=== PATIENT | male | born 1965 | race Hispanic/Latino ===

== ENCOUNTER 2017-02-01 21:57 | Observation (INO) | payer MEDICAID ==
[2017-02-01 21:58] VITALS: PULSE 88
[2017-02-01 22:06] VITALS: BMI 24.1
--- NOTE | 2017-02-01 22:27 | ED PDOC ---
Arrival/HPI - General Chief Complaint: Chest Pain Time Seen by Provider: 02/01/17 22:00 Historian: Patient - History of Present Illness Narrative History of Present Illness (Text): 02/01/17 22:24 Sb Clarke is a 51 year old male who presents to the emergency department complaining of chest pain associated with shortness of breath, lightheadedness, dizziness, and diaphoresis. He states that the pain is non-radiating and L sided. States he was walking when the symptoms presented. Also notes of tingling sensation to fingertips. States he was not recently evaluated by a house fellow. Denies fever, chills, headache, nausea, vomiting, abdominal pain, back pain, urinary symptoms, or any other complaints at this time. PMD: . Time/Duration: 1-3 hours Symptom Course: Intermittent Activities at Onset: Light Context: Walking Past Medical History - Provider Review Nursing Documentation Reviewed: Yes - Past History Past History: No Previous - Infectious Disease Hx of Infectious Diseases: None - Tetanus Immunization Tetanus Immunization: Unknown - Cardiac Hx Cardiac Disorders: Yes Hx Hypertension: Yes (non compliant with meds) - Neurological Hx Migraine: Yes - Hematological/Oncological Hx Blood Transfusions: Yes Hx Blood Transfusion Reaction: No - Integumentary Other/Comment: multiple red abrasions to top of feet and both knees - Musculoskeletal/Rheumatological Hx Falls: Yes - Psychiatric Hx Depression: Yes Hx Emotional Abuse: No Hx Physical Abuse: No Hx Substance Use: No - Past Surgical History Past Surgical History: No Previous - Surgical History Hx Appendectomy: Yes Other/Comment: FACIAL SX, ABDOMINAL HERNIA REPAIR - Anesthesia Hx Anesthesia: Yes Hx Anesthesia Reactions: No Hx Malignant Hyperthermia: No - Suicidal Assessment Feels Threatened In Home Enviroment: No Family/Social History - Physician Review Nursing Documentation Reviewed: Yes Family/Social History: No Known Family HX Smoking Status: Heavy Smoker > 10 Cigarettes Daily Hx Alcohol Use: Yes (weekly) Hx Substance Use: No Hx Substance Use Treatment: No Allergies/Home Meds Allergies/Adverse Reactions: Allergies No Known Allergies Allergy (Verified 09/16/16 06:33) Home Medications: Home Meds Medication Instructions Recorded Confirmed No Known Home Med 02/01/17 02/01/17 Review of Systems - Physician Review All systems were reviewed & negative as marked: Yes - Review of Systems Constitutional: Normal. absent: Fatigue, Fevers Respiratory: SOB. absent: Cough, Sputum Cardiovascular: Chest Pain. absent: Palpitations, Edema Gastrointestinal: absent: Abdominal Pain, Diarrhea, Nausea, Vomiting Genitourinary Male: Normal Neurological: Dizziness. absent: Focal Weakness Psychiatric: Normal Physical Exam Vital Signs Reviewed: Yes Vital Signs Temp Pulse Resp BP Pulse Ox 02/01/17 23:58 98.4 F 64 17 141/78 96 02/01/17 22:09 99 F 106 H 18 145/84 98 Temperature: Afebrile Blood Pressure: Normal Pulse: Tachycardic Respiratory Rate: Normal Appearance: Positive for: Well-Appearing, Non-Toxic, Comfortable Pain Distress: None Mental Status: Positive for: Alert and Oriented X 3 - Systems Exam Head: Present: Atraumatic, Normocephalic Pupils: Present: PERRL Conjunctiva: Present: Normal Mouth: Present: Moist Mucous Membranes Respiratory/Chest: Present: Clear to Auscultation, Good Air Exchange. No: Respiratory Distress, Accessory Muscle Use Cardiovascular: Present: Regular Rate and Rhythm, Normal S1, S2. No: Murmurs Abdomen: Present: Normal Bowel Sounds. No: Tenderness, Distention, Peritoneal Signs Upper Extremity: Present: Normal Inspection. No: Cyanosis, Edema Lower Extremity: Present: Normal Inspection. No: Edema Neurological: Present: GCS=15, CN II-XII Intact, Speech Normal, Motor Func Grossly Intact, Normal Sensory Function Skin: Present: Warm, Dry, Normal Color. No: Rashes Psychiatric: Present: Alert, Oriented x 3, Normal Insight, Normal Concentration Medical Decision Making ED Course and Treatment: 02/01/17 22:28 Impression: A 51 year old male who presents to the emergency department complaining of chest pain associated with shortness of breath while walking earlier today. Concerning for angina. Differential Diagnosis include but are not limited to: Chest pain: r/o ACS Plan: -- EKG -- Labs, cardiac enzymes -- Chest X-ray -- Aspirin -- Reassess and disposition Progress Notes: 02/01/17 22:30 EKG interpreted by me: Sinus Tachycardia @ [address] No [address] elevations. 02/01/17 23:51 Trop x [address] Cardenas and will transfer to tele observation under hospitalist. - Lab Interpretations Lab Results: 02/01/17 22:55 02/01/17 22:55 Lab Results 02/01/17 22:55: Sodium 139, Potassium 3.1 L, Chloride 108 H, Carbon Dioxide 23, Anion Gap 11, BUN 14, Creatinine 0.9, Est GFR ( Amer) > 60, Est GFR (Non- Af Amer) > 60, Random Glucose 226 H, Calcium 8.9, Total Bilirubin 0.6, AST 21, ALT 27, Alkaline Phosphatase 51, Lactate Dehydrogenase 420, Total Creatine Kinase 98, Troponin I < 0.01, Total Protein 6.7, Albumin 3.7, Globulin 3.0, Albumin/Globulin Ratio 1.2 02/01/17 22:55: D-Dimer, Quantitative 0.26 02/01/17 22:55: WBC 5.8 D, RBC 4.44, Hgb 13.6 L, Hct 39.7 L, MCV 89.4, MCH 30.6 , MCHC 34.3, RDW 12.7, Plt Count 136, MPV 12.5 H, Gran % 67.7, Lymph % (Auto) 22.5, [place] % (Auto) 7.6 H, Eos % (Auto) 1.9, Baso % (Auto) 0.3, Gran # 3.90, Lymph # 1.3, [place] # 0.4, Eos # 0.1, Baso # 0.02 - RAD Interpretation Radiology Orders: 02/01/17 22:23 CHEST PORTABLE [RAD] Stat - Medication Orders Current Medication Orders: Discontinued Medications Aspirin (Aspirin Chewable) 324 mg PO STAT STA Stop: 02/01/17 22:24 Last Admin: 02/01/17 22:38 Dose: 324 mg Potassium Chloride (K-Dur 20 Meq Er Tab) 40 meq PO STAT STA Stop: 02/01/17 23:46 - Scribe Statement The provider has reviewed the documentation as recorded by the Kayele Akhtar Provider Attestation: Provider Scribe Attestation: All medical record entries made by the Scribe were at my direction and personally dictated by me. I have reviewed the chart and agree that the record accurately reflects my personal performance of the history, physical exam, medical decision making, and the department course for this patient. I have also personally directed, reviewed, and agree with the discharge instructions and disposition. Disposition/Present on Arrival - Present on Arrival Any Indicators Present on Arrival: No History of DVT/PE: No History of Uncontrolled Diabetes: No Urinary Catheter: No History of Decub. Ulcer: No History Surgical Site Infection Following: None - Disposition Have Diagnosis and Disposition been Completed?: Yes Diagnosis: Chest pain Disposition: HOSPITALIZED Disposition Time: 00:12 Patient Plan: Observation Condition: FAIR
[2017-02-01 23:02] LABS: ADD MANUAL DIFF? NO
[2017-02-01 23:08] LABS: BASO # 0.02 K/mm3 (0.0-2.0); BASO % 0.3 % (0.0-3.0); EOS # 0.1 (0.0-0.7); EOS % 1.9 % (1.5-5.0); GRAN % 67.7 % (50.0-68.0); HEMATOCRIT 39.7 % (42.0-52.0); LYMPH # 1.3 (1.2-3.4); LYMPH % 22.5 % (22.0-35.0); MEAN CELL VOLUME 89.4 fL (80.0-105.0); MEAN CORPUSCULAR HEMOGLOBIN 30.6 pg (25.0-35.0); MEAN CORPUSCULAR HGB CONC 34.3 g/dl (31.0-37.0); MEAN PLATELET VOLUME 12.5 fl (7.0-11.0); MONO # 0.4 (0.1-0.6); MONO % 7.6 % (1.0-6.0); PLATELET COUNT 136 10^3/uL (120.0-450.0); RED CELL DISTRIBUTION WIDTH 12.7 % (11.5-14.5); WHITE BLOOD COUNT 5.8 10^3/ul (4.5-11.0)
[2017-02-01 23:14] LABS: ALB/GLOB RATIO 1.2 (1.1-1.8); ALKALINE PHOSPHATASE 51 U/L (38-133); ALT/SGPT 27 U/L (7-56); AST/SGOT 21 U/L (15-59); BILIRUBIN,TOTAL 0.6 mg/dL (0.2-1.3); BLOOD UREA NITROGEN 14 mg/dL (7-21); CALCIUM 8.9 mg/dL (8.4-10.5); CARBON DIOXIDE 23 mmol/L (21-33); CHLORIDE 108 mmol/L (98-107); GFR AFRICAN-AMERICAN > 60; GLUCOSE,RANDOM 226 mg/dL (70-110); POTASSIUM 3.1 mmol/L (3.6-5.0); SODIUM 139 mmol/L (132-148); TOTAL PROTEIN 6.7 g/dL (5.8-8.3)
[2017-02-01 23:26] LABS: TROPONIN I < 0.01 ng/mL
[2017-02-01] MEDS ORDERED: Potassium Chloride 20 mEq ER Tab PO STA (23:45)
--- NOTE | 2017-02-02 01:51 | CP.PCM.HP ---
<Hi Barry - Last Filed: 02/02/17 01:33> History of Present Illness - History of Present Illness History of Present Illness: CC: chest pain 51 year old male with past medical history of alcoholic cardiomyopathy , anxiety, depression, and facial bone fractures presents to [facility] ED with left sided chest pain. Patient reports the chest pain started tonight at 9:30pm while he was walking in [facility]. The chest pain had a sudden onset, it is located at left side of the chest pain, tightness in quality, non-radiating, and 8/10 in intensity. The pain is not exacerbated with activity. Patient also complains of feeling numbness and tingling sensation in his left fingertips. Other associated symptoms include shortness of breath, lightheadedness, dizziness, and diaphoresis. Patient's most recent echocardiogram was done on 2015 with EF of 50.4%. He does not have an outpatient eight section blower. Patient states he sees his PMD regularly and no medications were ever prescribed to him. Patient denies having trauma, headache, weakness, fever, chills, abdominal pain, nausea, vomiting, diarrhea, or urinary symptoms. PMD: Dr. Vinson PMHx: alcoholic cardiomyopathy, anxiety, depression, and facial bone fractures PSHx: hernia repair, facial bone repair Allergy: NKDA Social Hx: active smoker (1 pack/day for 3 years), social alcohol drinker, former cocaine and marijuana use Family Hx: Mother-HTN, DM, father-HTN Home meds: none Present on Admission - Present on Admission Any Indicators Present on Admission: No History of DVT/PE: No History of Uncontrolled Diabetes: No Review of Systems - Constitutional Constitutional: As Per HPI. absent: Chills, Fever - EENT Eyes: As Per HPI. absent: Blurred Vision, Loss of Vision Ears: As Per HPI. absent: Dizziness Nose/Mouth/Throat: As Per HPI. absent: Nasal Congestion, Dry Mouth - Cardiovascular Cardiovascular: As Per HPI, Chest Pain, Chest Pain at Rest, Diaphoresis, Lightheadedness. absent: Chest Pain with Activity, Leg Edema, Syncope - Respiratory Respiratory: As Per HPI, Dyspnea. absent: Wheezing - Gastrointestinal Gastrointestinal: As Per HPI. absent: Diarrhea, Nausea, Vomiting - Musculoskeletal Musculoskeletal: As Per HPI. absent: Back Pain - Integumentary Integumentary: As Per HPI. absent: Pruritus, Swelling - Neurological Neurological: As Per HPI, Dizziness. absent: Focal Weakness - Psychiatric Psychiatric: As Per HPI. absent: Confusion, Depression - Endocrine Endocrine: As Per HPI - Hematologic/Lymphatic Hematologic: As Per HPI Past Patient History - Infectious Disease Hx of Infectious Diseases: None - Tetanus Immunizations Tetanus Immunization: Unknown - Past Social History Smoking Status: Heavy Smoker > 10 Cigarettes Daily - CARDIAC Hx Cardiac Disorders: Yes Hx Hypertension: Yes (non compliant with meds) - NEUROLOGICAL Hx Migraine: Yes - HEMATOLOGICAL/ONCOLOGICAL Hx Blood Transfusions: Yes Hx Blood Transfusion Reaction: No - INTEGUMENTARY Other/Comment: multiple red abrasions to top of feet and both knees - MUSCULOSKELETAL/RHEUMATOLOGICAL Hx Falls: Yes - GASTROINTESTINAL Hx Ulcer: Yes (x6 17 yrs ago and 3 yrs ago) - PSYCHIATRIC Hx Depression: Yes Hx Emotional Abuse: No Hx Physical Abuse: No Hx Substance Use: No - SURGICAL HISTORY Hx Appendectomy: Yes Other/Comment: FACIAL SX, ABDOMINAL HERNIA REPAIR - ANESTHESIA Hx Anesthesia: Yes Hx Anesthesia Reactions: No Hx Malignant Hyperthermia: No Meds Allergies/Adverse Reactions: Allergies Allergy/AdvReac Type Severity Reaction Status Date / Time No Known Allergies Allergy Verified 09/16/16 06:33 Physical Exam - Constitutional Appears: Well, Non-toxic, No Acute Distress - Head Exam Head Exam: ATRAUMATIC, NORMAL INSPECTION, NORMOCEPHALIC - Eye Exam Eye Exam: EOMI, Normal appearance, PERRL - ENT Exam ENT Exam: Mucous Membranes Moist - Neck Exam Neck exam: Positive for: Normal Inspection - Respiratory Exam Respiratory Exam: Clear to Auscultation Bilateral, NORMAL BREATHING PATTERN. absent: Wheezes, Respiratory Distress, Stridor - Cardiovascular Exam Cardiovascular Exam: REGULAR RHYTHM, RRR, +S1, +S2 - GI/Abdominal Exam GI & Abdominal Exam: Normal Bowel Sounds, Soft. absent: Tenderness - Extremities Exam Extremities exam: Positive for: normal capillary refill, normal inspection, pedal pulses present. Negative for: pedal edema - Back Exam Back exam: NORMAL INSPECTION - Neurological Exam Neurological exam: Alert, CN II-XII Intact, Oriented x3 - Psychiatric Exam Psychiatric exam: Normal Affect, Normal Mood - Skin Skin Exam: Dry, Intact, Warm Results - Vital Signs Recent Vital Signs: Last Vital Signs Temp 98.4 F 02/01/17 23:58 Pulse 64 02/01/17 23:58 Resp 17 02/01/17 23:58 BP 141/78 02/01/17 23:58 Pulse Ox 96 02/01/17 23:58 - Labs Result Diagrams: 02/01/17 22:55 02/01/17 22:55 Assessment & Plan - Assessment and Plan (Free Text) Assessment: 51 year old male with past medical history of alcoholic cardiomyopathy, anxiety , depression, and facial bone fractures presents with left sided chest pain Plan: Chest pain r/o ACS -ASA given in the ED -CXR showed no active disease -EKG showed NSR at [address] changes. LVH -Troponin negative, repeats pending -Heart healthy diet -Cardiology consult, Dr. Ordoñez help appreciated Hypokalemia -Potassium 3.1 on admission -40meq KCl po given -Follow up AM labs Tobacco abuse -Nicotine patch daily -Cessation was strongly advised Prophylactic measures -Protonix for GI ppx -SCD for DVT ppx <Enzo Cardenas - Last Filed: 02/02/17 02:59> Results - Vital Signs Recent Vital Signs: Last Vital Signs Temp 98.4 F 02/01/17 23:58 Pulse 64 02/01/17 23:58 Resp 17 02/01/17 23:58 BP 141/78 02/01/17 23:58 Pulse Ox 96 02/01/17 23:58 - Labs Result Diagrams: 02/01/17 22:55 02/01/17 22:55 Attending/Attestation - Attestation I have personally seen and examined this patient.: Yes I have fully participated in the care of the patient.: Yes I have reviewed all pertinent clinical information: Yes Notes (Text): 02/02/17 02:58 Patient was seen when he was in the ER in bed # 3. Agree with history, physical examination , assessment and plan.
[2017-02-02] MEDS: Pantoprazole 40 mg EC Tab PO SCH (05:33)
[2017-02-02 06:48] LABS: ADD MANUAL DIFF? NO
[2017-02-02 07:15] LABS: BLOOD UREA NITROGEN 16 mg/dL (7-21); CALCIUM 8.8 mg/dL (8.4-10.5); CARBON DIOXIDE 26 mmol/L (21-33); CHLORIDE 109 mmol/L (98-107); GFR AFRICAN-AMERICAN > 60; GLUCOSE,RANDOM 72 mg/dL (70-110); POTASSIUM 3.6 mmol/L (3.6-5.0); SODIUM 141 mmol/L (132-148)
[2017-02-02 07:18] LABS: BASO # 0.04 K/mm3 (0.0-2.0); BASO % 0.7 % (0.0-3.0); EOS # 0.1 (0.0-0.7); EOS % 2.6 % (1.5-5.0); GRAN # 2.92 (1.4-6.5); GRAN % 53.3 % (50.0-68.0); LYMPH # 1.9 (1.2-3.4); LYMPH % 34.6 % (22.0-35.0); MEAN CELL VOLUME 89.7 fL (80.0-105.0); MEAN CORPUSCULAR HEMOGLOBIN 30.6 pg (25.0-35.0); MEAN CORPUSCULAR HGB CONC 34.1 g/dl (31.0-37.0); MEAN PLATELET VOLUME 12.9 fl (7.0-11.0); MONO # 0.5 (0.1-0.6); MONO % 8.8 % (1.0-6.0); PLATELET COUNT 148 10^3/uL (120.0-450.0); RED CELL DISTRIBUTION WIDTH 12.7 % (11.5-14.5); WHITE BLOOD COUNT 5.5 10^3/ul (4.5-11.0)
[2017-02-02 07:23] LABS: TROPONIN I < 0.01 ng/mL
--- NOTE | 2017-02-02 08:21 | RAD ---
HISTORY: Chest pain COMPARISON: 09/17/2016 FINDINGS: LUNGS: The lungs are well inflated and clear. PLEURA: No significant pleural effusion identified, no pneumothorax apparent. CARDIOVASCULAR: Normal. OSSEOUS STRUCTURES: No significant abnormalities. VISUALIZED UPPER ABDOMEN: Normal. OTHER FINDINGS: None. IMPRESSION: No active pulmonary disease.
--- NOTE | 2017-02-02 11:33 | CON ---
DATE: 02/02/2017 HISTORY OF PRESENT ILLNESS: The patient is a 51-year-old male with a long history of smoking who pre sents with one episode of substernal chest pain while ambulating. His symptoms are now resolved. There is mild dyspnea associated. PAST MEDICAL HISTORY: Free of cardiac disease. The patient is on no medications. No diabetes melli tus. No hypertension, no hypercholesterolemia. SOCIAL HISTORY: The patient is a former heavy drinker who states he has cut back much. SOCIAL HISTORY: Still smokes a pack a day. REVIEW OF SYSTEMS: A 14-point review of systems was reviewed in detail. No chest pain now. No dysp laure now. The patient was able to ambulate on the floor without symptoms. PHYSICAL EXAMINATION: VITAL SIGNS: Blood pressure is 110/68, heart rate is in the 60s. NECK: Negative JVD. LUNGS: Without rales. HEART: Revealed S1, S2. EXTREMITIES: Without edema. LABORATORIES: Includes an EKG that shows normal sinus rhythm with no acute changes. Troponins are negative x 2. BUN and creatinine unremarkable. The hemoglobin is 13.3. DIAGNOSES: 1. Transient chest pain. 2. High probability for coronary artery disease. 3. Chronic obstructive pulmonary disease. 4. Mild dyspnea. Given these findings, there is no evidence for acute coronary syndrome. We will arrange for an outpa tient stress test next week on Sunday. I have discussed with the patient about the need for daily aspirin as well as to stop smoking. The p atient should be discharged on a nicotine patch. Dat Ordoñez MD cc: [id number] TT: 02/02/2017 11:32:35 Confirmation # [id number] Dictation # [id number] radha
[2017-02-02] MEDS: Enoxaparin 80 mg Syringe SC SCH ×2 (12:07→22:19)
[2017-02-02 13:21] LABS: TROPONIN I < 0.01 ng/mL
--- NOTE | 2017-02-02 18:58 | CARD ---
APPROVED REPORT EKG Measurement Heart [id number] <Conclusion> Sinus bradycardia Moderate voltage criteria for LVH, may be normal variant Borderline ECG
--- NOTE | 2017-02-02 19:06 | CARD ---
APPROVED REPORT EKG Measurement Heart [id number] <Conclusion> Sinus tachycardia Possible Left atrial enlargement RSR' or QR pattern in V1 suggests right ventricular conduction delay Left ventricular hypertrophy Abnormal ECG
[2017-02-03] MEDS: Pantoprazole 40 mg EC Tab PO SCH (05:44)
[2017-02-03 07:43] LABS: ADD MANUAL DIFF? NO
[2017-02-03 07:58] LABS: BASO # 0.02 K/mm3 (0.0-2.0); BASO % 0.4 % (0.0-3.0); EOS # 0.2 (0.0-0.7); EOS % 2.9 % (1.5-5.0); GRAN # 3.06 (1.4-6.5); GRAN % 54.4 % (50.0-68.0); HEMATOCRIT 38.6 % (42.0-52.0); LYMPH # 1.9 (1.2-3.4); MEAN CELL VOLUME 87.7 fL (80.0-105.0); MEAN CORPUSCULAR HEMOGLOBIN 30.2 pg (25.0-35.0); MEAN CORPUSCULAR HGB CONC 34.5 g/dl (31.0-37.0); MEAN PLATELET VOLUME 12.7 fl (7.0-11.0); MONO # 0.5 (0.1-0.6); MONO % 9.3 % (1.0-6.0); PLATELET COUNT 146 10^3/uL (120.0-450.0); RED CELL DISTRIBUTION WIDTH 12.5 % (11.5-14.5); WHITE BLOOD COUNT 5.6 10^3/ul (4.5-11.0)
[2017-02-03 08:03] LABS: ALB/GLOB RATIO 1.1 (1.1-1.8); ALKALINE PHOSPHATASE 50 U/L (38-133); ALT/SGPT 33 U/L (7-56); AST/SGOT 19 U/L (15-59); BILIRUBIN,TOTAL 0.5 mg/dL (0.2-1.3); BLOOD UREA NITROGEN 14 mg/dL (7-21); CALCIUM 8.8 mg/dL (8.4-10.5); CARBON DIOXIDE 27 mmol/L (21-33); CHLORIDE 108 mmol/L (98-107); GFR AFRICAN-AMERICAN > 60; GLUCOSE,RANDOM 87 mg/dL (70-110); POTASSIUM 3.8 mmol/L (3.6-5.0); SODIUM 140 mmol/L (132-148); TOTAL PROTEIN 6.5 g/dL (5.8-8.3)
[2017-02-03] MEDS: Enoxaparin 80 mg Syringe SC SCH ×2 (10:52→22:43)
--- NOTE | 2017-02-03 18:03 | PN ---
DATE: 02/03/2017 This patient is in room 266, bed 1. This note is being dictated on behalf of Dr. Ordoñez, whom I am cov ering. HISTORY OF PRESENT ILLNESS: The patient is a 51-year-old male who presented with substernal chest pa in while ambulating. The patient is chest pain free, now lying flat in bed without any cardiac sympt oms at the present moment. PHYSICAL EXAMINATION: VITAL SIGNS: Blood pressure is 116/70, respirations 21, pulse 59, temperature 97.1. HEAD: Normocephalic. EYES: Pupils normal. Conjunctivae normal. NOSE AND THROAT: Normal. NECK: JVP low. Carotid equal. THORAX: AP diameter normal. LUNGS: Clear. CARDIOVASCULAR: S1, S2. ABDOMEN: Soft, nontender, no organomegaly. Bowel sounds normal. EXTREMITIES: No clubbing, no cyanosis. LABORATORY DATA: WBC 5.6, hemoglobin 13.3, hematocrit 38.6, platelet 146. Sodium 140, potassium 3.8 , BUN 14, creatinine 0.9. AST and ALT normal. Total protein and albumin normal. Troponin x 3 negat tr. DIAGNOSES: Chest pain, chronic obstructive pulmonary disease. PLAN: The patient is already scheduled for cardiac catheterization on Sunday. In the meantime, the patient is getting aspirin 81 mg daily, metoprolol 25 b.i.d., Lovenox 74 mg subQ q.12 hours. Plavix 300 mg was given yesterday; today the patient is getting 75 mg daily. Protonix 40 daily. Will cash nue to follow. Rick Knowles MD cc: [id number] TT: 02/03/2017 18:03:06 Confirmation # [id number] Dictation # [id number] dn
--- NOTE | 2017-02-03 19:58 | CP.PCM.PN ---
<Yessenia Spicer - Last Filed: 02/03/17 20:00> Subjective - Date & Time of Evaluation Date of Evaluation: 02/03/17 Time of Evaluation: 09:35 - Subjective Subjective: Pt seen and evaluated at bedside. Pt reports continued L chest pain, lessening from day before. Denies N/V, abdominal pain. Afebrile overnight. Objective - Vital Signs/Intake and Output Vital Signs (last 24 hours): Temp Pulse Resp BP Pulse Ox 98.5 F 65 19 163/62 H 98 02/03/17 18:26 02/03/17 18:00 02/03/17 18:00 02/03/17 18:00 02/03/17 05:51 - Medications Medications: Current Medications Acetaminophen (Tylenol 325mg Tab) 650 mg PO Q6H PRN PRN Reason: Fever >100.4 F Last Admin: 02/03/17 18:26 Dose: 650 mg Aspirin (Aspirin Chewable) 81 mg PO DAILY [facility] Last Admin: 02/03/17 10:51 Dose: 81 mg Clopidogrel Bisulfate (Plavix) 75 mg PO DAILY [facility] Last Admin: 02/03/17 10:51 Dose: 75 mg Enoxaparin Sodium (Lovenox) 74 mg SC Q12H [facility] PRN Reason: Protocol Stop: 02/04/17 12:00 Last Admin: 02/03/17 10:52 Dose: 74 mg Metoprolol Tartrate (Lopressor) 25 mg PO BID [facility] Last Admin: 02/03/17 17:54 Dose: 25 mg Nicotine (Nicoderm Cq) 1 patch TD DAILY [facility] Last Admin: 02/03/17 10:52 Dose: 1 patch Pantoprazole Sodium (Protonix Ec Tab) 40 mg PO 0630 [facility] Last Admin: 02/03/17 05:44 Dose: 40 mg - Labs Labs: 02/03/17 07:39 02/03/17 07:39 - Constitutional Appears: Non-toxic, No Acute Distress - Head Exam Head Exam: ATRAUMATIC, NORMOCEPHALIC - Eye Exam Eye Exam: EOMI, Normal appearance - Respiratory Exam Respiratory Exam: Clear to Ausculation Bilateral, NORMAL BREATHING PATTERN - Cardiovascular Exam Cardiovascular Exam: +S1, +S2. absent: Tachycardia - GI/Abdominal Exam GI & Abdominal Exam: Soft. absent: Tenderness - Exam External exam: absent: Ecchymosis, Erythema - Extremities Exam Extremities Exam: absent: Pedal Edema, Tenderness - Back Exam Back Exam: absent: CVA tenderness (L), CVA tenderness (R) - Neurological Exam Neurological Exam: Alert, Awake - Psychiatric Exam Psychiatric exam: Normal Affect, Normal Mood - Skin Skin Exam: Intact, Normal Color Assessment and Plan - Assessment and Plan (Free Text) Plan: 51 year old male with past medical history of alcoholic cardiomyopathy, anxiety , depression, and facial bone fractures presents with left sided chest pain. Chest pain r/o ACS -ASA given in the ED -CXR showed no active disease, EKG showed NSR at [address] changes. LVH -Troponin negative x3 -Heart healthy diet -Cardiology consult, Dr. Ordoñez help appreciated -plan for cardiac cath on sunday Hypokalemia -Potassium 3.1 on admission, repleted -Follow up AM labs Tobacco abuse -Nicotine patch daily -Cessation was strongly advised Prophylactic measures -Protonix for GI ppx -SCD for DVT ppx <Nora Joshi - Last Filed: 02/03/17 21:47> Objective - Vital Signs/Intake and Output Vital Signs (last 24 hours): Temp Pulse Resp BP Pulse Ox 98.5 F 65 19 163/62 H 98 02/03/17 18:26 02/03/17 18:00 02/03/17 18:00 02/03/17 18:00 02/03/17 05:51 - Medications Medications: Current Medications Acetaminophen (Tylenol 325mg Tab) 650 mg PO Q6H PRN PRN Reason: Fever >100.4 F Last Admin: 02/03/17 18:26 Dose: 650 mg Aspirin (Aspirin Chewable) 81 mg PO DAILY [facility] Last Admin: 02/03/17 10:51 Dose: 81 mg Clopidogrel Bisulfate (Plavix) 75 mg PO DAILY [facility] Last Admin: 02/03/17 10:51 Dose: 75 mg Enoxaparin Sodium (Lovenox) 74 mg SC Q12H [facility] PRN Reason: Protocol Stop: 02/04/17 12:00 Last Admin: 02/03/17 10:52 Dose: 74 mg Metoprolol Tartrate (Lopressor) 25 mg PO BID [facility] Last Admin: 02/03/17 17:54 Dose: 25 mg Nicotine (Nicoderm Cq) 1 patch TD DAILY [facility] Last Admin: 02/03/17 10:52 Dose: 1 patch Pantoprazole Sodium (Protonix Ec Tab) 40 mg PO 0630 [facility] Last Admin: 02/03/17 05:44 Dose: 40 mg - Labs Labs: 02/03/17 07:39 02/03/17 07:39 Attending/Attestation - Attestation I have personally seen and examined this patient.: Yes I have fully participated in the care of the patient.: Yes I have reviewed all pertinent clinical information, including history, physical exam and plan: Yes Notes (Text): 02/03/17 21:45 Patient seen and examined at bedside with the resident. Continues to have some left chest discomfort but slightly better than admission. Labs, vitals and orders reviewed. Plan for cardiac cath on Sunday. Continue Therapeutic AC with lovenox and telemetry monitoring. Discussed and agree with the plan outlined above by the resident. Monitor/replete electrolytes.
[2017-02-04] MEDS: Pantoprazole 40 mg EC Tab PO SCH (05:30)
[2017-02-04 08:04] LABS: HEMATOCRIT 40.1 % (42.0-52.0); MEAN CELL VOLUME 88.1 fL (80.0-105.0); MEAN CORPUSCULAR HEMOGLOBIN 30.3 pg (25.0-35.0); MEAN CORPUSCULAR HGB CONC 34.4 g/dl (31.0-37.0); RED CELL DISTRIBUTION WIDTH 12.4 % (11.5-14.5); WHITE BLOOD COUNT 5.5 10^3/ul (4.5-11.0)
[2017-02-04 08:22] LABS: BLOOD UREA NITROGEN 12 mg/dL (7-21); CALCIUM 9.1 mg/dL (8.4-10.5); CARBON DIOXIDE 29 mmol/L (21-33); CHLORIDE 105 mmol/L (98-107); GFR AFRICAN-AMERICAN > 60; GLUCOSE,RANDOM 87 mg/dL (70-110); POTASSIUM 4.3 mmol/L (3.6-5.0); SODIUM 140 mmol/L (132-148)
[2017-02-04] MEDS: Enoxaparin 80 mg Syringe SC SCH (11:02)
--- NOTE | 2017-02-04 13:42 | PN ---
DATE: 02/04/2017 The patient is in room 266, bed 1. This note is being dictated on behalf of Dr. Ordoñez, whom I am mary carmen shah. HISTORY OF PRESENT ILLNESS: The patient is a 51-year-old male, presented with left-sided chest pain. The patient still has chest pain, lying flat in bed without shortness of breath or palpitation. PHYSICAL EXAMINATION: VITAL SIGNS: Blood pressure 128/84, respirations 20, pulse 61, temperature 97.8. HEAD: Normocephalic. EYES: Pupils normal. Conjunctivae normal. NOSE AND THROAT: Normal. NECK: JVP low. Carotid equal. THORAX: AP diameter normal. LUNGS: Clear. CARDIOVASCULAR: S1, S2. ABDOMEN: Soft, no tenderness, no organomegaly. Bowel sounds normal. EXTREMITIES: No clubbing, no cyanosis. LABORATORIES: WBC 5.5, hemoglobin 13.8, hematocrit 40.1, platelet 139. Sodium 140, potassium 4.3, B UN 12, creatinine 0.9, calcium 9.1. Troponin x 3 negative. DIAGNOSES: Chest pain, chronic obstructive pulmonary disease. PLAN: The patient is scheduled for cardiac catheterization tomorrow morning. In the meantime, cash gallegos present therapy with aspirin, Plavix, metoprolol and Protonix. Dr. Ordoñez will follow the patient starting tomorrow. Rick Knowles MD cc: [id number] TT: 02/04/2017 13:41:23 Confirmation # [id number] Dictation # [id number]
--- NOTE | 2017-02-04 16:57 | CP.PCM.PN ---
Subjective - Date & Time of Evaluation Date of Evaluation: 02/04/17 Time of Evaluation: 10:30 - Subjective Subjective: Patient seen and examined at bedside with the resident. No overnight issues reported. Patient feels better overall but still has the atypical chest discomfort. He denies any new complaints, admits to some anxiety and stress in life. Vitals, labs, notes and medications reviewed Objective - Vital Signs/Intake and Output Vital Signs (last 24 hours): Temp Pulse Resp BP Pulse Ox 98.4 F 75 20 126/82 100 02/04/17 12:00 02/04/17 14:00 02/04/17 12:00 02/04/17 12:00 02/04/17 05:42 Intake and Output: 02/04/17 02/04/17 06:59 18:59 Intake Total 480 240 Output Total 700 Balance -220 240 - Medications Medications: Current Medications Acetaminophen (Tylenol 325mg Tab) 650 mg PO Q6H PRN PRN Reason: Fever >100.4 F Last Admin: 02/03/17 18:26 Dose: 650 mg Alprazolam (Xanax) 0.25 mg PO Q8 PRN; Protocol PRN Reason: Anxiety Stop: 02/11/17 14:01 Last Admin: 02/04/17 11:03 Dose: 0.25 mg Aspirin (Aspirin Chewable) 81 mg PO DAILY [facility] Last Admin: 02/04/17 10:08 Dose: 81 mg Clopidogrel Bisulfate (Plavix) 75 mg PO DAILY [facility] Last Admin: 02/04/17 10:08 Dose: 75 mg Metoprolol Tartrate (Lopressor) 25 mg PO BID [facility] Last Admin: 02/04/17 10:08 Dose: 25 mg Nicotine (Nicoderm Cq) 1 patch TD DAILY [facility] Last Admin: 02/04/17 10:08 Dose: 1 patch Pantoprazole Sodium (Protonix Ec Tab) 40 mg PO 0630 [facility] Last Admin: 02/04/17 05:30 Dose: 40 mg - Labs Labs: 02/04/17 07:54 02/04/17 07:54 - Constitutional Appears: Well, Non-toxic, No Acute Distress - Head Exam Head Exam: ATRAUMATIC, NORMAL INSPECTION - Eye Exam Eye Exam: Normal appearance, PERRL - ENT Exam ENT Exam: Mucous Membranes Moist, Normal Exam - Neck Exam Neck Exam: Full ROM, Normal Inspection - Respiratory Exam Respiratory Exam: Clear to Ausculation Bilateral, NORMAL BREATHING PATTERN - Cardiovascular Exam Cardiovascular Exam: RRR, +S1, +S2 - GI/Abdominal Exam GI & Abdominal Exam: Soft, Normal Bowel Sounds - Rectal Exam Rectal Exam: Deferred - Extremities Exam Extremities Exam: Full ROM, Normal Capillary Refill - Back Exam Back Exam: Full ROM, NORMAL INSPECTION - Neurological Exam Neurological Exam: Alert, Oriented x3 - Psychiatric Exam Psychiatric exam: Anxious, Normal Affect - Skin Skin Exam: Normal Color, Warm Assessment and Plan - Assessment and Plan (Free Text) Plan: 1. Atypical Chest Pain -ACS ruled out with normal cardiac enzymes and EKGs -continue ASA, plavix, BBlockers, Therap. Lovenox -Cardiac Cath on Sunday -Heart healthy diet 2. Anxiety -Trial of Xanax prn. 3.Tobacco abuse -Nicotine patch daily -Cessation was strongly advised 4.Prophylactic measures -Protonix for GI ppx -on Therap. Lovenox for DVT ppx
[2017-02-05] MEDS: Pantoprazole 40 mg EC Tab PO SCH (05:35)
[2017-02-05 05:53] VITALS: O2SAT 97
[2017-02-05 06:54] LABS: MEAN CELL VOLUME 88.6 fL (80.0-105.0); MEAN CORPUSCULAR HEMOGLOBIN 30.5 pg (25.0-35.0); MEAN CORPUSCULAR HGB CONC 34.4 g/dl (31.0-37.0); RED CELL DISTRIBUTION WIDTH 12.5 % (11.5-14.5); WHITE BLOOD COUNT 5.2 10^3/ul (4.5-11.0)
[2017-02-05 07:20] LABS: BLOOD UREA NITROGEN 13 mg/dL (7-21); CARBON DIOXIDE 30 mmol/L (21-33); CHLORIDE 106 mmol/L (98-107); GFR AFRICAN-AMERICAN > 60; GLUCOSE,RANDOM 88 mg/dL (70-110); POTASSIUM 3.9 mmol/L (3.6-5.0); SODIUM 142 mmol/L (132-148)
[2017-02-05] MEDS ORDERED: Lidocaine 2% Inj (20ml) ONE (09:14)
[2017-02-05] MEDS ORDERED: Iodixanol 320 MG/ML 200 ML BOTTLE IV ONE (09:14)
[2017-02-05] MEDS ORDERED: Midazolam 2 MG/2 ML VIAL ONE ×2 (09:55→10:24)
[2017-02-05] MEDS ORDERED: Nitroglycerin 50mg in D5W 50 MG/250 ML BOTTLE IV ONE (10:34)
[2017-02-05] MEDS ORDERED: Sodium Chloride 0.9% 1,000 ML IV SCH (10:45)
[2017-02-05] MEDS ORDERED: diltiaZEM 180 mg/24 Hours CD Cap PO SCH (11:00)
--- NOTE | 2017-02-05 13:11 | CARDCATH ---
PROCEDURE DATE: 02/05/2017 HISTORY OF PRESENT ILLNESS: The patient is a 51-year-old male who presents with persistent exertiona l angina. The patient is a heavy smoker. Because of his ongoing symptoms, cardiac catheterization was recommended. PROCEDURE: Left heart catheterization with coronary angiography and left ventriculogram. The right femoral artery was cannulated with a 6-Portuguese sheath. There were no complications. The findings on catheterization revealed a left ventricle that contracted normally. Estimated ejecti on fraction is 60%. His coronary anatomy revealed a right dominant circulation. The RCA revealed intimal irregularities without critical lesions. The left main artery was unremarkable. The circumflex artery and obtuse marginal branches revealed intimal irregularities without significan t stenosis. The LAD revealed a long 60% stenosis in the mid portion. After 200 mcg of IC nitroglycerin, the 60% stenosis was reduced to 40%-50% with DANIELA 3 flow. Angio-Seal was used to close the femoral artery site. The patient tolerated the procedure well. SUMMARY: The procedure revealed: 1. Single vessel coronary artery disease with a 60% stenosis in the mid left anterior descending, wh ich improved with intracoronary nitroglycerin. 2. Left ventricular function is normal. 3. X-ray is consistent with chronic obstructive pulmonary disease and possible emphysema. Given these findings, the patient's treatment should be: 1. Aspirin. 2. Calcium channel aron with diltiazem 180 daily to reduce spasm. 3. Statin therapy. 4. Cessation of smoking program. I have discussed this with the patient in detail. Dat Ordoñez MD cc: [phone] TT: 02/05/2017 13:11:15 en
[2017-02-05 18:05] VITALS: BP 134/86; PULSE 105; RESP 22; TEMP 98.5
--- NOTE | 2017-02-05 18:26 | CP.PCM.DIS ---
<Lauro Manjarrez - Last Filed: 02/05/17 19:38> Provider - Provider Date of Admission: 02/03/17 08:33 Attending physician: Yohan García MD Primary care physician: Enedina Vinson MD Consults: Cardio: Dr. Ordoñez Time Spent in preparation of Discharge (in minutes): 45 Diagnosis - Discharge Diagnosis (1) Chest pain Status: Acute Priority: High (2) Shortness of breath Status: Acute Priority: Medium (3) Tobacco abuse Status: Chronic Priority: Medium Hospital Course - Lab Results Lab Results: Most Recent Lab Values WBC 5.2 10^3/ul (4.5-11.0) 02/05/17 05:10 RBC 4.63 10^6/uL (3.5-6.1) 02/05/17 05:10 Hgb 14.1 gm/dL (14.0-18.0) 02/05/17 05:10 Hct 41.0 % (42.0-52.0) L 02/05/17 05:10 MCV 88.6 fL (80.0-105.0) 02/05/17 05:10 MCH 30.5 pg (25.0-35.0) 02/05/17 05:10 MCHC 34.4 g/dl (31.0-37.0) 02/05/17 05:10 RDW 12.5 % (11.5-14.5) 02/05/17 05:10 Plt Count 134 10^3/uL (120.0-450.0) 02/05/17 05:10 MPV 12.0 fl (7.0-11.0) H 02/05/17 05:10 Gran % 54.4 % (50.0-68.0) 02/03/17 07:39 Lymph % (Auto) 33.0 % (22.0-35.0) 02/03/17 07:39 [place] % (Auto) 9.3 % (1.0-6.0) H 02/03/17 07:39 Eos % (Auto) 2.9 % (1.5-5.0) 02/03/17 07:39 Baso % (Auto) 0.4 % (0.0-3.0) 02/03/17 07:39 Gran # 3.06 (1.4-6.5) 02/03/17 07:39 Lymph # 1.9 (1.2-3.4) 02/03/17 07:39 [place] # 0.5 (0.1-0.6) 02/03/17 07:39 Eos # 0.2 (0.0-0.7) 02/03/17 07:39 Baso # 0.02 K/mm3 (0.0-2.0) 02/03/17 07:39 D-Dimer, Quantitative 0.26 mg/L FEU (0-0.50) 02/01/17 22:55 Sodium 142 mmol/L (132-148) 02/05/17 06:30 Potassium 3.9 mmol/L (3.6-5.0) 02/05/17 06:30 Chloride 106 mmol/L (98-107) 02/05/17 06:30 Carbon Dioxide 30 mmol/L (21-33) 02/05/17 06:30 Anion Gap 10 (10-20) 02/05/17 06:30 BUN 13 mg/dL (7-21) 02/05/17 06:30 Creatinine 0.9 mg/dL (0.5-1.4) 02/05/17 06:30 Est GFR ( Amer) > 60 02/05/17 06:30 Est GFR (Non-Af Amer) > 60 02/05/17 06:30 Random Glucose 88 mg/dL (70-110) 02/05/17 06:30 Calcium 9.0 mg/dL (8.4-10.5) 02/05/17 06:30 Total Bilirubin 0.5 mg/dL (0.2-1.3) 02/03/17 07:39 AST 19 U/L (15-59) 02/03/17 07:39 ALT 33 U/L (7-56) 02/03/17 07:39 Alkaline Phosphatase 50 U/L (38-133) 02/03/17 07:39 Lactate Dehydrogenase 384 U/L (333-699) 02/02/17 12:45 Total Creatine Kinase 77 U/L (35-230) 02/02/17 12:45 Troponin I < 0.01 ng/mL 02/02/17 12:45 Total Protein 6.5 g/dL (5.8-8.3) 02/03/17 07:39 Albumin 3.4 g/dL (3.0-4.8) 02/03/17 07:39 Globulin 3.1 gm/dL 02/03/17 07:39 Albumin/Globulin Ratio 1.1 (1.1-1.8) 02/03/17 07:39 - Hospital Course Hospital Course: This is a 51 yo M with PMH of alcoholic cardiomyopathy, anxiety, depression, and facial bone fractures who [place] [facility] [place] complaint of right-sided chest pain/tightness with concurrent shortness of breath, dizziness , lightheadedness, and diaphoresis. While here, he underwent an ACS rule-out workup, which was notable for normal EKGs and negative cardiac enzymes. Patient was also seen by Cardio, who performed a cardiac cath today. Per Cardio , was found to have 60% stenosis in mid-LAD, for which cardio recommended daily ASA, Diltiazem 180mg daily, Statin therapy, and Smoking cessation/Nicotine patch. These instructions were explained and reviewed with the patient post- cath, who expressed understanding and agreement. He was also instructed to follow up with with his PMD and with Cardiology after discharge. He was then provided an opportunity to ask any questions, which were answered to his satisfaction. Patient was then discharged. - Date & Time of H&P Date of H&P: 02/02/17 Time of H&P: 01:33 Discharge Exam - Head Exam Head Exam: ATRAUMATIC, NORMAL INSPECTION - Eye Exam Eye Exam: EOMI, Normal appearance. absent: Conjunctival injection, Scleral icterus Pupil Exam: absent: Irregular, Unequal - ENT Exam ENT Exam: Mucous Membranes Moist - Neck Exam Neck exam: Full Rom - Respiratory Exam Respiratory Exam: Clear to PA & Lateral, NORMAL BREATHING PATTERN, UNREMARKABLE. absent: Accessory Muscle Use, Chest Wall Tenderness, Decreased Breath Sounds, Rales, Rhonchi, Wheezes - Cardiovascular Exam Cardiovascular Exam: Tachycardia, REGULAR RHYTHM, +S1, +S2. absent: Bradycardia , Irregular Rhythm, JVD, RRR, +S4 - GI/Abdominal Exam GI & Abdominal Exam: Normal Bowel Sounds, Soft, Unremarkable. absent: Diminished Bowel Sounds, Hyperactive Bowel Sounds, Hypoactive Bowel Sounds, Tenderness - Extremities Exam Extremities exam: normal capillary refill, normal inspection, pedal pulses present (+2 dorsalis pedis and +1 posterior tibials bilaterally) Additional comments: Pressure bandaging along RLE post cath, no active drainage or oozing through bandage, minimal tenderness to palpation at site, no surrounding tenderness to palpation - Neurological Exam Neurological exam: Alert, Oriented x3 - Psychiatric Exam Psychiatric exam: Normal Affect, Normal Mood - Skin Skin Exam: Dry, Intact, Normal Color, Warm Discharge Plan - Follow Up Plan Condition: FAIR Disposition: HOME/ ROUTINE Instructions: Coronary Artery Disease (DC), Chest Pain (ED), Chest Pain (DC), Chest Pain (GEN), How to Stop Smoking (DC), Heart Catheterization (DC), Heart Catheterization (GEN) Additional Instructions: Please fill and take all medications as prescribed. Please follow up with your Primary Medical Doctor within 1 week of discharge. Please follow up with all specialists listed within the time frame instructed. Referrals: Enedina Vinson MD [Primary Care Provider] - Dat Ordoñez MD [Staff Provider] - <Yohan García - Last Filed: 02/06/17 09:12> Provider - Provider Date of Admission: 02/03/17 08:33 Attending physician: Yohan García MD Primary care physician: Enedina Vinson MD Hospital Course - Lab Results Lab Results: Most Recent Lab Values WBC 5.2 10^3/ul (4.5-11.0) 02/05/17 05:10 RBC 4.63 10^6/uL (3.5-6.1) 02/05/17 05:10 Hgb 14.1 gm/dL (14.0-18.0) 02/05/17 05:10 Hct 41.0 % (42.0-52.0) L 02/05/17 05:10 MCV 88.6 fL (80.0-105.0) 02/05/17 05:10 MCH 30.5 pg (25.0-35.0) 02/05/17 05:10 MCHC 34.4 g/dl (31.0-37.0) 02/05/17 05:10 RDW 12.5 % (11.5-14.5) 02/05/17 05:10 Plt Count 134 10^3/uL (120.0-450.0) 02/05/17 05:10 MPV 12.0 fl (7.0-11.0) H 02/05/17 05:10 Gran % 54.4 % (50.0-68.0) 02/03/17 07:39 Lymph % (Auto) 33.0 % (22.0-35.0) 02/03/17 07:39 [place] % (Auto) 9.3 % (1.0-6.0) H 02/03/17 07:39 Eos % (Auto) 2.9 % (1.5-5.0) 02/03/17 07:39 Baso % (Auto) 0.4 % (0.0-3.0) 02/03/17 07:39 Gran # 3.06 (1.4-6.5) 02/03/17 07:39 Lymph # 1.9 (1.2-3.4) 02/03/17 07:39 [place] # 0.5 (0.1-0.6) 02/03/17 07:39 Eos # 0.2 (0.0-0.7) 02/03/17 07:39 Baso # 0.02 K/mm3 (0.0-2.0) 02/03/17 07:39 D-Dimer, Quantitative 0.26 mg/L FEU (0-0.50) 02/01/17 22:55 Sodium 142 mmol/L (132-148) 02/05/17 06:30 Potassium 3.9 mmol/L (3.6-5.0) 02/05/17 06:30 Chloride 106 mmol/L (98-107) 02/05/17 06:30 Carbon Dioxide 30 mmol/L (21-33) 02/05/17 06:30 Anion Gap 10 (10-20) 02/05/17 06:30 BUN 13 mg/dL (7-21) 02/05/17 06:30 Creatinine 0.9 mg/dL (0.5-1.4) 02/05/17 06:30 Est GFR ( Amer) > 60 02/05/17 06:30 Est GFR (Non-Af Amer) > 60 02/05/17 06:30 Random Glucose 88 mg/dL (70-110) 02/05/17 06:30 Calcium 9.0 mg/dL (8.4-10.5) 02/05/17 06:30 Total Bilirubin 0.5 mg/dL (0.2-1.3) 02/03/17 07:39 AST 19 U/L (15-59) 02/03/17 07:39 ALT 33 U/L (7-56) 02/03/17 07:39 Alkaline Phosphatase 50 U/L (38-133) 02/03/17 07:39 Lactate Dehydrogenase 384 U/L (333-699) 02/02/17 12:45 Total Creatine Kinase 77 U/L (35-230) 02/02/17 12:45 Troponin I < 0.01 ng/mL 02/02/17 12:45 Total Protein 6.5 g/dL (5.8-8.3) 02/03/17 07:39 Albumin 3.4 g/dL (3.0-4.8) 02/03/17 07:39 Globulin 3.1 gm/dL 02/03/17 07:39 Albumin/Globulin Ratio 1.1 (1.1-1.8) 02/03/17 07:39 Attending/Attestation - Attestation I have personally seen and examined this patient.: Yes I have fully participated in the care of the patient.: Yes I have reviewed all pertinent clinical information, including history, physical exam and plan: Yes Notes (Text): 02/05/17 51 year old male with past medical history of anxiety and smoking who presented with complaint of right sided chest pain. He was seen by cardiology. Serial cardiac enzymes were negative. He underwent cardiac cath today which showed 60 % stenosis in mid LAD. He was cleared for discharge by cardiology on aspirin, statin and cardizem. Counselled on smoking abstinence. 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 Yohan García MD Hospitalist.
== END 2017-02-05 18:55 | disposition home or self-care (01) ==
LOC: ED 21:57 → ERH 23:52 → UNDOADMOB 23:52 → ERH 02-02 00:38 → 2RNO 02-02 02:05 → INTOOBSV 02-03 08:33 → OBSVTOIN 02-03 08:33 → 2RNO 02-05 11:27 → 2RSO 02-05 11:27 → UNDODISOB 02-05 18:55
PROVIDERS: ADMIT Internal Medicine; ATTEND Internal Medicine
DX: I25.119 Atherosclerotic heart disease of native coronary artery with unspecified angina pectoris (principal); I42.6 Alcoholic cardiomyopathy; J44.9 Chronic obstructive pulmonary disease, unspecified; E87.6 Hypokalemia; R07.89 Other chest pain; I10 Essential (primary) hypertension; F17.210 Nicotine dependence, cigarettes, uncomplicated; R06.02 Shortness of breath; F41.9 Anxiety disorder, unspecified; F32.89 Other specified depressive episodes; Z82.49 Family history of ischemic heart disease and other diseases of the circulatory system; Z83.3 Family history of diabetes mellitus; Z90.49 Acquired absence of other specified parts of digestive tract; Z91.14 Patient's other noncompliance with medication regimen; Z87.81 Personal history of (healed) traumatic fracture
CPT/HCPCS: 36415; 71010; 80048; 80053; 82550; 83615; 84484; 85025; 85027; 85378; 93005; 93458; 99152; 99285; C1760; C1769; C2629; G0378; J1644; J1650; J2250; J3010

== ENCOUNTER 2017-02-07 02:08 | Emergency (ER) | payer MEDICAID ==
[2017-02-07 02:08] VITALS: PULSE 88
[2017-02-07 02:16] VITALS: BMI 22.6
[2017-02-07 02:23] VITALS: TEMP 98.1
--- NOTE | 2017-02-07 02:38 | ED PDOC ---
Arrival/HPI - General Chief Complaint: Lower Extremity Problem/Injury Time Seen by Provider: 02/07/17 02:12 Historian: Patient - History of Present Illness Narrative History of Present Illness (Text): 02/07/17 02:34 Sb Clarke is a 51 year old male, with a history of alcoholic cardiomyopathy, anxiety, depression and facial bone fractures, presents to the emergency department complaining of right calf pain for past day. Patient had a recently cardiac catheterization done which showed 60% stenosis in LAD. Denies any fever, chills, headache, dizziness, chest pain, shortness of breath, nausea , vomiting, diarrhea, lower extremity edema, urinary symptoms, or any other complaints at this time. Time/Duration: Other (1 day ) Symptom Onset: Gradual Severity Level: Mild Activities at Onset: Light Past Medical History - Provider Review Nursing Documentation Reviewed: Yes - Past History Past History: No Previous - Infectious Disease Hx of Infectious Diseases: None - Tetanus Immunization Tetanus Immunization: Unknown - Cardiac Hx Cardiac Disorders: Yes (Cardiomyopathy, EF 35%, heavy smoker) Hx Hypertension: Yes - Neurological Hx Migraine: Yes - Hematological/Oncological Hx Blood Transfusions: No Hx Blood Transfusion Reaction: No - Integumentary Other/Comment: multiple red abrasions to top of feet and both knees - Musculoskeletal/Rheumatological Hx Falls: No - Gastrointestinal Hx Gastrointestinal Ulcer: Yes - Psychiatric Hx Psychophysiologic Disorder: Yes (Heavy smoker, ETOH abuse, substance abuse ( cocaine)) Hx Anxiety: Yes Hx Depression: Yes Hx Substance Use: Yes - Past Surgical History Past Surgical History: No Previous - Surgical History Hx Cardiac Catheterization: Yes - Anesthesia Hx Anesthesia: Yes Hx Anesthesia Reactions: No Hx Malignant Hyperthermia: No - Suicidal Assessment Feels Threatened In Home Enviroment: No Family/Social History - Physician Review Nursing Documentation Reviewed: Yes Family/Social History: No Known Family HX Smoking Status: Heavy Smoker > 10 Cigarettes Daily Hx Alcohol Use: Yes (Pt states he no longer drinks) Hx Substance Use: Yes Hx Substance Use Treatment: No Allergies/Home Meds Allergies/Adverse Reactions: Allergies No Known Allergies Allergy (Verified 09/16/16 06:33) Home Medications: Home Meds Medication Instructions Recorded Confirmed Aspirin 325 mg PO DAILY 02/05/17 02/05/17 Cardizem CD 180 mg PO DAILY 02/05/17 02/05/17 Lipitor 20 mg PO DAILY 02/05/17 02/05/17 Nicotine 14 mg/24 hr [Nicoderm CQ] 1 patch TD DAILY 02/05/17 02/05/17 Review of Systems - Physician Review All systems were reviewed & negative as marked: Yes - Review of Systems Constitutional: Normal. absent: Fatigue, Fevers Respiratory: Normal. absent: SOB, Cough, Sputum Cardiovascular: Normal. absent: Chest Pain, Palpitations Gastrointestinal: Normal. absent: Abdominal Pain, Diarrhea, Nausea, Vomiting Musculoskeletal: Other (right calf pain ) Neurological: Normal. absent: Headache, Dizziness Psychiatric: Normal Physical Exam Vital Signs Reviewed: Yes Vital Signs Temp Pulse Resp BP Pulse Ox 02/07/17 04:08 64 16 125/80 100 02/07/17 02:22 98.1 F 68 18 124/68 97 Temperature: Afebrile Blood Pressure: Normal Pulse: Regular Respiratory Rate: Normal Appearance: Positive for: Well-Appearing, Non-Toxic, Comfortable Pain Distress: None Mental Status: Positive for: Alert and Oriented X 3 - Systems Exam Head: Present: Atraumatic, Normocephalic Pupils: Present: PERRL Conjunctiva: Present: Normal Mouth: Present: Moist Mucous Membranes Neck: Present: Normal Range of Motion Respiratory/Chest: Present: Clear to Auscultation, Good Air Exchange. No: Respiratory Distress, Accessory Muscle Use Cardiovascular: Present: Regular Rate and Rhythm, Normal S1, S2. No: Murmurs Abdomen: Present: Normal Bowel Sounds. No: Tenderness, Distention, Peritoneal Signs Upper Extremity: Present: Normal Inspection. No: Cyanosis, Edema Lower Extremity: Present: Normal Inspection, NORMAL PULSES, Normal ROM, Neurovascularly Intact, Capillary Refill < 2 s. No: Edema, CALF TENDERNESS, Tenderness, Swelling, Erythema, Deformity, Temperature Abnormalties Neurological: Present: GCS=15, CN II-XII Intact, Speech Normal, Motor Func Grossly Intact, Normal Sensory Function Skin: Present: Warm, Dry, Normal Color. No: Rashes Psychiatric: Present: Alert, Oriented x 3, Normal Insight, Normal Concentration Medical Decision Making ED Course and Treatment: 02/07/17 02:39 Impression: A 51 year old male who presents to the emergency department complaining of right calf pain for past day. Plan: -- EKG -- Labs -- US lower extremity duplex -- Reassess and disposition Progress Notes: 02/07/17 03:39 EKG reviewed by me: NSR @ 60 bpm. Nonspecific T wave abnormality. Prolonged QT 02/07/17 04:06 LE doppler negative for DVT. 02/07/17 04:22 On reevaluation the patient feels better and is in no acute distress. I have discussed the results and plan with the patient, who expresses understanding. Patient given the opportunity to ask question, all questions were answered and there is agreement with the plan to discharge the patient home. Patient is stable for discharge. Patient was instructed to follow up with physician/clinic in 1-2 days or return if symptoms persist/worsen or new concerning symptoms arise. Re-evaluation Time: 04:14 Reassessment Condition: Re-examined, Improved - Lab Interpretations Lab Results: 02/07/17 02:33 02/07/17 02:33 Lab Results 02/07/17 02:33: PT 11.3, INR 1.05, APTT 28.9 02/07/17 02:33: Sodium 140, Potassium 4.4, Chloride 104, Carbon Dioxide 29, Anion Gap 11, BUN 20, Creatinine 1.0, Est GFR ( Amer) > 60, Est GFR (Non- Af Amer) > 60, Random Glucose 100, Calcium 9.4, Total Bilirubin 0.5, AST 58, ALT 81 H, Alkaline Phosphatase 61, Total Protein 7.4, Albumin 4.2, Globulin 3.2 , Albumin/Globulin Ratio 1.3 02/07/17 02:33: WBC 8.8 D, RBC 4.53, Hgb 13.6 L, Hct 41.2 L, MCV 90.9, MCH 30.0 , MCHC 33.0, RDW 12.6, Plt Count 150, MPV 12.6 H, Gran % 73.3 H, Lymph % (Auto) 15.1 L, [place] % (Auto) 10.1 H, Eos % (Auto) 1.3 L, Baso % (Auto) 0.2, Gran # 6.42 , Lymph # 1.3, [place] # 0.9 H, Eos # 0.1, Baso # 0.02 I have reviewed the lab results: Yes - RAD Interpretation Radiology Orders: 02/07/17 02:27 DUPLEX LOWER EXTRM VEIN RIGHT [US] Stat [employer]boricult[employer] Instructor: Radiologist - EKG Interpretation Interpreted by ED Physician: Yes Type: 12 lead EKG Disposition/Present on Arrival - Present on Arrival Any Indicators Present on Arrival: No History of DVT/PE: No History of Uncontrolled Diabetes: No Urinary Catheter: No History of Decub. Ulcer: No History Surgical Site Infection Following: None - Disposition Have Diagnosis and Disposition been Completed?: Yes Diagnosis: Muscle cramp Disposition: HOME/ ROUTINE Disposition Time: 04:15 Patient Problems: Current Active Problems Problem Status Onset Muscle cramp Acute Condition: GOOD Discharge Instructions (ExitCare): Leg Cramps (ED)
[2017-02-07 02:42] LABS: ADD MANUAL DIFF? NO
[2017-02-07 02:54] LABS: BASO # 0.02 K/mm3 (0.0-2.0); BASO % 0.2 % (0.0-3.0); EOS # 0.1 (0.0-0.7); EOS % 1.3 % (1.5-5.0); GRAN # 6.42 (1.4-6.5); GRAN % 73.3 % (50.0-68.0); HEMATOCRIT 41.2 % (42.0-52.0); LYMPH # 1.3 (1.2-3.4); LYMPH % 15.1 % (22.0-35.0); MEAN CELL VOLUME 90.9 fL (80.0-105.0); MEAN PLATELET VOLUME 12.6 fl (7.0-11.0); MONO # 0.9 (0.1-0.6); MONO % 10.1 % (1.0-6.0); PLATELET COUNT 150 10^3/uL (120.0-450.0); RED CELL DISTRIBUTION WIDTH 12.6 % (11.5-14.5); WHITE BLOOD COUNT 8.8 10^3/ul (4.5-11.0)
[2017-02-07 02:58] LABS: ALB/GLOB RATIO 1.3 (1.1-1.8); ALKALINE PHOSPHATASE 61 U/L (38-133); ALT/SGPT 81 U/L (7-56); AST/SGOT 58 U/L (15-59); BILIRUBIN,TOTAL 0.5 mg/dL (0.2-1.3); BLOOD UREA NITROGEN 20 mg/dL (7-21); CALCIUM 9.4 mg/dL (8.4-10.5); CARBON DIOXIDE 29 mmol/L (21-33); CHLORIDE 104 mmol/L (98-107); GFR AFRICAN-AMERICAN > 60; GLUCOSE,RANDOM 100 mg/dL (70-110); POTASSIUM 4.4 mmol/L (3.6-5.0); SODIUM 140 mmol/L (132-148); TOTAL PROTEIN 7.4 g/dL (5.8-8.3)
[2017-02-07 03:00] LABS: INR 1.05 (0.93-1.08); PARTIAL THROMBOPLASTIN TIME 28.9 Seconds (23.7-30.8)
[2017-02-07 04:15] VITALS: BP 125/80; PULSE 64; RESP 16; O2SAT 100
--- NOTE | 2017-02-07 09:51 | US ---
PROCEDURE: Right lower extremity venous US HISTORY: Leg pain and swelling. Evaluate for DVT. PHYSICIAN(S): Dat Alejandro M.D. TECHNIQUE: Duplex sonography and color-flow Doppler with graded compression were used to evaluate the deep venous system of the right lower extremity. FINDINGS: The visualized deep venous system of the right lower extremity is sonographically normal and compressible. Normal waveforms and augmentation are seen. There is no sonographic evidence for deep venous thrombosis in the visualized segments of the right lower extremity. IMPRESSION: 1. No sonographic evidence for deep venous thrombosis in the visualized segments of the right lower extremity.
--- NOTE | 2017-02-07 15:29 | CARD ---
APPROVED REPORT EKG Measurement Heart [id number] <Conclusion> Normal sinus rhythm Normal ECG
== END 2017-02-07 04:35 | disposition home or self-care (01) ==
LOC: ED 02:08
DX: R25.2 Cramp and spasm (principal); I10 Essential (primary) hypertension; F17.210 Nicotine dependence, cigarettes, uncomplicated

== ENCOUNTER 2017-02-15 08:59 | Observation (INO) | payer MEDICAID ==
[2017-02-15 08:59] VITALS: PULSE 88
--- NOTE | 2017-02-15 09:24 | ED PDOC ---
Arrival/HPI - General Time Seen by Provider: 02/15/17 09:01 Historian: Patient - History of Present Illness Narrative History of Present Illness (Text): 02/15/17 09:12 A 51 year old male, whose past medical history includes depression, anxiety and alcohol abuse, brought into the emergency department by EMS for left sided chest pain for the past few days. Patient given Aspirin on the field prior to arrival. Patient denies any relieving or exacerbating factors. Patient denies any fever, chills, nausea, vomiting, diarrhea, abdominal pain, shortness of breath or any other complaints. PMD: Dr. Vinson Time/Duration: Other (Today) Symptom Course: Unchanged Quality: Other Context: Other Past Medical History - Provider Review Nursing Documentation Reviewed: Yes - Past History Past History: No Previous - Infectious Disease Hx of Infectious Diseases: None - Tetanus Immunization Tetanus Immunization: Unknown - Cardiac Hx Cardiac Disorders: Yes (Cardiomyopathy, EF 35%, heavy smoker) Hx Hypertension: Yes - Neurological Hx Migraine: Yes - Hematological/Oncological Hx Blood Transfusions: No Hx Blood Transfusion Reaction: No - Integumentary Other/Comment: multiple red abrasions to top of feet and both knees - Musculoskeletal/Rheumatological Hx Falls: No - Gastrointestinal Hx Gastrointestinal Ulcer: Yes - Psychiatric Hx Psychophysiologic Disorder: Yes (Heavy smoker, ETOH abuse, substance abuse ( cocaine)) Hx Anxiety: Yes Hx Depression: Yes Hx Substance Use: Yes - Past Surgical History Past Surgical History: No Previous - Surgical History Hx Cardiac Catheterization: Yes - Anesthesia Hx Anesthesia: Yes Hx Anesthesia Reactions: No Hx Malignant Hyperthermia: No - Suicidal Assessment Feels Threatened In Home Enviroment: No Family/Social History - Physician Review Nursing Documentation Reviewed: Yes Family/Social History: No Known Family HX Smoking Status: Heavy Smoker > 10 Cigarettes Daily Hx Alcohol Use: Yes (Pt states he no longer drinks) Hx Substance Use: Yes Hx Substance Use Treatment: No Allergies/Home Meds Allergies/Adverse Reactions: Allergies No Known Allergies Allergy (Verified 02/15/17 09:23) Home Medications: Home Meds Medication Instructions Recorded Confirmed Aspirin 325 mg PO DAILY 02/05/17 02/15/17 Cardizem CD 180 mg PO DAILY 02/05/17 02/15/17 Lipitor 20 mg PO DAILY 02/05/17 02/15/17 Review of Systems - Physician Review All systems were reviewed & negative as marked: Yes - Review of Systems Constitutional: absent: Fevers, Night Sweats Respiratory: absent: SOB Cardiovascular: Chest Pain Gastrointestinal: Diarrhea. absent: Abdominal Pain, Nausea, Vomiting Physical Exam Vital Signs Reviewed: Yes Vital Signs Temp Pulse Resp BP Pulse Ox 02/15/17 09:00 98 F 78 18 118/52 L 98 Appearance: Positive for: Well-Appearing, Comfortable, Other (Alcohol on breath) Pain Distress: None Mental Status: Positive for: Alert and Oriented X 3 - Systems Exam Head: Present: Atraumatic, Normocephalic Pupils: Present: PERRL Extroacular Muscles: Present: EOMI Conjunctiva: Present: Normal Mouth: Present: Moist Mucous Membranes Neck: Present: Normal Range of Motion Respiratory/Chest: Present: Clear to Auscultation, Good Air Exchange. No: Respiratory Distress, Accessory Muscle Use Cardiovascular: Present: Regular Rate and Rhythm, Normal S1, S2. No: Murmurs Abdomen: Present: Normal Bowel Sounds. No: Tenderness, Distention, Peritoneal Signs Back: Present: Normal Inspection Upper Extremity: Present: Normal Inspection. No: Cyanosis, Edema Lower Extremity: Present: Normal Inspection. No: Edema Neurological: Present: GCS=15, CN II-XII Intact, Speech Normal Skin: Present: Warm, Dry, Normal Color. No: Rashes Psychiatric: Present: Alert, Oriented x 3, Normal Insight, Normal Concentration Medical Decision Making ED Course and Treatment: 02/15/17 09:12 Impression: A 51 year old male with left sided chest pain Differential Diagnosis included but are not limited to: Chest pain, rule out ACS vs. Anxiety Plan: -- Chest xray -- EKG -- Labs -- Reassess and disposition Prior Visits: Notes and results from previous visits were reviewed. Patient last seen in ED on 02/07/17 for right calf pain. Ultrasound negative for DVT. Patient had a cardiac catheterization done on 02/05/15 which showed 60% stenosis in LAD. Progress Notes: EKG shows NSR at 61 BPM with non-specific ST/T changes. Interpreted by me. Report Date : 02/15/2017 09:59:58 Procedure: Chest xray Dictator : Vinny العراقي MD IMPRESSION: No active disease. 02/15/17 10:20 Patient has a cardiac history that will need to be evaluated on observation. Patient currently comfortable with no pain. Case discussed with Dr. Osborn, who states to place patient in telemetry observation. - Lab Interpretations Lab Results: 02/15/17 09:20 02/15/17 09:20 Lab Results 02/15/17 09:20: Alcohol, Quantitative 49 H 02/15/17 09:20: Sodium 143, Potassium 3.5 L, Chloride 113 H, Carbon Dioxide 21, Anion Gap 13, BUN 11, Creatinine 0.9, Est GFR ( Amer) > 60, Est GFR (Non- Af Amer) > 60, Random Glucose 87, Calcium 8.4, Magnesium 1.9, Total Bilirubin 0.3, AST 21, ALT 29, Alkaline Phosphatase 66, Lactate Dehydrogenase 386, Total Creatine Kinase 111, Troponin I < 0.01, Total Protein 6.8, Albumin 3.6, Globulin 3.1, Albumin/Globulin Ratio 1.2 02/15/17 09:20: WBC 4.8 D, RBC 4.14, Hgb 12.6 L, Hct 37.5 L, MCV 90.6, MCH 30.4 , MCHC 33.6, RDW 12.7, Plt Count 163, MPV 11.9 H, Gran % 62.4, Lymph % (Auto) 24.6, Hudspeth % (Auto) 9.5 H, Eos % (Auto) 3.1, Baso % (Auto) 0.4, Gran # 3.01, Lymph # 1.2, Hudspeth # 0.5, Eos # 0.2, Baso # 0.02 I have reviewed the lab results: Yes - RAD Interpretation Radiology Orders: 02/15/17 09:11 CXR [CHEST PORTABLE] [RAD] Stat - Medication Orders Current Medication Orders: Discontinued Medications Potassium Chloride (K-Dur 20 Meq Er Tab) 40 meq PO STAT STA Stop: 02/15/17 10:05 - Scribe Statement The provider has reviewed the documentation as recorded by the Kaylee Breen Provider Scribe Attestation: All medical record entries made by the Scribe were at my direction and personally dictated by me. I have reviewed the chart and agree that the record accurately reflects my personal performance of the history, physical exam, medical decision making, and the department course for this patient. I have also personally directed, reviewed, and agree with the discharge instructions and disposition. Disposition/Present on Arrival - Present on Arrival Any Indicators Present on Arrival: No History of DVT/PE: No History of Uncontrolled Diabetes: No Urinary Catheter: No History Surgical Site Infection Following: None - Disposition Have Diagnosis and Disposition been Completed?: Yes Diagnosis: Chest pain Disposition: HOSPITALIZED Disposition Time: 10:19 Patient Plan: Observation Condition: FAIR
[2017-02-15 09:45] LABS: ADD MANUAL DIFF? NO
[2017-02-15 09:48] LABS: BASO # 0.02 K/mm3 (0.0-2.0); BASO % 0.4 % (0.0-3.0); EOS # 0.2 (0.0-0.7); EOS % 3.1 % (1.5-5.0); GRAN # 3.01 (1.4-6.5); GRAN % 62.4 % (50.0-68.0); HEMATOCRIT 37.5 % (42.0-52.0); LYMPH # 1.2 (1.2-3.4); LYMPH % 24.6 % (22.0-35.0); MEAN CELL VOLUME 90.6 fL (80.0-105.0); MEAN CORPUSCULAR HEMOGLOBIN 30.4 pg (25.0-35.0); MEAN CORPUSCULAR HGB CONC 33.6 g/dl (31.0-37.0); MEAN PLATELET VOLUME 11.9 fl (7.0-11.0); MONO # 0.5 (0.1-0.6); MONO % 9.5 % (1.0-6.0); PLATELET COUNT 163 10^3/uL (120.0-450.0); RED CELL DISTRIBUTION WIDTH 12.7 % (11.5-14.5); WHITE BLOOD COUNT 4.8 10^3/ul (4.5-11.0)
[2017-02-15 09:57] LABS: ALB/GLOB RATIO 1.2 (1.1-1.8); ALKALINE PHOSPHATASE 66 U/L (38-133); ALT/SGPT 29 U/L (7-56); AST/SGOT 21 U/L (15-59); BILIRUBIN,TOTAL 0.3 mg/dL (0.2-1.3); BLOOD UREA NITROGEN 11 mg/dL (7-21); CALCIUM 8.4 mg/dL (8.4-10.5); CARBON DIOXIDE 21 mmol/L (21-33); CHLORIDE 113 mmol/L (98-107); GFR AFRICAN-AMERICAN > 60; GLUCOSE,RANDOM 87 mg/dL (70-110); MAGNESIUM 1.9 mg/dL (1.7-2.2); POTASSIUM 3.5 mmol/L (3.6-5.0); SODIUM 143 mmol/L (132-148); TOTAL PROTEIN 6.8 g/dL (5.8-8.3)
--- NOTE | 2017-02-15 10:01 | RAD ---
HISTORY: chest pain COMPARISON: 02/01/2017 FINDINGS: LUNGS: No active pulmonary disease. PLEURA: No significant pleural effusion identified, no pneumothorax apparent. CARDIOVASCULAR: Normal. OSSEOUS STRUCTURES: No significant abnormalities. VISUALIZED UPPER ABDOMEN: Normal. OTHER FINDINGS: None. IMPRESSION: No active disease.
[2017-02-15] MEDS ORDERED: Potassium Chloride 20 mEq ER Tab PO STA (10:04)
[2017-02-15 10:09] LABS: TROPONIN I < 0.01 ng/mL
--- NOTE | 2017-02-15 12:23 | CP.PCM.HP ---
<Corry Ceja - Last Filed: 02/15/17 12:57> History of Present Illness - History of Present Illness History of Present Illness: 51 M with PMHx of substance abuse, HTN, HLD, alcoholic cardiomyopathy, anxiety, and depression presented to the [facility] ED with complaints of left sided chest pain. Pt claims the chest pain began earlier this morning after walking approximately 4 blocks at which point pt experienced cp and weakness. Pt stated the cp was on the left side of the chest that radiated to the left shoulder. Pt describes this pain as a tightness and 8/10. Patient says he had the same thing happen 2 weeks ago while he was walking. Pt was given aspirin today prior to arrival which he says did not help and he is still experiencing the pain now laying in the ED. Patient admits to diaphoresis when this began as well as recent diarrhea. Pt denies fever, chills, palpitations, N/V,d/c abdominal pain, Urinary symptoms. PMD: Dr. Vinson PMHx: alcoholic cardiomyopathy with EF 35%, anxiety, depression, GI ulcer and facial bone fractures PSHx: hernia repair, facial bone repair, appendectomy Hospitalizations: 02/07/17 (Right calf pain, US negative for DVT), 02/05/15 ( cardiac catheterization, 60% stenosis in LAD) Social Hx: active smoker (1 pack/day for 3 years), social alcohol drinker (last drink 2 days ago, 12 beers), former cocaine and marijuana use Family Hx: Mother-HTN, DM, father-HTN Home meds: -Aspirin 325 mg PO daily -Cardizem CD 180 mg PO daily -Lipitor 20 mg PO daily Allergy: NKDA Present on Admission - Present on Admission Any Indicators Present on Admission: No Review of Systems - Review of Systems Review of Systems: as per HPI otherwise negative Past Patient History - Infectious Disease Hx of Infectious Diseases: None - Tetanus Immunizations Tetanus Immunization: Unknown - Past Social History Smoking Status: Heavy Smoker > 10 Cigarettes Daily - CARDIAC Hx Cardiac Disorders: Yes (Cardiomyopathy, EF 35%, heavy smoker) Hx Hypertension: Yes - NEUROLOGICAL Hx Migraine: Yes - HEMATOLOGICAL/ONCOLOGICAL Hx Blood Transfusions: No Hx Blood Transfusion Reaction: No - INTEGUMENTARY Other/Comment: multiple red abrasions to top of feet and both knees - MUSCULOSKELETAL/RHEUMATOLOGICAL Hx Falls: No - GASTROINTESTINAL Hx Ulcer: Yes (x6 17 yrs ago and 3 yrs ago) - PSYCHIATRIC Hx Psychophysiologic Disorder: Yes (Heavy smoker, ETOH abuse, substance abuse ( cocaine)) Hx Anxiety: Yes Hx Depression: Yes Hx Substance Use: Yes - SURGICAL HISTORY Hx Cardiac Catheterization: Yes - ANESTHESIA Hx Anesthesia: Yes Hx Anesthesia Reactions: No Hx Malignant Hyperthermia: No Meds Allergies/Adverse Reactions: Allergies Allergy/AdvReac Type Severity Reaction Status Date / Time No Known Allergies Allergy Verified 02/15/17 11:58 Physical Exam - Constitutional Appears: No Acute Distress - Head Exam Head Exam: ATRAUMATIC, NORMAL INSPECTION, NORMOCEPHALIC - Eye Exam Eye Exam: EOMI, Normal appearance, PERRL Pupil Exam: NORMAL ACCOMODATION, PERRL - ENT Exam ENT Exam: Mucous Membranes Moist, Normal Exam - Respiratory Exam Respiratory Exam: Clear to Auscultation Bilateral, NORMAL BREATHING PATTERN - Cardiovascular Exam Cardiovascular Exam: REGULAR RHYTHM, +S1, +S2 - GI/Abdominal Exam GI & Abdominal Exam: Normal Bowel Sounds, Soft. absent: Tenderness - Extremities Exam Extremities exam: Positive for: normal inspection - Back Exam Back exam: NORMAL INSPECTION - Neurological Exam Neurological exam: Alert, CN II-XII Intact, Normal Gait, Oriented x3, Reflexes Normal - Psychiatric Exam Psychiatric exam: Normal Affect, Normal Mood - Skin Skin Exam: Dry, Intact, Normal Color, Warm Results - Vital Signs Recent Vital Signs: Last Vital Signs Temp 98 F 02/15/17 09:00 Pulse 78 02/15/17 11:24 Resp 18 02/15/17 11:24 BP 118/77 02/15/17 11:24 Pulse Ox 98 02/15/17 11:24 - Labs Result Diagrams: 02/15/17 09:20 02/15/17 09:20 Assessment & Plan - Assessment and Plan (Free Text) Assessment: 51 M with PMHx of substance abuse, HTN, HLD, alcoholic cardiomyopathy, anxiety, and depression presented to the [facility] ED with complaints of left sided chest pain admitted to r/o acs. 1. Chest pain - r/o acs - Trops negative x1, continue with serial trops and EKG - asa, lipitor, metoprolol, nitro - cardiology consulted, Dr. Sampson - recent cardiac cath no stents placed -CXR showed no active disease -Heart healthy diet 2. HTN - continue home meds - Continue to monitor 3. HLD - lipitor 4. Tobacco abuse - Educated on tobacco cessation - nicotine patch offered 5.Hypokalemia -Supplemented -Follow up AM labs Prophylactic measures -Protonix for GI ppx -SCD for DVT ppx <Rick Swenson MD - Last Filed: 02/15/17 16:11> Results - Vital Signs Recent Vital Signs: Last Vital Signs Temp 98 F 02/15/17 13:47 Pulse 64 02/15/17 13:47 Resp 18 02/15/17 13:47 BP 117/61 02/15/17 13:47 Pulse Ox 98 02/15/17 11:24 - Labs Result Diagrams: 02/15/17 09:20 02/15/17 09:20 Attending/Attestation - Attestation I have personally seen and examined this patient.: Yes I have fully participated in the care of the patient.: Yes I have reviewed all pertinent clinical information: Yes Notes (Text): 02/15/17 16:05 Patient was seen and examined with medical facilities section director .Agreed with resident assessment and plan. 51 M with PMH of HTN, Chronic smoking, SP cardiac catherization 02/05/17 that reveals 60% LAD and non compliance with medications is admitted with chest pain on exertion, EKG is negative for ischemic changes, we wll admit patient in tele , will get serial troponins, as patient is c/o ongoing chest pain, we will start patient on anticoagulation with lovenox..We will also get cardiology evaluation. Management plan was discussed in detail with patient Education was provided.
[2017-02-15] MEDS ORDERED: Potassium Chloride 10 mEq ER Tab PO STA (12:24)
[2017-02-15] MEDS: diltiaZEM 180 mg/24 Hours CD Cap PO SCH (12:55)
[2017-02-15] MEDS: Enoxaparin 80 mg Syringe SC SCH (12:56)
[2017-02-15 14:13] VITALS: BMI 22.4
[2017-02-15] MEDS ORDERED: Pneumococcal 23-Valent Vaccine IM ONE (14:13)
--- NOTE | 2017-02-15 18:19 | CON ---
DATE: 02/15/2017 REASON FOR CONSULTATION: Chest pain. HISTORY OF PRESENT ILLNESS: The patient is a 51-year-old male who is a smoker, has a history of depr ession, anxiety, ETOH abuse, was admitted recently with chest pain and on 11/06 underwent cardiac cat heterization which revealed 60% stenosis of the mid LAD which improved with intracoronary nitroglycer in and was attributed to spasm and the patient was advised to quit smoking and was placed on Cardizem 180 mg once a day. The patient presents because of recurrence of chest pain. The patient denies an y other substance abuse, or any ETOH abuse. The patient denies any dizziness or diaphoresis. SOCIAL HISTORY: The patient is a smoker, ETOH abuser. MEDICATIONS: Aspirin 325 mg once daily, Cardizem CD 180 mg once a day, Lipitor 20 mg once a day, Lop ressor 25 mg twice a day, subcutaneous Lovenox at 70 mg twice a day, Protonix 40 mg intravenously onc e a day. REVIEW OF SYSTEMS: No vomiting or diarrhea. No fever or chills. PHYSICAL EXAMINATION: GENERAL: The patient is a middle-aged male who does not appear to be in any distress. VITAL SIGNS: Blood pressure 117/61, heart rate 64, temperature 98.1, respirations 20. HEENT: Normocephalic. NECK: No JVD. CHEST: Bilateral rhonchi. HEART: S1, S2 regular. EXTREMITIES: No edema. LABORATORY DATA: Hemoglobin and hematocrit 12.6 and 37.5, white count and platelet count are within normal limits. Alcohol level is 49. SMA-7: Sodium 143, potassium 3.5, chloride 115, CO2 21, glucos e 87, BUN 11, creatinine 0.9. EKG revealed normal sinus rhythm with nonspecific ____ changes. ASSESSMENT: 1. Chest pain with history of recent coronary spasm, rule out myocardial infarction. 2. Chronic obstructive lung disease. 3. ETOH abuse. 4. Hypokalemia. RECOMMENDATIONS: Continue current Cardizem-CD 180 mg once a day, aspirin 325 mg once a day. May dis continue Lopressor, potassium has been already replaced. Obtain one more set of troponin as well as repeat 12-lead EKG. Alexander Sampson MD cc: [id number] TT: 02/15/2017 18:19:21 Confirmation # [id number] Dictation # [id number]
[2017-02-15] MEDS ORDERED: DiphenhydrAMINE 50 mg/ml Inj IVP STA (22:24)
--- NOTE | 2017-02-15 22:43 | CARD ---
APPROVED REPORT EKG Measurement Heart [id number] [id number] <Conclusion> Normal sinus rhythm Normal ECG
--- NOTE | 2017-02-15 22:51 | CARD ---
APPROVED REPORT EKG Measurement Heart [id number] <Conclusion> Normal sinus rhythm Nonspecific T wave abnormality Prolonged QT Abnormal ECG
[2017-02-16] MEDS: Enoxaparin 80 mg Syringe SC SCH ×2 (02:29→12:27)
[2017-02-16 06:22] VITALS: O2SAT 98
[2017-02-16] MEDS ORDERED: Multivitamin Vitamin B Complex (Nephro-Vite) Tab PO SCH (08:00)
[2017-02-16 09:00] LABS: ADD MANUAL DIFF? NO
[2017-02-16 09:02] LABS: BASO # 0.01 K/mm3 (0.0-2.0); BASO % 0.2 % (0.0-3.0); EOS # 0.1 (0.0-0.7); EOS % 1.9 % (1.5-5.0); GRAN # 2.99 (1.4-6.5); GRAN % 62.5 % (50.0-68.0); HEMATOCRIT 40.1 % (42.0-52.0); LYMPH # 1.3 (1.2-3.4); MEAN CELL VOLUME 90.1 fL (80.0-105.0); MEAN CORPUSCULAR HEMOGLOBIN 30.8 pg (25.0-35.0); MEAN CORPUSCULAR HGB CONC 34.2 g/dl (31.0-37.0); MEAN PLATELET VOLUME 11.7 fl (7.0-11.0); MONO # 0.4 (0.1-0.6); MONO % 8.4 % (1.0-6.0); PLATELET COUNT 139 10^3/uL (120.0-450.0); RED CELL DISTRIBUTION WIDTH 12.5 % (11.5-14.5); WHITE BLOOD COUNT 4.8 10^3/ul (4.5-11.0)
[2017-02-16 09:12] LABS: ALB/GLOB RATIO 1.2 (1.1-1.8); ALKALINE PHOSPHATASE 57 U/L (38-133); ALT/SGPT 27 U/L (7-56); AST/SGOT 20 U/L (15-59); BILIRUBIN,TOTAL 0.7 mg/dL (0.2-1.3); BLOOD UREA NITROGEN 13 mg/dL (7-21); CALCIUM 8.8 mg/dL (8.4-10.5); CARBON DIOXIDE 22 mmol/L (21-33); CHLORIDE 109 mmol/L (98-107); GFR AFRICAN-AMERICAN > 60; GLUCOSE,RANDOM 159 mg/dL (70-110); POTASSIUM 3.8 mmol/L (3.6-5.0); SODIUM 138 mmol/L (132-148); TOTAL PROTEIN 7.1 g/dL (5.8-8.3)
[2017-02-16] MEDS: diltiaZEM 180 mg/24 Hours CD Cap PO SCH (09:34)
--- NOTE | 2017-02-16 09:44 | PN ---
DATE: 02/16/2017 SUBJECTIVE: The patient denies any chest pain. No reported ventricular arrhythmia. PHYSICAL EXAMINATION: VITAL SIGNS: Blood pressure 122/74, heart rate 60, temperature 98.4, respirations 19. HEENT: Normocephalic. NECK: No JVD. CHEST: Clear. HEART: S1, S2 regular. EXTREMITIES: No edema. LABORATORIES: Hemoglobin and hematocrit 13.7 and 40.1, white count and platelet count are within nor mal limits. Urine drug screen is negative. Three sets of troponins are negative. ASSESSMENT: 1. Chest pain, myocardial infarction is ruled out. 2. History of coronary spasm. 3. Ethyl alcohol (ETOH) abuse. RECOMMENDATIONS: Continue current thiamine, Lipitor, Librium, aspirin, Cardizem-CD. When I discusse d the patient's compliance with his Cardizem that was recommended after cardiac catheterization, the patient stated that he never got the medicine. The patient was strongly advised to comply with his C ardizem and abstain from smoking. Alexander Sampson MD cc: [id number] TT: 02/16/2017 09:43:31 Confirmation # [id number] Dictation # [id number]
[2017-02-16] MEDS ORDERED: Thiamine 100 mg/ml Inj IV SCH (10:00)
[2017-02-16] MEDS ORDERED: Non Formulary Medication (Aspirin 325 mg) PO SCH (10:00)
[2017-02-16 11:53] VITALS: BP 131/84; PULSE 63; RESP 20; TEMP 98.5
--- NOTE | 2017-02-16 15:40 | CP.PCM.PN ---
<MarcialDustincatalina - Last Filed: 02/16/17 15:40> Subjective - Date & Time of Evaluation Date of Evaluation: 02/16/17 Time of Evaluation: 12:00 - Subjective Subjective: Pt was seen and examined at bedside this morning. No acute complaints at the time. No acute or adverse events as per nursing staff. Pt is tolerating po intake and voiding regularly. Pt denied bm for the past couple days. Pt denied fever, chills, sob, chest pains, abdominal pains, n/v/d/c or urinary symptoms. Objective - Vital Signs/Intake and Output Vital Signs (last 24 hours): Temp Pulse Resp BP Pulse Ox 98.5 F 63 20 131/84 98 02/16/17 11:53 02/16/17 11:53 02/16/17 11:53 02/16/17 11:53 02/16/17 06:00 Intake and Output: 02/16/17 02/16/17 06:59 18:59 Intake Total 600 Output Total 2 Balance 598 - Labs Labs: 02/16/17 08:40 02/16/17 08:40 - Constitutional Appears: No Acute Distress - Head Exam Head Exam: ATRAUMATIC, NORMAL INSPECTION, NORMOCEPHALIC - Eye Exam Eye Exam: EOMI, Normal appearance, PERRL Pupil Exam: NORMAL ACCOMODATION, PERRL - ENT Exam ENT Exam: Mucous Membranes Moist, Normal Exam - Neck Exam Neck Exam: Full ROM, Normal Inspection. absent: Lymphadenopathy - Respiratory Exam Respiratory Exam: Clear to Ausculation Bilateral, NORMAL BREATHING PATTERN - Cardiovascular Exam Cardiovascular Exam: RRR, +S1, +S2 - GI/Abdominal Exam GI & Abdominal Exam: Soft, Normal Bowel Sounds. absent: Tenderness - Extremities Exam Extremities Exam: Full ROM, Normal Capillary Refill, Normal Inspection. absent : Joint Swelling, Pedal Edema - Back Exam Back Exam: NORMAL INSPECTION - Neurological Exam Neurological Exam: Alert, Awake, CN II-XII Intact, Normal Gait, Oriented x3 - Psychiatric Exam Psychiatric exam: Normal Affect, Normal Mood - Skin Skin Exam: Dry, Intact, Normal Color, Warm Assessment and Plan - Assessment and Plan (Free Text) Assessment: 51 M with PMHx of substance abuse, HTN, HLD, alcoholic cardiomyopathy, anxiety, and depression presented to the [facility] ED with complaints of left sided chest pain admitted to r/o acs. 1. Chest pain - r/o acs - Trops negative x3 - asa, lipitor, metoprolol, nitro - cardiology consulted, Dr. Sampson, recommended tobacco cessation and medication compliance - recent cardiac cath no stents placed -CXR showed no active disease -Heart healthy diet 2. HTN - continue home meds - Continue to monitor 3. HLD - lipitor 4. Tobacco abuse - Educated on tobacco cessation - nicotine patch offered 5.Hypokalemia -Supplemented Prophylactic measures -Protonix for GI ppx -SCD for DVT ppx Seen reviewed and discussed with attending PT [facility]OP[facility] prior to DC planning will call pharmacy to make sure rx are available, authorities notified <Leela YANCEY,Rick - Last Filed: 02/16/17 16:48> Objective - Vital Signs/Intake and Output Vital Signs (last 24 hours): Temp Pulse Resp BP Pulse Ox 98.5 F 63 20 131/84 98 02/16/17 11:53 02/16/17 11:53 02/16/17 11:53 02/16/17 11:53 02/16/17 06:00 Intake and Output: 02/16/17 02/16/17 06:59 18:59 Intake Total 600 Output Total 2 Balance 598 - Labs Labs: 02/16/17 08:40 02/16/17 08:40 Attending/Attestation - Attestation I have personally seen and examined this patient.: Yes I have fully participated in the care of the patient.: Yes I have reviewed all pertinent clinical information, including history, physical exam and plan: Yes
--- NOTE | 2017-02-16 15:46 | CP.PCM.DIS ---
<Corry Ceja - Last Filed: 02/16/17 15:47> Provider - Provider Date of Admission: 02/15/17 10:19 Attending physician: Rick Swenson MD Primary care physician: Enedina Vinson MD Consults: Cardio - Dr. Sampson Time Spent in preparation of Discharge (in minutes): 45 Hospital Course - Lab Results Lab Results: Most Recent Lab Values WBC 4.8 10^3/ul (4.5-11.0) 02/16/17 08:40 RBC 4.45 10^6/uL (3.5-6.1) 02/16/17 08:40 Hgb 13.7 gm/dL (14.0-18.0) L 02/16/17 08:40 Hct 40.1 % (42.0-52.0) L 02/16/17 08:40 MCV 90.1 fL (80.0-105.0) 02/16/17 08:40 MCH 30.8 pg (25.0-35.0) 02/16/17 08:40 MCHC 34.2 g/dl (31.0-37.0) 02/16/17 08:40 RDW 12.5 % (11.5-14.5) 02/16/17 08:40 Plt Count 139 10^3/uL (120.0-450.0) 02/16/17 08:40 MPV 11.7 fl (7.0-11.0) H 02/16/17 08:40 Gran % 62.5 % (50.0-68.0) 02/16/17 08:40 Lymph % (Auto) 27.0 % (22.0-35.0) 02/16/17 08:40 [place] % (Auto) 8.4 % (1.0-6.0) H 02/16/17 08:40 Eos % (Auto) 1.9 % (1.5-5.0) 02/16/17 08:40 Baso % (Auto) 0.2 % (0.0-3.0) 02/16/17 08:40 Gran # 2.99 (1.4-6.5) 02/16/17 08:40 Lymph # 1.3 (1.2-3.4) 02/16/17 08:40 [place] # 0.4 (0.1-0.6) 02/16/17 08:40 Eos # 0.1 (0.0-0.7) 02/16/17 08:40 Baso # 0.01 K/mm3 (0.0-2.0) 02/16/17 08:40 Sodium 138 mmol/L (132-148) 02/16/17 08:40 Potassium 3.8 mmol/L (3.6-5.0) 02/16/17 08:40 Chloride 109 mmol/L (98-107) H 02/16/17 08:40 Carbon Dioxide 22 mmol/L (21-33) 02/16/17 08:40 Anion Gap 11 (10-20) 02/16/17 08:40 BUN 13 mg/dL (7-21) 02/16/17 08:40 Creatinine 0.9 mg/dL (0.5-1.4) 02/16/17 08:40 Est GFR ( Amer) > 60 02/16/17 08:40 Est GFR (Non-Af Amer) > 60 02/16/17 08:40 Random Glucose 159 mg/dL (70-110) H 02/16/17 08:40 Calcium 8.8 mg/dL (8.4-10.5) 02/16/17 08:40 Magnesium 1.9 mg/dL (1.7-2.2) 02/15/17 09:20 Total Bilirubin 0.7 mg/dL (0.2-1.3) 02/16/17 08:40 AST 20 U/L (15-59) 02/16/17 08:40 ALT 27 U/L (7-56) 02/16/17 08:40 Alkaline Phosphatase 57 U/L (38-133) 02/16/17 08:40 Lactate Dehydrogenase 386 U/L (333-699) 02/15/17 09:20 Total Creatine Kinase 111 U/L (35-230) 02/15/17 09:20 Troponin I < 0.01 ng/mL 02/15/17 21:15 Total Protein 7.1 g/dL (5.8-8.3) 02/16/17 08:40 Albumin 3.9 g/dL (3.0-4.8) 06/16/17 08:40 Globulin 3.2 gm/dL 02/16/17 08:40 Albumin/Globulin Ratio 1.2 (1.1-1.8) 02/16/17 08:40 Urine Opiates Screen Negative (NEGATIVE) 02/16/17 06:15 Urine Methadone Screen Negative (NEGATIVE) 02/16/17 06:15 Ur Barbiturates Screen Negative (NEGATIVE) 02/16/17 06:15 Ur Phencyclidine Scrn Negative (NEGATIVE) 02/16/17 06:15 Ur Amphetamines Screen Negative (NEGATIVE) 02/16/17 06:15 U Benzodiazepines Scrn Negative (NEGATIVE) 02/16/17 06:15 U Oth Cocaine Metabols Negative (NEGATIVE) 02/16/17 06:15 U Cannabinoids Screen Negative (NEGATIVE) 02/16/17 06:15 Alcohol, Quantitative 49 mg/dL (0-10) H 02/15/17 09:20 - Hospital Course Hospital Course: 51 M with PMHx of substance abuse, HTN, HLD, alcoholic cardiomyopathy, anxiety, and depression presented to the [facility] ED with complaints of left sided chest pain. Pt claims the chest pain began earlier this morning after walking approximately 4 blocks at which point pt experienced cp and weakness. Pt stated the cp was on the left side of the chest that radiated to the left shoulder. Pt describes this pain as a tightness and 8/10. Patient says he had the same thing happen 2 weeks ago while he was walking. Pt was given aspirin today prior to arrival which he says did not help. admitted to r/o acs.Cardio was consulted, Dr. Sampson. Pt admitted to non-compliance to meds. Cardio recommended the pt to stop smoking and being compliant with his meds. Pt did not experience any further chest pain episodes. Pt eloped on day of dc prior to being discharged. Pt pharmacy was unable to be located to provide further rx. Authorities were notified on account of pt having IV access still upon elopement. Discharge Plan - Follow Up Plan Condition: FAIR Disposition: AGAINST MEDICAL ADVICE Instructions: Chest Pain (ED) Additional Instructions: 1. PT eloped Referrals: Enedina Vinson MD [Primary Care Provider] - <Rick Swenson MD - Last Filed: 02/16/17 16:52> Provider - Provider Date of Admission: 02/15/17 10:19 Attending physician: Rick Swenson MD Primary care physician: Enedina Vinson MD Hospital Course - Lab Results Lab Results: Most Recent Lab Values WBC 4.8 10^3/ul (4.5-11.0) 02/16/17 08:40 RBC 4.45 10^6/uL (3.5-6.1) 02/16/17 08:40 Hgb 13.7 gm/dL (14.0-18.0) L 02/16/17 08:40 Hct 40.1 % (42.0-52.0) L 02/16/17 08:40 MCV 90.1 fL (80.0-105.0) 02/16/17 08:40 MCH 30.8 pg (25.0-35.0) 02/16/17 08:40 MCHC 34.2 g/dl (31.0-37.0) 02/16/17 08:40 RDW 12.5 % (11.5-14.5) 02/16/17 08:40 Plt Count 139 10^3/uL (120.0-450.0) 02/16/17 08:40 MPV 11.7 fl (7.0-11.0) H 02/16/17 08:40 Gran % 62.5 % (50.0-68.0) 02/16/17 08:40 Lymph % (Auto) 27.0 % (22.0-35.0) 02/16/17 08:40 [place] % (Auto) 8.4 % (1.0-6.0) H 02/16/17 08:40 Eos % (Auto) 1.9 % (1.5-5.0) 02/16/17 08:40 Baso % (Auto) 0.2 % (0.0-3.0) 02/16/17 08:40 Gran # 2.99 (1.4-6.5) 02/16/17 08:40 Lymph # 1.3 (1.2-3.4) 02/16/17 08:40 [place] # 0.4 (0.1-0.6) 02/16/17 08:40 Eos # 0.1 (0.0-0.7) 02/16/17 08:40 Baso # 0.01 K/mm3 (0.0-2.0) 02/16/17 08:40 Sodium 138 mmol/L (132-148) 02/16/17 08:40 Potassium 3.8 mmol/L (3.6-5.0) 02/16/17 08:40 Chloride 109 mmol/L (98-107) H 02/16/17 08:40 Carbon Dioxide 22 mmol/L (21-33) 02/16/17 08:40 Anion Gap 11 (10-20) 02/16/17 08:40 BUN 13 mg/dL (7-21) 02/16/17 08:40 Creatinine 0.9 mg/dL (0.5-1.4) 02/16/17 08:40 Est GFR ( Amer) > 60 02/16/17 08:40 Est GFR (Non-Af Amer) > 60 02/16/17 08:40 Random Glucose 159 mg/dL (70-110) H 02/16/17 08:40 Calcium 8.8 mg/dL (8.4-10.5) 02/16/17 08:40 Magnesium 1.9 mg/dL (1.7-2.2) 02/15/17 09:20 Total Bilirubin 0.7 mg/dL (0.2-1.3) 02/16/17 08:40 AST 20 U/L (15-59) 02/16/17 08:40 ALT 27 U/L (7-56) 02/16/17 08:40 Alkaline Phosphatase 57 U/L (38-133) 02/16/17 08:40 Lactate Dehydrogenase 386 U/L (333-699) 02/15/17 09:20 Total Creatine Kinase 111 U/L (35-230) 02/15/17 09:20 Troponin I < 0.01 ng/mL 02/15/17 21:15 Total Protein 7.1 g/dL (5.8-8.3) 02/16/17 08:40 Albumin 3.9 g/dL (3.0-4.8) 02/16/17 08:40 Globulin 3.2 gm/dL 02/16/17 08:40 Albumin/Globulin Ratio 1.2 (1.1-1.8) 02/16/17 08:40 Urine Opiates Screen Negative (NEGATIVE) 02/16/17 06:15 Urine Methadone Screen Negative (NEGATIVE) 02/16/17 06:15 Ur Barbiturates Screen Negative (NEGATIVE) 02/16/17 06:15 Ur Phencyclidine Scrn Negative (NEGATIVE) 02/16/17 06:15 Ur Amphetamines Screen Negative (NEGATIVE) 02/16/17 06:15 U Benzodiazepines Scrn Negative (NEGATIVE) 02/16/17 06:15 U Oth Cocaine Metabols Negative (NEGATIVE) 02/16/17 06:15 U Cannabinoids Screen Negative (NEGATIVE) 02/16/17 06:15 Alcohol, Quantitative 49 mg/dL (0-10) H 02/15/17 09:20 Attending/Attestation - Attestation I have personally seen and examined this patient.: Yes I have fully participated in the care of the patient.: Yes I have reviewed all pertinent clinical information, including history, physical exam and plan: Yes Notes (Text): 02/16/17 16:50 50 M with PMH of CAD,SP cardiac catherization 02/05/17 that reveals 60% LAD lesion, chronic smoking, and non compliance with medication wasa dmitted with atypical chest pain, serial troponins were normal, was evaluated by cardiology, issue of compliance with medication and ongoing smoking was discussed in detail. Prognosis is guarded.
--- NOTE | 2017-02-17 16:11 | CARD ---
APPROVED REPORT EKG Measurement Heart [id number] <Conclusion> Normal sinus rhythm Cannot rule out Anterior infarct, age undetermined Abnormal ECG
== END 2017-02-16 15:23 | disposition left against medical advice (07) ==
LOC: ED 08:59 → ERH 10:19 → 2RNO 11:58
PROVIDERS: ADMIT Internal Medicine; ATTEND Internal Medicine
DX: R07.89 Other chest pain (principal); I42.6 Alcoholic cardiomyopathy; F41.9 Anxiety disorder, unspecified; F32.9 Major depressive disorder, single episode, unspecified; F17.200 Nicotine dependence, unspecified, uncomplicated; I10 Essential (primary) hypertension; E78.5 Hyperlipidemia, unspecified; E87.6 Hypokalemia; J44.9 Chronic obstructive pulmonary disease, unspecified; F10.10 Alcohol abuse, uncomplicated; Y90.2 Blood alcohol level of 40-59 mg/100 ml; Z87.11 Personal history of peptic ulcer disease; Z79.82 Long term (current) use of aspirin
CPT/HCPCS: 36415; 71010; 80053; 80320; 80324; 80345; 80346; 80349; 80353; 80358; 80361; 82550; 83615; 83735; 83992; 84484; 85025; 93005; 99285; C9113; G0378; J1200; J1650; J3411

== ENCOUNTER 2017-02-22 11:25 | Inpatient (IN) | payer MEDICAID ==
[2017-02-22 11:26] VITALS: PULSE 88
--- NOTE | 2017-02-22 12:27 | ED PDOC ---
Arrival/HPI - General Chief Complaint: Dizziness/Lightheaded Time Seen by Provider: 02/22/17 12:02 Historian: Patient - History of Present Illness Narrative History of Present Illness (Text): 02/22/17 11:55 A 51 year old male, whose past medical history includes hypertension, hyperlipidema, cardiomyopathy, anxiety, depression, and substance abuse presents to the emergency department complaining of intermittent episodes of amnesia. Patient states episodes first developed 7 days ago. 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 He states the follow few days he was okay until falling asleep yesterday in the afternoon. Patient reports this morning he was awoken at 1100 by his roommate who suggested he comes to the emergency department for evaluation. Patient complains of feeling dizzy, lightheaded, nauseous, generalized and lower extremity weakness. Patient says he has chronic intermittent midsternal chest pain since his last visit to the emergency department. He denies any fever, vomiting, diarrhea, or any other complaints at this time. Patient mentions his last alcohol drinking was on 02/08/2017 and on 02/05/17 he had a cardiac catheterization which showed a blockage. PMD: Dr. Vinson Time/Duration: Other (7 days) Symptom Onset: Sudden Symptom Course: Intermittent Quality: Other Activities at Onset: Rest Context: Home Past Medical History - Provider Review Nursing Documentation Reviewed: Yes - Past History Past History: No Previous - Infectious Disease Hx of Infectious Diseases: None - Tetanus Immunization Tetanus Immunization: Unknown - Cardiac Hx Cardiac Disorders: Yes (Cardiomyopathy, EF 35%, heavy smoker,DRINKER) Hx Hypertension: Yes - Pulmonary Hx Respiratory Disorders: Yes Hx Chronic Obstructive Pulmonary Disease (COPD): Yes - Neurological Hx Neurological Disorder: Yes Hx Migraine: Yes - HEENT Hx HEENT Disorder: No - Renal Hx Renal Disorder: No - Endocrine/Metabolic Hx Endocrine Disorders: No - Hematological/Oncological Hx Blood Disorders: Yes (blood transfusions hx ulcers) - Integumentary Hx Dermatological Disorder: Yes Other/Comment: multiple red abrasions to top of feet and both knees - Musculoskeletal/Rheumatological Hx Musculoskeletal Disorders: Yes Hx Falls: Yes - Gastrointestinal Hx Gastrointestinal Disorders: Yes - Genitourinary/Gynecological Hx Genitourinary Disorders: No - Psychiatric Hx Psychophysiologic Disorder: Yes (Heavy smoker, ETOH abuse, substance abuse ( cocaine)) Hx Anxiety: Yes Hx Depression: Yes Hx Substance Use: Yes (COCAINE, CANNABIS) Other/Comment: COCAINE,DRINKS BEER - Past Surgical History Past Surgical History: No Previous - Surgical History Hx Cardiac Catheterization: Yes - Anesthesia Hx Anesthesia: Yes - Suicidal Assessment Feels Threatened In Home Enviroment: No Family/Social History - Physician Review Nursing Documentation Reviewed: Yes Family/Social History: Unknown Family HX Smoking Status: Current Some Days Smoker Hx Alcohol Use: No Hx Substance Use: Yes (COCAINE, CANNABIS) Hx Substance Use Treatment: No Allergies/Home Meds Allergies/Adverse Reactions: Allergies No Known Allergies Allergy (Verified 02/22/17 11:27) Home Medications: Home Meds Medication Instructions Recorded Confirmed No Known Home Med 02/22/17 02/22/17 Review of Systems - Physician Review All systems were reviewed & negative as marked: Yes - Review of Systems Constitutional: absent: Fevers Cardiovascular: Chest Pain (Chronic midsternal) Gastrointestinal: Nausea. absent: Abdominal Pain, Diarrhea, Vomiting Neurological: Dizziness, Other (lightheadedness) Physical Exam Vital Signs Reviewed: Yes Vital Signs Temp Pulse Resp BP Pulse Ox 02/22/17 13:26 71 14 119/76 100 02/22/17 11:48 98.1 F 86 13 111/75 99 02/22/17 11:28 97.1 F L Temperature: Afebrile Blood Pressure: Normal Pulse: Regular Respiratory Rate: Normal Appearance: Positive for: Well-Appearing, Non-Toxic, Comfortable Pain Distress: None Mental Status: Positive for: Alert and Oriented X 3 - Systems Exam Head: Present: Atraumatic, Normocephalic Pupils: Present: PERRL Extroacular Muscles: Present: EOMI Conjunctiva: Present: Normal Mouth: Present: Moist Mucous Membranes Neck: Present: Normal Range of Motion Respiratory/Chest: Present: Clear to Auscultation, Good Air Exchange. No: Respiratory Distress, Accessory Muscle Use Cardiovascular: Present: Regular Rate and Rhythm, Normal S1, S2. No: Murmurs Abdomen: Present: Normal Bowel Sounds. No: Tenderness, Distention, Peritoneal Signs Upper Extremity: Present: Normal Inspection. No: Cyanosis, Edema Lower Extremity: Present: Normal Inspection. No: Edema Neurological: Present: GCS=15, CN II-XII Intact, Speech Normal, Motor Func Grossly Intact, Normal Sensory Function Skin: Present: Warm, Dry, Normal Color. No: Rashes Psychiatric: Present: Alert, Oriented x 3, Normal Insight, Normal Concentration Medical Decision Making ED Course and Treatment: 02/22/17 11:55 Impression: A 51 year old male with intermittent episodes of amnesia. Differential Diagnosis included but are not limited to: Global amnesia r/o intracranial mass vs. intracranial hemorrhage; lightheaded/dizzy and chest pain r/o cardiac disease Plan: -- EKG -- Head CT -- Chest X-Ray -- Labs -- Reassess and disposition Prior Visits: Notes and results from previous visits were reviewed. On 02/15/17 patient came in complaining of Chest pain and was hospitalized over night and released . Patient had a cardiac catherization on 02/05/17 that reveal 60% LAD lesion. Progress Notes: EKG: Ordered, reviewed, and independently interpreted the EKG. Rate : 81 BPM Rhythm : NSR Interpretation : No ST/T Changes Comparison : No changes from previous EKG 02/16/17 02/22/17 12:31 CT HEAD WITHOUT CONTRAST: Creator : Cynthia Cardenas MD COMPARISON: 07/30/2016. FINDINGS: HEMORRHAGE:No intracranial hemorrhage. BRAIN:There are mild chronic microangiopathic changes. There is no mass, mass effect or abnormal extra-axial fluid collection. VENTRICLES: The ventricles are normal in size, shape and configuration. CALVARIUM: Unremarkable. PARANASAL SINUSES: Predominantly clear. MASTOID AIR CELLS: Predominantly clear. OTHER FINDINGS: None. IMPRESSION: No acute intracranial abnormality. 02/22/2017 13:28 Creator : Cynthia Cardenas MD COMPARISON: 09/17/2016. FINDINGS: LUNGS:The lungs are well inflated and clear. PLEURA:No significant pleural effusion identified, no pneumothorax apparent. CARDIOVASCULAR:Normal. OSSEOUS STRUCTURES:No significant abnormalities. VISUALIZED UPPER ABDOMEN:Normal. OTHER FINDINGS:None. IMPRESSION:No active pulmonary disease. 02/22/17 14:[address] Osborn, who is aware and accepts patient to her services for syncope, global amnesia. I have discussed the results and plan with the patient, who expresses understanding. Patient given the opportunity to ask question, all questions were answered and there is agreement with the plan to be admitted to the hospital. - Lab Interpretations Lab Results: 02/22/17 11:50 02/22/17 11:50 Lab Results 02/22/17 11:50: PT 11.0, INR 1.02, APTT 29.2 02/22/17 11:50: Sodium 144, Potassium 3.9, Chloride 106, Carbon Dioxide 27, Anion Gap 15, BUN 23 H, Creatinine 1.2, Est GFR ( Amer) > 60, Est GFR ( Non-Af Amer) > 60, Random Glucose 70, Calcium 9.6, Magnesium 1.8, Total Bilirubin 0.7, AST 23, ALT 29, Alkaline Phosphatase 66, Lactate Dehydrogenase 355, Total Creatine Kinase 41, Troponin I < 0.01, Total Protein 8.0, Albumin 4.5 , Globulin 3.5, Albumin/Globulin Ratio 1.3 02/22/17 11:50: WBC 7.2 D, RBC 4.92, Hgb 15.0, Hct 45.6, MCV 92.7, MCH 30.5, MCHC 32.9, RDW 12.6, Plt Count 151, MPV 13.2 H, Gran % 64.4, Lymph % (Auto) 21.9 L, [place] % (Auto) 7.5 H, Eos % (Auto) 5.4 H, Baso % (Auto) 0.8, Gran # 4.62 , Lymph # 1.6, [place] # 0.5, Eos # 0.4, Baso # 0.06 I have reviewed the lab results: Yes - RAD Interpretation Radiology Orders: 02/22/17 12:03 HEAD W/O CONTRAST [CT] Stat CHEST PORTABLE [RAD] Stat - EKG Interpretation Interpreted by ED Physician: Yes Type: 12 lead EKG Comparison: Com.w/previous EKG - Medication Orders Current Medication Orders: Aspirin (Aspirin Chewable) 81 mg PO DAILY KADE Sodium Chloride (Sodium Chloride 0.9%) 1,000 mls @ 250 mls/hr IV .Q4H ONE Stop: 02/22/17 19:17 DANIELA Risk Score for UA/NSTEMI - DANIELA Risk Score Age > 64: NO 3 or more CAD Risk Factors: NO Known CAD (Stenosis greater than 50%): YES Aspirin use in past 7 days: NO Severe Angina: NO EKG ST changes greater than 0.5mm: NO Positive Cardiac Marker: NO DANIELA Score: 1 % risk at 14 days of: all cause mortality, new or recurrent RI, or severe recurrent ischemia requiring urgen revascularization: 5% - Scribe Statement The provider has reviewed the documentation as recorded by the Nathenibjennifer Estevez training under Sofía Manley Provider Scribe Attestation: All medical record entries made by the Scribe were at my direction and personally dictated by me. I have reviewed the chart and agree that the record accurately reflects my personal performance of the history, physical exam, medical decision making, and the department course for this patient. I have also personally directed, reviewed, and agree with the discharge instructions and disposition. Disposition/Present on Arrival - Present on Arrival Any Indicators Present on Arrival: No History of DVT/PE: No History of Uncontrolled Diabetes: No Urinary Catheter: No History of Decub. Ulcer: No History Surgical Site Infection Following: None - Disposition Have Diagnosis and Disposition been Completed?: Yes Diagnosis: Syncopal episodes, Global amnesia Disposition: HOSPITALIZED Disposition Time: 15:33 Patient Plan: Observation Condition: FAIR
--- NOTE | 2017-02-22 12:33 | CT ---
PROCEDURE: CT HEAD WITHOUT CONTRAST. HISTORY: Global amnesia COMPARISON: 07/30/2016. TECHNIQUE: Axial computed tomography images were obtained through the head/brain without intravenous contrast. Radiation dose: Total exam DLP = 768.11 mGy-cm. This CT exam was performed using one or more of the following dose reduction techniques: Automated exposure control, adjustment of the mA and/or kV according to patient size, and/or use of iterative reconstruction technique. FINDINGS: HEMORRHAGE: No intracranial hemorrhage. BRAIN: There are mild chronic microangiopathic changes. There is no mass, mass effect or abnormal extra-axial fluid collection. VENTRICLES: The ventricles are normal in size, shape and configuration. CALVARIUM: Unremarkable. PARANASAL SINUSES: Predominantly clear. MASTOID AIR CELLS: Predominantly clear. OTHER FINDINGS: None. IMPRESSION: No acute intracranial abnormality.
--- NOTE | 2017-02-22 13:27 | RAD ---
HISTORY: Chest pain COMPARISON: 09/17/2016. FINDINGS: LUNGS: The lungs are well inflated and clear. PLEURA: No significant pleural effusion identified, no pneumothorax apparent. CARDIOVASCULAR: Normal. OSSEOUS STRUCTURES: No significant abnormalities. VISUALIZED UPPER ABDOMEN: Normal. OTHER FINDINGS: None. IMPRESSION: No active pulmonary disease.
[2017-02-22 14:00] LABS: BASO # 0.06 K/mm3 (0.0-2.0); BASO % 0.8 % (0.0-3.0); EOS # 0.4 (0.0-0.7); EOS % 5.4 % (1.5-5.0); GRAN # 4.62 (1.4-6.5); GRAN % 64.4 % (50.0-68.0); HEMATOCRIT 45.6 % (42.0-52.0); LYMPH # 1.6 (1.2-3.4); LYMPH % 21.9 % (22.0-35.0); MEAN CELL VOLUME 92.7 fL (80.0-105.0); MEAN CORPUSCULAR HEMOGLOBIN 30.5 pg (25.0-35.0); MEAN CORPUSCULAR HGB CONC 32.9 g/dl (31.0-37.0); MEAN PLATELET VOLUME 13.2 fl (7.0-11.0); MONO # 0.5 (0.1-0.6); MONO % 7.5 % (1.0-6.0); PLATELET COUNT 151 10^3/uL (120.0-450.0); RED CELL DISTRIBUTION WIDTH 12.6 % (11.5-14.5); WHITE BLOOD COUNT 7.2 10^3/ul (4.5-11.0)
[2017-02-22 14:07] LABS: ADD MANUAL DIFF? NO; ALB/GLOB RATIO 1.3 (1.1-1.8); ALKALINE PHOSPHATASE 66 U/L (38-133); ALT/SGPT 29 U/L (7-56); AST/SGOT 23 U/L (15-59); BILIRUBIN,TOTAL 0.7 mg/dL (0.2-1.3); BLOOD UREA NITROGEN 23 mg/dL (7-21); CALCIUM 9.6 mg/dL (8.4-10.5); CARBON DIOXIDE 27 mmol/L (21-33); CHLORIDE 106 mmol/L (98-107); GFR AFRICAN-AMERICAN > 60; GLUCOSE,RANDOM 70 mg/dL (70-110); MAGNESIUM 1.8 mg/dL (1.7-2.2); POTASSIUM 3.9 mmol/L (3.6-5.0); SODIUM 144 mmol/L (132-148)
[2017-02-22 14:09] LABS: INR 1.02 (0.93-1.08); PARTIAL THROMBOPLASTIN TIME 29.2 Seconds (23.7-30.8)
[2017-02-22 14:19] LABS: TROPONIN I < 0.01 ng/mL
[2017-02-22] MEDS ORDERED: Sodium Chloride 0.9% 1,000 ML IV ONE (15:18)
[2017-02-22] MEDS ORDERED: Iohexol 240 (50 ml) ONE (15:59)
[2017-02-22 16:03] LABS: ALCOHOL SERUM < 10 mg/dL (0-10)
[2017-02-22 16:09] LABS: THYROID STIMULATING HORMONE 0.87 mIU/mL (0.46-4.68)
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
[2017-02-22 16:21] LABS: PHOSPHOROUS 4.1 mg/dL (2.5-4.5)
[2017-02-22] MEDS ORDERED: Iohexol 350 MG/100 ML VIAL ONE (17:41)
[2017-02-22] MEDS ORDERED: Pneumococcal 23-Valent Vaccine IM ONE (18:38)
--- NOTE | 2017-02-22 20:48 | CT ---
EXAM: CT Abdomen and Pelvis With Intravenous Contrast CLINICAL HISTORY: The patient age is 51 years old and is male; Signs and symptoms; Other: Weight loss; Other: Chest pain; Prior surgery; Surgery type: Cardiac cath - inguinal hernia repair; Additional info: Fara, R/O malignancy Facility exam id and description: Ct cheabdpelc chest, abd, pel w/iv po contrast TECHNIQUE: Axial computed tomography images of the abdomen and pelvis with intravenous contrast. This CT exam was performed using one or more of the following dose reduction techniques: automated exposure control, adjustment of the mA and/or kV according to patient size, and/or use of iterative reconstruction technique. Coronal and sagittal reformatted images were created and reviewed. CONTRAST: 96 mL of omni 350 administered intravenously. COMPARISON: No relevant prior studies available. FINDINGS: Lower thorax: No acute findings. ABDOMEN: Liver: There is hypodense fatty infiltration of the liver. Gallbladder and bile ducts: No calcified stones. No ductal dilation. Pancreas: Normal contour, without acute peripancreatic stranding. Spleen: There is heterogeneous density of the spleen, likely due to the phase of enhancement. Adrenals: No mass. Kidneys and ureters: Probable nonobstructing calculi are seen bilaterally. This measures 5 mm at the upper pole of the left kidney. There is no hydronephrosis bilaterally. There is a subcentimeter probable cyst in the upper pole of the right kidney. Stomach and bowel: There is annular wall thickening of the proximal transverse colon. This measures approximately 1.9 x 1.6 cm. This may be due to incomplete distention of the bowel, although a colonic mass cannot be excluded. Moderate fecal material is identified within the colon. Appendix: The appendix is not visualized. PELVIS: Bladder: No mass. Reproductive: There is mild enlargement of the prostate. ABDOMEN and PELVIS: Intraperitoneal space: No free air. Bones/joints: Hypertrophic degenerative changes are noted within the spine. [place]ssific loose bodies are visualized adjacent to the superior right acetabulum. This are was a sequela of prior trauma. Soft tissues: No acute abnormality. Vasculature: There is minimal atherosclerotic calcification of the abdominal aorta. No abdominal aortic aneurysm. Lymph nodes: No significant retroperitoneal or intrapelvic lymphadenopathy. IMPRESSION: 1. There is annular wall thickening of the proximal transverse colon. This measures approximately 1.9 x 1.6 cm. This may be due to incomplete distention of the bowel, although a colonic mass cannot be excluded. Correlation with colonoscopy is recommended. 2. There is hypodense fatty infiltration of the liver. 3. Probable nonobstructing calculi are seen bilaterally. There is no hydronephrosis bilaterally. 4. There is mild enlargement of the prostate. 5. Incidental/non-acute findings are described above. EXAM: CT Chest With Intravenous Contrast CLINICAL HISTORY: The patient age is 51 years old and is male; Signs and symptoms; Other: Weight loss; Other: Chest pain; Prior surgery; Surgery type: Cardiac cath - inguinal hernia repair; Additional info: Fara R/O malignancy Facility exam id and description: Ct cheabdpelc chest, abd, pel w/iv po contrast TECHNIQUE: Axial computed tomography images of the chest with intravenous contrast. This CT exam was performed using one or more of the following dose reduction techniques: automated exposure control, adjustment of the mA and/or kV according to patient size, and/or use of iterative reconstruction technique. Coronal and sagittal reformatted images were created and reviewed. CONTRAST: 96 mL of omni 350 administered intravenously. EXAM DATE/TIME: 02/22/2017 3:50 PM COMPARISON: CR - CHEST PORTABLE 02/22/2017 12:08:01 PM FINDINGS: Lungs: Mild atelectatic change is visualized within the right middle lobe and lingula. Additional atelectatic changes are seen at the lung bases bilaterally. Otherwise, there is no confluent infiltrate. There is no lung mass or dominant lung nodule. Pleural space: No pneumothorax. No significant effusion. Heart: There is a small pericardial effusion. A small amount of fluid is visualized within the superior pericardial recess. No cardiomegaly. Bones/joints: Osteopenia. Mild degenerative spurring is identified of the endplates within the mid to lower thoracic spine. Soft tissues: No acute abnormality. Vasculature: The ascending aorta is mildly ectatic measuring 3.8 cm in diameter. Lymph nodes: A borderline enlarged right hilar lymph node measures 1.0 x 0.7 cm. Additional small bilateral hilar lymph nodes are seen. There is a borderline enlarged lymph node in the AP window measuring 1.0 x 0.9 cm. These lymph nodes are nonspecific as to etiology. There is an enlarged left axillary lymph node measuring 1.6 x 0.8 cm. Additional smaller axillary lymph nodes are seen bilaterally. IMPRESSION: 1. Mild atelectatic change is visualized within the right middle lobe and lingula. Additional atelectatic changes are seen at the lung bases bilaterally. Otherwise, there is no confluent infiltrate. 2. A borderline enlarged right hilar lymph node measures 1.0 x 0.7 cm. There is a borderline enlarged lymph node in the AP window measuring 1.0 x 0.9 cm. There is an enlarged left axillary lymph node measuring 1.6 x 0.8 cm. These lymph nodes are nonspecific as to etiology. 3. There is a small pericardial effusion. 4. The ascending aorta is mildly ectatic measuring 3.8 cm in diameter. 5. Additional CT findings described above.
--- NOTE | 2017-02-22 23:39 | CARD ---
APPROVED REPORT EKG Measurement Heart [id number] <Conclusion> Normal sinus rhythm Prolonged QT Abnormal ECG
[2017-02-23] MEDS: Pantoprazole 40 mg EC Tab PO SCH (06:22)
[2017-02-23 07:27] LABS: ADD MANUAL DIFF? NO
[2017-02-23 07:30] LABS: BASO # 0.04 K/mm3 (0.0-2.0); BASO % 0.8 % (0.0-3.0); EOS # 0.3 (0.0-0.7); EOS % 6.7 % (1.5-5.0); GRAN # 2.31 (1.4-6.5); GRAN % 48.3 % (50.0-68.0); HEMATOCRIT 39.9 % (42.0-52.0); LYMPH # 1.6 (1.2-3.4); LYMPH % 34.2 % (22.0-35.0); MEAN CELL VOLUME 89.5 fL (80.0-105.0); MEAN CORPUSCULAR HEMOGLOBIN 29.8 pg (25.0-35.0); MEAN CORPUSCULAR HGB CONC 33.3 g/dl (31.0-37.0); MEAN PLATELET VOLUME 12.5 fl (7.0-11.0); MONO # 0.5 (0.1-0.6); PLATELET COUNT 132 10^3/uL (120.0-450.0); RED CELL DISTRIBUTION WIDTH 12.2 % (11.5-14.5); WHITE BLOOD COUNT 4.8 10^3/ul (4.5-11.0)
[2017-02-23 07:45] LABS: ALB/GLOB RATIO 1.3 (1.1-1.8); ALKALINE PHOSPHATASE 50 U/L (38-133); ALT/SGPT 34 U/L (7-56); AST/SGOT 24 U/L (15-59); BILIRUBIN,TOTAL 0.7 mg/dL (0.2-1.3); BLOOD UREA NITROGEN 22 mg/dL (7-21); CARBON DIOXIDE 27 mmol/L (21-33); CHLORIDE 105 mmol/L (95-110); GFR AFRICAN-AMERICAN > 60; GLUCOSE,RANDOM 80 mg/dL (70-110); POTASSIUM 4.9 mmol/L (3.6-5.0); SODIUM 140 mmol/L (132-148); TOTAL PROTEIN 6.7 g/dL (5.8-8.3)
--- NOTE | 2017-02-23 08:35 | CP.PCM.CON ---
<Vero Temple - Last Filed: 02/23/17 09:57> History of Present Illness - History of Present Illness History of Present Illness: GI consult note 51 year old male with past medical history of HTN, HLD, cardiomyophaty, CAD, PUD , anxiety, depression and polysubstance abuse is admitted to hospital after having a syncopal episode. GI is consulted for weight loss and CT finding of transverse colon thickening. Patient states that he is unintentionally loosing weight. Looking over chart, it is noted that patient has lost about 30 lbs over the last 6 months. Patient complains of weakness and fatigue. Patient denies having any rectal bleeding or blood in stool. He also states that he has made no changes in his diet, is tolerating food. He denies having any N/V/D /C. Patient does complain of dizziness with room spinning for past few weeks. In the past patient has had 2 EGD procedures during which he was diagnosed with PUD. First EGD procedure was [address] Aquino at which time he had 3 bleeding ulcers which were treated with stapling. His second E[place] procedure was 4 [place] ago [place] [facility] [place] He has never had a colonoscopy. Patient denies using any NSAIDs in the past. Patient recently underwent cardiac cath (02/05/17) for chest pressure which showed 60% stenosis of LAD. No stents were placed. 12 point ROS are negative except for the above mentioned. PMHx: stated above PSH: appendectomy, 2 hernia repair, plates in his face Med: xanax 1mg BID PRN NKDA SH: Las drink 7 days ago, smokes 1PPD for >20 years, prior hx of drugs including marijuana and cocaine FH: father with prostate cancer Past Patient History - Infectious Disease Hx of Infectious Diseases: None - Tetanus Immunizations Tetanus Immunization: Unknown - Past Social History Smoking Status: Heavy Smoker > 10 Cigarettes Daily Alcohol: Occasional - CARDIAC Hx Cardiac Disorders: Yes (Cardiomyopathy, EF 35%, heavy smoker,DRINKER) Hx Hypertension: Yes - PULMONARY Hx Respiratory Disorders: Yes Hx Chronic Obstructive Pulmonary Disease (COPD): Yes - NEUROLOGICAL Hx Neurological Disorder: Yes Hx Migraine: Yes - HEENT Hx HEENT Problems: No - RENAL Hx Chronic Kidney Disease: No - ENDOCRINE/METABOLIC Hx Endocrine Disorders: No - HEMATOLOGICAL/ONCOLOGICAL Hx Blood Disorders: Yes (blood transfusions hx ulcers) - INTEGUMENTARY Hx Dermatological Problems: Yes Other/Comment: multiple red abrasions to ble and both knees, work related - MUSCULOSKELETAL/RHEUMATOLOGICAL Hx Falls: No - GASTROINTESTINAL Hx Gastrointestinal Disorders: Yes Hx Ulcer: Yes (x6 17 yrs and 3 yrs ago) - GENITOURINARY/GYNECOLOGICAL Hx Genitourinary Disorders: No - PSYCHIATRIC Hx Substance Use: Yes (denies using drugs for over 20 yrs) - SURGICAL HISTORY Hx Surgeries: Yes (CARD CATH,INGUINAL HERNIA REPAIR,FACIAL FX) Hx Cardiac Catheterization: Yes - ANESTHESIA Hx Anesthesia: Yes Meds Allergies/Adverse Reactions: Allergies Allergy/AdvReac Type Severity Reaction Status Date / Time No Known Allergies Allergy Verified 02/22/17 11:27 - Medications Medications: Current Medications Aspirin (Aspirin Chewable) 81 mg PO DAILY [facility] Last Admin: 02/22/17 16:17 Dose: 81 mg Lorazepam (Ativan) 1 mg IVP Q6H PRN; Protocol PRN Reason: Agitation Pantoprazole Sodium (Protonix Ec Tab) 40 mg PO 0600 [facility] Last Admin: 02/23/17 06:22 Dose: 40 mg Physical Exam - Constitutional Appears: Non-toxic, No Acute Distress - Head Exam Head Exam: ATRAUMATIC - Eye Exam Eye Exam: EOMI - ENT Exam ENT Exam: Mucous Membranes Moist - Respiratory Exam Respiratory Exam: Clear to Auscultation Bilateral, NORMAL BREATHING PATTERN. absent: Accessory Muscle Use, Rales, Rhonchi, Wheezes, Respiratory Distress - Cardiovascular Exam Cardiovascular Exam: REGULAR RHYTHM, +S1, +S2. absent: Diastolic murmur, Gallop , Rubs, Systolic Murmur - GI/Abdominal Exam GI & Abdominal Exam: Normal Bowel Sounds, Soft. absent: Distended, Firm, Guarding, Organomegaly, Rigid, Tenderness - Rectal Exam Rectal Exam: NORMAL INSPECTION. absent: Black Stool, Bloody Stool, Hemorrhoids , Fecal Impaction - Extremities Exam Extremities exam: Negative for: pedal edema, tenderness - Neurological Exam Neurological exam: Alert, Oriented x3 - Psychiatric Exam Psychiatric exam: Normal Affect, Normal Mood - Skin Skin Exam: Dry, Intact, Normal Color, Warm Results - Vital Signs Recent Vital Signs: Last Vital Signs Temp 98.4 F 02/23/17 06:00 Pulse 60 02/23/17 06:00 Resp 18 02/23/17 06:00 BP 96/64 L 02/23/17 06:00 Pulse Ox 98 02/23/17 06:00 - Labs Result Diagrams: 02/23/17 05:30 02/23/17 05:30 Labs: Laboratory Results - last 24 hr 02/22/17 02/22/17 02/22/17 15:13 19:50 22:30 WBC RBC Hgb Hct MCV MCH MCHC RDW Plt Count MPV Gran % Lymph % (Auto) [place] % (Auto) Eos % (Auto) Baso % (Auto) Gran # Lymph # [place] # Eos # Baso # Sodium Potassium Chloride Carbon Dioxide Anion Gap BUN Creatinine Est GFR ( Amer) Est GFR (Non-Af Amer) Random Glucose Calcium Phosphorus 4.1 Total Bilirubin AST ALT Alkaline Phosphatase Troponin I < 0.01 Total Protein Albumin Globulin Albumin/Globulin Ratio Triglycerides 90 Cholesterol 155 LDL Cholesterol Direct 85 HDL Cholesterol 58 Vitamin B12 552 Urine Opiates Screen Negative Urine Methadone Screen Negative Ur Barbiturates Screen Negative Ur Phencyclidine Scrn Negative Ur Amphetamines Screen Negative U Benzodiazepines Scrn Positive H U Oth Cocaine Metabols Negative U Cannabinoids Screen Negative 02/23/17 02/23/17 05:30 05:30 WBC 4.8 D RBC 4.46 Hgb 13.3 L Hct 39.9 L MCV 89.5 MCH 29.8 MCHC 33.3 RDW 12.2 Plt Count 132 MPV 12.5 H Gran % 48.3 L Lymph % (Auto) 34.2 [place] % (Auto) 10.0 H Eos % (Auto) 6.7 H Baso % (Auto) 0.8 Gran # 2.31 Lymph # 1.6 [place] # 0.5 Eos # 0.3 Baso # 0.04 Sodium 140 Potassium 4.9 Chloride 105 Carbon Dioxide 27 Anion Gap 13 BUN 22 H Creatinine 1.1 Est GFR ( Amer) > 60 Est GFR (Non-Af Amer) > 60 Random Glucose 80 Calcium 9.0 Phosphorus Total Bilirubin 0.7 AST 24 ALT 34 Alkaline Phosphatase 50 Troponin I Total Protein 6.7 Albumin 3.7 Globulin 3.0 Albumin/Globulin Ratio 1.3 Triglycerides Cholesterol LDL Cholesterol Direct HDL Cholesterol Vitamin B12 Urine Opiates Screen Urine Methadone Screen Ur Barbiturates Screen Ur Phencyclidine Scrn Ur Amphetamines Screen U Benzodiazepines Scrn U Oth Cocaine Metabols U Cannabinoids Screen Assessment & Plan - Assessment and Plan (Free Text) Assessment: 51 year old male with past medical history of hypertension, HLD, cardiomyopathy , PUD, CAD, anxiety, depression, and substance abuse is seen for CT finding of transverse colon thickening and 30 lbs weight loss over [address] of chest/ abd/pelvis with IV/PO contrast showed annular wall thickening of proximal transverse colon measuring 1.9x1.6 cm which may be due to incomplete distention of bowel or mass; hypodense fatty infiltration of liver; non-obstructing calculi B/L with no hydronephrosis; atelectasis in lungs; borderline enlarged hilar lymph nodes; small pericardial effusion. On blood work, hgb and hct are WNL. Rectal exam does not show any over bleeding. 1. transverse colon thickening - Recommend outpatient colonoscopy as patient is currently being worked up for syncopal episode 2. Syncope - Continue management based on primary care team - Cardiology and neurology are consulted Will sign off. Please feel free to re-consult if necessary Case discussed with attending, Dr. Jamison - Date & Time Date: 02/23/17 Time: 09:41 <Charles Jamison - Last Filed: 02/23/17 12:28> Meds - Medications Medications: Current Medications Aspirin (Aspirin Chewable) 81 mg PO DAILY [facility] Last Admin: 02/23/17 10:12 Dose: 81 mg Atorvastatin Calcium (Lipitor) 20 mg PO DIN KADE Diltiazem HCl (Cardizem Cd) 180 mg PO DAILY [facility] Last Admin: 02/23/17 10:12 Dose: 180 mg Lorazepam (Ativan) 1 mg IVP Q6H PRN; Protocol PRN Reason: Agitation Pantoprazole Sodium (Protonix Ec Tab) 40 mg PO 0600 [facility] Last Admin: 02/23/17 06:22 Dose: 40 mg Results - Vital Signs Recent Vital Signs: Last Vital Signs Temp 98.3 F 02/23/17 11:58 Pulse 63 02/23/17 11:58 Resp 18 02/23/17 11:58 BP 112/75 02/23/17 11:58 Pulse Ox 98 02/23/17 06:00 - Labs Result Diagrams: 02/23/17 05:30 02/23/17 05:30 Labs: Laboratory Results - last 24 hr 02/22/17 02/22/17 02/22/17 15:13 19:50 22:30 WBC RBC Hgb Hct MCV MCH MCHC RDW Plt Count MPV Gran % Lymph % (Auto) [place] % (Auto) Eos % (Auto) Baso % (Auto) Gran # Lymph # [place] # Eos # Baso # Sodium Potassium Chloride Carbon Dioxide Anion Gap BUN Creatinine Est GFR ( Amer) Est GFR (Non-Af Amer) Random Glucose Calcium Phosphorus 4.1 Total Bilirubin AST ALT Alkaline Phosphatase Troponin I < 0.01 Total Protein Albumin Globulin Albumin/Globulin Ratio Triglycerides 90 Cholesterol 155 LDL Cholesterol Direct 85 HDL Cholesterol 58 Vitamin B12 552 Urine Opiates Screen Negative Urine Methadone Screen Negative Ur Barbiturates Screen Negative Ur Phencyclidine Scrn Negative Ur Amphetamines Screen Negative U Benzodiazepines Scrn Positive H U Oth Cocaine Metabols Negative U Cannabinoids Screen Negative 02/23/17 02/23/17 05:30 05:30 WBC 4.8 D RBC 4.46 Hgb 13.3 L Hct 39.9 L MCV 89.5 MCH 29.8 MCHC 33.3 RDW 12.2 Plt Count 132 MPV 12.5 H Gran % 48.3 L Lymph % (Auto) 34.2 [place] % (Auto) 10.0 H Eos % (Auto) 6.7 H Baso % (Auto) 0.8 Gran # 2.31 Lymph # 1.6 [place] # 0.5 Eos # 0.3 Baso # 0.04 Sodium 140 Potassium 4.9 Chloride 105 Carbon Dioxide 27 Anion Gap 13 BUN 22 H Creatinine 1.1 Est GFR ( Amer) > 60 Est GFR (Non-Af Amer) > 60 Random Glucose 80 Calcium 9.0 Phosphorus Total Bilirubin 0.7 AST 24 ALT 34 Alkaline Phosphatase 50 Troponin I Total Protein 6.7 Albumin 3.7 Globulin 3.0 Albumin/Globulin Ratio 1.3 Triglycerides Cholesterol LDL Cholesterol Direct HDL Cholesterol Vitamin B12 Urine Opiates Screen Urine Methadone Screen Ur Barbiturates Screen Ur Phencyclidine Scrn Ur Amphetamines Screen U Benzodiazepines Scrn U Oth Cocaine Metabols U Cannabinoids Screen Attending/Attestation - Attestation I have personally seen and examined this patient.: Yes I have fully participated in the care of the patient.: Yes I have reviewed all pertinent clinical information: Yes Notes (Text): 02/23/17 12:27 51 year old male with h/o HTN, HLD, CAD, h/o substance abuse admitted for syncope, noted to have weight loss, and subsequent CT scan shows abnormality in transverse colon. 1. Abnormal CT scan of the colon Plan: -recommend outpatient colonoscopy -in the interim, patient needs cardiac and neurological evaluation of syncope which takes priority -explained to the patient the findings and possible differential and the need to have a colonoscopy -will sign off at this time, please call with questions
[2017-02-23] MEDS ORDERED: diltiaZEM 180 mg/24 Hours CD Cap PO ONE (10:12)
[2017-02-23] MEDS: diltiaZEM 180 mg/24 Hours CD Cap PO SCH (10:12)
--- NOTE | 2017-02-23 14:17 | CON ---
DATE: 02/23/2017 HISTORY OF PRESENT ILLNESS: Shortly, the patient is a 51-year-old male with history of sub stance abuse in the past. The patient also has a history of overdose on medications in the past, was seen by Dr. Ayers in 2013, status post overdose, but the patient [facility]. The patient denied history of being admitted to the psychiatric inpatient un it. The patient was admitted on the medical side for evaluation of change in mental status, episodes of confusion. The patient also has memory problems. Psych consult was called for evaluation of moo d symptoms. The patient has history of forgetfulness and possible depressive symptoms. The patient was seen and examined today. The patient presented to be alert and oriented, pleasant, cooperative. The patient reported that he lost his job approximately a year ago and he is feeling depressed about that, but adamantly denied that he wanted to kill himself or others. Main concern for the patient i s periods of forgetfulness and the patient does not remember what exactly happened and why he came to the hospital. The patient also reported that his depressive symptoms are not worse than usual. The patient said that he could hear some voices. Last time was last week. The patient said that this v oice he was not able to recognize what they are saying and does not remember what they are saying, bu t at the same time remember that it was a male voice. The patient started to hear voices about a few years back, not command type. Denied visual hallucinations, denied paranoid ideations. The patient denied using drugs. The patient denied any head trauma. The patient denied seizure activities [facility]. VITAL SIGNS: Stable. Temperature is 98.3, pulse is 63, blood pressure 112/75, respirations 18, oxyg en saturation is 98. MEDICATIONS: Reviewed. The patient is on aspirin, Lipitor, Cardizem, Ativan, and Protonix. LABORATORY DATA: Reviewed. Toxicology reviewed. The patient was positive for benzodiazepines, but denied using any drugs, denied abusing any drugs. Most likely patient is taking that from the friend s or on the streets. MENTAL STATUS EXAMINATION: The patient appears to be alert, oriented, pleasant and cooperative. Ender r eye contact. Speech was normal rate, tone, quality, and quantity. Mood described, "I'm okay, I am not more depressed than usual." Affect was constricted, but reactive, mood congruent. Thought proc ess was coherent and goal directed. Thought content: The patient denied visual hallucinations. The patient reported that he was hearing some voices. Last time was last week. Denied command type hallie lucinations. The patient denied feeling paranoid. The patient denied any stressful events recently and reported to have episodes of forgetfulness and does not remember what brought patient to the hosp ital. Insight and judgment are fair. Impulses are well controlled. IMPRESSION: Episodes of confusion and forgetfulness. Could be related to the medical issues, seizur e disorder and possible some substance abuse. Urine drug screen was positive for benzodiazepines. T his conventional underwriter discussed the case with Dr. García. As per history, the patient has a significant weight l oss recently and they are ruling out malignancy which also could contribute to the episodes of confus ion. PLAN: The patient does not want to be on any medications. The patient is willing to have outpatient treatment. Medical team advised to contact social work specialist and provide followup appointment either at [facility] or [facility] because [facility] are b ooked. Neurology consultation was recommended. Rule out malignancy. Meanwhile, patient is not in a cute distress. If patient is willing to, could be followed up with outpatient psychiatrist. The pat ient denied thoughts of killing himself or others, denied intent or plan. Deemed to pose no threat t o self or others. Should you have any questions, give me a call back. This conventional underwriter discussed the case with Dr. García. Should you have any questions, give me a call back. Lindsay De La Vega MD cc: [id number] TT: 02/23/2017 14:16:51 Confirmation # [id number] Dictation # [id number] tamiko
--- NOTE | 2017-02-23 14:29 | CON ---
DATE: 02/23/2017 This is a 51-year-old male with a past medical history of hypertension, cardiomyopathy, coronary jam ry disease, anxiety, depression, polysubstance abuse and patient admitted after a syncopal episode. Called to evaluate the patient. The patient lost significant weight over the past 2-3 months. No na usea, no vomiting. ALLERGIES: No known drug allergies. Smokes 1 pack and drinks. REVIEW OF SYSTEMS: A 10-point was negative. PHYSICAL EXAMINATION: VITAL SIGNS: Blood pressure is 96/64. HEENT: Normocephalic, atraumatic. NECK: Supple. NEUROLOGIC: Awake, alert, orientated x 3. No aphasia. Cranial nerves II-XII were tested. Pupils r eactive. EOM intact. Visual telles full. No facial asymmetry. Tongue midline. Motor examination: Moves all the extremities equally. Tone normal. Deep tendon reflexes 1+. Both plantars are downg oing. Sensory appears intact. Cerebellar, gait: Able to stand. IMPRESSION: Syncope, less likely seizure, and workup in progress. CAT scan of the head was negative . We will follow up. Robert Steele MD cc: [id number] TT: 02/23/2017 14:28:40 Confirmation # [id number] Dictation # [id number] en
--- NOTE | 2017-02-23 15:35 | CON ---
DATE: 02/23/2017 HISTORY OF PRESENT ILLNESS: The patient is a 51-year-old male who presents with recurrent chest pain and memory issues. PAST MEDICAL HISTORY: Notable for a pack a day smoker for many years. He underwent cardiac catheter ization for his chest pain which was found to have diffuse atherosclerosis with a documented coronary spasm in the LAD. He was sent home on Cardizem. The patient has not been taking his medications. He was advised to stop smoking. He has continued to smoke. The patient is unsure whether he is actually taking his aspirin. He was sent home on Cardizem. He denies diabetes mellitus. SOCIAL HISTORY: Active smoker and is an active drinker. REVIEW OF SYSTEMS: A 14-point review of systems was reviewed. Recurrent symptoms that are unchanged from his past hospitalizations. PHYSICAL EXAMINATION: VITAL SIGNS: Blood pressure is 125/68, heart rate is in 60s. NECK: Negative JVD. LUNGS: Without rales. HEART: Reveals S1, S2. EXTREMITIES: Without edema. EKG is unremarkable. LABORATORIES: The troponins are negative x 2. Hemoglobin is 13. IMPRESSION: 1. Memory loss. 2. Alcoholism. 3. Chronic obstructive pulmonary disease. 4. Active smoker. 5. Noncompliant with medications and medical advice. PLAN: Given these findings, there is no evidence for acute coronary syndrome. I have discussed with the patient about the need to stop smoking. We will restart him on his Cardizem to help his coronar y spasm and Lipitor. We will discontinue telemetry. No further cardiac workup is necessary. The patient may benefit from a psych consult. Will sign off on the case today. Dat Ordoñez MD cc: [id number] TT: 02/23/2017 10:44:45 Confirmation # [id number] Dictation # [id number] tamiko
--- NOTE | 2017-02-23 16:23 | CP.PCM.PN ---
<Lars Hare - Last Filed: 02/23/17 16:10> Subjective - Date & Time of Evaluation Date of Evaluation: 02/23/17 Time of Evaluation: 10:00 - Subjective Subjective: Medicine progress note: Pt seen and examined at bedside. NO acute events overnight. Pt still reports that he is dizzy upon ambulating. He also states that his b/l lower ext are very weak. Objective - Vital Signs/Intake and Output Vital Signs (last 24 hours): Temp Pulse Resp BP Pulse Ox 98.3 F 63 18 112/75 98 02/23/17 11:58 02/23/17 11:58 02/23/17 11:58 02/23/17 11:58 02/23/17 06:00 Intake and Output: 02/23/17 02/23/17 06:59 18:59 Intake Total 120 960 Output Total 800 Balance 120 160 - Medications Medications: Current Medications Aspirin (Aspirin Chewable) 81 mg PO DAILY [facility] Last Admin: 02/23/17 10:12 Dose: 81 mg Atorvastatin Calcium (Lipitor) 20 mg PO DIN [facility] Diltiazem HCl (Cardizem Cd) 180 mg PO DAILY [facility] Last Admin: 02/23/17 10:12 Dose: 180 mg Lorazepam (Ativan) 1 mg IVP Q6H PRN; Protocol PRN Reason: Agitation Pantoprazole Sodium (Protonix Ec Tab) 40 mg PO 0600 [facility] Last Admin: 02/23/17 06:22 Dose: 40 mg - Labs Labs: 02/23/17 05:30 02/23/17 05:30 PT 11.0 Seconds (9.9-11.8) 02/22/17 11:50 INR 1.02 (0.93-1.08) 02/22/17 11:50 APTT 29.2 Seconds (23.7-30.8) 02/22/17 11:50 - Constitutional Appears: No Acute Distress - Head Exam Head Exam: ATRAUMATIC, NORMAL INSPECTION, NORMOCEPHALIC - Eye Exam Eye Exam: EOMI, Normal appearance, PERRL Pupil Exam: NORMAL ACCOMODATION, PERRL - ENT Exam ENT Exam: Mucous Membranes Moist, Normal Exam - Neck Exam Neck Exam: Full ROM, Normal Inspection. absent: Lymphadenopathy - Respiratory Exam Respiratory Exam: Clear to Ausculation Bilateral, NORMAL BREATHING PATTERN. absent: Rales, Wheezes - Cardiovascular Exam Cardiovascular Exam: REGULAR RHYTHM, RRR, +S1, +S2. absent: Murmur - GI/Abdominal Exam GI & Abdominal Exam: Soft, Normal Bowel Sounds. absent: Distended, Tenderness - Extremities Exam Extremities Exam: Normal Capillary Refill, Normal Inspection. absent: Joint Swelling, Pedal Edema - Back Exam Back Exam: NORMAL INSPECTION - Neurological Exam Neurological Exam: Alert, Awake, CN II-XII Intact, Normal Gait, Oriented x3 Neuro motor strength exam: Left Lower Extremity: 4, Right Lower Extremity: 4 - Psychiatric Exam Psychiatric exam: Normal Affect, Normal Mood - Skin Skin Exam: Dry, Intact, Normal Color, Warm Assessment and Plan - Assessment and Plan (Free Text) Assessment: 51M whose past medical history includes hypertension, HLD, cardiomyopathy, anxiety, depression, and substance abuse presents to the ED complaining of syncope, chest pain, and weight loss. 1. Syncope - Pt still c/o weakness of lower ext, lightheadedness, dizziness - Cardiac cath 02/05/17 - single vessel CAD LAD 60% stenosis treated with intra coronary nitroglycerin - Head CT - no acute intracranial abnormality - CXR- No active disease - EKG - NSR prolong QT - F/u Lipid, Ha1c, TSH, Mg, P, B12 - Urine drug screen + for benzos - ETOH level <10 - Daily labs - Carotid US 07/30/16 shows 20-39% ICA stenosis - anterograde vertebral a flow - Echo 07/31/16 - normal LV function and EF - Neurology consulted for recs 2. Annular wall thickening of the prox transverse colon - GI consulted for recs - recommend outpatient colonoscopy - pt asymptomatic - Stool occult 3. CP - trops x 2 negative - EKG - NSR prolong QT - Ext US: 02/07/17 - negative for DVTs - Cardiology consulted for recs- Started on Cardizem and lipitor. Smoking cessation 4. Depression - Psychiatry consulted for recs - recommend community mental health at [facility] or [facility]. F/u outpatient psychiatry 5. Weight loss - CT Chest/abd/pelvis: Mild atelectasis in in R middle lobe and lingula, some atelectasis in b/l lung bases. Borderline enlarge R hilar lymph node. Borderline enlarged lymph node in AP window. Enlarged L axillary lymphonde. These are nn specific to etiology. Small pleural effusion, Ascending aorta mildly ectatic measuring 3.8cm in diameter. There is annular wall thickening of the prox transverse colon measuring 1.9 x 1.6cm. May represent incomplete distension of the bowel colon mass cannot be excluded. Recommend colonoscopy. Hypodense fatty infiltration of liver, Probable non obstructing calculi seen in b/l . No hydronephrosis. Mildly enlarged prostate. 6. ETOH withdrwals - Ativan 1mg PRN Q6H - CIWA 7. GI/DVt ppx - Protonix and SCDs Case and plan was seen, reviewed and discussed in detail with Dr Gracía. <Yohan García - Last Filed: 02/24/17 06:38> Objective - Vital Signs/Intake and Output Vital Signs (last 24 hours): Temp Pulse Resp BP Pulse Ox 97.6 F 68 18 112/82 98 02/23/17 17:59 02/23/17 17:59 02/23/17 17:59 02/23/17 17:59 02/23/17 06:00 Intake and Output: 02/23/17 02/24/17 18:59 06:59 Intake Total 960 240 Output Total 800 600 Balance 160 -360 - Medications Medications: Current Medications Acetaminophen (Tylenol 325mg Tab) 650 mg PO Q4H PRN PRN Reason: Headache Last Admin: 02/24/17 02:01 Dose: 650 mg Aspirin (Aspirin Chewable) 81 mg PO DAILY [facility] Last Admin: 02/23/17 10:12 Dose: 81 mg Atorvastatin Calcium (Lipitor) 20 mg PO DIN [facility] Last Admin: 02/23/17 17:10 Dose: 20 mg Diltiazem HCl (Cardizem Cd) 180 mg PO DAILY [facility] Last Admin: 02/23/17 10:12 Dose: 180 mg Lorazepam (Ativan) 1 mg IVP Q6H PRN; Protocol PRN Reason: Agitation Pantoprazole Sodium (Protonix Ec Tab) 40 mg PO 0600 [facility] Last Admin: 02/24/17 06:17 Dose: 40 mg - Labs Labs: 02/23/17 05:30 02/23/17 05:30 PT 11.0 Seconds (9.9-11.8) 02/22/17 11:50 INR 1.02 (0.93-1.08) 02/22/17 11:50 APTT 29.2 Seconds (23.7-30.8) 02/22/17 11:50 Attending/Attestation - Attestation I have personally seen and examined this patient.: Yes I have fully participated in the care of the patient.: Yes I have reviewed all pertinent clinical information, including history, physical exam and plan: Yes Notes (Text): 02/23/17 51 year old male with past medical history of hypertension, CAD, anxiety and alcohol abuse who presented with complaint of syncope, chest pain, weight loss and memory problems. CT head showed no acute findings. Recent cardiac cath was done which showed single vessel CAD LAD 60% stenosis. Carotid dopplers (07/19) showed 20-39% ICA stenosis. Echo (07/19) showed normal LV function and EF. Serial cardiac enzymes have been negative. Orthostatics were reviewed. Cardiology and neurology evaluation were appreciated. Home medications were resumed. CT chest/abdomen/pelvis showed annular wall thickening of the proximal transverse colon and nonspecif lymph nodes. GI evaluation was appreciated; recommended outpatient colonoscopy. He was counselled on medication compliance. Counselled on risks of substance abuse. Counselled on smoking cessation. Counselled on alcohol abstinence. Psychiatry evaluation was appreciated who recommended outpatient follow up. Urine drug screen was positive for benzodiazepines. Today he still complains of weakness and dizziness. PT evaluation was requested. Yohan García MD Hospitalist.
[2017-02-24] MEDS ORDERED: DiphenhydrAMINE 50 mg/ml Inj IVP STA ×2 (01:43→23:11)
[2017-02-24] MEDS: Pantoprazole 40 mg EC Tab PO SCH (06:17)
[2017-02-24 07:25] LABS: ADD MANUAL DIFF? NO
[2017-02-24 07:30] LABS: BASO # 0.03 K/mm3 (0.0-2.0); BASO % 0.6 % (0.0-3.0); EOS # 0.3 (0.0-0.7); EOS % 5.3 % (1.5-5.0); GRAN # 2.82 (1.4-6.5); GRAN % 53.4 % (50.0-68.0); HEMATOCRIT 39.5 % (42.0-52.0); LYMPH # 1.6 (1.2-3.4); LYMPH % 30.9 % (22.0-35.0); MEAN CELL VOLUME 89.4 fL (80.0-105.0); MEAN CORPUSCULAR HEMOGLOBIN 29.9 pg (25.0-35.0); MEAN CORPUSCULAR HGB CONC 33.4 g/dl (31.0-37.0); MEAN PLATELET VOLUME 12.5 fl (7.0-11.0); MONO # 0.5 (0.1-0.6); MONO % 9.8 % (1.0-6.0); PLATELET COUNT 137 10^3/uL (120.0-450.0); RED CELL DISTRIBUTION WIDTH 12.1 % (11.5-14.5); WHITE BLOOD COUNT 5.3 10^3/ul (4.5-11.0)
[2017-02-24 07:47] LABS: ALB/GLOB RATIO 1.2 (1.1-1.8); ALKALINE PHOSPHATASE 55 U/L (38-133); ALT/SGPT 28 U/L (7-56); AST/SGOT 23 U/L (15-59); BILIRUBIN,TOTAL 0.4 mg/dL (0.2-1.3); BLOOD UREA NITROGEN 20 mg/dL (7-21); CALCIUM 8.8 mg/dL (8.4-10.5); CARBON DIOXIDE 28 mmol/L (21-33); CHLORIDE 106 mmol/L (98-107); GFR AFRICAN-AMERICAN > 60; GLUCOSE,RANDOM 95 mg/dL (70-110); SODIUM 141 mmol/L (132-148)
[2017-02-24] MEDS: diltiaZEM 180 mg/24 Hours CD Cap PO SCH (09:14)
--- NOTE | 2017-02-24 12:02 | CP.PCM.PN ---
<Seferino Zambrano - Last Filed: 02/24/17 12:02> Subjective - Date & Time of Evaluation Date of Evaluation: 02/24/17 Time of Evaluation: 12:00 - Subjective Subjective: Med progress note. Attending: Dr. García Pt seen and examined at bedside. No acute distress. No events overnight. Will monitor for dizziness, gait. No fevers, chills, vomiting, diarrhea. Objective - Vital Signs/Intake and Output Vital Signs (last 24 hours): Temp Pulse Resp BP Pulse Ox 97.4 F L 66 18 105/72 99 02/24/17 08:00 02/24/17 09:14 02/24/17 08:00 02/24/17 09:14 02/24/17 08:00 Intake and Output: 02/24/17 02/24/17 06:59 18:59 Intake Total 240 Output Total 600 Balance -360 - Medications Medications: Current Medications Acetaminophen (Tylenol 325mg Tab) 650 mg PO Q4H PRN PRN Reason: Headache Last Admin: 02/24/17 02:01 Dose: 650 mg Aspirin (Aspirin Chewable) 81 mg PO DAILY [facility] Last Admin: 02/24/17 09:14 Dose: 81 mg Atorvastatin Calcium (Lipitor) 20 mg PO DIN [facility] Last Admin: 02/23/17 17:10 Dose: 20 mg Diltiazem HCl (Cardizem Cd) 180 mg PO DAILY [facility] Last Admin: 02/24/17 09:14 Dose: 180 mg Lorazepam (Ativan) 1 mg IVP Q6H PRN; Protocol PRN Reason: Agitation Last Admin: 02/24/17 09:15 Dose: 1 mg Pantoprazole Sodium (Protonix Ec Tab) 40 mg PO 0600 [facility] Last Admin: 02/24/17 06:17 Dose: 40 mg - Labs Labs: 02/24/17 07:20 02/24/17 07:20 PT 11.0 Seconds (9.9-11.8) 02/22/17 11:50 INR 1.02 (0.93-1.08) 02/22/17 11:50 APTT 29.2 Seconds (23.7-30.8) 02/22/17 11:50 - Constitutional Appears: Non-toxic, No Acute Distress - Head Exam Head Exam: ATRAUMATIC, NORMAL INSPECTION, NORMOCEPHALIC - Eye Exam Eye Exam: EOMI - ENT Exam ENT Exam: Mucous Membranes Moist - Neck Exam Neck Exam: Full ROM, Normal Inspection - Respiratory Exam Respiratory Exam: NORMAL BREATHING PATTERN. absent: Respiratory Distress - Cardiovascular Exam Cardiovascular Exam: +S1, +S2 - GI/Abdominal Exam GI & Abdominal Exam: Soft, Normal Bowel Sounds. absent: Tenderness - Extremities Exam Extremities Exam: Full ROM, Normal Inspection - Back Exam Back Exam: NORMAL INSPECTION - Neurological Exam Neurological Exam: Alert, Awake, Oriented x3 - Psychiatric Exam Psychiatric exam: Normal Affect, Normal Mood - Skin Skin Exam: Dry, Intact, Normal Color, Warm Assessment and Plan - Assessment and Plan (Free Text) Assessment: This is a 51 yo male with past medical history of hypertension, HLD, cardiomyopathy, anxiety, depression, and substance abuse presents to the ED complaining of syncope, chest pain, and weight loss. 1. Syncope - Pt still with some dizziness, but feeling better - Cardiac cath 02/05/17 - single vessel CAD LAD 60% stenosis treated with intra coronary nitroglycerin - Head CT - no acute intracranial abnormality - CXR- No active disease - EKG - NSR prolong QT - Urine drug screen + for benzos - ETOH level <10 - Daily labs - Carotid US 07/30/16 shows 20-39% ICA stenosis - anterograde vertebral a flow - Echo 07/31/16 - normal LV function and EF - Neurology consulted for recs -will monitor for dizziness and gait instability today 2. Annular wall thickening of the prox transverse colon - GI consulted for recs - recommend outpatient colonoscopy - pt asymptomatic - Stool occult pending 3. CP - trops negative - EKG - NSR prolong QT - Ext US: 02/07/17 - negative for DVTs - Cardiology consulted for recs- Started on Cardizem and lipitor. Smoking cessation 4. Depression - Psychiatry consulted for recs - recommend community mental health at [facility] or [facility]. F/u outpatient psychiatry 5. Weight loss - CT Chest/abd/pelvis: Mild atelectasis in in R middle lobe and lingula, some atelectasis in b/l lung bases. Borderline enlarge R hilar lymph node. Borderline enlarged lymph node in AP window. Enlarged L axillary lymphonde. These are nn specific to etiology. Small pleural effusion, Ascending aorta mildly ectatic measuring 3.8cm in diameter. There is annular wall thickening of the prox transverse colon measuring 1.9 x 1.6cm. May represent incomplete distension of the bowel colon mass cannot be excluded. Recommend colonoscopy. Hypodense fatty infiltration of liver, Probable non obstructing calculi seen in b/l . No hydronephrosis. Mildly enlarged prostate. 6. ETOH withdrwals - Ativan 1mg PRN Q6H - CIWA 7. GI/DVt ppx - Protonix and SCDs Case and plan was seen, reviewed and discussed in detail with Dr García. <oYhan García - Last Filed: 02/24/17 15:46> Objective - Vital Signs/Intake and Output Vital Signs (last 24 hours): Temp Pulse Resp BP Pulse Ox 97.4 F L 77 18 128/83 100 02/24/17 08:00 02/24/17 12:37 02/24/17 08:00 02/24/17 12:37 02/24/17 12:37 Intake and Output: 02/24/17 02/24/17 06:59 18:59 Intake Total 240 Output Total 600 Balance -360 - Medications Medications: Current Medications Acetaminophen (Tylenol 325mg Tab) 650 mg PO Q4H PRN PRN Reason: Headache Last Admin: 02/24/17 02:01 Dose: 650 mg Aspirin (Aspirin Chewable) 81 mg PO DAILY [facility] Last Admin: 02/24/17 09:14 Dose: 81 mg Atorvastatin Calcium (Lipitor) 20 mg PO DIN [facility] Last Admin: 02/23/17 17:10 Dose: 20 mg Diltiazem HCl (Cardizem Cd) 180 mg PO DAILY [facility] Last Admin: 02/24/17 09:14 Dose: 180 mg Lorazepam (Ativan) 1 mg IVP Q6H PRN; Protocol PRN Reason: Agitation Last Admin: 02/24/17 09:15 Dose: 1 mg Meclizine HCl (Antivert) 25 mg PO TID PRN PRN Reason: Dizziness Last Admin: 02/24/17 14:54 Dose: 25 mg Pantoprazole Sodium (Protonix Ec Tab) 40 mg PO 0600 [facility] Last Admin: 02/24/17 06:17 Dose: 40 mg - Labs Labs: 02/24/17 07:20 02/24/17 07:20 PT 11.0 Seconds (9.9-11.8) 02/22/17 11:50 INR 1.02 (0.93-1.08) 02/22/17 11:50 APTT 29.2 Seconds (23.7-30.8) 02/22/17 11:50 Attending/Attestation - Attestation I have personally seen and examined this patient.: Yes I have fully participated in the care of the patient.: Yes I have reviewed all pertinent clinical information, including history, physical exam and plan: Yes Notes (Text): 02/24/17 15:43 51 year old male with past medical history of hypertension, CAD, anxiety and alcohol abuse who presented with complaint of syncope, chest pain, weight loss and memory problems. CT head showed no acute findings. Recent cardiac cath was done which showed single vessel CAD LAD 60% stenosis. Carotid dopplers (07/19) showed 20-39% ICA stenosis. Echo (07/19) showed normal LV function and EF. Serial cardiac enzymes have been negative. Orthostatics were negative. Cardiology and neurology evaluation were appreciated. Home medications were resumed. CT chest/abdomen/pelvis showed annular wall thickening of the proximal transverse colon and nonspecific lymph nodes. GI evaluation was appreciated; recommended outpatient colonoscopy. He was counselled on medication compliance. Counselled on risks of substance abuse. Counselled on smoking cessation. Counselled on alcohol abstinence. He is on multivitamin, folic acid and thiamine. Psychiatry evaluation was appreciated who recommended outpatient follow up. Urine drug screen was positive for benzodiazepines. Today he continues to complain of dizziness. Can start trial of meclizine. He was seen by PT this afternoon and apparently is unsteady for discharge at this time. Continue with physical therapy. Will follow up with official recommendations. Yohan García MD Hospitalist.
--- NOTE | 2017-02-24 13:02 | CP.PCM.DIS ---
Provider - Provider Date of Admission: 02/22/17 14:40 Attending physician: Johnny Osborn MD Primary care physician: Enedina Vinson MD Time Spent in preparation of Discharge (in minutes): 45 Hospital Course - Lab Results Lab Results: Most Recent Lab Values WBC 5.3 10^3/ul (4.5-11.0) 02/24/17 07:20 RBC 4.42 10^6/uL (3.5-6.1) 02/24/17 07:20 Hgb 13.2 gm/dL (14.0-18.0) L 02/24/17 07:20 Hct 39.5 % (42.0-52.0) L 02/24/17 07:20 MCV 89.4 fL (80.0-105.0) 02/24/17 07:20 MCH 29.9 pg (25.0-35.0) 02/24/17 07:20 MCHC 33.4 g/dl (31.0-37.0) 02/24/17 07:20 RDW 12.1 % (11.5-14.5) 02/24/17 07:20 Plt Count 137 10^3/uL (120.0-450.0) 02/24/17 07:20 MPV 12.5 fl (7.0-11.0) H 02/24/17 07:20 Gran % 53.4 % (50.0-68.0) 02/24/17 07:20 Lymph % (Auto) 30.9 % (22.0-35.0) 02/24/17 07:20 [place] % (Auto) 9.8 % (1.0-6.0) H 02/24/17 07:20 Eos % (Auto) 5.3 % (1.5-5.0) H 02/24/17 07:20 Baso % (Auto) 0.6 % (0.0-3.0) 02/24/17 07:20 Gran # 2.82 (1.4-6.5) 02/24/17 07:20 Lymph # 1.6 (1.2-3.4) 02/24/17 07:20 [place] # 0.5 (0.1-0.6) 02/24/17 07:20 Eos # 0.3 (0.0-0.7) 02/24/17 07:20 Baso # 0.03 K/mm3 (0.0-2.0) 02/24/17 07:20 PT 11.0 Seconds (9.9-11.8) 02/22/17 11:50 INR 1.02 (0.93-1.08) 02/22/17 11:50 APTT 29.2 Seconds (23.7-30.8) 02/22/17 11:50 Sodium 141 mmol/L (132-148) 02/24/17 07:20 Potassium 4.0 mmol/L (3.6-5.0) 02/24/17 07:20 Chloride 106 mmol/L (98-107) 02/24/17 07:20 Carbon Dioxide 28 mmol/L (21-33) 02/24/17 07:20 Anion Gap 11 (10-20) 02/24/17 07:20 BUN 20 mg/dL (7-21) 02/24/17 07:20 Creatinine 1.1 mg/dL (0.5-1.4) 02/24/17 07:20 Est GFR ( Amer) > 60 02/24/17 07:20 Est GFR (Non-Af Amer) > 60 02/24/17 07:20 Random Glucose 95 mg/dL (70-110) 02/24/17 07:20 Hemoglobin A1c 5.9 % (4.2-6.5) 02/22/17 11:50 Calcium 8.8 mg/dL (8.4-10.5) 02/24/17 07:20 Phosphorus 4.1 mg/dL (2.5-4.5) 02/22/17 15:13 Magnesium 1.8 mg/dL (1.7-2.2) 02/22/17 11:50 Total Bilirubin 0.4 mg/dL (0.2-1.3) 02/24/17 07:20 AST 23 U/L (15-59) 02/24/17 07:20 ALT 28 U/L (7-56) 02/24/17 07:20 Alkaline Phosphatase 55 U/L (38-133) 02/24/17 07:20 Lactate Dehydrogenase 355 U/L (333-699) 02/22/17 11:50 Total Creatine Kinase 41 U/L (35-230) 02/22/17 11:50 Troponin I < 0.01 ng/mL 02/22/17 22:30 Total Protein 7.0 g/dL (5.8-8.3) 02/24/17 07:20 Albumin 3.8 g/dL (3.0-4.8) 02/24/17 07:20 Globulin 3.1 gm/dL 02/24/17 07:20 Albumin/Globulin Ratio 1.2 (1.1-1.8) 02/24/17 07:20 Triglycerides 90 mg/dL (35-160) 02/22/17 15:13 Cholesterol 155 mg/dL (130-200) 02/22/17 15:13 LDL Cholesterol Direct 85 mg/dL (0-129) 02/22/17 15:13 HDL Cholesterol 58 mg/dL (29-60) 02/22/17 15:13 Vitamin B12 552 pg/mL (239-931) 02/22/17 15:13 TSH 3rd Generation 0.87 mIU/mL (0.46-4.68) 02/22/17 11:50 Urine Opiates Screen Negative (NEGATIVE) 02/22/17 19:50 Urine Methadone Screen Negative (NEGATIVE) 02/22/17 19:50 Ur Barbiturates Screen Negative (NEGATIVE) 02/22/17 19:50 Ur Phencyclidine Scrn Negative (NEGATIVE) 02/22/17 19:50 Ur Amphetamines Screen Negative (NEGATIVE) 02/22/17 19:50 U Benzodiazepines Scrn Positive (NEGATIVE) H 02/22/17 19:50 U Oth Cocaine Metabols Negative (NEGATIVE) 02/22/17 19:50 U Cannabinoids Screen Negative (NEGATIVE) 02/22/17 19:50 Alcohol, Quantitative < 10 mg/dL (0-10) 02/22/17 11:50 Discharge Exam - Head Exam Head Exam: ATRAUMATIC, NORMAL INSPECTION, NORMOCEPHALIC Discharge Plan - Discharge Medications Prescriptions: Meclizine [Meclizine*] 25 mg PO TID PRN #90 tab PRN Reason: Dizziness - Follow Up Plan Condition: FAIR Disposition: HOME/ ROUTINE Instructions: Syncope (ED)
--- NOTE | 2017-02-24 13:12 | PN ---
DATE: 02/24/2017 CHIEF COMPLAINT: Follow up for questionable syncope. SUBJECTIVE: The patient seen and examined at bedside, doing much better, still mildly dizzy, but his blood pressures diastolically on the lower side for his height and weight otherwise no tremors, no a lcohol withdrawal symptoms. PAST MEDICAL HISTORY: Hypertension, hyperlipidemia, cardiomyopathy, anxiety, depression and substanc e abuse in the past. REVIEW OF SYSTEMS: 14 review of systems is negative except the HPI. SOCIAL HISTORY: He is a drinker, but no illicit drug use or smoking. FAMILY HISTORY: Noncontributory. MEDICATIONS: Reviewed via nurses reconciliation sheet. REVIEW OF SYSTEMS: A 14-point review of systems is negative except for the HPI. FAMILY HISTORY: Noncontributory. PHYSICAL EXAMINATION: VITAL SIGNS: Temperature 97.4, pulse rate 66, blood pressure 105/72, respiratory rate of 18, oxygen saturation 99% on room air. GENERAL: The patient is sitting up in bed in no acute distress. HEENT: Atraumatic, normocephalic. PERRLA, EOMs intact. NECK: Supple, no JVD, no adenopathy noted. LUNGS: Clear to auscultation. No adventitious sounds. HEART: S1, S2, normal rate and rhythm. No murmurs, rubs, or gallops. ABDOMEN: Soft, nontender, nondistended. Bowel sounds are present. EXTREMITIES: No clubbing, no cyanosis. Peripheral pulses 2+ felt bilaterally. NEUROLOGIC: The patient is alert, oriented to person, place, month and year. Speech is fluent, with out any errors. Cranial nerves II through XII are intact. MOTOR: Moves all extremities equally. Toes downgoing bilaterally. SENSORY: Light touch, pinprick slightly decreased up to the calves. Decreased vibration at the toes . DEEP TENDON REFLEXES: 2+ throughout, 1 at the ankles. COORDINATION: [id number]-[id number] intact. GAIT: Deferred for now. No tremors are seen. LABORATORY DATA: Sodium is 141, potassium 4, chloride of 106, carbon dioxide 28, BUN of 20, creatini ne 1.1, random glucose 75. ASSESSMENT AND PLAN: This is a 49-year-old man with history of hypertension, dyslipidemia, cardiomyo gasper, anxiety, depression and substance abuse, came to the ER syncopal event with chest pain, weight loss. Syncope seems most likely a vasovagal component with a transient cerebral hypoperfusion to th e brain. 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 He does have cardiomyopathy; therefore, he has chronic dizziness. AT THIS TIME, RECOMMEND: 1. Keep his systolic blood pressure at least around 120 to 130. 2. Advised alcohol cessation. 3. Continue aspirin 81 mg and Lipitor 20 mg for stroke prevention. 4. Get physical therapy for his gait and balance and evaluation. No further neurological workup is time, continue gastrointestinal and deep vein thrombosis prophylaxi s. Thank you for this consult. Donte Steele MD cc: [phone] TT: 02/24/2017 13:12:10 Confirmation # [id number] Dictation # [id number]
[2017-02-25 07:33] LABS: ADD MANUAL DIFF? NO
[2017-02-25 08:01] LABS: BASO # 0.02 K/mm3 (0.0-2.0); BASO % 0.4 % (0.0-3.0); EOS # 0.3 (0.0-0.7); EOS % 4.9 % (1.5-5.0); GRAN # 2.78 (1.4-6.5); GRAN % 54.2 % (50.0-68.0); HEMATOCRIT 39.9 % (42.0-52.0); LYMPH # 1.6 (1.2-3.4); LYMPH % 30.5 % (22.0-35.0); MEAN CELL VOLUME 89.5 fL (80.0-105.0); MEAN CORPUSCULAR HEMOGLOBIN 29.8 pg (25.0-35.0); MEAN CORPUSCULAR HGB CONC 33.3 g/dl (31.0-37.0); MEAN PLATELET VOLUME 12.8 fl (7.0-11.0); MONO # 0.5 (0.1-0.6); PLATELET COUNT 135 10^3/uL (120.0-450.0); RED CELL DISTRIBUTION WIDTH 12.1 % (11.5-14.5); WHITE BLOOD COUNT 5.1 10^3/ul (4.5-11.0)
[2017-02-25 08:08] LABS: ALB/GLOB RATIO 1.2 (1.1-1.8); ALKALINE PHOSPHATASE 50 U/L (38-133); ALT/SGPT 27 U/L (7-56); AST/SGOT 21 U/L (15-59); BILIRUBIN,TOTAL 0.6 mg/dL (0.2-1.3); BLOOD UREA NITROGEN 15 mg/dL (7-21); CALCIUM 9.1 mg/dL (8.4-10.5); CARBON DIOXIDE 28 mmol/L (21-33); CHLORIDE 105 mmol/L (98-107); GFR AFRICAN-AMERICAN > 60; GLUCOSE,RANDOM 87 mg/dL (70-110); MAGNESIUM 1.8 mg/dL (1.7-2.2); PHOSPHOROUS 3.7 mg/dL (2.5-4.5); SODIUM 141 mmol/L (132-148); TOTAL PROTEIN 7.2 g/dL (5.8-8.3)
[2017-02-25] MEDS: Multivitamin Therapeutic Tab PO SCH (08:27)
[2017-02-25] MEDS: diltiaZEM 180 mg/24 Hours CD Cap PO SCH (10:10)
[2017-02-25] MEDS ORDERED: Sodium Chloride 0.9% 500 ML IV STA (13:17)
--- NOTE | 2017-02-25 14:03 | CP.PCM.PN ---
Subjective - Date & Time of Evaluation Date of Evaluation: 02/25/17 Time of Evaluation: 09:40 - Subjective Subjective: Medicine progress note: Pt seen and examined at bedside. No acute events overnight. Pt still c/o dizziness and lightheadedness upon ambulation. Denies any mack, f/c, sob, cp, abd pain, n/v/d. Objective - Vital Signs/Intake and Output Vital Signs (last 24 hours): Temp Pulse Resp BP Pulse Ox 97.3 F L 110 H 98 H 110/80 98 02/25/17 07:30 02/25/17 10:10 02/25/17 07:30 02/25/17 11:00 02/24/17 16:00 Intake and Output: 02/25/17 02/25/17 06:59 18:59 Output Total 600 Balance -600 - Medications Medications: Current Medications Acetaminophen (Tylenol 325mg Tab) 650 mg PO Q4H PRN PRN Reason: Headache Last Admin: 02/24/17 02:01 Dose: 650 mg Aspirin (Aspirin Chewable) 81 mg PO DAILY [facility] Last Admin: 02/25/17 10:10 Dose: 81 mg Atorvastatin Calcium (Lipitor) 20 mg PO DIN KADE Last Admin: 02/24/17 18:12 Dose: 20 mg Diltiazem HCl (Cardizem Cd) 180 mg PO DAILY [facility] Last Admin: 02/25/17 10:10 Dose: 180 mg Folic Acid (Folic Acid) 1 mg PO DAILY KADE Last Admin: 02/25/17 10:10 Dose: 1 mg Lorazepam (Ativan) 1 mg IVP Q6H PRN; Protocol PRN Reason: Agitation Last Admin: 02/25/17 08:27 Dose: 1 mg Meclizine HCl (Antivert) 25 mg PO TID PRN PRN Reason: Dizziness Last Admin: 02/24/17 14:54 Dose: 25 mg Multivitamins (Thera Tab) 1 tab PO 0800 KADE Last Admin: 02/25/17 08:27 Dose: 1 tab Pantoprazole Sodium (Protonix Ec Tab) 40 mg PO 0600 KADE Last Admin: 02/24/17 06:17 Dose: 40 mg Thiamine HCl (Vitamin B1 Tab) 100 mg PO DAILY KADE Last Admin: 02/25/17 10:10 Dose: 100 mg - Labs Labs: 02/25/17 07:00 02/25/17 07:00 PT 11.0 Seconds (9.9-11.8) 02/22/17 11:50 INR 1.02 (0.93-1.08) 02/22/17 11:50 APTT 29.2 Seconds (23.7-30.8) 02/22/17 11:50 - Constitutional Appears: No Acute Distress - Head Exam Head Exam: ATRAUMATIC, NORMAL INSPECTION, NORMOCEPHALIC - Eye Exam Eye Exam: EOMI, Normal appearance, PERRL Pupil Exam: NORMAL ACCOMODATION, PERRL - ENT Exam ENT Exam: Mucous Membranes Moist, Normal Exam - Neck Exam Neck Exam: Full ROM, Normal Inspection. absent: Lymphadenopathy - Respiratory Exam Respiratory Exam: Clear to Ausculation Bilateral, NORMAL BREATHING PATTERN. absent: Wheezes - Cardiovascular Exam Cardiovascular Exam: REGULAR RHYTHM, RRR, +S1, +S2. absent: Murmur - GI/Abdominal Exam GI & Abdominal Exam: Soft, Normal Bowel Sounds. absent: Distended, Tenderness - Extremities Exam Extremities Exam: Full ROM, Normal Capillary Refill, Normal Inspection. absent : Joint Swelling, Pedal Edema - Back Exam Back Exam: NORMAL INSPECTION - Neurological Exam Neurological Exam: Alert, Awake, CN II-XII Intact, Normal Gait, Oriented x3 - Psychiatric Exam Psychiatric exam: Normal Affect, Normal Mood - Skin Skin Exam: Dry, Intact, Normal Color, Warm Assessment and Plan - Assessment and Plan (Free Text) Assessment: 51 yo male with past medical history of hypertension, HLD, cardiomyopathy, anxiety, depression, and substance abuse presents to the ED complaining of syncope, chest pain, and weight loss. 1. Syncope - C/o dizziness upon ambulation - Meclizine started - Cardiac cath 02/05/17 - single vessel CAD LAD 60% stenosis treated with intra coronary nitroglycerin - Head CT - no acute intracranial abnormality - CXR- No active disease - EKG - NSR prolong QT - Urine drug screen + for benzos - ETOH level <10 - Daily labs - Carotid US 07/30/16 shows 20-39% ICA stenosis - anterograde vertebral a flow - Echo 07/31/16 - normal LV function and EF - Neurology consulted for recs, BP control, aspirin and lipitor -will monitor for dizziness and gait instability today 2. Annular wall thickening of the prox transverse colon - GI consulted for recs - recommend outpatient colonoscopy - Stool occult pending 3. CP - trops negative - EKG - NSR prolong QT - Ext US: 02/07/17 - negative for DVTs - Cardiology consulted for recs- Started on Cardizem and lipitor. Smoking cessation 4. Depression - Psychiatry consulted for recs - recommend community mental health at [facility] or [facility] ([facility] F/u outpatient psychiatry 5. Weight loss - CT Chest/abd/pelvis: Mild atelectasis in in R middle lobe and lingula, some atelectasis in b/l lung bases. Borderline enlarge R hilar lymph node. Borderline enlarged lymph node in AP window. Enlarged L axillary lymphonde. These are nn specific to etiology. Small pleural effusion, Ascending aorta mildly ectatic measuring 3.8cm in diameter. There is annular wall thickening of the prox transverse colon measuring 1.9 x 1.6cm. May represent incomplete distension of the bowel colon mass cannot be excluded. Recommend colonoscopy. Hypodense fatty infiltration of liver, Probable non obstructing calculi seen in b/l . No hydronephrosis. Mildly enlarged prostate. 6. ETOH withdrwals - Thiamine, folic acid, multivit - Ativan 1mg PRN Q6H --> Tapered 0.5 Q6H - CIWA 7. GI/DVT ppx - Protonix and SCDs PT recommend TCU. TCU eval placed. Case and plan was seen, reviewed and discussed in detail with Dr Trent.
[2017-02-25] MEDS ORDERED: DiphenhydrAMINE 50 mg/ml Inj IVP STA (21:12)
[2017-02-26 07:00] LABS: ADD MANUAL DIFF? NO
[2017-02-26 07:10] LABS: BASO # 0.02 K/mm3 (0.0-2.0); BASO % 0.4 % (0.0-3.0); EOS # 0.2 (0.0-0.7); EOS % 4.4 % (1.5-5.0); GRAN # 2.57 (1.4-6.5); GRAN % 51.7 % (50.0-68.0); HEMATOCRIT 40.7 % (42.0-52.0); LYMPH # 1.6 (1.2-3.4); LYMPH % 32.8 % (22.0-35.0); MEAN CELL VOLUME 89.5 fL (80.0-105.0); MEAN CORPUSCULAR HEMOGLOBIN 30.1 pg (25.0-35.0); MEAN CORPUSCULAR HGB CONC 33.7 g/dl (31.0-37.0); MEAN PLATELET VOLUME 12.4 fl (7.0-11.0); MONO # 0.5 (0.1-0.6); MONO % 10.7 % (1.0-6.0); PLATELET COUNT 125 10^3/uL (120.0-450.0); RED CELL DISTRIBUTION WIDTH 12.2 % (11.5-14.5)
[2017-02-26 07:30] LABS: ALB/GLOB RATIO 1.2 (1.1-1.8); ALKALINE PHOSPHATASE 51 U/L (38-133); ALT/SGPT 26 U/L (7-56); AST/SGOT 23 U/L (15-59); BILIRUBIN,TOTAL 0.7 mg/dL (0.2-1.3); BLOOD UREA NITROGEN 16 mg/dL (7-21); CALCIUM 9.3 mg/dL (8.4-10.5); CARBON DIOXIDE 29 mmol/L (21-33); CHLORIDE 105 mmol/L (98-107); GFR AFRICAN-AMERICAN > 60; GLUCOSE,RANDOM 86 mg/dL (70-110); POTASSIUM 4.8 mmol/L (3.6-5.0); SODIUM 141 mmol/L (132-148); TOTAL PROTEIN 7.1 g/dL (5.8-8.3)
[2017-02-26] MEDS: Pantoprazole 40 mg EC Tab PO SCH (08:27)
[2017-02-26 08:39] VITALS: RESP 16; TEMP 97.5; O2SAT 94
[2017-02-26] MEDS: Multivitamin Therapeutic Tab PO SCH (08:58)
[2017-02-26] MEDS: diltiaZEM 180 mg/24 Hours CD Cap PO SCH (09:11)
[2017-02-26 09:13] VITALS: BP 122/79; PULSE 70
--- NOTE | 2017-02-26 10:30 | PN ---
DATE: 02/26/2017 The patient is still in the hospital. He complained of some dizziness. He is currently symptom free . He is sitting in a chair and he is ambulating in his room without symptoms. PHYSICAL EXAMINATION: VITAL SIGNS: Blood pressure is 128/68, the heart rate is in the 70s. NECK: Negative JVD. LUNGS: Without rales. HEART: Revealed S1, S2. EXTREMITIES: Without edema. LABORATORIES: Reveal troponins are all negative. IMPRESSION: 1. Resolution of chest pain. 2. Documented coronary artery disease with coronary spasm. 3. Alcoholism. 4. Chronic obstructive pulmonary disease. 5. Noncompliance with medications and medical advice. Given these findings, I have gone over with him again the need to stop smoking as well as to take his Cardizem to help alleviate some of the coronary spasm. The patient understands and is agreeable. We will sign off the case today. Dat Ordoñez MD cc: [id number] TT: 02/26/2017 10:30:14 Confirmation # [id number] Dictation # [id number]
--- NOTE | 2017-02-26 13:54 | CP.PCM.DIS ---
<Lars Hare - Last Filed: 02/26/17 13:33> Provider - Provider Date of Admission: 02/24/17 15:34 Attending physician: Johnny Osborn MD Primary care physician: Enedina Vinson MD Consults: Psych, Cardiology, GI, Neuro Time Spent in preparation of Discharge (in minutes): 45 Diagnosis - Discharge Diagnosis (1) Dizziness Status: Acute (2) Weakness Status: Acute Hospital Course - Lab Results Lab Results: Most Recent Lab Values WBC 5.0 10^3/ul (4.5-11.0) 02/26/17 06:45 RBC 4.55 10^6/uL (3.5-6.1) 02/26/17 06:45 Hgb 13.7 gm/dL (14.0-18.0) L 02/26/17 06:45 Hct 40.7 % (42.0-52.0) L 02/26/17 06:45 MCV 89.5 fL (80.0-105.0) 02/26/17 06:45 MCH 30.1 pg (25.0-35.0) 02/26/17 06:45 MCHC 33.7 g/dl (31.0-37.0) 02/26/17 06:45 RDW 12.2 % (11.5-14.5) 02/26/17 06:45 Plt Count 125 10^3/uL (120.0-450.0) 02/26/17 06:45 MPV 12.4 fl (7.0-11.0) H 02/26/17 06:45 Gran % 51.7 % (50.0-68.0) 02/26/17 06:45 Lymph % (Auto) 32.8 % (22.0-35.0) 02/26/17 06:45 [place] % (Auto) 10.7 % (1.0-6.0) H 02/26/17 06:45 Eos % (Auto) 4.4 % (1.5-5.0) 02/26/17 06:45 Baso % (Auto) 0.4 % (0.0-3.0) 02/26/17 06:45 Gran # 2.57 (1.4-6.5) 02/26/17 06:45 Lymph # 1.6 (1.2-3.4) 02/26/17 06:45 [place] # 0.5 (0.1-0.6) 02/26/17 06:45 Eos # 0.2 (0.0-0.7) 02/26/17 06:45 Baso # 0.02 K/mm3 (0.0-2.0) 02/26/17 06:45 PT 11.0 Seconds (9.9-11.8) 02/22/17 11:50 INR 1.02 (0.93-1.08) 02/22/17 11:50 APTT 29.2 Seconds (23.7-30.8) 02/22/17 11:50 Sodium 141 mmol/L (132-148) 02/26/17 06:45 Potassium 4.8 mmol/L (3.6-5.0) 02/26/17 06:45 Chloride 105 mmol/L (98-107) 02/26/17 06:45 Carbon Dioxide 29 mmol/L (21-33) 02/26/17 06:45 Anion Gap 12 (10-20) 02/26/17 06:45 BUN 16 mg/dL (7-21) 02/26/17 06:45 Creatinine 1.0 mg/dL (0.5-1.4) 02/26/17 06:45 Est GFR ( Amer) > 60 02/26/17 06:45 Est GFR (Non-Af Amer) > 60 02/26/17 06:45 Random Glucose 86 mg/dL (70-110) 02/26/17 06:45 Hemoglobin A1c 5.9 % (4.2-6.5) 02/22/17 11:50 Calcium 9.3 mg/dL (8.4-10.5) 02/26/17 06:45 Phosphorus 3.7 mg/dL (2.5-4.5) 02/25/17 07:00 Magnesium 1.8 mg/dL (1.7-2.2) 02/25/17 07:00 Total Bilirubin 0.7 mg/dL (0.2-1.3) 02/26/17 06:45 AST 23 U/L (15-59) 02/26/17 06:45 ALT 26 U/L (7-56) 02/26/17 06:45 Alkaline Phosphatase 51 U/L (38-133) 02/26/17 06:45 Lactate Dehydrogenase 355 U/L (333-699) 02/22/17 11:50 Total Creatine Kinase 41 U/L (35-230) 02/22/17 11:50 Troponin I < 0.01 ng/mL 02/22/17 22:30 Total Protein 7.1 g/dL (5.8-8.3) 02/26/17 06:45 Albumin 3.9 g/dL (3.0-4.8) 02/26/17 06:45 Globulin 3.2 gm/dL 02/26/17 06:45 Albumin/Globulin Ratio 1.2 (1.1-1.8) 02/26/17 06:45 Triglycerides 90 mg/dL (35-160) 02/22/17 15:13 Cholesterol 155 mg/dL (130-200) 02/22/17 15:13 LDL Cholesterol Direct 85 mg/dL (0-129) 02/22/17 15:13 HDL Cholesterol 58 mg/dL (29-60) 02/22/17 15:13 Vitamin B12 552 pg/mL (239-931) 02/22/17 15:13 TSH 3rd Generation 0.87 mIU/mL (0.46-4.68) 02/22/17 11:50 Urine Opiates Screen Negative (NEGATIVE) 02/22/17 19:50 Urine Methadone Screen Negative (NEGATIVE) 02/22/17 19:50 Ur Barbiturates Screen Negative (NEGATIVE) 02/22/17 19:50 Ur Phencyclidine Scrn Negative (NEGATIVE) 02/22/17 19:50 Ur Amphetamines Screen Negative (NEGATIVE) 02/22/17 19:50 U Benzodiazepines Scrn Positive (NEGATIVE) H 02/22/17 19:50 U Oth Cocaine Metabols Negative (NEGATIVE) 02/22/17 19:50 U Cannabinoids Screen Negative (NEGATIVE) 02/22/17 19:50 Alcohol, Quantitative < 10 mg/dL (0-10) 02/22/17 11:50 - Hospital Course Hospital Course: 51M whose past medical history includes hypertension, HLD, cardiomyopathy, anxiety, depression, and substance abuse presents to the ED complaining of feeling weak, passing out, episodes of forgetfulness, 28 pound weight loss in 10 weeks, and chest pain for the past few days. In the ED basic lab work was done. Labs mainly unremarkable, troponin negative x 2. Cardiology was consulted for recent cardiac cath, neurology consulted for current complaints. Psychiatry consulted for symptoms of depression. EKG - NSR prolong QT. Head CT - no acute intracranial abnormality. Pt was sent ot the floor for closer monitoring. CIWA protocol initiated. Due to current weight loss CT Chest/abd/pelvis was done and showed - "annular wall thickening of the prox transverse colon measuring 1.9 x 1.6cm. May represent incomplete distension of the bowel colon mass cannot be excluded. Recommend colonoscopy." GI recommended outpatient work up with colonoscopy. Recent cardiac cath 02/05/17 - single vessel CAD LAD 60% stenosis treated with intra coronary nitroglycerin - Cardiology recommended adding Diltiazem. Echo 07/31/16 - normal LV function and EF. Carotid US 07/30/16 shows 20-39% ICA stenosis - anterograde vertebral a flow. Neurology consulted and recommend BP control, aspirin and lipitor. Psychiatry consulted [place] [facility] [place] [facility] and out patient psychiatry follow up. Pt stated that he feels dizzy and weak in his lower extremity. Trial of Meclzine was started. PT recommended rehab but patient refused and stated that he would rather do outpatient physical therapy. Script for outpatient PT was given. Today he has no complaints. He states that he feels much better. denies any mack, dizziness, f/c, sob, cp, abd pain, n/v/d. Discharge Exam - Head Exam Head Exam: ATRAUMATIC, NORMAL INSPECTION, NORMOCEPHALIC - Eye Exam Eye Exam: EOMI, Normal appearance, PERRL Pupil Exam: NORMAL ACCOMODATION, PERRL - ENT Exam ENT Exam: Mucous Membranes Moist - Respiratory Exam Respiratory Exam: Clear to PA & Lateral. absent: Rales, Rhonchi, Wheezes - Cardiovascular Exam Cardiovascular Exam: REGULAR RHYTHM, RRR, +S1, +S2 - GI/Abdominal Exam GI & Abdominal Exam: Normal Bowel Sounds, Soft. absent: Tenderness - Neurological Exam Neurological exam: Alert, CN II-XII Intact, Normal Gait, Oriented x3, Reflexes Normal - Psychiatric Exam Psychiatric exam: Normal Affect, Normal Mood - Skin Skin Exam: Dry, Intact, Normal Color, Warm Discharge Plan - Discharge Medications Prescriptions: Aspirin [Aspirin Chewable] 81 mg PO DAILY #30 ctb Atorvastatin [Lipitor] 20 mg PO DAILY #30 tab diltiaZEM CD [Cardizem CD] 180 mg PO DAILY #30 c24 - Follow Up Plan Condition: IMPROVED Disposition: HOME/ ROUTINE Patient education suggested?: Yes Instructions: Syncope (ED), Syncope (DC), Syncope (GEN), Weakness (GEN), Opioid Dependence (DC), Opioid Withdrawal (DC), Fall Prevention (DC), Opioid Overdose (DC) Additional Instructions: Follow up with PMD with in 1-2 days. If your symptoms recur come back to the ED. Take your medication as prescribed. Please schedule outpatient colonoscopy and follow up with GI doctor. Follow up with physical therapy. Referrals: Enedina Vinson MD [Primary Care Provider] - Donte Steele MD [Staff Provider] - Lindsay De La Vega MD [Staff Provider] - Dat Ordoñez MD [Staff Provider] - Charles Jamison MD [Staff Provider] - <Leela YANCEY,[facility] - Last Filed: 02/26/17 15:00> Provider - Provider Date of Admission: 02/24/17 15:34 Attending physician: Johnny Osborn MD Primary care physician: Enedina Vinson MD Hospital Course - Lab Results Lab Results: Most Recent Lab Values WBC 5.0 10^3/ul (4.5-11.0) 02/26/17 06:45 RBC 4.55 10^6/uL (3.5-6.1) 02/26/17 06:45 Hgb 13.7 gm/dL (14.0-18.0) L 02/26/17 06:45 Hct 40.7 % (42.0-52.0) L 02/26/17 06:45 MCV 89.5 fL (80.0-105.0) 02/26/17 06:45 MCH 30.1 pg (25.0-35.0) 02/26/17 06:45 MCHC 33.7 g/dl (31.0-37.0) 02/26/17 06:45 RDW 12.2 % (11.5-14.5) 02/26/17 06:45 Plt Count 125 10^3/uL (120.0-450.0) 02/26/17 06:45 MPV 12.4 fl (7.0-11.0) H 02/26/17 06:45 Gran % 51.7 % (50.0-68.0) 02/26/17 06:45 Lymph % (Auto) 32.8 % (22.0-35.0) 02/26/17 06:45 [place] % (Auto) 10.7 % (1.0-6.0) H 02/26/17 06:45 Eos % (Auto) 4.4 % (1.5-5.0) 02/26/17 06:45 Baso % (Auto) 0.4 % (0.0-3.0) 02/26/17 06:45 Gran # 2.57 (1.4-6.5) 02/26/17 06:45 Lymph # 1.6 (1.2-3.4) 02/26/17 06:45 [place] # 0.5 (0.1-0.6) 02/26/17 06:45 Eos # 0.2 (0.0-0.7) 02/26/17 06:45 Baso # 0.02 K/mm3 (0.0-2.0) 02/26/17 06:45 PT 11.0 Seconds (9.9-11.8) 02/22/17 11:50 INR 1.02 (0.93-1.08) 02/22/17 11:50 APTT 29.2 Seconds (23.7-30.8) 02/22/17 11:50 Sodium 141 mmol/L (132-148) 02/26/17 06:45 Potassium 4.8 mmol/L (3.6-5.0) 02/26/17 06:45 Chloride 105 mmol/L (98-107) 02/26/17 06:45 Carbon Dioxide 29 mmol/L (21-33) 02/26/17 06:45 Anion Gap 12 (10-20) 02/26/17 06:45 BUN 16 mg/dL (7-21) 02/26/17 06:45 Creatinine 1.0 mg/dL (0.5-1.4) 02/26/17 06:45 Est GFR ( Amer) > 60 02/26/17 06:45 Est GFR (Non-Af Amer) > 60 02/26/17 06:45 Random Glucose 86 mg/dL (70-110) 02/26/17 06:45 Hemoglobin A1c 5.9 % (4.2-6.5) 02/22/17 11:50 Calcium 9.3 mg/dL (8.4-10.5) 02/26/17 06:45 Phosphorus 3.7 mg/dL (2.5-4.5) 02/25/17 07:00 Magnesium 1.8 mg/dL (1.7-2.2) 02/25/17 07:00 Total Bilirubin 0.7 mg/dL (0.2-1.3) 02/26/17 06:45 AST 23 U/L (15-59) 02/26/17 06:45 ALT 26 U/L (7-56) 02/26/17 06:45 Alkaline Phosphatase 51 U/L (38-133) 02/26/17 06:45 Lactate Dehydrogenase 355 U/L (333-699) 02/22/17 11:50 Total Creatine Kinase 41 U/L (35-230) 02/22/17 11:50 Troponin I < 0.01 ng/mL 02/22/17 22:30 Total Protein 7.1 g/dL (5.8-8.3) 02/26/17 06:45 Albumin 3.9 g/dL (3.0-4.8) 02/26/17 06:45 Globulin 3.2 gm/dL 02/26/17 06:45 Albumin/Globulin Ratio 1.2 (1.1-1.8) 02/26/17 06:45 Triglycerides 90 mg/dL (35-160) 02/22/17 15:13 Cholesterol 155 mg/dL (130-200) 02/22/17 15:13 LDL Cholesterol Direct 85 mg/dL (0-129) 02/22/17 15:13 HDL Cholesterol 58 mg/dL (29-60) 02/22/17 15:13 Vitamin B12 552 pg/mL (239-931) 02/22/17 15:13 TSH 3rd Generation 0.87 mIU/mL (0.46-4.68) 02/22/17 11:50 Urine Opiates Screen Negative (NEGATIVE) 02/22/17 19:50 Urine Methadone Screen Negative (NEGATIVE) 02/22/17 19:50 Ur Barbiturates Screen Negative (NEGATIVE) 02/22/17 19:50 Ur Phencyclidine Scrn Negative (NEGATIVE) 02/22/17 19:50 Ur Amphetamines Screen Negative (NEGATIVE) 02/22/17 19:50 U Benzodiazepines Scrn Positive (NEGATIVE) H 02/22/17 19:50 U Oth Cocaine Metabols Negative (NEGATIVE) 02/22/17 19:50 U Cannabinoids Screen Negative (NEGATIVE) 02/22/17 19:50 Alcohol, Quantitative < 10 mg/dL (0-10) 02/22/17 11:50 Attending/Attestation - Attestation I have personally seen and examined this patient.: Yes I have fully participated in the care of the patient.: Yes I have reviewed all pertinent clinical information, including history, physical exam and plan: Yes Notes (Text): 02/26/17 14:55 Patient was seen and examined with medical technologist clinical .Agreed with resident assessment and plan. 50 M with PMH of CAD,SP cardiac catherization 02/05/17 that reveals 60% LAD lesion, chronic smoking,alcohol abuse , and non compliance with medication was admitted with generalized weakness, H/O syncope and weight lose.Patient work up was unremarkable .He was evaluated by Neurology and cardiology, no further work was recommended.Patient does not has any focal deficit.The issue of compliance with medication was discussed in detail.The issue of chronic smoking and alcohol abuse was also discussed in detail.Patient will need out patient Colonoscopy as he never had one .He will follow up with his PCP. Prognosis is guarded due to non compliance. Management plan was discussed in detail with patient Education was provided.
== END 2017-02-26 14:43 | disposition home or self-care (01) | DRG 132 ==
LOC: ED 11:25 → ERH 14:40 → 2RSO 20:07 → 5RSO 02-23 22:59 → OBSVTOIN 02-24 15:34
PROVIDERS: ADMIT Internal Medicine; ATTEND Internal Medicine
DX: I25.111 Atherosclerotic heart disease of native coronary artery with angina pectoris with documented spasm (principal); I42.9 Cardiomyopathy, unspecified; J44.9 Chronic obstructive pulmonary disease, unspecified; I65.29 Occlusion and stenosis of unspecified carotid artery; J98.11 Atelectasis; F14.10 Cocaine abuse, uncomplicated; F10.20 Alcohol dependence, uncomplicated; F12.10 Cannabis abuse, uncomplicated; G45.4 Transient global amnesia; I10 Essential (primary) hypertension; G62.1 Alcoholic polyneuropathy; N40.0 Benign prostatic hyperplasia without lower urinary tract symptoms; F41.9 Anxiety disorder, unspecified; F32.9 Major depressive disorder, single episode, unspecified; E78.5 Hyperlipidemia, unspecified; R63.4 Abnormal weight loss; R55 Syncope and collapse; F17.200 Nicotine dependence, unspecified, uncomplicated; Y90.0 Blood alcohol level of less than 20 mg/100 ml; R41.0 Disorientation, unspecified; Z91.14 Patient's other noncompliance with medication regimen; Z95.5 Presence of coronary angioplasty implant and graft; Z87.11 Personal history of peptic ulcer disease

== ENCOUNTER 2017-05-13 01:00 | Emergency (ER) | payer MEDICAID ==
[2017-05-13 01:21] VITALS: PULSE 88
[2017-05-13 01:35] VITALS: RESP 16; BMI 23.1
[2017-05-13 02:09] LABS: BASO # 0.02 K/mm3 (0.0-2.0); BASO % 0.3 % (0.0-3.0); EOS # 0.2 (0.0-0.7); EOS % 2.3 % (1.5-5.0); GRAN # 3.99 (1.4-6.5); GRAN % 59.9 % (50.0-68.0); HEMATOCRIT 36.7 % (42.0-52.0); LYMPH # 1.7 (1.2-3.4); MEAN CORPUSCULAR HEMOGLOBIN 30.6 pg (25.0-35.0); MEAN CORPUSCULAR HGB CONC 33.2 g/dl (31.0-37.0); MEAN PLATELET VOLUME 12.1 fl (7.0-11.0); MONO # 0.8 (0.1-0.6); MONO % 12.5 % (1.0-6.0); RED CELL DISTRIBUTION WIDTH 12.7 % (11.5-14.5); URINE BILIRUBIN NEGATIVE (NEGATIVE); URINE BLOOD LARGE (NEGATIVE); URINE GLUCOSE (UA) NEGATIVE (NEGATIVE); URINE KETONE NEGATIVE (NEGATIVE); URINE LEUKOCYTE ESTERASE NEGATIVE Leu/uL (NEGATIVE); URINE PROTEIN 30 mg/dL (<30 mg/dL); URINE UROBILINOGEN 0.2 E.U./dL (<1 E.U./dL); WHITE BLOOD COUNT 6.7 10^3/ul (4.5-11.0)
[2017-05-13 02:13] LABS: URINE APPEARANCE SL CLOUDY (CLEAR); URINE COLOR YELLOW (YELLOW)
[2017-05-13 02:26] LABS: URINE RBC TNTC /hpf (0-2); URINE WBC 0 - 2 /hpf (0-6)
[2017-05-13 02:34] LABS: ALB/GLOB RATIO 1.3 (1.1-1.8); ALKALINE PHOSPHATASE 63 U/L (38-126); ALT/SGPT 31 U/L (7-56); AST/SGOT 37 U/L (17-59); BILIRUBIN,TOTAL 0.3 mg/dL (0.2-1.3); BLOOD UREA NITROGEN 23 mg/dL (7-21); CALCIUM 8.9 mg/dL (8.4-10.5); CARBON DIOXIDE 26 mmol/L (21-33); CHLORIDE 109 mmol/L (98-107); GFR AFRICAN-AMERICAN > 60; GLUCOSE,RANDOM 96 mg/dL (70-110); POTASSIUM 3.9 mmol/L (3.6-5.0); SODIUM 144 mmol/L (132-148); TOTAL PROTEIN 6.9 g/dL (5.8-8.3)
--- NOTE | 2017-05-13 03:05 | ED PDOC ---
Arrival/HPI <Yasmany Nunez - Last Filed: 05/13/17 05:36> <Seferino Munson - Last Filed: 05/13/17 05:49> - General Chief Complaint: Back Pain Time Seen by Provider: 05/13/17 01:34 - History of Present Illness Narrative History of Present Illness (Text): 05/13/17 03:01 51 year old male presenting to the ED with 5 day hx of worsening left flank pain. The pain is described as a constant, sharp pain radiating from his left flank down into his groin. He states the pain has been getting worse with each day. He was able to go to work today but he does not think he will be able to take the much longer. The patient states he recently had a CT in February of 2017 which showed that he had kidney stones b/l. Denies f/c, n/v, d/c, sob, cp, lightheadedness or dizziness. 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 PSH: facial reconstruction, appendectomy, hernia Social: smokes tobacco pack per day, alcohol occasional, denies illicit drug use Allergies: NKDA (Seferino Munson) Past Medical History - Provider Review Nursing Documentation Reviewed: Yes - Past History Past History: No Previous - Infectious Disease Hx of Infectious Diseases: None - Tetanus Immunization Tetanus Immunization: Unknown - Cardiac Hx Hypertension: Yes - Pulmonary Hx Respiratory Disorders: Yes Hx Chronic Obstructive Pulmonary Disease (COPD): Yes - Neurological Hx Neurological Disorder: Yes Hx Migraine: Yes - HEENT Hx HEENT Disorder: No - Renal Hx Renal Disorder: No - Endocrine/Metabolic Hx Endocrine Disorders: No - Hematological/Oncological Hx Blood Disorders: Yes (blood transfusions hx ulcers) - Integumentary Hx Dermatological Disorder: Yes Other/Comment: multiple red abrasions to ble and both knees, work related - Musculoskeletal/Rheumatological Hx Falls: No - Gastrointestinal Hx Gastrointestinal Disorders: Yes - Genitourinary/Gynecological Hx Genitourinary Disorders: No - Psychiatric Hx Psychophysiologic Disorder: Yes (Heavy smoker, ETOH abuse, substance abuse ( cocaine)) Hx Anxiety: Yes Hx Depression: Yes Hx Substance Use: Yes (denies using drugs for over 20 yrs) Other/Comment: pt denies doing drugs over 20 yrs, admits to social drinking, smokes less than 1 ppd - Past Surgical History Past Surgical History: No Previous - Surgical History Hx Cardiac Catheterization: Yes - Anesthesia Hx Anesthesia: Yes - Suicidal Assessment Feels Threatened In Home Enviroment: No <Seferino Munson - Last Filed: 05/13/17 05:49> Family/Social History - Physician Review Nursing Documentation Reviewed: Yes Family/Social History: Unknown Family HX Smoking Status: Heavy Smoker > 10 Cigarettes Daily Hx Alcohol Use: Yes Hx Substance Use: Yes (denies using drugs for over 20 yrs) Hx Substance Use Treatment: No <Seferino Munson - Last Filed: 05/13/17 05:49> Allergies/Home Meds <Yasmany Nunez - Last Filed: 05/13/17 05:36> <Seferino Munson - Last Filed: 05/13/17 05:49> Allergies/Adverse Reactions: Allergies No Known Allergies Allergy (Verified 02/22/17 11:27) Home Medications: Home Meds Medication Instructions Recorded Confirmed traMADol [Ultram] 50 mg PO TID 05/13/17 05/13/17 Review of Systems - Physician Review All systems were reviewed & negative as marked: Yes - Review of Systems Constitutional: Normal. absent: Fatigue, Fevers Eyes: Normal. absent: Vision Changes, Photophobia ENT: Normal. absent: Sore Throat, Rhinorrhea, Sinus Congestion Respiratory: Normal. absent: SOB, Cough, Wheezing Cardiovascular: Normal. absent: Chest Pain, Palpitations, Edema, Calf Pain Gastrointestinal: Abdominal Pain (Left flank pain ). absent: Stool Changes, Constipation, Diarrhea, Nausea, Vomiting Genitourinary Male: Normal. absent: Dysuria, Frequency, Hematuria Musculoskeletal: Back Pain (left sided) <Seferino Munson - Last Filed: 05/13/17 05:49> Physical Exam Vital Signs Reviewed: Yes Temperature: Afebrile Blood Pressure: Hypertensive Pulse: Regular Respiratory Rate: Normal Appearance: Positive for: Well-Appearing, Non-Toxic, Comfortable Pain Distress: Mild Mental Status: Positive for: Alert and Oriented X 3 - Systems Exam Head: Present: Normocephalic, Other (scars from previous facial reconstruction surgery) Extroacular Muscles: Present: EOMI Conjunctiva: Present: Normal Nose (External): Present: Atraumatic. No: Abrasion Nose (Internal): Present: Normal Inspection, No Active Bleeding Neck: Present: Normal Range of Motion. No: Meningeal Signs, JVD Respiratory/Chest: Present: Clear to Auscultation, Good Air Exchange. No: Respiratory Distress, Accessory Muscle Use, Wheezes, Rhonchi Cardiovascular: Present: Regular Rate and Rhythm, Normal S1, S2 Abdomen: Present: Tenderness (left sided flank pain), Normal Bowel Sounds. No: Distention, Peritoneal Signs, Guarding Back: Present: CVA Tenderness (b/l; left > right ). No: Midline Tenderness, Paraspinal Tenderness Upper Extremity: Present: Normal Inspection, Normal ROM, NORMAL PULSES. No: Edema Lower Extremity: Present: Normal Inspection, NORMAL PULSES. No: Edema, CALF TENDERNESS Neurological: Present: GCS=15, Speech Normal, Motor Func Grossly Intact Skin: Present: Warm, Dry, Normal Color Psychiatric: Present: Alert, Oriented x 3, Normal Insight, Normal Concentration <Seferino Munson - Last Filed: 05/13/17 05:49> Vital Signs Temp Pulse Resp BP Pulse Ox 05/13/17 01:33 98.7 F 71 16 142/96 H 98 Medical Decision Making <Yasmany Nunez - Last Filed: 05/13/17 05:36> <Seferino Munson - Last Filed: 05/13/17 05:49> ED Course and Treatment: Impression: Pt seen and evaluated with medical center manager. Pt, whose past medical history includes kidney stones, presented for sharp left flank pain. Aware and agrees with HPI, clinical findings, plan, and management. Plan: -- CT Abdomen and Pelvis -- Labs -- UA -- Toradol -- Reassess and disposition (Yasmany Nunez) 05/13/17 03:43 Left sided flank pain - Abd/pelvis CT w/o - 4mm obstructing calculi left ureter. Mild-moderate hydronephrosis. - Toradol 30mg IM - Morphine 4mg IV Patient improved with pain medication. DISPO: Home with prescription for Tramadol for pain. Patient given referral for Dr. Bee Hardwick. Patient is to follow up with his PCP and Dr. Hardwick. If new or worsening symptoms arise, please return to ED. (Seferino Munson) - Lab Interpretations Lab Results: 05/13/17 01:53 05/13/17 01:53 Lab Results 05/13/17 01:53: Sodium 144, Potassium 3.9, Chloride 109 H, Carbon Dioxide 26, Anion Gap 13, BUN 23 H, Creatinine 1.2, Est GFR ( Amer) > 60, Est GFR ( Non-Af Amer) > 60, Random Glucose 96, Calcium 8.9, Total Bilirubin 0.3, AST 37, ALT 31, Alkaline Phosphatase 63, Total Protein 6.9, Albumin 3.9, Globulin 3.0, Albumin/Globulin Ratio 1.3 05/13/17 01:53: Urine Color Yellow, Urine Appearance Sl cloudy, Urine pH 6.0, Ur Specific [place] 1.025, Urine Protein 30 H, Urine Glucose (UA) Negative, Urine Ketones Negative, Urine Blood Large H, Urine Nitrate Negative, Urine Bilirubin Negative, Urine Urobilinogen 0.2, Ur Leukocyte Esterase Negative, Urine RBC Tntc, Urine WBC 0 - 2 05/13/17 01:53: WBC 6.7 D, RBC 3.99, Hgb 12.2 L, Hct 36.7 L, MCV 92.0, MCH 30.6 , MCHC 33.2, RDW 12.7, Plt Count 143, MPV 12.1 H, Gran % 59.9, Lymph % (Auto) 25.0, [place] % (Auto) 12.5 H, Eos % (Auto) 2.3, Baso % (Auto) 0.3, Gran # 3.99, Lymph # 1.7, [place] # 0.8 H, Eos # 0.2, Baso # 0.02 - RAD Interpretation Radiology Orders: 05/13/17 01:43 ABDOMEN & PELVIS [ABD & PELVIS W/O PO OR IV CONT] [CT] Stat - Medication Orders Current Medication Orders: Discontinued Medications Ketorolac Tromethamine (Toradol) 30 mg IM STAT STA Stop: 05/13/17 01:47 Last Admin: 05/13/17 01:15 Dose: 30 mg Re-Assess: MAR Pain Assessment Document 05/13/17 02:15 SC (Rec: 05/13/17 03:38 SC [id number]) Pain Reassessment Is this a pain reassessment? Yes Sleep Is patient sleeping during reassessment? Yes Morphine Sulfate (Morphine) 4 mg IVP STAT STA Stop: 05/13/17 03:41 Last Admin: 05/13/17 04:00 Dose: 4 mg Ondansetron HCl (Zofran Inj) 4 mg IVP STAT STA Stop: 05/13/17 03:43 Last Admin: 05/13/17 04:00 Dose: 4 mg Disposition/Present on Arrival - Present on Arrival Any Indicators Present on Arrival: No - Disposition Have Diagnosis and Disposition been Completed?: Yes Patient Plan: Discharge <MayraYasmany - Last Filed: 05/13/17 05:36> - Present on Arrival Any Indicators Present on Arrival: No History of DVT/PE: No History of Uncontrolled Diabetes: No Urinary Catheter: No History of Decub. Ulcer: No History Surgical Site Infection Following: None - Disposition Have Diagnosis and Disposition been Completed?: Yes Disposition Time: 05:15 Patient Plan: Discharge <Seferino Munson - Last Filed: 05/13/17 05:49> - Disposition Diagnosis: Kidney stone on left side Disposition: HOME/ ROUTINE Patient Problems: Current Active Problems Problem Status Onset Kidney stone on left side Acute Condition: IMPROVED Discharge Instructions (ExitCare): Kidney Stones (ED) Additional Instructions: Drink plenty of liquids/take meds as prescribed/follow up with the urologist this week Dr.E. Hardwick Prescriptions: Tramadol HCl [Ultram] 50 mg PO Q6 PRN #16 tab PRN Reason: Pain, Moderate (4-7) Referrals: Enedina Vinson MD [Primary Care Provider] - Follow up with primary Dante Hardwick MD [Staff Provider] - Follow up with primary Forms: [employer] (Georgian)
--- NOTE | 2017-05-13 03:31 | CT ---
EXAM: CT Abdomen and Pelvis Without Intravenous Contrast EXAM DATE/TIME: 05/13/2017 1:43 AM CLINICAL HISTORY: 51 years old, male; Pain; Abdominal pain; Flank; Left; Additional info: Flank pain TECHNIQUE: Axial computed tomography images of the abdomen and pelvis without intravenous contrast. All CT scans at this facility use one or more dose reduction techniques, viz.: automated exposure control; ma/kV adjustment per patient size (including targeted exams where dose is matched to indication; i.e. head); or iterative reconstruction technique. Coronal and sagittal reformatted images were created and reviewed. COMPARISON: CT - CHEST,ABD,PEL W/IV PO CONTRAST 02/22/2017 6:33:42 PM FINDINGS: The liver, spleen, gallbladder and pancreas appear grossly normal on this non-contrast study. There is a 4 mm calculi in the left ureter. There is mild-moderate left hydronephrosis.There is trace left perinephric stranding.There are non obstructing renal calculi. The area of thickening seen in the proximal transverse colon on prior is not identified on current. Moderate fecal material within the colon. Borderline prominent prostate. IMPRESSION: Obstructing calculi left ureter.
[2017-05-13] MEDS ORDERED: Morphine 4 mg/ml ISec IVP STA (03:40)
[2017-05-13 06:02] VITALS: BP 137/88; PULSE 76; TEMP 98; O2SAT 100
== END 2017-05-13 06:12 | disposition home or self-care (01) ==
LOC: ED 01:00
DX: N20.0 Calculus of kidney (principal); I10 Essential (primary) hypertension; F17.210 Nicotine dependence, cigarettes, uncomplicated
CPT/HCPCS: 74176; 80053; 81001; 85025; 96372; 96374; 96375; 99284; J1885; J2270; J2405

== ENCOUNTER 2017-05-14 13:52 | Inpatient (IN) | payer MEDICAID ==
[2017-05-14 13:52] VITALS: PULSE 88; BMI 23.1
--- NOTE | 2017-05-14 14:11 | ED PDOC ---
Arrival/HPI - General Chief Complaint: Back Pain Time Seen by Provider: 05/14/17 14:08 Historian: Patient - History of Present Illness Narrative History of Present Illness (Text): 05/14/17 14:10 A 51 year old male presents to the emergency department complaining of intermittent left sided flank pain for the past 3 days. Patient denies any relieving or exacerbating factors. He states he was recently seen in the emergency room for same complaint and has not followed up with the urologist. Patient denies any fever, chills, nausea, vomiting, hematuria or any other complaints. PMD: Dr. Enedina Vinson Time/Duration: Other (3 days) Symptom Course: Unchanged, Intermittent Quality: Other Context: Home Past Medical History - Provider Review Nursing Documentation Reviewed: Yes - Past History Past History: No Previous - Infectious Disease Hx of Infectious Diseases: None - Tetanus Immunization Tetanus Immunization: Unknown - Cardiac Hx Hypertension: Yes - Pulmonary Hx Respiratory Disorders: Yes Hx Chronic Obstructive Pulmonary Disease (COPD): Yes - Neurological Hx Neurological Disorder: Yes Hx Migraine: Yes - HEENT Hx HEENT Disorder: No - Renal Hx Kidney Stones: Yes - Endocrine/Metabolic Hx Endocrine Disorders: No - Hematological/Oncological Hx Blood Disorders: Yes (blood transfusions hx ulcers) - Integumentary Hx Dermatological Disorder: Yes Other/Comment: multiple red abrasions to ble and both knees, work related - Musculoskeletal/Rheumatological Hx Falls: No - Gastrointestinal Hx Gastrointestinal Disorders: Yes - Genitourinary/Gynecological Hx Genitourinary Disorders: No - Psychiatric Hx Psychophysiologic Disorder: Yes (Heavy smoker, ETOH abuse, substance abuse ( cocaine)) Hx Anxiety: Yes Hx Depression: Yes Hx Substance Use: Yes (denies using drugs for over 20 yrs) Other/Comment: pt denies doing drugs over 20 yrs, admits to social drinking, smokes less than 1 ppd - Past Surgical History Past Surgical History: No Previous - Surgical History Hx Cardiac Catheterization: Yes Other/Comment: colonscopy - Anesthesia Hx Anesthesia: Yes Hx Anesthesia Reactions: No Hx Malignant Hyperthermia: No - Suicidal Assessment Feels Threatened In Home Enviroment: No Family/Social History - Physician Review Nursing Documentation Reviewed: Yes Family/Social History: No Known Family HX Smoking Status: Heavy Smoker > 10 Cigarettes Daily Hx Alcohol Use: Yes Hx Substance Use: Yes (denies using drugs for over 20 yrs) Hx Substance Use Treatment: No Allergies/Home Meds Allergies/Adverse Reactions: Allergies No Known Allergies Allergy (Verified 02/22/17 11:27) Home Medications: Home Meds Medication Instructions Recorded Confirmed traMADol [Ultram] 50 mg PO TID 05/13/17 05/14/17 ALPRAZolam [Xanax] 1 tab PO DAILY 05/14/17 05/14/17 Physical Exam - Physical Exam Narrative Physical Exam (Text): - Review of Systems Constitutional: Normal. absent: Fatigue, Weight Change, Fevers Eyes: Normal ENT: denies sore throat, denies tristhmus Respiratory: Normal. absent: SOB, Cough, Sputum Cardiovascular: absent: Chest Pain, Palpitations, Syncope Gastrointestinal: Normal. absent: Abdominal Pain, Diarrhea, Nausea, Vomiting Genitourinary: Normal. absent: Dysuria, Frequency, Hematuria, vaginal bleeding Musculoskeletal: (+) Left flank pain absent: Arthralgias, Neck Pain Skin: no rashes, no erythema Neurological: absent: Focal Weakness Endocrine: Normal Hemo/Lymphatic: Normal Psychiatric: No suicidal or homicidal ideations Physical exam Patient appears age appropriate in no distress, speaking full sentences without difficulty - Systems Exam Head: Present: Atraumatic, Normocephalic Pupils: Present: PERRL Extroacular Muscles: Present: EOMI Conjunctiva: Present: Normal Mouth: Present: Moist Mucous Membranes Neck: Present: Normal Range of Motion. No: MIDLINE TENDERNESS, Paraspinal Tenderness Respiratory/Chest: Present: Clear to Auscultation, Good Air Exchange. No: Respiratory Distress, Accessory Muscle Use, Tachypneic Cardiovascular: Present: Regular Rate and Rhythm, Normal S1, S2, Peripheal Pulses Present. No: Murmurs Abdomen: Present: Normal Bowel Sounds. No: Tenderness, Distention, Peritoneal Signs, Rebound, Guarding Back: Present: Left flank tenderness to palpation. No: Midline Tenderness, Paraspinal Tenderness Upper Extremity: Present: Normal Inspection. No: Cyanosis, Edema Lower Extremity: Present: Normal Inspection. No: Edema Neurological: Present: GCS=15, Speech Normal, cranial nerves II through XII fully intact with no cerebellar abnormality, neurosensory fully intact. No focal neurological deficits. Skin: Present: Warm, Dry, Normal Color. No: Rashes Lymphatic: Present: OX3, NI, NC Psychiatric: Present: Alert, Oriented x 3, Normal Insight, Normal Concentration Vital Signs Reviewed: Yes Vital Signs Temp Pulse Resp BP Pulse Ox 05/14/17 15:18 79 18 142/79 97 05/14/17 13:55 98.1 F 83 18 146/86 97 Temperature: Afebrile Blood Pressure: Normal Pulse: Regular Respiratory Rate: Normal Appearance: Positive for: Well-Appearing, Non-Toxic, Comfortable Pain Distress: None Mental Status: Positive for: Alert and Oriented X 3 Medical Decision Making ED Course and Treatment: 05/14/17 14:10 Impression: A 51 year old male with left sided flank pain. On exam, tenderness to palpation. Differential Diagnosis included but are not limited to: Renal colic vs. Musculoskeletal Plan: -- Abdomen and pelvis CT -- Labs -- Urinalysis -- Reassess and disposition Prior Visits: Previous records reviewed. Patient was seen overnight 05/13/17. Was found to have 4 mm obstructing left ureteral stone with mild to moderate hydronephrosis. Patient was sent home with urology follow-up. Progress Notes: Report Date : 05/14/2017 15:45:28 PROCEDURE: CT Abdomen and Pelvis without intravenous contrast Dictator : YISSEL ROMANO MD IMPRESSION: Obstructing 6 mm mid left ureteral calculus with mild left hydroureteronephrosis. Bilateral very small nonobstructing renal calculi. Additional minor findings as above 05/14/17 16:[address] Ronen davidson, due to obstructing stone. 05/14/17 16:[address] Whaley, asked to admit to hospitalist service dw Dr. Osborn, accepted admission pt aware of and agrees with plan - Lab Interpretations Lab Results: 05/14/17 15:08 05/14/17 15:08 Lab Results 05/14/17 15:09: Urine Color Yellow, Urine Appearance Clear, Urine pH 6.5, Ur Specific [place] 1.015, Urine Protein Negative, Urine Glucose (UA) Negative, Urine Ketones Negative, Urine Blood Small H, Urine Nitrate Negative, Urine Bilirubin Negative, Urine Urobilinogen 0.2, Ur Leukocyte Esterase Negative, Urine RBC 2 - 5, Urine WBC 0 - 2, Ur Epithelial Cells 0 - 2, Urine Bacteria Mod 05/14/17 15:08: Sodium 142, Potassium 3.5 L, Chloride 110 H, Carbon Dioxide 25, Anion Gap 11, BUN 16, Creatinine 1.0, Est GFR ( Amer) > 60, Est GFR (Non- Af Amer) > 60, Random Glucose 136 H, Calcium 8.7, Total Bilirubin 0.4, AST 23, ALT 27, Alkaline Phosphatase 60, Total Protein 6.3, Albumin 3.6, Globulin 2.8, Albumin/Globulin Ratio 1.3 05/14/17 15:08: PT 11.0, INR 1.02, APTT 29.9 05/14/17 15:08: WBC 5.2 D, RBC 3.88, Hgb 11.9 L, Hct 35.3 L, MCV 91.0, MCH 30.7 , MCHC 33.7, RDW 12.5, Plt Count 129, MPV 12.2 H, Gran % 69.3 H, Lymph % (Auto) 19.5 L, [place] % (Auto) 9.1 H, Eos % (Auto) 1.9, Baso % (Auto) 0.2, Gran # 3.58, Lymph # 1.0 L, [place] # 0.5, Eos # 0.1, Baso # 0.01 I have reviewed the lab results: Yes - RAD Interpretation Radiology Orders: 05/14/17 14:11 ABD & PELVIS W/O PO OR IV CONT [CT] Stat - Medication Orders Current Medication Orders: Discontinued Medications Sodium Chloride (Sodium Chloride 0.9%) 1,000 mls @ 1,000 mls/hr IV .Q1H STA Stop: 05/14/17 15:21 Last Admin: 05/14/17 15:02 Dose: 1,000 mls/hr Ketorolac Tromethamine (Toradol) 30 mg IVP STAT STA Stop: 05/14/17 14:23 Last Admin: 05/14/17 15:03 Dose: 30 mg Re-Assess: [facility] Pain Assessment Document 05/14/17 16:03 [facility] (Rec: 05/14/17 16:25 [id number]) Pain Reassessment Is this a pain reassessment? Yes Sleep Is patient sleeping during reassessment? No Presence of Pain Presence of Pain No Tamsulosin HCl (Flomax) 0.4 mg PO STAT STA Stop: 05/14/17 14:23 Last Admin: 05/14/17 14:50 Dose: 0.4 mg - Scribe Statement The provider has reviewed the documentation as recorded by the Scribe Araceli Breen Provider Scribe Attestation: All medical record entries made by the Scribe were at my direction and personally dictated by me. I have reviewed the chart and agree that the record accurately reflects my personal performance of the history, physical exam, medical decision making, and the department course for this patient. I have also personally directed, reviewed, and agree with the discharge instructions and disposition. Disposition/Present on Arrival - Present on Arrival Any Indicators Present on Arrival: No History of DVT/PE: No History of Uncontrolled Diabetes: No Urinary Catheter: No History of Decub. Ulcer: No History Surgical Site Infection Following: None - Disposition Have Diagnosis and Disposition been Completed?: Yes Diagnosis: Ureteral stone Disposition: HOSPITALIZED Disposition Time: 16:26 Patient Plan: Admission Condition: FAIR Referrals: Enedina Vinson MD [Primary Care Provider] - Follow up with primary Forms: [employer] (Zimbabwean)
[2017-05-14] MEDS ORDERED: Sodium Chloride 0.9% 1,000 ML IV STA (14:22)
[2017-05-14 15:14] LABS: BASO # 0.01 K/mm3 (0.0-2.0); BASO % 0.2 % (0.0-3.0); EOS # 0.1 (0.0-0.7); EOS % 1.9 % (1.5-5.0); GRAN # 3.58 (1.4-6.5); GRAN % 69.3 % (50.0-68.0); HEMATOCRIT 35.3 % (42.0-52.0); LYMPH % 19.5 % (22.0-35.0); MEAN CORPUSCULAR HEMOGLOBIN 30.7 pg (25.0-35.0); MEAN CORPUSCULAR HGB CONC 33.7 g/dl (31.0-37.0); MEAN PLATELET VOLUME 12.2 fl (7.0-11.0); MONO # 0.5 (0.1-0.6); MONO % 9.1 % (1.0-6.0); RED CELL DISTRIBUTION WIDTH 12.5 % (11.5-14.5); WHITE BLOOD COUNT 5.2 10^3/ul (4.5-11.0)
[2017-05-14 15:18] LABS: PH,URINE 6.5 (4.7-8.0); URINE BILIRUBIN NEGATIVE (NEGATIVE); URINE BLOOD SMALL (NEGATIVE); URINE GLUCOSE (UA) NEGATIVE (NEGATIVE); URINE KETONE NEGATIVE (NEGATIVE); URINE LEUKOCYTE ESTERASE NEGATIVE Leu/uL (NEGATIVE); URINE PROTEIN NEGATIVE mg/dL (<30 mg/dL); URINE UROBILINOGEN 0.2 E.U./dL (<1 E.U./dL)
[2017-05-14 15:19] LABS: URINE APPEARANCE CLEAR (CLEAR); URINE COLOR YELLOW (YELLOW)
[2017-05-14 15:23] LABS: ALB/GLOB RATIO 1.3 (1.1-1.8); ALKALINE PHOSPHATASE 60 U/L (38-126); ALT/SGPT 27 U/L (7-56); AST/SGOT 23 U/L (17-59); BILIRUBIN,TOTAL 0.4 mg/dL (0.2-1.3); BLOOD UREA NITROGEN 16 mg/dL (7-21); CALCIUM 8.7 mg/dL (8.4-10.5); CARBON DIOXIDE 25 mmol/L (21-33); CHLORIDE 110 mmol/L (98-107); GFR AFRICAN-AMERICAN > 60; GLUCOSE,RANDOM 136 mg/dL (70-110); POTASSIUM 3.5 mmol/L (3.6-5.0); SODIUM 142 mmol/L (132-148); TOTAL PROTEIN 6.3 g/dL (5.8-8.3)
[2017-05-14 15:24] LABS: INR 1.02 (0.93-1.08); PARTIAL THROMBOPLASTIN TIME 29.9 Seconds (23.7-30.8)
[2017-05-14 15:35] LABS: URINE BACTERIA MOD (NEG); URINE EPITHELIAL CELLS 0 - 2 /hpf (0-5); URINE WBC 0 - 2 /hpf (0-6)
--- NOTE | 2017-05-14 15:48 | CT ---
PROCEDURE: CT Abdomen and Pelvis without intravenous contrast HISTORY: Renal colic COMPARISON: 05/13/2017 TECHNIQUE: Without contrast.. Contrast Dose: 0 Radiation dose: Total exam DLP = 531.64 mGy-cm. This CT exam was performed using one or more of the following dose reduction techniques: Automated exposure control, adjustment of the mA and/or kV according to patient size, and/or use of iterative reconstruction technique. FINDINGS: LOWER THORAX: Unremarkable. LIVER: Normal size, contour and attenuation. Nonspecific 6 mm low-density lesion in the lateral segment of the left hepatic lobe unchanged compared to CT examination of 02/22/2017. No biliary dilatation. Smooth contour. GALLBLADDER AND BILE DUCTS: Contracted. No calcified gallstones. PANCREAS: Unremarkable. No gross lesion or ductal dilatation. SPLEEN: Unremarkable. ADRENALS: Unremarkable. No mass. KIDNEYS AND URETERS: Several nonobstructing 2 mm left renal calculi, 1 in the upper pole 1 in the lower pole. There is mild left hydronephrosis and hydroureter. There is an obstructing 6 mm mid left ureteral calculus. This is unchanged in position when compared to the prior CT examination of 05/13/2017 There is a nonobstructing 3 mm right lower pole renal calculus. There is no right hydronephrosis. There is no renal mass. VASCULATURE: Unremarkable. No aortic aneurysm. BOWEL: Unremarkable. No obstruction. No gross mural thickening. APPENDIX: Not identified. No secondary findings suggestive of acute appendicitis. PERITONEUM: Unremarkable. No free fluid. No free air. LYMPH NODES: Unremarkable. No enlarged lymph nodes. BLADDER: Poorly distended. Mildly thickened wall most likely secondary to inadequate distention. REPRODUCTIVE: Normal prostate BONES: No acute fracture. OTHER FINDINGS: None. IMPRESSION: Obstructing 6 mm mid left ureteral calculus with mild left hydroureteronephrosis. Bilateral very small nonobstructing renal calculi. Additional minor findings as above
[2017-05-14] MEDS ORDERED: Potassium Chloride 20 mEq ER Tab PO ONE (18:11)
--- NOTE | 2017-05-14 18:32 | CP.PCM.HP ---
<BlanepilyJanelle rodriguez - Last Filed: 05/14/17 23:07> History of Present Illness - History of Present Illness History of Present Illness: This patient is a 51 year old male with PMHx of HTN, HLD, cardiomyopathy, anxiety, depression, CAD with cardiac cath placement, gastric ulcers, and emphysema. Who presented with left CVA and suprapubic tenderness x 6 days that worsened over the last 2 days. Describes the pain as sharp. States no relieving or exacerbating factors. Patient came to ED yesterday. CT scan showed non- obstructive stone and patient was sent home on tramadol. CT Abd/Pelvis today showed obstructing 6mm left ureteral calculus with mild left hydroureteronephrosis. B/L very small nonobstructing renal calculi. ROS Complains of: as per HPI and chills, constipation. Denies: Fever, chills, CP, SOB, palpitations, N/V/D, dysuria, urinary frequency, hematuria. PMHx: As per HPI PSH: Facial surgery, appendectomy, hernia repair, unspecified gastric surgery. 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 Present on Admission - Present on Admission Any Indicators Present on Admission: No Review of Systems - Review of Systems Review of Systems: As per HPI Past Patient History - Infectious Disease Hx of Infectious Diseases: None - Tetanus Immunizations Tetanus Immunization: Unknown - Past Social History Smoking Status: Heavy Smoker > 10 Cigarettes Daily - CARDIAC Hx Hypertension: Yes - PULMONARY Hx Respiratory Disorders: Yes Hx Chronic Obstructive Pulmonary Disease (COPD): Yes - NEUROLOGICAL Hx Neurological Disorder: Yes Hx Migraine: Yes - HEENT Hx HEENT Problems: No - RENAL Hx Kidney Stones: Yes - ENDOCRINE/METABOLIC Hx Endocrine Disorders: No - HEMATOLOGICAL/ONCOLOGICAL Hx Blood Disorders: Yes (blood transfusions hx ulcers) - INTEGUMENTARY Hx Dermatological Problems: Yes Other/Comment: multiple red abrasions to ble and both knees, work related - MUSCULOSKELETAL/RHEUMATOLOGICAL Hx Falls: No - GASTROINTESTINAL Hx Gastrointestinal Disorders: Yes - GENITOURINARY/GYNECOLOGICAL Hx Genitourinary Disorders: No - PSYCHIATRIC Hx Psychophysiologic Disorder: Yes (Heavy smoker, ETOH abuse, substance abuse ( cocaine)) Hx Anxiety: Yes Hx Depression: Yes Hx Substance Use: Yes (denies using drugs for over 20 yrs) Other/Comment: pt denies doing drugs over 20 yrs, admits to social drinking, smokes less than 1 ppd - SURGICAL HISTORY Hx Cardiac Catheterization: Yes Other/Comment: colonscopy - ANESTHESIA Hx Anesthesia: Yes Hx Anesthesia Reactions: No Hx Malignant Hyperthermia: No Meds Allergies/Adverse Reactions: Allergies Allergy/AdvReac Type Severity Reaction Status Date / Time No Known Allergies Allergy Verified 02/22/17 11:27 Physical Exam - Constitutional Appears: No Acute Distress - Head Exam Head Exam: ATRAUMATIC, NORMAL INSPECTION, NORMOCEPHALIC - Eye Exam Eye Exam: Normal appearance - ENT Exam ENT Exam: Mucous Membranes Moist - Cardiovascular Exam Cardiovascular Exam: +S1, +S2. absent: Bradycardia, Tachycardia - GI/Abdominal Exam GI & Abdominal Exam: Normal Bowel Sounds, Soft. absent: Organomegaly Additional comments: Suprapubic tenderness - Extremities Exam Extremities exam: Negative for: pedal edema - Back Exam Back exam: CVA tenderness (R). absent: CVA tenderness (L) - Neurological Exam Neurological exam: Alert, Oriented x3 - Psychiatric Exam Psychiatric exam: Normal Affect, Normal Mood Results - Vital Signs Recent Vital Signs: Last Vital Signs Temp 98.1 F 05/14/17 13:55 Pulse 75 05/14/17 16:44 Resp 18 05/14/17 16:44 BP 138/74 05/14/17 16:44 Pulse Ox 98 05/14/17 16:44 - Labs Result Diagrams: 05/14/17 15:08 05/14/17 15:08 Assessment & Plan - Assessment and Plan (Free Text) Assessment: 51 year old male with PMHx of HLD, HTN, EtOH abuse, Ulcers, Emphysema, and CAD with stent placment presents with worsening R CVA tenderness and abominal pain. CT found 6mm obstructing calculs with hydronephrosis. Plan: Nephrolithiasis -Toradol for pain control -Fluids 150 mls/hr -Flomax -PRN Zofran -Uro consult (Ronen) -NPO after midnight -Urine strain -UA/urine culture Constipation likely opioid induced -Colace Hx of Anxiety -Xanax GI/DVT proph -Protonix/SCD's Patient seen, examined and discussed with Attending Janelle Stewart PGY-1 - Date & Time Date: 05/14/17 Time: 11:00 <Rick Swenson MD - Last Filed: 05/15/17 16:28> Results - Vital Signs Recent Vital Signs: Last Vital Signs Temp 97.7 F 05/15/17 07:30 Pulse 62 05/15/17 07:30 Resp 18 05/15/17 07:30 BP 142/98 H 05/15/17 07:30 Pulse Ox 100 05/15/17 07:30 - Labs Result Diagrams: 05/14/17 15:08 05/14/17 15:08 Attending/Attestation - Attestation I have personally seen and examined this patient.: Yes I have fully participated in the care of the patient.: Yes I have reviewed all pertinent clinical information: Yes Notes (Text): 05/15/17 16:27 Patient was seen and examined with medical billing associate .Agreed with resident assessment and plan. 50 M with PMH of CAD,SP cardiac catherization 02/05/17 that reveals 60% LAD lesion, chronic smoking,alcohol abuse , and non compliance with medication was admitted with back pain, found to have left ureter 6 mm stone with mild left sided hydronephrosis.We will admit patient , start on IV fluid, pain medications , Flomax and will get Urology consult. Management plan was discussed in detail with patient Education was provided.
[2017-05-14] MEDS: Sodium Chloride 0.9% 1,000 ML IV SCH (18:58)
[2017-05-14] MEDS ORDERED: Pneumococcal 23-Valent Vaccine IM ONE (22:32)
--- NOTE | 2017-05-14 23:41 | PCM.URO ---
Urology Progress Note - Subjective Abdominal Pain: Yes - Objective Lab Studies: Reviewed (pt for operating room tomorrow) Intake & Output: Intake & Output 05/14/17 05/14/17 05/15/17 06:59 18:59 06:59 Intake Total 480 Output Total 400 Balance 80 Weight 175 lb Intake: Oral 480 Output: Urine 400 Urine, Voided 400 Other: Voiding Method Urinal # Bowel Movements 0 Vital Signs: Vital Signs - 24 hr 05/14/17 05/14/17 16:44 22:25 Temperature 98.1 F Pulse Rate 75 75 Respiratory 18 18 Rate Blood Pressure 138/74 138/76 O2 Sat by Pulse 98 Oximetry
[2017-05-15] MEDS: Sodium Chloride 0.9% 1,000 ML IV SCH ×4 (01:26→23:12)
--- NOTE | 2017-05-15 12:27 | CP.PCM.PN ---
<Uma Connor - Last Filed: 05/15/17 20:35> Subjective - Date & Time of Evaluation Date of Evaluation: 05/15/17 Time of Evaluation: 08:20 - Subjective Subjective: Progress note for Hospitalist service. Patient with no overnight acute events. Patient still c/o left flank pain, but better with medications. Patient denies n/v/d, denies chest pain or sob. Afebrile. Objective - Vital Signs/Intake and Output Vital Signs (last 24 hours): Temp Pulse Resp BP Pulse Ox 97.7 F 62 18 142/98 H 100 05/15/17 07:30 05/15/17 07:30 05/15/17 07:30 05/15/17 07:30 05/15/17 07:30 Intake and Output: 05/15/17 05/15/17 06:59 18:59 Intake Total 3480 Output Total 600 Balance 2880 - Medications Medications: Current Medications Alprazolam (Xanax) 1 mg PO DAILY [facility] PRN Reason: Protocol Last Admin: 05/15/17 10:48 Dose: 1 mg Docusate Sodium (Colace) 100 mg PO BID [facility] Last Admin: 05/15/17 10:47 Dose: 100 mg Sodium Chloride (Sodium Chloride 0.9%) 1,000 mls @ 150 mls/hr IV .Q6H40M [facility] Last Admin: 05/15/17 08:27 Dose: 150 mls/hr Ketorolac Tromethamine (Toradol) 16 mg IVP Q6 PRN PRN Reason: Pain, severe (8-10) Last Admin: 05/15/17 08:24 Dose: 16 mg Ondansetron HCl (Zofran Inj) 4 mg IVP Q6H PRN PRN Reason: Nausea/Vomiting Pantoprazole Sodium (Protonix Inj) 40 mg IVP DAILY [facility] Last Admin: 05/15/17 10:47 Dose: 40 mg Tamsulosin HCl (Flomax) 0.4 mg PO DAILY [facility] Last Admin: 05/15/17 10:47 Dose: 0.4 mg Tramadol HCl (Ultram) 50 mg PO TID [facility] Last Admin: 05/15/17 10:47 Dose: 50 mg - Labs Labs: PT 11.0 Seconds (9.9-11.8) 09/11/17 15:08 INR 1.02 (0.93-1.08) 05/14/17 15:08 APTT 29.9 Seconds (23.7-30.8) 05/14/17 15:08 - Constitutional Appears: No Acute Distress - Head Exam Head Exam: ATRAUMATIC, NORMAL INSPECTION, NORMOCEPHALIC - Eye Exam Eye Exam: EOMI, Normal appearance, PERRL. absent: Scleral icterus Pupil Exam: NORMAL ACCOMODATION, PERRL - ENT Exam ENT Exam: Mucous Membranes Moist, Normal Exam - Neck Exam Neck Exam: Full ROM, Normal Inspection - Respiratory Exam Respiratory Exam: Clear to Ausculation Bilateral, NORMAL BREATHING PATTERN. absent: Rales, Rhonchi, Wheezes, Respiratory Distress, Stridor - Cardiovascular Exam Cardiovascular Exam: REGULAR RHYTHM, RRR, +S1, +S2. absent: Gallop, JVD, Rubs, Murmur - GI/Abdominal Exam GI & Abdominal Exam: Soft, Tenderness (left flank. ), Normal Bowel Sounds. absent: Distended, Firm, Guarding, Rigid, Rebound - Extremities Exam Extremities Exam: Normal Inspection - Back Exam Back Exam: NORMAL INSPECTION - Neurological Exam Neurological Exam: Alert, Awake, Oriented x3 - Psychiatric Exam Psychiatric exam: Normal Affect, Normal Mood - Skin Skin Exam: Dry, Intact, Normal Color, Warm Assessment and Plan - Assessment and Plan (Free Text) Assessment: Patient is a 51 y/o with PMH of HTN, HLD, cardiomyopathy, anxiety, depression, CAD with cardiac cath placement, gastric ulcers, emphysema recurrent nephrolithiaisis presenting with left flank pain and was found to have 6 mm obstructing mid ureteral calculi and small b/l renal calculies. Plan: 1) Left flank pain 2nd to 6 mm obstructing mid ureteral renal calculi, - will continue to strain urine - will continue with flomax - urology on consult, possible OR today - will continue with toradol for pain - NS@150 CC/hr 2) Constipation likely opioid induced - will continue with Colace 3) Hx of Anxiety - c/w Xanax 4) GI/DVT proph -Protonix/SCD's Patient seen, examined and case discussed with Dr Swenson <Le[facility] YANCEY,[facility] - Last Filed: 05/17/17 16:36> Objective - Vital Signs/Intake and Output Vital Signs (last 24 hours): Temp Pulse Resp BP Pulse Ox 98.2 F 63 20 138/95 H 99 05/17/17 07:30 05/17/17 07:30 05/17/17 07:30 05/17/17 07:30 05/17/17 07:30 Intake and Output: 05/17/17 05/17/17 06:59 18:59 Intake Total 2640 Output Total 2675 Balance -35 - Labs Labs: PT 11.0 Seconds (9.9-11.8) 05/14/17 15:08 INR 1.02 (0.93-1.08) 05/14/17 15:08 APTT 29.9 Seconds (23.7-30.8) 05/14/17 15:08 Attending/Attestation - Attestation I have personally seen and examined this patient.: Yes I have fully participated in the care of the patient.: Yes I have reviewed all pertinent clinical information, including history, physical exam and plan: Yes Notes (Text): 05/17/17 16:34 Patient was seen and examined with pesticide use medical coordinator. Agreed with resident assessment and plan. 51 M with left ureter stone and hydronephrosis, for cystoscopy tomorrow by Urology.Patient pain is better, will continue IV fluid/Pain medication and Flomax. Management plan was discussed in detail with patient Education was provided.
[2017-05-16] MEDS: Sodium Chloride 0.9% 1,000 ML IV SCH ×2 (04:23→21:57)
--- NOTE | 2017-05-16 09:49 | CARD ---
APPROVED REPORT EKG Measurement Heart [id number] [place] 144P [id number] <Conclusion> Sinus bradycardia with premature atrial complexes Otherwise normal ECG
[2017-05-16] MEDS ORDERED: Propofol 10 mg/ml Inj (20 ML) ONE (10:03)
[2017-05-16] MEDS ORDERED: Etomidate 20 mg/10ml Inj IV ONE (10:03)
[2017-05-16] MEDS ORDERED: Midazolam 2 MG/2 ML VIAL ONE (10:05)
[2017-05-16] MEDS ORDERED: cefTRIAXone (Rocephin) 1 gm Inj ONE (10:06)
[2017-05-16] MEDS ORDERED: Iohexol 240 (50 ml) ONE (10:06)
[2017-05-16] MEDS ORDERED: Lidocaine 2% Jelly (Uro-Jet) TOP ONE (10:50)
[2017-05-16] MEDS ORDERED: Lidocaine 2% Inj (20ml) ONE (10:57)
[2017-05-16] MEDS ORDERED: Lactated Ringer's 1,000 ML IV SCH (11:08)
[2017-05-16] MEDS ORDERED: HYDROmorphone 0.5 mg/0.5 ml ISec IVP PRN (11:08)
[2017-05-16] MEDS ORDERED: Lidocaine 2% Jelly (Uro-Jet) ONE (11:10)
--- NOTE | 2017-05-16 12:43 | RAD ---
PROCEDURE: Retrograde pyelogram HISTORY: R/O OBSTRUCTION COMPARISON: TECHNIQUE: Fluoroscopy was provided in the operating room. Eighteen images were submitted FINDINGS: The right renal collecting system in ureter are unremarkable. The left renal collecting system is mildly dilated with [place] seal blunting. There is placement of a left ureteral stent. There is a stenosis in the left mid ureter seen on 2 separate images. IMPRESSION: As above
[2017-05-16] MEDS: Oxycodone/Acetaminophen 5/325 mg Tab PO PRN ×2 (17:40→23:14)
[2017-05-16 18:26] VITALS: RESP 20
[2017-05-17] MEDS ORDERED: Pantoprazole 40 mg EC Tab PO SCH (06:00)
[2017-05-17] MEDS: Sodium Chloride 0.9% 1,000 ML IV SCH (06:24)
--- NOTE | 2017-05-17 06:55 | CP.PCM.PN ---
<LELERAY - Last Filed: 05/17/17 07:00> Subjective - Date & Time of Evaluation Date of Evaluation: 05/16/17 Time of Evaluation: 14:00 - Subjective Subjective: patient was seen and examined bedside post-op. pain tolerated. denies cp, sob, fevers, chills. considering d/c today Objective - Vital Signs/Intake and Output Vital Signs (last 24 hours): Temp Pulse Resp BP Pulse Ox 97.7 F 62 20 119/82 98 05/16/17 16:00 05/16/17 16:00 05/16/17 16:00 05/16/17 16:00 05/16/17 16:00 Intake and Output: 05/16/17 05/17/17 18:59 06:59 Intake Total 0 840 Output Total 525 0225 Balance -525 -5395 - Medications Medications: Current Medications Alprazolam (Xanax) 1 mg PO DAILY [facility] PRN Reason: Protocol Last Admin: 05/16/17 12:29 Dose: 1 mg Docusate Sodium (Colace) 100 mg PO BID [facility] Last Admin: 05/16/17 17:45 Dose: 100 mg Sodium Chloride (Sodium Chloride 0.9%) 1,000 mls @ 150 mls/hr IV .Q6H40M [facility] Last Admin: 05/17/17 06:24 Dose: 150 mls/hr Ondansetron HCl (Zofran Inj) 4 mg IVP Q6H PRN PRN Reason: Nausea/Vomiting Oxycodone/Acetaminophen (Percocet 5/325 Mg Tab) 1 tab PO Q6H PRN PRN Reason: Pain, moderate (4-7) Stop: 05/19/17 15:57 Last Admin: 05/16/17 23:14 Dose: 1 tab Pantoprazole Sodium (Protonix Ec Tab) 40 mg PO 0600 [facility] Tamsulosin HCl (Flomax) 0.4 mg PO DAILY [facility] Last Admin: 05/16/17 12:30 Dose: 0.4 mg Tramadol HCl (Ultram) 50 mg PO TID [facility] Last Admin: 05/16/17 17:37 Dose: 50 mg - Labs Labs: PT 11.0 Seconds (9.9-11.8) 05/14/17 15:08 INR 1.02 (0.93-1.08) 05/14/17 15:08 APTT 29.9 Seconds (23.7-30.8) 05/14/17 15:08 - Constitutional Appears: Well, No Acute Distress - Head Exam Head Exam: NORMAL INSPECTION - Eye Exam Eye Exam: Normal appearance - ENT Exam ENT Exam: Mucous Membranes Moist - Respiratory Exam Respiratory Exam: Clear to Ausculation Bilateral, NORMAL BREATHING PATTERN. absent: Wheezes, Respiratory Distress - Cardiovascular Exam Cardiovascular Exam: RRR, +S1, +S2 - GI/Abdominal Exam GI & Abdominal Exam: Soft, Tenderness (mild ). absent: Distended - Extremities Exam Extremities Exam: Normal Inspection - Back Exam Back Exam: NORMAL INSPECTION - Neurological Exam Neurological Exam: Alert, Awake, Oriented x3 - Psychiatric Exam Psychiatric exam: Normal Affect, Normal Mood - Skin Skin Exam: Normal Color, Warm Assessment and Plan - Assessment and Plan (Free Text) Assessment: Patient is a 51 y/o with PMH of HTN, HLD, cardiomyopathy, anxiety, depression, CAD with cardiac cath placement, gastric ulcers, emphysema recurrent nephrolithiaisis presenting with left flank pain and was found to have 6 mm obstructing mid ureteral calculi and small b/l renal calculies. went for cystoscopy this morning w/ Dr. Hardwick Plan: 1. Left flank pain 2nd to 6 mm obstructing mid ureteral renal calculi - OR this morning - per Dr. Hardwick, pt cleared for d/c - continue with flomax - prescribed outpt percocet PRN for pain 2. Constipation likely opioid induced - will continue with Colace 3. Hx of Anxiety - c/w Xanax - Protonix/SCD's Patient seen, evaluated and discussed with attending, Ray Prince PGY1 <Royal Swift - Last Filed: 05/17/17 15:32> Objective - Vital Signs/Intake and Output Vital Signs (last 24 hours): Temp Pulse Resp BP Pulse Ox 98.2 F 63 20 138/95 H 99 05/17/17 07:30 05/17/17 07:30 05/17/17 07:30 05/17/17 07:30 05/17/17 07:30 Intake and Output: 05/17/17 05/17/17 06:59 18:59 Intake Total 2640 Output Total 2675 Balance -35 - Labs Labs: PT 11.0 Seconds (9.9-11.8) 05/14/17 15:08 INR 1.02 (0.93-1.08) 05/14/17 15:08 APTT 29.9 Seconds (23.7-30.8) 05/14/17 15:08 Attending/Attestation - Attestation I have personally seen and examined this patient.: Yes I have fully participated in the care of the patient.: Yes I have reviewed all pertinent clinical information, including history, physical exam and plan: Yes Notes (Text): I have seen and examined the patient at bedside. Agree with the above note with the following additions/ exceptions: Briefly this is 51 year old male with history of HTN, dyslipidemia, cardiomyopathy, anxiety, depression, CAD with cardiac cath placement, gastric ulcer, emphysema, recurrent nephrolithiasis who was admitted for evaluation of obstructing ureteral stone s/p cystoscopy with stent insertion. Urologist cleared the patient to go home. Will send patient home on percocet 12 pills. Upon discharge patient will follow up with dr pritchett. Dr Royal Swift
[2017-05-17] MEDS: Oxycodone/Acetaminophen 5/325 mg Tab PO PRN (07:00)
[2017-05-17 08:09] VITALS: BP 138/95; PULSE 63; TEMP 98.2; O2SAT 99
--- NOTE | 2017-05-17 22:24 | CP.PCM.DIS ---
<RAY ROYAL - Last Filed: 05/17/17 21:52> Provider - Provider Date of Admission: 05/15/17 15:00 Attending physician: Royal Swift MD Primary care physician: Enedina Vinson MD Time Spent in preparation of Discharge (in minutes): 45 Hospital Course - Lab Results Lab Results: Most Recent Lab Values WBC 5.2 10^3/ul (4.5-11.0) D 05/14/17 15:08 RBC 3.88 10^6/uL (3.5-6.1) 05/14/17 15:08 Hgb 11.9 g/dL (14.0-18.0) L 05/14/17 15:08 Hct 35.3 % (42.0-52.0) L 05/14/17 15:08 MCV 91.0 fl (80.0-105.0) 05/14/17 15:08 MCH 30.7 pg (25.0-35.0) 05/14/17 15:08 MCHC 33.7 g/dl (31.0-37.0) 05/14/17 15:08 RDW 12.5 % (11.5-14.5) 05/14/17 15:08 Plt Count 129 10^3/uL (120.0-450.0) 05/14/17 15:08 MPV 12.2 fl (7.0-11.0) H 05/14/17 15:08 Gran % 69.3 % (50.0-68.0) H 05/14/17 15:08 Lymph % (Auto) 19.5 % (22.0-35.0) L 05/14/17 15:08 Colbert % (Auto) 9.1 % (1.0-6.0) H 05/14/17 15:08 Eos % (Auto) 1.9 % (1.5-5.0) 05/14/17 15:08 Baso % (Auto) 0.2 % (0.0-3.0) 05/14/17 15:08 Gran # 3.58 (1.4-6.5) 05/14/17 15:08 Lymph # 1.0 (1.2-3.4) L 05/14/17 15:08 Colbert # 0.5 (0.1-0.6) 05/14/17 15:08 Eos # 0.1 (0.0-0.7) 05/14/17 15:08 Baso # 0.01 K/mm3 (0.0-2.0) 05/14/17 15:08 PT 11.0 Seconds (9.9-11.8) 05/14/17 15:08 INR 1.02 (0.93-1.08) 05/14/17 15:08 APTT 29.9 Seconds (23.7-30.8) 05/14/17 15:08 Sodium 142 mmol/L (132-148) 05/14/17 15:08 Potassium 3.5 mmol/L (3.6-5.0) L 05/14/17 15:08 Chloride 110 mmol/L (98-107) H 05/14/17 15:08 Carbon Dioxide 25 mmol/L (21-33) 05/14/17 15:08 Anion Gap 11 (10-20) 05/14/17 15:08 BUN 16 mg/dL (7-21) 05/14/17 15:08 Creatinine 1.0 mg/dL (0.5-1.4) 05/14/17 15:08 Est GFR ( Amer) > 60 05/14/17 15:08 Est GFR (Non-Af Amer) > 60 05/14/17 15:08 Random Glucose 136 mg/dL (70-110) H 05/14/17 15:08 Calcium 8.7 mg/dL (8.4-10.5) 05/14/17 15:08 Total Bilirubin 0.4 mg/dL (0.2-1.3) 05/14/17 15:08 AST 23 U/L (17-59) 05/14/17 15:08 ALT 27 U/L (7-56) 05/14/17 15:08 Alkaline Phosphatase 60 U/L (38-126) 05/14/17 15:08 Total Protein 6.3 g/dL (5.8-8.3) 05/14/17 15:08 Albumin 3.6 g/dL (3.0-4.8) 05/14/17 15:08 Globulin 2.8 gm/dL 05/14/17 15:08 Albumin/Globulin Ratio 1.3 (1.1-1.8) 05/14/17 15:08 Urine Color Yellow (YELLOW) 05/14/17 15:09 Urine Appearance Clear (CLEAR) 05/14/17 15:09 Urine pH 6.5 (4.7-8.0) 05/14/17 15:09 Ur Specific [place] 1.015 (1.005-1.035) 05/14/17 15:09 Urine Protein Negative mg/dL (<30 mg/dL) 05/14/17 15:09 Urine Glucose (UA) Negative mg/dL (NEGATIVE) 05/14/17 15:09 Urine Ketones Negative mg/dL (NEGATIVE) 05/14/17 15:09 Urine Blood Small (NEGATIVE) H 05/14/17 15:09 Urine Nitrate Negative (NEGATIVE) 05/14/17 15:09 Urine Bilirubin Negative (NEGATIVE) 05/14/17 15:09 Urine Urobilinogen 0.2 E.U./dL (<1 E.U./dL) 05/14/17 15:09 Ur Leukocyte Esterase Negative Minor/uL (NEGATIVE) 05/14/17 15:09 Urine RBC 2 - 5 /hpf (0-2) 05/14/17 15:09 Urine WBC 0 - 2 /hpf (0-6) 05/14/17 15:09 Ur Epithelial Cells 0 - 2 /hpf (0-5) 05/14/17 15:09 Urine Bacteria Mod (NEG) 05/14/17 15:09 Stool Occult Blood Negative (NEGATIVE) 05/17/17 01:25 - Hospital Course Hospital Course: 51 year old male with PMHx of HTN, HLD, cardiomyopathy, anxiety, depression, CAD with cardiac cath placement, gastric ulcers, and emphysema who presented with left CVA tenderness and suprapubic pain x 6 days that worsened over the last 2 days. Describes the pain as sharp. States no relieving or exacerbating factors. CT Abd/Pelvis today showed obstructing 6mm left ureteral calculus with mild left hydroureteronephrosis w/ B/L very small nonobstructing renal calculi. pt was managed medically on the med-surg floors and prepped for OR the next day. Pt underwent cystoscopy retrograde stent on 05/16/17. Pain was managed and pt received flomax post-op. Per Dr. Hardwick, pt prescribed cipro x5d, flomax, colace and percocet PRN for pain. pt is to f/u Dr. Hardwick w/i 1 week for lithotripsy. D/c order was placed on 05/16, however, pt left on morning of for unclear reasons before the medical team saw him on the morning rounds. - Date & Time of H&P Date of H&P: 05/14/17 Time of H&P: 06:30 Discharge Exam - Additional Findings Additional findings: - Constitutional Appears: Well, No Acute Distress - Head Exam Head Exam: NORMAL INSPECTION - Eye Exam Eye Exam: Normal appearance - ENT Exam ENT Exam: Mucous Membranes Moist - Respiratory Exam Respiratory Exam: Clear to Ausculation Bilateral, NORMAL BREATHING PATTERN. absent: Wheezes, Respiratory Distress - Cardiovascular Exam Cardiovascular Exam: RRR, +S1, +S2 - GI/Abdominal Exam GI & Abdominal Exam: Soft, Tenderness (mild ). absent: Distended - Extremities Exam Extremities Exam: Normal Inspection - Back Exam Back Exam: NORMAL INSPECTION - Neurological Exam Neurological Exam: Alert, Awake, Oriented x3 - Psychiatric Exam Psychiatric exam: Normal Affect, Normal Mood - Skin Skin Exam: Normal Color, Warm Discharge Plan - Discharge Medications Prescriptions: Ciprofloxacin [Cipro] 500 mg PO Q12 #10 tab Docusate Sodium [Stool Softener] 100 mg PO DAILY #30 tablet Oxycodone HCl/Acetaminophen [Endocet 2.5-325 mg Tablet] 1 each PO BID PRN #10 tablet PRN Reason: Pain, Moderate (4-7) Tamsulosin [Flomax] 0.4 mg PO DAILY #30 cap - Follow Up Plan Condition: FAIR Disposition: HOME/ ROUTINE Instructions: Kidney Stones (DC), Lithotripsy (DC), Renal Colic (GEN) Additional Instructions: 1. Prescribed Cipro (antibiotic), please take every 12 hrs for 5 days 2. Prescribed Flomax, and colace and Percocet for pain if needed as prescribed 3. Please follow up with Dr. Hardwick within 1 week for a follow up and for lithotripsy. 4. Please follow up with your PMD within 1-2 weeks 5. If you develop any fevers, have extreme pain, or trouble passing urine, please return to ED for further workup Thank you Ray Royal PGY1 Dr. Swift, Attending Physician Referrals: Enedina Vinson MD [Primary Care Provider] - Dante Hardwick MD [Staff Provider] - <Royal Swift - Last Filed: 05/18/17 15:17> Provider - Provider Date of Admission: 05/15/17 15:00 Attending physician: Royal Swift MD Primary care physician: Enedina Vinson MD Hospital Course - Lab Results Lab Results: Most Recent Lab Values WBC 5.2 10^3/ul (4.5-11.0) D 05/14/17 15:08 RBC 3.88 10^6/uL (3.5-6.1) 05/14/17 15:08 Hgb 11.9 g/dL (14.0-18.0) L 05/14/17 15:08 Hct 35.3 % (42.0-52.0) L 05/14/17 15:08 MCV 91.0 fl (80.0-105.0) 05/14/17 15:08 MCH 30.7 pg (25.0-35.0) 05/14/17 15:08 MCHC 33.7 g/dl (31.0-37.0) 05/14/17 15:08 RDW 12.5 % (11.5-14.5) 05/14/17 15:08 Plt Count 129 10^3/uL (120.0-450.0) 05/14/17 15:08 MPV 12.2 fl (7.0-11.0) H 05/14/17 15:08 Gran % 69.3 % (50.0-68.0) H 05/14/17 15:08 Lymph % (Auto) 19.5 % (22.0-35.0) L 05/14/17 15:08 Colbert % (Auto) 9.1 % (1.0-6.0) H 05/14/17 15:08 Eos % (Auto) 1.9 % (1.5-5.0) 05/14/17 15:08 Baso % (Auto) 0.2 % (0.0-3.0) 05/14/17 15:08 Gran # 3.58 (1.4-6.5) 05/14/17 15:08 Lymph # 1.0 (1.2-3.4) L 05/14/17 15:08 Colbert # 0.5 (0.1-0.6) 05/14/17 15:08 Eos # 0.1 (0.0-0.7) 05/14/17 15:08 Baso # 0.01 K/mm3 (0.0-2.0) 05/14/17 15:08 PT 11.0 Seconds (9.9-11.8) 05/14/17 15:08 INR 1.02 (0.93-1.08) 05/14/17 15:08 APTT 29.9 Seconds (23.7-30.8) 05/14/17 15:08 Sodium 142 mmol/L (132-148) 05/14/17 15:08 Potassium 3.5 mmol/L (3.6-5.0) L 05/14/17 15:08 Chloride 110 mmol/L (98-107) H 05/14/17 15:08 Carbon Dioxide 25 mmol/L (21-33) 05/14/17 15:08 Anion Gap 11 (10-20) 05/14/17 15:08 BUN 16 mg/dL (7-21) 05/14/17 15:08 Creatinine 1.0 mg/dL (0.5-1.4) 05/14/17 15:08 Est GFR ( Amer) > 60 05/14/17 15:08 Est GFR (Non-Af Amer) > 60 05/14/17 15:08 Random Glucose 136 mg/dL (70-110) H 05/14/17 15:08 Calcium 8.7 mg/dL (8.4-10.5) 05/14/17 15:08 Total Bilirubin 0.4 mg/dL (0.2-1.3) 05/14/17 15:08 AST 23 U/L (17-59) 05/14/17 15:08 ALT 27 U/L (7-56) 05/14/17 15:08 Alkaline Phosphatase 60 U/L (38-126) 05/14/17 15:08 Total Protein 6.3 g/dL (5.8-8.3) 05/14/17 15:08 Albumin 3.6 g/dL (3.0-4.8) 05/14/17 15:08 Globulin 2.8 gm/dL 05/14/17 15:08 Albumin/Globulin Ratio 1.3 (1.1-1.8) 05/14/17 15:08 Urine Color Yellow (YELLOW) 05/14/17 15:09 Urine Appearance Clear (CLEAR) 05/14/17 15:09 Urine pH 6.5 (4.7-8.0) 05/14/17 15:09 Ur Specific [place] 1.015 (1.005-1.035) 05/14/17 15:09 Urine Protein Negative mg/dL (<30 mg/dL) 05/14/17 15:09 Urine Glucose (UA) Negative mg/dL (NEGATIVE) 05/14/17 15:09 Urine Ketones Negative mg/dL (NEGATIVE) 05/14/17 15:09 Urine Blood Small (NEGATIVE) H 05/14/17 15:09 Urine Nitrate Negative (NEGATIVE) 05/14/17 15:09 Urine Bilirubin Negative (NEGATIVE) 05/14/17 15:09 Urine Urobilinogen 0.2 E.U./dL (<1 E.U./dL) 05/14/17 15:09 Ur Leukocyte Esterase Negative Minor/uL (NEGATIVE) 05/14/17 15:09 Urine RBC 2 - 5 /hpf (0-2) 05/14/17 15:09 Urine WBC 0 - 2 /hpf (0-6) 05/14/17 15:09 Ur Epithelial Cells 0 - 2 /hpf (0-5) 05/14/17 15:09 Urine Bacteria Mod (NEG) 05/14/17 15:09 Stool Occult Blood Negative (NEGATIVE) 05/17/17 01:25 Attending/Attestation - Attestation I have personally seen and examined this patient.: Yes I have fully participated in the care of the patient.: Yes I have reviewed all pertinent clinical information, including history, physical exam and plan: Yes Notes (Text): I have seen and examined the patient at bedside. Agree with the above note with the following additions/ exceptions: Briefly this is 51 year old male with history of HTN, dyslipidemia, cardiomyopathy, anxiety, depression, CAD with cardiac cath placement, gastric ulcer, emphysema, recurrent nephrolithiasis who was admitted for evaluation of obstructing ureteral stone s/p cystoscopy with stent insertion. Urologist cleared the patient to go home. Will send patient home on percocet 12 pills. Upon discharge patient will follow up with dr vinson. Dr Royal Swift
== END 2017-05-17 11:48 | disposition home or self-care (01) | DRG 323 ==
LOC: ED 13:52 → ERH 16:26 → 5RNO 17:25 → OBSVTOIN 05-15 15:00 → 5RNO 05-15 20:52
PROVIDERS: ADMIT Internal Medicine; ATTEND Hospitalist
PROC: 0T778DZ Dilation of Left Ureter with Intraluminal Device, Via Natural or Artificial Opening Endoscopic (ICD-10-PCS; principal; 2017-05-16 10:30)
DX: N13.2 Hydronephrosis with renal and ureteral calculous obstruction (principal); J44.9 Chronic obstructive pulmonary disease, unspecified; I42.9 Cardiomyopathy, unspecified; I25.10 Atherosclerotic heart disease of native coronary artery without angina pectoris; I10 Essential (primary) hypertension; E78.5 Hyperlipidemia, unspecified; F41.9 Anxiety disorder, unspecified; F32.9 Major depressive disorder, single episode, unspecified; K59.03 Drug induced constipation; T40.2X5A Adverse effect of other opioids, initial encounter; Z87.11 Personal history of peptic ulcer disease; Z87.891 Personal history of nicotine dependence; Z95.5 Presence of coronary angioplasty implant and graft; Z91.14 Patient's other noncompliance with medication regimen

== ENCOUNTER 2017-05-23 06:38 | Day surgery (SDC) | payer MEDICAID ==
[2017-05-23 06:38] VITALS: PULSE 88; BMI 23.1
[2017-05-23] MEDS ORDERED: Sodium Chloride 0.9% 1,000 ML IV SCH (07:45)
--- NOTE | 2017-05-23 07:51 | ED PDOC ---
Arrival/HPI - General Chief Complaint: Male Genitourinary Time Seen by Provider: 05/23/17 07:21 Historian: Patient - History of Present Illness Narrative History of Present Illness (Text): 05/23/17 07:30 A 51 year old male presents to the emergency department for ureteral stent removal complaining of persistent left sided flank pain. Patient denies any other complaints at this time. PMD: Dr. Enedina Vinson Symptom Onset: Sudden Symptom Course: Unchanged Activities at Onset: Rest Context: Home Past Medical History - Provider Review Nursing Documentation Reviewed: Yes - Past History Past History: No Previous - Infectious Disease Hx of Infectious Diseases: None - Tetanus Immunization Tetanus Immunization: Unknown - Cardiac Hx Cardiac Disorders: Yes Hx Hypertension: Yes - Pulmonary Hx Respiratory Disorders: Yes Hx Chronic Obstructive Pulmonary Disease (COPD): Yes - Neurological Hx Neurological Disorder: Yes Hx Migraine: Yes - HEENT Hx HEENT Disorder: No - Renal Hx Kidney Stones: Yes - Endocrine/Metabolic Hx Endocrine Disorders: No - Hematological/Oncological Hx Blood Transfusions: No Hx Blood Transfusion Reaction: No - Integumentary Hx Dermatological Disorder: Yes Other/Comment: multiple red abrasions to ble and both knees, work related - Musculoskeletal/Rheumatological Hx Falls: No - Gastrointestinal Hx Gastrointestinal Disorders: Yes - Genitourinary/Gynecological Hx Genitourinary Disorders: No - Psychiatric Hx Psychophysiologic Disorder: Yes (Heavy smoker, ETOH abuse, substance abuse ( cocaine)) Hx Anxiety: Yes Hx Depression: Yes Hx Substance Use: Yes (denies using drugs for over 20 yrs) Other/Comment: pt denies doing drugs over 20 yrs, admits to social drinking, smokes less than 1 ppd - Past Surgical History Past Surgical History: No Previous - Surgical History Hx Cardiac Catheterization: Yes Other/Comment: colonscopy - Anesthesia Hx Anesthesia: Yes Hx Anesthesia Reactions: No Hx Malignant Hyperthermia: No - Suicidal Assessment Feels Threatened In Home Enviroment: No Family/Social History - Physician Review Nursing Documentation Reviewed: Yes Family/Social History: No Known Family HX Smoking Status: Heavy Smoker > 10 Cigarettes Daily Hx Alcohol Use: Yes (occasional alcohol as per pt) Hx Substance Use: Yes (denies using drugs for over 20 yrs) Hx Substance Use Treatment: No Allergies/Home Meds Allergies/Adverse Reactions: Allergies No Known Allergies Allergy (Verified 02/22/17 11:27) Home Medications: Home Meds Medication Instructions Recorded Confirmed ALPRAZolam [Xanax] 1 mg PO TID 05/23/17 05/23/17 Review of Systems - Physician Review All systems were reviewed & negative as marked: Yes Physical Exam - Physical Exam Narrative Physical Exam (Text): 05/23/17 07:30 - Review of Systems Constitutional: Normal. absent: Fatigue, Weight Change, Fevers Eyes: Normal ENT: denies sore throat, denies tristhmus Respiratory: Normal. absent: SOB, Cough, Sputum Cardiovascular: absent: Chest Pain, Palpitations, Syncope Gastrointestinal: Normal. absent: Abdominal Pain, Diarrhea, Nausea, Vomiting Genitourinary: Normal. absent: Dysuria, Frequency, Hematuria Musculoskeletal: Left flank pain. absent: Arthralgias, Neck Pain Skin: no rashes, no erythema Neurological: absent: Focal Weakness Endocrine: Normal Hemo/Lymphatic: Normal Psychiatric: No suicidal or homicidal ideations Physical exam Patient appears age appropriate in no distress, speaking full sentences without difficulty - Systems Exam Head: Present: Atraumatic, Normocephalic Pupils: Present: PERRL Extroacular Muscles: Present: EOMI Conjunctiva: Present: Normal Mouth: Present: Moist Mucous Membranes Neck: Present: Normal Range of Motion. No: MIDLINE TENDERNESS, Paraspinal Tenderness Respiratory/Chest: Present: Clear to Auscultation, Good Air Exchange. No: Respiratory Distress, Accessory Muscle Use, Tachypneic Cardiovascular: Present: Regular Rate and Rhythm, Normal S1, S2, Peripheal Pulses Present. No: Murmurs Abdomen: Present: Normal Bowel Sounds. No: Tenderness, Distention, Peritoneal Signs, Rebound, Guarding Back: Present: Normal Inspection. No: Midline Tenderness, Paraspinal Tenderness Upper Extremity: Present: Normal Inspection. No: Cyanosis, Edema Lower Extremity: Present: Normal Inspection. No: Edema Neurological: Present: GCS=15, Speech Normal, cranial nerves II through XII fully intact with no cerebellar abnormality, neurosensory fully intact. No focal neurological deficits. Skin: Present: Warm, Dry, Normal Color. No: Rashes Lymphatic: Present: OX3, NI, NC Psychiatric: Present: Alert, Oriented x 3, Normal Insight, Normal Concentration Vital Signs Reviewed: Yes Vital Signs Temp Pulse Resp BP Pulse Ox 05/23/17 08:10 98.4 F 67 20 131/85 97 05/23/17 06:38 98.5 F 84 18 146/79 97 Temperature: Afebrile Blood Pressure: Normal Pulse: Regular Respiratory Rate: Normal Appearance: Positive for: Well-Appearing, Non-Toxic, Comfortable Pain Distress: None Mental Status: Positive for: Alert and Oriented X 3 Medical Decision Making ED Course and Treatment: 05/23/17 07:30 Impression: A 51 year old male with left sided flank pain. No acute findings on physical exam. Plan: -- EKG -- chest xray -- labs -- IV fluids, Toradol -- Urinalysis -- Reassess and disposition Prior Visits: Notes and results from previous visits were reviewed. Patient was last seen in the emergency department on 05/15/17 for evaluation of left sided flank pain. Progress Notes: Case discussed with Dr. Octavio Hardwick, who accepts patient to his service for same day surgery and asked to obtain pre-ops. I have discussed the results and plan with the patient, who expresses understanding. Patient given the opportunity to ask question, all questions were answered and there is agreement with the plan to be admitted to the hospital. 05/23/17 08:04 chest xray: Creator : Dang Fair V. FINDINGS: LUNGS: No active pulmonary disease. PLEURA: No significant pleural effusion identified, no pneumothorax apparent. CARDIOVASCULAR: Normal. OSSEOUS STRUCTURES: Thoracic spondylosis VISUALIZED UPPER ABDOMEN: Normal. IMPRESSION: No active disease. Specifically no infiltrate appreciated. - Lab Interpretations Lab Results: 05/23/17 07:50 05/23/17 07:50 Lab Results 05/23/17 07:50: Sodium 143, Potassium 3.6, Chloride 104, Carbon Dioxide 29, Anion Gap 14, BUN 23 H, Creatinine 1.0, Est GFR ( Amer) > 60, Est GFR ( Non-Af Amer) > 60, Random Glucose 87, Calcium 8.7, Total Bilirubin 0.5, AST 23, ALT 33, Alkaline Phosphatase 59, Total Protein 6.6, Albumin 3.8, Globulin 2.8, Albumin/Globulin Ratio 1.4 05/23/17 07:50: PT 11.0, INR 1.02, APTT 30.1 05/23/17 07:50: WBC 5.8, RBC 4.33, Hgb 13.0 L, Hct 39.1 L, MCV 90.3, MCH 30.0, MCHC 33.2, RDW 12.5, Plt Count 160, MPV 12.0 H, Gran % 55.9, Lymph % (Auto) 27.5 , [place] % (Auto) 10.9 H, Eos % (Auto) 5.4 H, Baso % (Auto) 0.3, Gran # 3.23, Lymph # 1.6, [place]ukes # 0.6, Eos # 0.3, Baso # 0.02 I have reviewed the lab results: Yes - RAD Interpretation Radiology Orders: 05/23/17 07:36 CHEST PORTABLE [RAD] Stat - EKG Interpretation Interpreted by ED Physician: Yes Type: 12 lead EKG - Medication Orders Current Medication Orders: Sodium Chloride (Sodium Chloride 0.9%) 1,000 mls @ 100 mls/hr IV .Q10H KADE Last Admin: 05/23/17 07:49 Dose: 100 mls/hr eMAR Start Stop Document 05/23/17 07:49 MR (Rec: 05/23/17 07:49 MR [id number]) Intravenous Solution Start Date 05/23/17 Start Time 07:49 Discontinued Medications Ceftriaxone Sodium (Rocephin) Confirm Administered Dose 1 gm .ROUTE .STK-MED ONE Stop: 05/23/17 08:39 Last Admin: 05/23/17 08:38 Dose: 1 gm Comments: ORM Administered Route: IVPB Ephedrine (Ephedrine) Confirm Administered Dose 50 mg .ROUTE .STK-MED ONE Stop: 05/23/17 08:48 Fentanyl (Fentanyl) Confirm Administered Dose 100 mcg .ROUTE .STK-MED ONE Stop: 05/23/17 08:23 Fentanyl (Fentanyl) Confirm Administered Dose 100 mcg .ROUTE .STK-MED ONE Stop: 05/23/17 09:18 Iohexol (Omnipaque 240 (50 Ml)) Confirm Administered Dose 50 ml .ROUTE .STK-MED ONE Stop: 05/23/17 08:19 Ketorolac Tromethamine (Toradol) 30 mg IVP STAT STA Stop: 05/23/17 07:37 Last Admin: 05/23/17 07:53 Dose: 30 mg MAR Pain Assessment Document 05/23/17 07:53 MR (Rec: 05/23/17 07:53 MR [id number]) Pain Reassessment Is this a pain reassessment? No Sleep Is patient sleeping during reassessment? No Presence of Pain Presence of Pain Yes Pain Scale Used Pain Scale Used Numeric Location Left, Right or Bilateral Left Pain Location Body Site Back Description Description Sharp Intensity of Pain at present 10 Pain Behavior Withdrawal from Touch Facial Grimacing Alleviating Factors/Management Medication Techniques Alleviating Factors Medication IVP Administration Document 05/23/17 07:53 MR (Rec: 05/23/17 07:53 MR [id number]) Charges for Administration # of IVP Administrations 1 Lidocaine (Lidocaine) Confirm Administered Dose 100 mg .ROUTE .STK-MED ONE Stop: 05/23/17 08:25 Midazolam HCl (Versed Inj) Confirm Administered Dose 2 mg .ROUTE .STK-MED ONE Stop: 05/23/17 08:23 Propofol (Diprivan) Confirm Administered Dose 200 mg .ROUTE .STK-MED ONE Stop: 05/23/17 08:23 - Scribe Statement The provider has reviewed the documentation as recorded by the Kaylee Rivera Provider Scribe Attestation: All medical record entries made by the Nathenibjennifer were at my direction and personally dictated by me. I have reviewed the chart and agree that the record accurately reflects my personal performance of the history, physical exam, medical decision making, and the department course for this patient. I have also personally directed, reviewed, and agree with the discharge instructions and disposition. Disposition/Present on Arrival - Present on Arrival Any Indicators Present on Arrival: No History of DVT/PE: No History of Uncontrolled Diabetes: No Urinary Catheter: No History of Decub. Ulcer: No History Surgical Site Infection Following: None - Disposition Have Diagnosis and Disposition been Completed?: Yes Diagnosis: Ureteral stone Disposition: HOSPITALIZED Disposition Time: 07:39 Patient Plan: Observation Condition: STABLE
--- NOTE | 2017-05-23 08:01 | RAD ---
HISTORY: cough COMPARISON: 02/22/2017 FINDINGS: LUNGS: No active pulmonary disease. PLEURA: No significant pleural effusion identified, no pneumothorax apparent. CARDIOVASCULAR: Normal. OSSEOUS STRUCTURES: Thoracic spondylosis VISUALIZED UPPER ABDOMEN: Normal. OTHER FINDINGS: None. IMPRESSION: No active disease. Specifically no infiltrate appreciated.
[2017-05-23 08:06] LABS: BASO # 0.02 K/mm3 (0.0-2.0); BASO % 0.3 % (0.0-3.0); EOS # 0.3 (0.0-0.7); EOS % 5.4 % (1.5-5.0); GRAN # 3.23 (1.4-6.5); GRAN % 55.9 % (50.0-68.0); HEMATOCRIT 39.1 % (42.0-52.0); LYMPH # 1.6 (1.2-3.4); LYMPH % 27.5 % (22.0-35.0); MEAN CELL VOLUME 90.3 fl (80.0-105.0); MEAN CORPUSCULAR HGB CONC 33.2 g/dl (31.0-37.0); MONO # 0.6 (0.1-0.6); MONO % 10.9 % (1.0-6.0); RED CELL DISTRIBUTION WIDTH 12.5 % (11.5-14.5); WHITE BLOOD COUNT 5.8 10^3/ul (4.5-11.0)
[2017-05-23 08:14] LABS: INR 1.02 (0.93-1.08); PARTIAL THROMBOPLASTIN TIME 30.1 Seconds (23.7-30.8)
[2017-05-23 08:16] LABS: ALB/GLOB RATIO 1.4 (1.1-1.8); ALKALINE PHOSPHATASE 59 U/L (38-126); ALT/SGPT 33 U/L (7-56); AST/SGOT 23 U/L (17-59); BILIRUBIN,TOTAL 0.5 mg/dL (0.2-1.3); BLOOD UREA NITROGEN 23 mg/dL (7-21); CALCIUM 8.7 mg/dL (8.4-10.5); CARBON DIOXIDE 29 mmol/L (21-33); CHLORIDE 104 mmol/L (98-107); GFR AFRICAN-AMERICAN > 60; GLUCOSE,RANDOM 87 mg/dL (70-110); POTASSIUM 3.6 mmol/L (3.6-5.0); SODIUM 143 mmol/L (132-148); TOTAL PROTEIN 6.6 g/dL (5.8-8.3)
[2017-05-23] MEDS ORDERED: Iohexol 240 (50 ml) ONE (08:18)
[2017-05-23] MEDS ORDERED: Midazolam 2 MG/2 ML VIAL ONE (08:22)
[2017-05-23] MEDS ORDERED: Propofol 10 mg/ml Inj (20 ML) ONE (08:22)
[2017-05-23] MEDS ORDERED: cefTRIAXone (Rocephin) 1 gm Inj ONE (08:38)
[2017-05-23] MEDS ORDERED: ePHEDrine 50 mg/ml Inj ONE (08:47)
[2017-05-23] MEDS ORDERED: HYDROmorphone 0.5 mg/0.5 ml ISec IVP PRN (09:54)
[2017-05-23] MEDS ORDERED: Ciprofloxacin 400mg/200ml D5W 400 MG/200 ML BAG IVPB STA (09:59)
[2017-05-23] MEDS ORDERED: Lactated Ringer's 1,000 ML IV SCH (10:00)
[2017-05-23] MEDS ORDERED: Gentamicin 160 MG in Sodium Chloride 0.9% 100 ML IVPB SCH (10:00)
[2017-05-23] MEDS ORDERED: Gentamicin 80mg/50ml NS 160 MG/100 ML BAG IVPB ONE (10:21)
[2017-05-23] MEDS ORDERED: Gentamicin IV 80mg/50ml NS(PREMIX) IVPB ONE (10:24)
[2017-05-23] MEDS ORDERED: Ciprofloxacin 400mg/200ml D5W IVPB ONE (10:55)
[2017-05-23] MEDS ORDERED: HYDROmorphone 0.5 mg/0.5 ml ISec ONE (11:22)
[2017-05-23] MEDS ORDERED: HYDROmorphone 0.5 mg/0.5 ml ISec IVP ONE (11:23)
--- NOTE | 2017-05-23 13:57 | CT ---
PROCEDURE: CT Abdomen and Pelvis without intravenous contrast HISTORY: compare with previous ct scan //any stone COMPARISON: Comparison a prior abdomen and pelvis CT exam dated 05/14/2017. TECHNIQUE: Helical CT of the abdomen and pelvis was performed without oral or intravenous contrast as per referring physician request. Contrast Dose: None Radiation dose: Total exam DLP = 491.92 mGy-cm. This CT exam was performed using one or more of the following dose reduction techniques: Automated exposure control, adjustment of the mA and/or kV according to patient size, and/or use of iterative reconstruction technique. FINDINGS: LOWER THORAX: Trace bilateral basilar dependent atelectasis identified. LIVER: Unremarkable. No gross lesion or ductal dilatation. GALLBLADDER AND BILE DUCTS: Unremarkable. PANCREAS: Unremarkable. No gross lesion or ductal dilatation. SPLEEN: Unremarkable. ADRENALS: Unremarkable. No mass. KIDNEYS AND URETERS: In the right, kidney, there is a 2 mm intrarenal calcified at the mid to lower pole additional 2 mm calcified in the upper pole indicate iliacs as well. A 3 mm intermediate density calculus suspected at the midpole right kidney. A solitary punctate intra intrarenal calculus identified at the midpole left kidney measuring 2 mm. A left ureteral double-J ureteral stent is placed with the proximal coil identified at the left renal pelvis and the distal coronal terminating in the urinary bladder posteriorly toward the left. Limited nondependent gas is seen in the urinary bladder. The prior left-sided obstructive uropathy appears to be have been relieved. No intraureteral calcification is appreciated adjacent to the stent occluding the 5.6 mm counts identified the proximal left ureter previously. No radiodense calculus identified in the urinary bladder. Prior urinary bladder wall questioned thickening is not identified currently. VASCULATURE: Unremarkable. No aortic aneurysm. BOWEL: Unremarkable. No obstruction. No gross mural thickening. APPENDIX: The appendix not identified however there is no CT evidence of a suggest appendicitis. PERITONEUM: Unremarkable. No free fluid. No free air. LYMPH NODES: Unremarkable. No enlarged lymph nodes. BLADDER: Discussed in renal section above. REPRODUCTIVE: Upper limits normal prostate gland again evident. BONES: No acute fracture. OTHER FINDINGS: None. IMPRESSION: 1. Relieved left obstructive uropathy status post left ureteral stent placement. Prior 5-6 mm intraureteral calculus is not identified at the left ureter or the urinary bladder. Infrequent bilateral punctate nonobstructing intrarenal calculi identified in the right greater than left kidney. No right-sided obstructive uropathy. 2. Trace gas seen in nondependent urinary bladder status post recent instrumentation most likely. Clinically correlate. Prior question mural thickening is not identified currently.
[2017-05-23] MEDS ORDERED: Oxycodone/Acetaminophen 5/325 mg Tab ONE ×2 (16:00→16:18)
[2017-05-23] MEDS: Oxycodone/Acetaminophen 5/325 mg Tab PO PRN ×2 (16:04→20:12)
--- NOTE | 2017-05-23 17:42 | RAD ---
PROCEDURE: INTRAOPERATIVE FLUOROSCOPY HISTORY: LT SIDE STENT INSERTION/ LITHOTRIPSY COMPARISON: TECHNIQUE: Intraoperative fluoroscopy was provided to the referring physician to assist in lithotripsy and left ureteral stent deployment. FINDINGS: Multiple spot fluoroscopic images demonstrate cannulation of left ureter initially and retrograde nephrography. Subsequent laser lithotripsy was performed at multiple calices following deployment of a double-J left ureteral stent. Please see op report further detail. IMPRESSION: Please see operative report for further detail.
--- NOTE | 2017-05-23 23:08 | CARD ---
APPROVED REPORT EKG Measurement Heart [id number] DC 122P [id number] <Conclusion> Normal sinus rhythm Minimal voltage criteria for LVH, may be normal variant Nonspecific T wave abnormality Prolonged QT Abnormal ECG
[2017-05-24] MEDS: Oxycodone/Acetaminophen 5/325 mg Tab PO PRN ×2 (00:14→04:55)
[2017-05-24 06:34] VITALS: RESP 20
[2017-05-24 07:50] VITALS: BP 127/79; PULSE 64; TEMP 98.2; O2SAT 96
--- NOTE | 2017-06-11 14:21 | OP ---
PROCEDURE DATE: 05/23/2017 UROLOGY OPERATIVE REPORT PREOPERATIVE DIAGNOSES: Urolithiasis, hematuria, hydronephrosis, intermittent flank pain. POSTOPERATIVE DIAGNOSES: Urolithiasis, hematuria, hydronephrosis, intermittent flank pain. PROCEDURE: Cystoscopy, removal of a left double-J stent, left retrograde pyelogram, left ureteroscopy, left renoscopy, left laser lithotripsy of a stone, and insertion of left double-J stent. There were no complications. ESTIMATED BLOOD LOSS: Less than 10 mL. INDICATIONS: See history and physical, consultation, previous operative note but in brief, a very pleasant gentleman who I initially placed a stent for a stone pain. We discussed various options including shockwave lithotripsy, including ureteroscopy, including the above listed procedure. After discussing all the various options, the patient is here now for the above listed procedure of ureteroscopy. DESCRIPTION OF PROCEDURE: After obtaining informed consent, the patient was placed on the table, routine monitors placed, time-out was called to confirm the patient. The patient is on antibiotics already. Procedure continues in the following fashion. The patient was in lithotomy position, routine monitors placed, time-out was called. Consent had been signed, etc. Ureteral double-J stent were identified from the previous insertion. We now removed the stent, put a wire up to the kidney. Put a second wire up to the kidney. I then introduced the ureteroscope. We introduced first with the short rigid ureteroscope. We were able to go all the way up to the renal pelvis and cleared any stones of the ureter and then subsequently we removed this with the second wire up to the kidney. We put a flexible ureteroscope and injected contrast, so we can see all the calices and inspected all the calices. calyces identified any stone and lasered the stone. At this point, put a double-J stent in. The patient tolerated without complications. Jj Hardwick MD
== END 2017-05-24 12:43 | disposition home or self-care (01) ==
LOC: ED 06:38 → SDS 08:01 → 5RNO 19:23 → SDS 05-24 12:43
PROVIDERS: ATTEND Urology
DX: N13.2 Hydronephrosis with renal and ureteral calculous obstruction (principal); R31.9 Hematuria, unspecified; F17.210 Nicotine dependence, cigarettes, uncomplicated
CPT/HCPCS: 52356; 71010; 74176; 80053; 85025; 85610; 85730; 93005; 96374; 99283; C1758; C1769; C2625; J0696; J0744; J1170; J1580 ×3; J1885; J2001; J2250; J2405; J2704; J3010; J7030; J7040; J7120; Q9966

== ENCOUNTER 2017-06-05 10:48 | Observation (INO) | payer MEDICAID, OTHER ==
[2017-06-05 10:48] VITALS: PULSE 88
[2017-06-05 11:04] LABS: BASO # 0.02 K/mm3 (0.0-2.0); BASO % 0.3 % (0.0-3.0); EOS # 0.2 (0.0-0.7); EOS % 2.1 % (1.5-5.0); GRAN # 4.73 (1.4-6.5); HEMATOCRIT 38.5 % (42.0-52.0); LYMPH # 1.6 (1.2-3.4); LYMPH % 22.3 % (22.0-35.0); MEAN CORPUSCULAR HEMOGLOBIN 30.1 pg (25.0-35.0); MEAN CORPUSCULAR HGB CONC 33.5 g/dl (31.0-37.0); MEAN PLATELET VOLUME 11.9 fl (7.0-11.0); MONO # 0.6 (0.1-0.6); MONO % 8.3 % (1.0-6.0); RED CELL DISTRIBUTION WIDTH 12.7 % (11.5-14.5); WHITE BLOOD COUNT 7.1 10^3/ul (4.5-11.0)
[2017-06-05 11:14] LABS: ALB/GLOB RATIO 1.4 (1.1-1.8); ALKALINE PHOSPHATASE 64 U/L (38-126); ALT/SGPT 23 U/L (7-56); AST/SGOT 22 U/L (17-59); BILIRUBIN,TOTAL 0.4 mg/dL (0.2-1.3); BLOOD UREA NITROGEN 18 mg/dL (7-21); CALCIUM 8.6 mg/dL (8.4-10.5); CARBON DIOXIDE 22 mmol/L (21-33); CHLORIDE 109 mmol/L (98-107); GFR AFRICAN-AMERICAN > 60; GLUCOSE,RANDOM 87 mg/dL (70-110); POTASSIUM 3.5 mmol/L (3.6-5.0); SODIUM 142 mmol/L (132-148); TOTAL PROTEIN 6.9 g/dL (5.8-8.3)
[2017-06-05 11:15] LABS: INR 1.01 (0.93-1.08); PARTIAL THROMBOPLASTIN TIME 30.4 Seconds (23.7-30.8)
--- NOTE | 2017-06-05 11:15 | ED PDOC ---
Arrival/HPI - General Chief Complaint: Chest Pain Time Seen by Provider: 06/05/17 10:49 Historian: Patient - History of Present Illness Narrative History of Present Illness (Text): 06/05/17 11:15 A 51 year old male smoker, whose past medical history includes myocardial infarction, global amnesia, COPD, alcoholic cardiomyopathy, hypokalemia, presents to the emergency department for shortness of breath and chest pain, which began prior to arrival after the patient states he was mowing the lawn with a push crm developer. The patient reports he was mowing the lawn this morning after eating breakfast, when he began to develop chest pain and shortness of breath. He notes that prior to lawn mowing he denies any symptoms. He reports chest pain as "heaviness" on left side of chest, nonradiating. Denies abdominal pain, denies nausea or vomiting, denies bloody urine or stool. Time/Duration: Prior to Arrival Symptom Onset: Sudden Symptom Course: Improving Activities at Onset: Significant (mowing the lawn ) Context: Home Past Medical History - Provider Review Nursing Documentation Reviewed: Yes - Past History Past History: No Previous - Infectious Disease Hx of Infectious Diseases: None - Tetanus Immunization Tetanus Immunization: Unknown - Cardiac Hx Cardiac Disorders: Yes Hx Hypertension: Yes - Pulmonary Hx Respiratory Disorders: Yes Hx Chronic Obstructive Pulmonary Disease (COPD): Yes - Neurological Hx Neurological Disorder: Yes Hx Migraine: Yes - HEENT Hx HEENT Disorder: No - Renal Hx Kidney Stones: Yes - Endocrine/Metabolic Hx Endocrine Disorders: No - Hematological/Oncological Hx Blood Disorders: Yes (blood transfusions hx ulcers) - Integumentary Hx Dermatological Disorder: Yes - Musculoskeletal/Rheumatological Hx Falls: No - Gastrointestinal Hx Gastrointestinal Disorders: Yes Hx Gastrointestinal Ulcer: Yes - Genitourinary/Gynecological Hx Genitourinary Disorders: No - Psychiatric Hx Psychophysiologic Disorder: Yes Hx Anxiety: Yes Hx Depression: Yes Hx Substance Use: Yes (denies using drugs for over 20 yrs) - Past Surgical History Past Surgical History: No Previous - Surgical History Hx Appendectomy: Yes Hx Cardiac Catheterization: Yes Other/Comment: colonscopy - Anesthesia Hx Anesthesia: Yes Hx Anesthesia Reactions: No Hx Malignant Hyperthermia: No - Suicidal Assessment Feels Threatened In Home Enviroment: No Family/Social History - Physician Review Nursing Documentation Reviewed: Yes Family/Social History: Unknown Family HX Smoking Status: Light Smoker < 10 Cigarettes Daily Hx Alcohol Use: Yes (occasional alcohol as per pt) Hx Substance Use: Yes (denies using drugs for over 20 yrs) Hx Substance Use Treatment: No Allergies/Home Meds Allergies/Adverse Reactions: Allergies No Known Allergies Allergy (Verified 06/05/17 10:51) Home Medications: Home Meds Medication Instructions Recorded Confirmed ALPRAZolam [Xanax] 1 mg PO TID 05/23/17 06/05/17 Review of Systems - Review of Systems Constitutional: Fatigue. absent: Fevers Eyes: absent: Vision Changes ENT: absent: Sore Throat Respiratory: SOB. absent: Cough, Sputum Cardiovascular: Chest Pain, WILLARD. absent: Calf Pain Gastrointestinal: absent: Abdominal Pain, Diarrhea Genitourinary Male: absent: Dysuria Musculoskeletal: absent: Back Pain Skin: absent: Rash Neurological: absent: Headache, Dizziness Endocrine: absent: Diaphoresis, Polyuria Hemo/Lymphatic: absent: Easy Bleeding Psychiatric: Anxiety. absent: Depression, Suicidal Ideation Physical Exam - Physical Exam Narrative Physical Exam (Text): 06/05/17 11:16 Head: Atraumatic. Normocephalic. Eyes: PERRL. EOMI. Conjunctivae are not pale. ENT: Mucous membranes are moist and intact. Oropharynx is clear and symmetric. Neck: Supple. Full ROM. No JVD. No lymphadenopathy. Cardiovascular: Regular rate. Regular rhythm. No murmurs, rubs, or gallops. Distal pulses are 2+ and symmetric. Pulmonary/Chest: No evidence of respiratory distress. Diminished breath sounds bilaterally. No accessory muscle usage. No wheezing, rales or rhonchi. Abdominal: Soft and non-distended. There is no tenderness. No rebound, guarding, or rigidity. No organomegaly. Good bowel sounds. Back: No CVA tenderness. Extremities: No edema. No cyanosis. No clubbing. Full range of motion in all extremities. No calf tenderness. Skin: Skin is warm and dry. No petechiae. No purpura. Neurological: Alert, awake, and oriented to person, place, time, and situation. Normal speech. Motor and sensory exam intact. No meningeal signs. Psychiatric: Good eye contact. Normal interaction, affect, and behavior. Reports occasional anxiety but currently denies depression or suicidal ideation. Vital Signs Reviewed: Yes Vital Signs Temp Pulse Resp BP Pulse Ox 06/05/17 12:36 98.7 F 65 18 134/85 98 06/05/17 10:49 98.3 F 75 16 135/85 98 Temperature: Afebrile Blood Pressure: Normal Pulse: Regular Respiratory Rate: Normal Appearance: Positive for: Well-Appearing, Non-Toxic, Comfortable Pain Distress: Mild Mental Status: Positive for: Alert and Oriented X 3 Medical Decision Making ED Course and Treatment: 06/05/17 11:17 Impression: A 51 year old male with chest pain and shortness of breath. Differential Diagnosis included but are not limited to: Myocardial infarction vs. COPD Plan: -- EKG -- Chest X-Ray -- Labs -- Aspirin -- Urinalysis -- Reassess and disposition Prior Visits: Notes and results from previous visits were reviewed. The patient was last seen in the emergency department on 05/23/17 for flank pain. The patient was hospitalized. He has also had evaluation for chest pain with cardiac catheterization in February. Notes from catheterization on 02/05/17 were reviewed. Conclusion: 1. Single vessel coronary artery disease with a 60% stenosis in the mid left anterior descending, which improved with intracoronary nitroglycerin. 2. Left ventricular function is normal. 3. X-ray is consistent with chronic obstructive pulmonary disease and possible emphysema. Patient's treatment should include: 1. Aspirin 2. Calcium channel aron with diltiazem 180 daily to reduce spasm. 3. Statin therapy. Patient reports "not taking any medication except xanax". He has been noncompliant with Cardizem or aspirin and HE CONTINUES TO SMOKE. I have discussed with him risks once again in laymen's terms. Previous cardiac cath reviewed. He has chest pain with exertion, now resolved with rest at this time. Initial EKG and troponin unremarkable. As he has exertional chest pain and noncompliance with smoking and meds, he will be admitted for cardiac monitoring and serial enzymes. On re-exam, he is not in respiratory distress, no abdominal pain. Aspirin ordered. At rest, no pain. Patient admitted to hospitalist service. Current neuro exam intact and he denies suicidal ideation or depression to me. 06/05/17 17:58 - Lab Interpretations Lab Results: 06/05/17 10:55 06/05/17 10:55 Lab Results 06/05/17 11:36: Alcohol, Quantitative < 10 06/05/17 10:55: Sodium 142, Potassium 3.5 L, Chloride 109 H, Carbon Dioxide 22, Anion Gap 15, BUN 18, Creatinine 0.8, Est GFR ( Amer) > 60, Est GFR (Non- Af Amer) > 60, Random Glucose 87, Calcium 8.6, Total Bilirubin 0.4, AST 22, ALT 23, Alkaline Phosphatase 64, Lactate Dehydrogenase 495, Total Creatine Kinase 171, Troponin I < 0.01, Total Protein 6.9, Albumin 4.0, Globulin 2.8, Albumin/ Globulin Ratio 1.4 06/05/17 10:55: PT 10.9, INR 1.01, APTT 30.4 06/05/17 10:55: WBC 7.1 D, RBC 4.28, Hgb 12.9 L, Hct 38.5 L, MCV 90.0, MCH 30.1 , MCHC 33.5, RDW 12.7, Plt Count 172, MPV 11.9 H, Gran % 67.0, Lymph % (Auto) 22.3, [place] % (Auto) 8.3 H, Eos % (Auto) 2.1, Baso % (Auto) 0.3, Gran # 4.73, Lymph # 1.6, Montgomery # 0.6, Eos # 0.2, Baso # 0.02 - RAD Interpretation Radiology Orders: 06/05/17 10:56 CHEST PORTABLE [RAD] Stat Plunger Scoop Operator: Radiologist - EKG Interpretation EKG Interpretation (Text): EKG at 10:51 normal sinus rhythm rate of [address] elevations Interpreted by ED Physician: Yes Type: 12 lead EKG - Medication Orders Current Medication Orders: Acetaminophen (Tylenol 325mg Tab) 650 mg PO Q4H PRN PRN Reason: Pain, moderate (4-7) Last Admin: 06/05/17 14:07 Dose: 650 mg MAR Pain/Vitals Document 06/05/17 14:07 SG (Rec: 06/05/17 14:08 SG [facility] [id number]) Pain Reassessment Is This A Pain ReAssessment? No Sleep Is patient sleeping during reassessment? No Presence of Pain Presence of Pain Yes Pain Scale Used Pain Scale Used Numeric Location Left, Right or Bilateral Left Pain Location Body Site Chest Description Intermittent Intensity 6 Scale Used Numeric Radiation Location none Variations/Patterns on/off Pain Behavior Grasping Site Facial Grimacing Aggravating Factors Changing Position Exercise/Activity Alleviating Factors Medication Re-Assess: LA NENA Pain/Vitals Document 06/05/17 15:07 SG (Rec: 06/05/17 17:54 SG [facility] [id number]) Pain Reassessment Is This A Pain ReAssessment? Yes Sleep Is patient sleeping during reassessment? No Presence of Pain Presence of Pain No Aspirin (Ecotrin) 81 mg PO DAILY KADE Atorvastatin Calcium (Lipitor) 40 mg PO DIN KADE Last Admin: 06/05/17 17:55 Dose: 40 mg Heparin Sodium (Porcine) (Heparin) 5,000 units SC Q12 KADE PRN Reason: Protocol Pantoprazole Sodium (Protonix Ec Tab) 40 mg PO 0600 KADE Discontinued Medications Aspirin (Aspirin Chewable) 81 mg PO STAT STA Stop: 06/05/17 11:05 Last Admin: 06/05/17 11:10 Dose: 81 mg Pneumococcal Polyvalent Vaccine (Pneumovax 23 Vaccine) 0.5 ml IM .ONCE ONE Stop: 06/05/17 13:21 Potassium Chloride (K-Dur 20 Meq Er Tab) 40 meq PO STAT STA Stop: 06/05/17 13:54 Last Admin: 06/05/17 14:07 Dose: 40 meq - Scribe Statement The provider has reviewed the documentation as recorded by the Kaylee Estevez Provider Scribe Attestation: All medical record entries made by the Scribe were at my direction and personally dictated by me. I have reviewed the chart and agree that the record accurately reflects my personal performance of the history, physical exam, medical decision making, and the department course for this patient. I have also personally directed, reviewed, and agree with the discharge instructions and disposition. Disposition/Present on Arrival - Present on Arrival Any Indicators Present on Arrival: No History of DVT/PE: No History of Uncontrolled Diabetes: No Urinary Catheter: No History of Decub. Ulcer: No History Surgical Site Infection Following: None - Disposition Have Diagnosis and Disposition been Completed?: Yes Diagnosis: Chest pain Disposition: HOSPITALIZED Disposition Time: 12:20 Patient Plan: Admission, Observation, Telemetry Patient Problems: Current Active Problems Problem Status Onset Chest pain Acute Condition: FAIR
[2017-06-05 11:27] LABS: TROPONIN I < 0.01 ng/mL
[2017-06-05 13:20] VITALS: BMI 21.3
[2017-06-05] MEDS ORDERED: Pneumococcal 23-Valent Vaccine IM ONE (13:20)
--- NOTE | 2017-06-05 13:23 | RAD ---
HISTORY: chest pain COMPARISON: 05/23/2017 FINDINGS: LUNGS: No active pulmonary disease. PLEURA: No significant pleural effusion identified, no pneumothorax apparent. CARDIOVASCULAR: Normal. OSSEOUS STRUCTURES: No significant abnormalities. VISUALIZED UPPER ABDOMEN: Normal. OTHER FINDINGS: None. IMPRESSION: No active disease.
--- NOTE | 2017-06-05 13:43 | CP.PCM.HP ---
<Jim Richardson - Last Filed: 06/05/17 13:39> History of Present Illness - History of Present Illness History of Present Illness: 51 y/o M with PMH of HTN, HLD, CAD, UT with recent cardiac cath showing 60% stenosis of the LAD, cardiomyopathy, anxiety, depression, emphysema, and gastric ulcers presents with chest pain x 3 hours. Pt states he was at home mowing the lawn and began to develop chest pain. Chest pain is located on the left side of his chest and nonradiating. Pain is described as sharp and 7/10 in intensity. No alleviating or exacerbating factors. Pain is constant. Pt did have some associated SOB and lightheadedness which have since resolved. Pt has had pain like this in past when he had a heart attack. Pt has not followed up with his PMD since April. He has not taken his medications since that time because he ran out of refills. Denies dysuria, SOB, N/V/D, changes in vision, double vision, incontinence. PMH: HTN, HLD, cardiomyopathy, anxiety, depression, CAD with cardiac cath placement, gastric ulcers, and emphysema. PSH: Facial surgery, appendectomy, hernia repair, unspecified gastric surgery. FMH: Noncontributory Meds: None Allergies: NKDA Social: 1/2 ppd of tobacco. Denies alcohol or illicit drug use. Present on Admission - Present on Admission Any Indicators Present on Admission: No Review of Systems - Review of Systems Review of Systems: 12 point ROS as per HPI, otherwise negative. Past Patient History - Infectious Disease Hx of Infectious Diseases: None - Tetanus Immunizations Tetanus Immunization: Unknown - Past Social History Smoking Status: Heavy Smoker > 10 Cigarettes Daily - CARDIAC Hx Cardiac Disorders: Yes (mi, chest pain) Hx Angina: Yes Hx Hypercholesterolemia: Yes Hx Hypertension: Yes - PULMONARY Hx Respiratory Disorders: Yes Hx Chronic Obstructive Pulmonary Disease (COPD): Yes - NEUROLOGICAL Hx Neurological Disorder: Yes (syncope) Hx Migraine: (pt denies gets "headaches not migranes") Other/Comment: global amnesia - HEENT Hx HEENT Problems: No - RENAL Hx Kidney Stones: Yes - ENDOCRINE/METABOLIC Hx Endocrine Disorders: No - HEMATOLOGICAL/ONCOLOGICAL Hx Blood Disorders: Yes (blood transfusions hx ulcers) - INTEGUMENTARY Hx Dermatological Problems: Yes Other/Comment: tatoo rle and left chest - MUSCULOSKELETAL/RHEUMATOLOGICAL Hx Falls: Yes (past) - GASTROINTESTINAL Hx Gastrointestinal Disorders: Yes - GENITOURINARY/GYNECOLOGICAL Hx Genitourinary Disorders: No - PSYCHIATRIC Hx Substance Use: (denies drug use over 20 yrs) - SURGICAL HISTORY Hx Appendectomy: Yes Hx Cardiac Catheterization: Yes (02/05/17) Other/Comment: colonscopy, 05/23/17 cystoscopey with laser lithotripsy and removal of stent, left uteroscopy, left retrograde pyelogram, left renoscopy and insertion of stent - ANESTHESIA Hx Anesthesia: Yes Hx Anesthesia Reactions: No Hx Malignant Hyperthermia: No Meds Allergies/Adverse Reactions: Allergies Allergy/AdvReac Type Severity Reaction Status Date / Time No Known Allergies Allergy Verified 06/05/17 10:51 Physical Exam - Constitutional Appears: Non-toxic, No Acute Distress - Head Exam Head Exam: ATRAUMATIC, NORMAL INSPECTION, NORMOCEPHALIC - Eye Exam Eye Exam: EOMI, Normal appearance - ENT Exam ENT Exam: Mucous Membranes Moist, Normal Exam - Respiratory Exam Respiratory Exam: Clear to Auscultation Bilateral, NORMAL BREATHING PATTERN. absent: Rales, Rhonchi, Wheezes - Cardiovascular Exam Cardiovascular Exam: RRR, +S1, +S2 - GI/Abdominal Exam GI & Abdominal Exam: Normal Bowel Sounds, Soft. absent: Tenderness - Extremities Exam Extremities exam: Positive for: normal inspection. Negative for: calf tenderness, pedal edema - Neurological Exam Neurological exam: Alert, CN II-XII Intact, Oriented x3 - Psychiatric Exam Psychiatric exam: Normal Affect, Normal Mood - Skin Skin Exam: Intact, Normal Color, Warm Results - Vital Signs Recent Vital Signs: Last Vital Signs Temp 98.7 F 06/05/17 13:11 Pulse 65 06/05/17 13:11 Resp 18 06/05/17 13:11 BP 134/85 06/05/17 13:11 Pulse Ox 98 06/05/17 12:36 - Labs Result Diagrams: 06/05/17 10:55 06/05/17 10:55 Assessment & Plan - Assessment and Plan (Free Text) Plan: 51 y/o M with PMH of HTN, HLD, CAD, UT with recent cardiac cath showing 60% stenosis of the LAD, cardiomyopathy, anxiety, depression, emphysema, and gastric ulcers presents with atypical chest pain. Pt has been to the hospital many times in recent hx with full workup performed. Pt will have medications restarted and cardiology consulted. Pt will be admitted to telemetry. 1. Chest pain r/o ACS Trend troponins, initially negative Cardiology Consulted, Dr. Bai EKG in PM Tylenol for chest pain HHD 2. HLD Restart Lipitor 3. HTN BP stable, will restart Cardizem 180 mg as needed 4. Hypokalemia Repleted 5. PPX Protonix Heparin Dylan, PGY-2 <Rick Swenson - Last Filed: 06/06/17 15:44> Results - Vital Signs Recent Vital Signs: Last Vital Signs Temp 98.6 F 06/06/17 12:00 Pulse 60 06/06/17 12:00 Resp 16 06/06/17 12:00 BP 118/82 06/06/17 12:00 Pulse Ox 97 06/06/17 06:00 - Labs Result Diagrams: 06/06/17 06:15 06/06/17 06:15 Labs: Laboratory Results - last 24 hr 06/05/17 06/05/17 06/06/17 18:59 20:50 00:40 WBC RBC Hgb Hct MCV MCH MCHC RDW Plt Count MPV Sodium Potassium Chloride Carbon Dioxide Anion Gap BUN Creatinine Est GFR ( Amer) Est GFR (Non-Af Amer) Random Glucose Calcium Total Bilirubin AST ALT Alkaline Phosphatase Troponin I < 0.01 < 0.01 Total Protein Albumin Globulin Albumin/Globulin Ratio Urine Color Yellow Urine Appearance Clear Urine pH 6.5 Ur Specific [place] 1.010 Urine Protein Negative Urine Glucose (UA) Negative Urine Ketones Negative Urine Blood Negative Urine Nitrate Negative Urine Bilirubin Negative Urine Urobilinogen 0.2 Ur Leukocyte Esterase Negative 06/06/17 06/06/17 06:15 06:15 WBC 5.7 RBC 4.42 Hgb 13.2 L Hct 39.5 L MCV 89.4 MCH 29.9 MCHC 33.4 RDW 12.5 Plt Count 160 MPV 12.2 H Sodium 144 Potassium 3.6 Chloride 110 H Carbon Dioxide 23 Anion Gap 15 BUN 16 Creatinine 0.9 Est GFR ( Amer) > 60 Est GFR (Non-Af Amer) > 60 Random Glucose 87 Calcium 8.7 Total Bilirubin 0.5 AST 23 ALT 25 Alkaline Phosphatase 57 Troponin I Total Protein 6.4 Albumin 3.7 Globulin 2.8 Albumin/Globulin Ratio 1.3 Urine Color Urine Appearance Urine pH Ur Specific [place] Urine Protein Urine Glucose (UA) Urine Ketones Urine Blood Urine Nitrate Urine Bilirubin Urine Urobilinogen Ur Leukocyte Esterase Attending/Attestation - Attestation I have personally seen and examined this patient.: Yes I have fully participated in the care of the patient.: Yes I have reviewed all pertinent clinical information: Yes Notes (Text): 06/06/17 15:40 Patient was seen and examined with nuclear medical tech .Agreed with resident assessment and plan. 50 M with PMH of CAD,SP cardiac catherization 02/05/17 that reveals 60% LAD lesion, chronic smoking,alcohol abuse , and non compliance with medication is admitted atypical chest pain,EKG is negative for acute ischemic changes,We will monitor in telemetry, will get serial troponin. He has been restarted on his ASA/Statin and cardizem..The issue of ongoing smoking was discussed in detail with him. Management plan was discussed in detail with patient Education was provided.
[2017-06-05] MEDS ORDERED: Potassium Chloride 20 mEq ER Tab PO STA (13:53)
[2017-06-05 21:09] LABS: PH,URINE 6.5 (4.7-8.0); URINE BILIRUBIN NEGATIVE (NEGATIVE); URINE BLOOD NEGATIVE (NEGATIVE); URINE GLUCOSE (UA) NEGATIVE (NEGATIVE); URINE KETONE NEGATIVE (NEGATIVE); URINE LEUKOCYTE ESTERASE NEGATIVE Leu/uL (NEGATIVE); URINE PROTEIN NEGATIVE mg/dL (<30 mg/dL); URINE UROBILINOGEN 0.2 E.U./dL (<1 E.U./dL)
[2017-06-05 21:14] LABS: URINE APPEARANCE CLEAR (CLEAR); URINE COLOR YELLOW (YELLOW)
--- NOTE | 2017-06-06 00:57 | CARD ---
APPROVED REPORT EKG Measurement Heart [id number] AR 120P [id number] <Conclusion> Normal sinus rhythm Normal ECG
[2017-06-06] MEDS ORDERED: Pantoprazole 40 mg EC Tab PO SCH (06:00)
[2017-06-06 06:40] LABS: HEMATOCRIT 39.5 % (42.0-52.0); MEAN CELL VOLUME 89.4 fl (80.0-105.0); MEAN CORPUSCULAR HEMOGLOBIN 29.9 pg (25.0-35.0); MEAN CORPUSCULAR HGB CONC 33.4 g/dl (31.0-37.0); MEAN PLATELET VOLUME 12.2 fl (7.0-11.0); RED CELL DISTRIBUTION WIDTH 12.5 % (11.5-14.5); WHITE BLOOD COUNT 5.7 10^3/ul (4.5-11.0)
[2017-06-06 06:51] VITALS: O2SAT 97
[2017-06-06 07:27] LABS: ALB/GLOB RATIO 1.3 (1.1-1.8); ALKALINE PHOSPHATASE 57 U/L (38-126); ALT/SGPT 25 U/L (7-56); AST/SGOT 23 U/L (17-59); BILIRUBIN,TOTAL 0.5 mg/dL (0.2-1.3); BLOOD UREA NITROGEN 16 mg/dL (7-21); CALCIUM 8.7 mg/dL (8.4-10.5); CARBON DIOXIDE 23 mmol/L (21-33); CHLORIDE 110 mmol/L (98-107); GFR AFRICAN-AMERICAN > 60; GLUCOSE,RANDOM 87 mg/dL (70-110); POTASSIUM 3.6 mmol/L (3.6-5.0); SODIUM 144 mmol/L (132-148); TOTAL PROTEIN 6.4 g/dL (5.8-8.3)
[2017-06-06 12:31] VITALS: BP 118/82; PULSE 60; RESP 16; TEMP 98.6
--- NOTE | 2017-06-06 13:54 | CP.PCM.DIS ---
<Jim Richardson - Last Filed: 06/06/17 13:50> Provider - Provider Date of Admission: 06/05/17 11:57 Attending physician: Rick Swenson MD Primary care physician: Enedina Vinson MD Consults: Dr. Chiang Time Spent in preparation of Discharge (in minutes): 45 Diagnosis - Discharge Diagnosis (1) Chest pain Status: Resolved Priority: High (2) Gastritis Status: Chronic (3) Tobacco abuse Status: Chronic Priority: Medium Hospital Course - Lab Results Lab Results: Most Recent Lab Values WBC 5.7 10^3/ul (4.5-11.0) 06/06/17 06:15 RBC 4.42 10^6/uL (3.5-6.1) 06/06/17 06:15 Hgb 13.2 g/dL (14.0-18.0) L 06/06/17 06:15 Hct 39.5 % (42.0-52.0) L 06/06/17 06:15 MCV 89.4 fl (80.0-105.0) 06/06/17 06:15 MCH 29.9 pg (25.0-35.0) 06/06/17 06:15 MCHC 33.4 g/dl (31.0-37.0) 06/06/17 06:15 RDW 12.5 % (11.5-14.5) 06/06/17 06:15 Plt Count 160 10^3/uL (120.0-450.0) 06/06/17 06:15 MPV 12.2 fl (7.0-11.0) H 06/06/17 06:15 Gran % 67.0 % (50.0-68.0) 06/05/17 10:55 Lymph % (Auto) 22.3 % (22.0-35.0) 06/05/17 10:55 [place] % (Auto) 8.3 % (1.0-6.0) H 06/05/17 10:55 Eos % (Auto) 2.1 % (1.5-5.0) 06/05/17 10:55 Baso % (Auto) 0.3 % (0.0-3.0) 06/05/17 10:55 Gran # 4.73 (1.4-6.5) 06/05/17 10:55 Lymph # 1.6 (1.2-3.4) 06/05/17 10:55 [place]onald # 0.6 (0.1-0.6) 06/05/17 10:55 Eos # 0.2 (0.0-0.7) 06/05/17 10:55 Baso # 0.02 K/mm3 (0.0-2.0) 06/05/17 10:55 PT 10.9 Seconds (9.9-11.8) 06/05/17 10:55 INR 1.01 (0.93-1.08) 06/05/17 10:55 APTT 30.4 Seconds (23.7-30.8) 06/05/17 10:55 Sodium 144 mmol/L (132-148) 06/06/17 06:15 Potassium 3.6 mmol/L (3.6-5.0) 06/06/17 06:15 Chloride 110 mmol/L (98-107) H 06/06/17 06:15 Carbon Dioxide 23 mmol/L (21-33) 06/06/17 06:15 Anion Gap 15 (10-20) 06/06/17 06:15 BUN 16 mg/dL (7-21) 06/06/17 06:15 Creatinine 0.9 mg/dL (0.8-1.5) 06/06/17 06:15 Est GFR ( Amer) > 60 06/06/17 06:15 Est GFR (Non-Af Amer) > 60 06/06/17 06:15 Random Glucose 87 mg/dL (70-110) 06/06/17 06:15 Calcium 8.7 mg/dL (8.4-10.5) 06/06/17 06:15 Total Bilirubin 0.5 mg/dL (0.2-1.3) 06/06/17 06:15 AST 23 U/L (17-59) 06/06/17 06:15 ALT 25 U/L (7-56) 06/06/17 06:15 Alkaline Phosphatase 57 U/L (38-126) 06/06/17 06:15 Lactate Dehydrogenase 495 U/L (333-699) 06/05/17 10:55 Total Creatine Kinase 171 U/L (35-230) 06/05/17 10:55 Troponin I < 0.01 ng/mL 06/06/17 00:40 Total Protein 6.4 g/dL (5.8-8.3) 06/06/17 06:15 Albumin 3.7 g/dL (3.0-4.8) 06/06/17 06:15 Globulin 2.8 gm/dL 06/06/17 06:15 Albumin/Globulin Ratio 1.3 (1.1-1.8) 06/06/17 06:15 Urine Color Yellow (YELLOW) 06/05/17 20:50 Urine Appearance Clear (CLEAR) 06/05/17 20:50 Urine pH 6.5 (4.7-8.0) 06/05/17 20:50 Ur Specific [place] 1.010 (1.005-1.035) 06/05/17 20:50 Urine Protein Negative mg/dL (<30 mg/dL) 06/05/17 20:50 Urine Glucose (UA) Negative mg/dL (NEGATIVE) 06/05/17 20:50 Urine Ketones Negative mg/dL (NEGATIVE) 06/05/17 20:50 Urine Blood Negative (NEGATIVE) 06/05/17 20:50 Urine Nitrate Negative (NEGATIVE) 06/05/17 20:50 Urine Bilirubin Negative (NEGATIVE) 06/05/17 20:50 Urine Urobilinogen 0.2 E.U./dL (<1 E.U./dL) 06/05/17 20:50 Ur Leukocyte Esterase Negative Minor/uL (NEGATIVE) 06/05/17 20:50 Alcohol, Quantitative < 10 mg/dL (0-10) 06/05/17 11:36 - Hospital Course Hospital Course: 51 y/o M with PMH of HTN, HLD, CAD, IA with recent cardiac cath showing 60% stenosis of the LAD, cardiomyopathy, anxiety, depression, emphysema, and gastric ulcers initially presented with chest pain x 3 hours. Pt was admitted for chest pain and had ACS ruled out. Patient recently had a cardiac cath and was told to take ASA, cardizem, and Lipitor daily, which he did not. Pt had not followed up with his PMD for the past 3 months. Pt's chest pain resolved the next morning without any intervention. Pt was counseled on smoking cessation. Pt left hospital before signing appropriate discharge paperwork. Pt was told to follow up with PMD within 1 week. Discharge Exam - Head Exam Head Exam: ATRAUMATIC, NORMAL INSPECTION, NORMOCEPHALIC - ENT Exam ENT Exam: Mucous Membranes Moist, Normal Exam - Respiratory Exam Respiratory Exam: NORMAL BREATHING PATTERN, UNREMARKABLE - Cardiovascular Exam Cardiovascular Exam: RRR, +S1, +S2 - GI/Abdominal Exam GI & Abdominal Exam: Soft. absent: Normal Bowel Sounds, Tenderness - Extremities Exam Extremities exam: normal inspection - Neurological Exam Neurological exam: Alert, CN II-XII Intact, Oriented x3 - Psychiatric Exam Psychiatric exam: Normal Affect, Normal Mood - Skin Skin Exam: Intact, Normal Color, Warm Discharge Plan - Discharge Medications Prescriptions: Aspirin [Ecotrin] 81 mg PO DAILY 7 Days #7 tabec Atorvastatin [Lipitor] 40 mg PO DIN #7 tab - Follow Up Plan Condition: FAIR Disposition: ELOPED FROM NURSING UNIT Instructions: Chest Pain (DC), Chest Pain (GEN) Additional Instructions: Follow up with PMD within 1 week Take Aspirin and Lipitor daily Stop smoking Referrals: Enedina Vinson MD [Primary Care Provider] - <Rick Swenson - Last Filed: 06/06/17 15:45> Provider - Provider Date of Admission: 06/05/17 11:57 Attending physician: Rick Swenson MD Primary care physician: Enedina Vinson MD Hospital Course - Lab Results Lab Results: Most Recent Lab Values WBC 5.7 10^3/ul (4.5-11.0) 06/06/17 06:15 RBC 4.42 10^6/uL (3.5-6.1) 06/06/17 06:15 Hgb 13.2 g/dL (14.0-18.0) L 06/06/17 06:15 Hct 39.5 % (42.0-52.0) L 06/06/17 06:15 MCV 89.4 fl (80.0-105.0) 06/06/17 06:15 MCH 29.9 pg (25.0-35.0) 06/06/17 06:15 MCHC 33.4 g/dl (31.0-37.0) 06/06/17 06:15 RDW 12.5 % (11.5-14.5) 06/06/17 06:15 Plt Count 160 10^3/uL (120.0-450.0) 06/06/17 06:15 MPV 12.2 fl (7.0-11.0) H 06/06/17 06:15 Gran % 67.0 % (50.0-68.0) 06/05/17 10:55 Lymph % (Auto) 22.3 % (22.0-35.0) 06/05/17 10:55 [place] % (Auto) 8.3 % (1.0-6.0) H 06/05/17 10:55 Eos % (Auto) 2.1 % (1.5-5.0) 06/05/17 10:55 Baso % (Auto) 0.3 % (0.0-3.0) 06/05/17 10:55 Gran # 4.73 (1.4-6.5) 06/05/17 10:55 Lymph # 1.6 (1.2-3.4) 06/05/17 10:55 [place] # 0.6 (0.1-0.6) 06/05/17 10:55 Eos # 0.2 (0.0-0.7) 06/05/17 10:55 Baso # 0.02 K/mm3 (0.0-2.0) 06/05/17 10:55 PT 10.9 Seconds (9.9-11.8) 06/05/17 10:55 INR 1.01 (0.93-1.08) 06/05/17 10:55 APTT 30.4 Seconds (23.7-30.8) 06/05/17 10:55 Sodium 144 mmol/L (132-148) 06/06/17 06:15 Potassium 3.6 mmol/L (3.6-5.0) 06/06/17 06:15 Chloride 110 mmol/L (98-107) H 06/06/17 06:15 Carbon Dioxide 23 mmol/L (21-33) 06/06/17 06:15 Anion Gap 15 (10-20) 06/06/17 06:15 BUN 16 mg/dL (7-21) 06/06/17 06:15 Creatinine 0.9 mg/dL (0.8-1.5) 06/06/17 06:15 Est GFR ( Amer) > 60 10/04/17 06:15 Est GFR (Non-Af Amer) > 60 06/06/17 06:15 Random Glucose 87 mg/dL (70-110) 06/06/17 06:15 Calcium 8.7 mg/dL (8.4-10.5) 06/06/17 06:15 Total Bilirubin 0.5 mg/dL (0.2-1.3) 06/06/17 06:15 AST 23 U/L (17-59) 06/06/17 06:15 ALT 25 U/L (7-56) 06/06/17 06:15 Alkaline Phosphatase 57 U/L (38-126) 06/06/17 06:15 Lactate Dehydrogenase 495 U/L (333-699) 06/05/17 10:55 Total Creatine Kinase 171 U/L (35-230) 06/05/17 10:55 Troponin I < 0.01 ng/mL 06/06/17 00:40 Total Protein 6.4 g/dL (5.8-8.3) 06/06/17 06:15 Albumin 3.7 g/dL (3.0-4.8) 06/06/17 06:15 Globulin 2.8 gm/dL 06/06/17 06:15 Albumin/Globulin Ratio 1.3 (1.1-1.8) 06/06/17 06:15 Urine Color Yellow (YELLOW) 06/05/17 20:50 Urine Appearance Clear (CLEAR) 06/05/17 20:50 Urine pH 6.5 (4.7-8.0) 06/05/17 20:50 Ur Specific [place] 1.010 (1.005-1.035) 06/05/17 20:50 Urine Protein Negative mg/dL (<30 mg/dL) 06/05/17 20:50 Urine Glucose (UA) Negative mg/dL (NEGATIVE) 06/05/17 20:50 Urine Ketones Negative mg/dL (NEGATIVE) 06/05/17 20:50 Urine Blood Negative (NEGATIVE) 06/05/17 20:50 Urine Nitrate Negative (NEGATIVE) 06/05/17 20:50 Urine Bilirubin Negative (NEGATIVE) 06/05/17 20:50 Urine Urobilinogen 0.2 E.U./dL (<1 E.U./dL) 06/05/17 20:50 Ur Leukocyte Esterase Negative Minor/uL (NEGATIVE) 06/05/17 20:50 Alcohol, Quantitative < 10 mg/dL (0-10) 06/05/17 11:36 Attending/Attestation - Attestation I have personally seen and examined this patient.: Yes I have fully participated in the care of the patient.: Yes I have reviewed all pertinent clinical information, including history, physical exam and plan: Yes Notes (Text): 06/06/17 15:44 Patient was seen and examined with medical social worker .Agreed with resident assessment and plan. 50 M with H of CAD,SP cardiac catherization 02/05/17 that reveals 60% LAD lesion, chronic smoking,alcohol abuse , and non compliance with medication is admitted atypical chest pain,EKG is negative for acute ischemic changes, patient was monitored in telemetry, serial troponins are normal.He has been restarted on his ASA/Statin and cardizem.He is pain free, he was evaluated by Cardiology and was cleared for discharge.The issue of ongoing smoking was discussed in detail with him. Management plan was discussed in detail with patient Education was provided.
--- NOTE | 2017-06-06 21:51 | CON ---
DATE: 06/06/2017 REQUESTING PHYSICIAN: Dr. Swenson. REASON FOR CONSULTATION: Chest pain. HISTORY OF PRESENT ILLNESS: This is a 51-year-old man who was admitted to the emergency room yesterday with complaints of chest discomfort. He states he was mowing his lawn yesterday and felt some retrosternal discomfort and dyspnea. He presented to the emergency room and was admitted. He underwent cardiac catheterization in 02/2017. By report, there was a 60% LAD lesion, upon review of the films this will appears moderately ectatic with only mild irregularities. He also has a history of prior gastric ulcers, anxiety, depression, emphysema, and tobacco abuse. PAST MEDICAL HISTORY: His past history is notable for the problems mentioned above. He has undergone prior herniorrhaphy and appendectomy. CURRENT MEDICATIONS: None. SOCIAL HISTORY: He is a smoker of half pack per day. Denies alcohol abuse. He works 12 hours a day in a [employer]. ALLERGIES: HE HAS NO REPORTED ALLERGIES. FAMILY HISTORY: Both parents are alive and well. REVIEW OF SYSTEMS: A 10-point reviewed systems is otherwise unremarkable. PHYSICAL EXAMINATION: GENERAL: He is a thin middle-age man. VITAL SIGNS: His blood pressure is 118/80 with pulse of 80 and sinus respirations are 14. He is afebrile. HEENT: Normocephalic, atraumatic. NECK: Supple. No JVD noted. LUNGS: Diffuse scattered rhonchi heard. HEART: PMI in normal position. No pathological gallops noted. ABDOMEN: Soft, nontender, normoactive bowel sounds. EXTREMITIES: No clubbing, cyanosis, or edema. SKIN: Warm and dry. PSYCHIATRIC: Normal mood and affect. NEUROLOGIC: Alert and oriented x3. No gross motor or sensory deficits. DIAGNOSTIC DATA: Potassium 3.6, BUN and creatinine, 16 and 0.9, hemoglobin and hematocrit, 13.2 and 39.5 with white count of 5.7, platelet count 160,000. Three sets of cardiac enzymes are negative. Electrocardiogram reveals sinus rhythm with no acute abnormalities. Chest x-ray reveals normal cardiac silhouette with clear lung telles. IMPRESSION: 1. Chest pain and dyspnea, doubt cardiac ischemia given recent catheterization findings. Thus appeared to have significant coronary obstructive pulmonary disease. 2. History of tobacco abuse. 3. Rest of problems as noted. RECOMMENDATIONS: From a cardiac standpoint, he appears stable for discharged home at this time. No further workup appears necessary. He was strongly encouraged to discontinue smoking. Rodolfo Albrecht MD
--- NOTE | 2017-06-07 02:41 | CARD ---
APPROVED REPORT EKG Measurement Heart [id number] <Conclusion> Normal sinus rhythm Nonspecific ST and T wave abnormality Prolonged QT Abnormal ECG
== END 2017-06-06 13:45 | disposition left against medical advice (07) ==
LOC: ED 10:48 → ERH 11:57 → 2RNO 12:52
PROVIDERS: ADMIT Internal Medicine; ATTEND Internal Medicine
DX: R07.89 Other chest pain (principal); K29.70 Gastritis, unspecified, without bleeding; F17.200 Nicotine dependence, unspecified, uncomplicated; I25.10 Atherosclerotic heart disease of native coronary artery without angina pectoris; I10 Essential (primary) hypertension; E78.5 Hyperlipidemia, unspecified; F41.9 Anxiety disorder, unspecified; F32.9 Major depressive disorder, single episode, unspecified; I25.2 Old myocardial infarction; I42.6 Alcoholic cardiomyopathy; Z87.11 Personal history of peptic ulcer disease; Z91.14 Patient's other noncompliance with medication regimen
CPT/HCPCS: 36415; 71010; 80053; 80320; 81003; 82550; 83615; 84484; 85025; 85027; 85610; 85730; 93005; 99285; G0378; J1644

== ENCOUNTER 2017-06-14 18:16 | Inpatient (IN) | payer MEDICAID, OTHER ==
[2017-06-14 18:17] VITALS: PULSE 88
--- NOTE | 2017-06-14 18:51 | ED PDOC ---
Arrival/HPI - General Chief Complaint: Shortness Of Breath Time Seen by Provider: 06/14/17 18:33 Historian: Patient - History of Present Illness Narrative History of Present Illness (Text): 06/14/17 18:36 A 51 year old male, whose past medical history includes hypertension, hyperlipidemia, COPD, [place], gastric ulcer, anxiety, and depression, presents to the emergency department complaining of shortness of breath and left-sided chest pain since this morning. Patient describes pain as "tightness". Patient notes also experiencing some dry coughing, weakness, fatigue, and lightheadedness, but denies of any fever, nausea, vomiting, abdominal pain, or any other complaints. PMD: Dr. Enedina Vinson Time/Duration: Other (since today this morning) Quality: Tightness (chest pain described as "tightness") Past Medical History - Provider Review Nursing Documentation Reviewed: Yes - Past History Past History: No Previous - Infectious Disease Hx of Infectious Diseases: None - Tetanus Immunization Tetanus Immunization: Unknown - Cardiac Hx Cardiac Disorders: Yes Hx Hypertension: Yes - Pulmonary Hx Respiratory Disorders: Yes Hx Chronic Obstructive Pulmonary Disease (COPD): Yes - Neurological Hx Neurological Disorder: Yes Hx Migraine: Yes - HEENT Hx HEENT Disorder: No - Renal Hx Kidney Stones: Yes - Endocrine/Metabolic Hx Endocrine Disorders: No - Hematological/Oncological Hx Blood Disorders: Yes (blood transfusions hx ulcers) - Integumentary Hx Dermatological Disorder: Yes - Musculoskeletal/Rheumatological Hx Falls: No - Gastrointestinal Hx Gastrointestinal Disorders: Yes Hx Gastrointestinal Ulcer: Yes - Genitourinary/Gynecological Hx Genitourinary Disorders: No - Psychiatric Hx Psychophysiologic Disorder: Yes Hx Anxiety: Yes Hx Depression: Yes Hx Substance Use: Yes (denies using drugs for over 20 yrs) - Past Surgical History Past Surgical History: No Previous - Surgical History Hx Appendectomy: Yes Hx Cardiac Catheterization: Yes Other/Comment: colonscopy - Anesthesia Hx Anesthesia: Yes Hx Anesthesia Reactions: No Hx Malignant Hyperthermia: No - Suicidal Assessment Feels Threatened In Home Enviroment: No Family/Social History - Physician Review Nursing Documentation Reviewed: Yes Family/Social History: No Known Family HX Smoking Status: Light Smoker < 10 Cigarettes Daily Hx Alcohol Use: Yes (occasional alcohol as per pt) Hx Substance Use: Yes (denies using drugs for over 20 yrs) Hx Substance Use Treatment: No Allergies/Home Meds Allergies/Adverse Reactions: Allergies No Known Allergies Allergy (Verified 06/14/17 18:30) Home Medications: Home Meds Medication Instructions Recorded Confirmed RX: ALPRAZolam [Xanax] 1 mg PO TID 05/23/17 06/14/17 Review of Systems - Physician Review All systems were reviewed & negative as marked: Yes - Review of Systems Constitutional: Fatigue, Other (weakness). absent: Fevers Respiratory: SOB, Cough (some dry cough) Cardiovascular: Chest Pain (described as "tightness") Gastrointestinal: absent: Abdominal Pain, Nausea, Vomiting Neurological: Other (lightheadedness) Physical Exam - Physical Exam Narrative Physical Exam (Text): 06/14/17 18:51 Vital Signs Reviewed: Yes Vital Signs Temp Pulse Resp BP Pulse Ox 06/14/17 18:34 18 100 06/14/17 18:30 97.4 F L 69 18 124/84 100 Temperature: Afebrile Blood Pressure: Normal Pulse: Regular Respiratory Rate: Normal Appearance: Positive for: Well-Appearing Pain Distress: None Mental Status: Positive for: Alert and Oriented X 3 - Systems Exam Head: Present: Atraumatic, Normocephalic Pupils: Present: PERRL Extroacular Muscles: Present: EOMI Conjunctiva: Present: Normal Mouth: Present: Moist Mucous Membranes Neck: Present: Normal Range of Motion Respiratory/Chest: Present: Clear to Auscultation, Good Air Exchange. No: Respiratory Distress, Accessory Muscle Use Cardiovascular: Present: Regular Rate and Rhythm, Normal S1, S2. No: Murmurs Abdomen: Present: Tenderness (mild epigastric tenderness) Back: Present: Normal Inspection Upper Extremity: Present: Normal Inspection. No: Cyanosis, Edema Lower Extremity: Present: Normal Inspection. No: Edema Neurological: Present: GCS=15, CN II-XII Intact, Speech Normal Skin: Present: Warm, Dry, Normal Color. No: Rashes Psychiatric: Present: Alert, Oriented x 3, Normal Insight, Normal Concentration Medical Decision Making ED Course and Treatment: 06/14/17 18:51 Impression: 51 year old male with shortness of breath and chest pain. Physical exam shows mild epigastric tenderness. Differential Diagnosis included but are not limited to: Gastritis vs. ACS vs. Lower Probability for PE Plan: -- EKG -- Chest X-ray -- Labs -- Aspirin -- Reassess and disposition Prior Visits: Notes and results from previous visits were reviewed. Patient was last seen in the emergency department on 06/05/2017 for shortness of breath and chest pain. Patient was admitted. Progress Notes: 06/14/17 21:34 Patient started having chest pain to the left side described as squeezing tightness. EKG repeated. No ST elevations. New TWI in V4/V5 with no reciprocal changes. 06/14/17 21:[address] Swift who will admit patient to Telemetry. - Lab Interpretations Lab Results: 06/14/17 19:10 06/14/17 19:10 Lab Results 06/14/17 19:10: Sodium 144, Potassium 3.6, Chloride 108 H, Carbon Dioxide 29, Anion Gap 11, BUN 15, Creatinine 1.0, Est GFR ( Amer) > 60, Est GFR (Non- Af Amer) > 60, Random Glucose 127 H, Calcium 8.7, Magnesium 1.6 L, Total Bilirubin 0.6, AST 21, ALT 26, Alkaline Phosphatase 52, Lactate Dehydrogenase 407, Total Creatine Kinase 62, Troponin I < 0.01, Total Protein 6.8, Albumin 4.0 , Globulin 2.8, Albumin/Globulin Ratio 1.4, Lipase 63 06/14/17 19:10: PT 11.4, INR 1.06, APTT 28.4, D-Dimer, Quantitative 0.21 06/14/17 19:10: WBC 5.8, RBC 4.53, Hgb 13.8 L, Hct 40.6 L, MCV 89.6, MCH 30.5, MCHC 34.0, RDW 12.5, Plt Count 147, MPV 12.3 H, Gran % 64.0, Lymph % (Auto) 24.7 , [place] % (Auto) 8.4 H, Eos % (Auto) 2.7, Baso % (Auto) 0.2, Gran # 3.74, Lymph # 1.4, [place] # 0.5, Eos # 0.2, Baso # 0.01 I have reviewed the lab results: Yes - RAD Interpretation Radiology Orders: 06/14/17 18:41 CHEST PORTABLE [RAD] Stat - Medication Orders Current Medication Orders: Discontinued Medications Albuterol/Ipratropium (Duoneb 3 Mg/0.5 Mg (3 Ml) Ud) 3 ml IH Q15M KADE Stop: 06/14/17 21:16 Last Admin: 06/14/17 20:55 Dose: 3 ml Aspirin (Aspirin) 325 mg PO STAT STA Stop: 06/14/17 18:41 Last Admin: 06/14/17 18:59 Dose: 325 mg Magnesium Oxide (Mag-Ox) 400 mg PO STAT STA Stop: 06/14/17 19:48 Last Admin: 06/14/17 20:55 Dose: 400 mg Methylprednisolone (Solu-Medrol) 125 mg IVP STAT STA Stop: 06/14/17 20:39 Last Admin: 06/14/17 20:55 Dose: 125 mg IVP Administration Document 06/14/17 20:55 SC (Rec: 06/14/17 20:55 SC [id number]) Charges for Administration # of IVP Administrations 1 - Scribe Statement The provider has reviewed the documentation as recorded by the Kaylee Muñoz Provider Scribe Attestation: All medical record entries made by the Scribe were at my direction and personally dictated by me. I have reviewed the chart and agree that the record accurately reflects my personal performance of the history, physical exam, medical decision making, and the department course for this patient. I have also personally directed, reviewed, and agree with the discharge instructions and disposition. Disposition/Present on Arrival - Present on Arrival Any Indicators Present on Arrival: No History of DVT/PE: No History of Uncontrolled Diabetes: No Urinary Catheter: No History of Decub. Ulcer: No History Surgical Site Infection Following: None - Disposition Have Diagnosis and Disposition been Completed?: Yes Diagnosis: Chest pain Disposition: HOSPITALIZED Disposition Time: 21:40 Patient Plan: Admission Condition: FAIR Discharge Instructions (ExitCare): Chest Pain (ED) Referrals: Enedina Vinson MD [Primary Care Provider] - Follow up with primary Forms: [employer] (Citizen [place])
[2017-06-14 19:24] LABS: BASO # 0.01 K/mm3 (0.0-2.0); BASO % 0.2 % (0.0-3.0); EOS # 0.2 (0.0-0.7); EOS % 2.7 % (1.5-5.0); GRAN # 3.74 (1.4-6.5); HEMATOCRIT 40.6 % (42.0-52.0); LYMPH # 1.4 (1.2-3.4); LYMPH % 24.7 % (22.0-35.0); MEAN CELL VOLUME 89.6 fl (80.0-105.0); MEAN CORPUSCULAR HEMOGLOBIN 30.5 pg (25.0-35.0); MEAN PLATELET VOLUME 12.3 fl (7.0-11.0); MONO # 0.5 (0.1-0.6); MONO % 8.4 % (1.0-6.0); RED CELL DISTRIBUTION WIDTH 12.5 % (11.5-14.5); WHITE BLOOD COUNT 5.8 10^3/ul (4.5-11.0)
[2017-06-14 19:29] LABS: ALB/GLOB RATIO 1.4 (1.1-1.8); ALKALINE PHOSPHATASE 52 U/L (38-126); ALT/SGPT 26 U/L (7-56); AST/SGOT 21 U/L (17-59); BILIRUBIN,TOTAL 0.6 mg/dL (0.2-1.3); BLOOD UREA NITROGEN 15 mg/dL (7-21); CALCIUM 8.7 mg/dL (8.4-10.5); CARBON DIOXIDE 29 mmol/L (21-33); CHLORIDE 108 mmol/L (98-107); GFR AFRICAN-AMERICAN > 60; GLUCOSE,RANDOM 127 mg/dL (70-110); LIPASE 63 U/L (23-300); MAGNESIUM 1.6 mg/dL (1.7-2.2); POTASSIUM 3.6 mmol/L (3.6-5.0); SODIUM 144 mmol/L (132-148); TOTAL PROTEIN 6.8 g/dL (5.8-8.3)
[2017-06-14 19:33] LABS: INR 1.06 (0.93-1.08); PARTIAL THROMBOPLASTIN TIME 28.4 Seconds (23.7-30.8)
[2017-06-14 19:34] LABS: D DIMER 0.21 mg/L FEU (0-0.50)
[2017-06-14 19:42] LABS: TROPONIN I < 0.01 ng/mL
[2017-06-14] MEDS ORDERED: Magnesium Oxide 400 mg Tab UD PO STA (19:47)
[2017-06-14] MEDS: Albuterol-Ipratrop 3 mg / 0.5 (3 ml) UD IH SCH ×3 (20:55→21:15)
--- NOTE | 2017-06-14 22:47 | CP.PCM.HP ---
<CHARLES CARBAJAL - Last Filed: 06/15/17 00:04> History of Present Illness - History of Present Illness History of Present Illness: CC: Shortness of breath, chest tightness Pt is a 51 yo male with PMH of HTN, HLD, cardiomyopathy, anxiety, depression, CAD, gastric ulcers, and emphysema presents with c/o 1 day duration of shortness of breath on exertion and chest tightness. Pt states that this AM he woke with SOB which worsened when walking. Pt also stated that he had associated dizziness, chills, and pressure throughout his chest, but denied any radiation. Pt denied any alleviating factors. Pt states that he has had been admitted several times in the past for chest pain, however he states that this episode has been the worst. Pt went to his PMD today and was told to go to the ED if his symptoms worsened. The patient stated that his symptoms failed to resolve throughout the day and he decided to go to the ED. Pt denies diaphoresis , n/v/d, constipation, MOISE, fatigue, abdominal pain, dysuria, or palpitations. PMH: HTN, HLD, cardiomyopathy, anxiety, depression, CAD with cardiac cath placement, gastric ulcers, and emphysema. PSH: Facial surgery, appendectomy, hernia repair, unspecified gastric surgery. FMH: Noncontributory Allergies: NKDA Social: Admits to 1/2 ppd of tobacco for 7 years and social EtOH use. Denied illicit drug use. Medications: Xanax 1 mg PO TID, ASA 81 mg PO daily, Lipitor 40 mg PO daily PMD: Karel Present on Admission - Present on Admission Any Indicators Present on Admission: No Review of Systems - Review of Systems Review of Systems: 12 point ROS was reviewed and negative other than what is stated in HPI. Past Patient History - Infectious Disease Hx of Infectious Diseases: None - Tetanus Immunizations Tetanus Immunization: Unknown - Past Social History Smoking Status: Light Smoker < 10 Cigarettes Daily - CARDIAC Hx Cardiac Disorders: Yes Hx Hypertension: Yes - PULMONARY Hx Respiratory Disorders: Yes Hx Chronic Obstructive Pulmonary Disease (COPD): Yes - NEUROLOGICAL Hx Neurological Disorder: Yes Hx Migraine: Yes - HEENT Hx HEENT Problems: No - RENAL Hx Kidney Stones: Yes - ENDOCRINE/METABOLIC Hx Endocrine Disorders: No - HEMATOLOGICAL/ONCOLOGICAL Hx Blood Disorders: Yes (blood transfusions hx ulcers) - INTEGUMENTARY Hx Dermatological Problems: Yes - MUSCULOSKELETAL/RHEUMATOLOGICAL Hx Falls: No - GASTROINTESTINAL Hx Gastrointestinal Disorders: Yes - GENITOURINARY/GYNECOLOGICAL Hx Genitourinary Disorders: No - PSYCHIATRIC Hx Psychophysiologic Disorder: Yes Hx Anxiety: Yes Hx Depression: Yes Hx Substance Use: Yes (denies using drugs for over 20 yrs) - SURGICAL HISTORY Hx Appendectomy: Yes Hx Cardiac Catheterization: Yes Other/Comment: colonscopy - ANESTHESIA Hx Anesthesia: Yes Hx Anesthesia Reactions: No Hx Malignant Hyperthermia: No Meds Allergies/Adverse Reactions: Allergies Allergy/AdvReac Type Severity Reaction Status Date / Time No Known Allergies Allergy Verified 06/14/17 18:30 Physical Exam - Constitutional Appears: No Acute Distress - Head Exam Head Exam: ATRAUMATIC, NORMOCEPHALIC - Eye Exam Eye Exam: EOMI, PERRL - ENT Exam ENT Exam: Mucous Membranes Dry - Neck Exam Neck exam: Positive for: Full Rom. Negative for: Lymphadenopathy, Tenderness, Thyromegaly - Respiratory Exam Respiratory Exam: Clear to Auscultation Bilateral. absent: Rales, Rhonchi, Wheezes - Cardiovascular Exam Cardiovascular Exam: RRR, +S1, +S2. absent: Diastolic murmur, Gallop, Rubs, Systolic Murmur - GI/Abdominal Exam GI & Abdominal Exam: Soft, Tenderness (mild tenderness LLQ). absent: Distended , Guarding, Organomegaly, Rebound - Back Exam Back exam: NORMAL INSPECTION - Neurological Exam Neurological exam: Alert, Oriented x3 - Psychiatric Exam Psychiatric exam: Normal Affect, Normal Mood - Skin Skin Exam: Dry, Intact, Normal Color, Warm Results - Vital Signs Recent Vital Signs: Last Vital Signs Temp 97.4 F L 06/14/17 18:30 Pulse 80 06/14/17 22:15 Resp 16 06/14/17 22:15 BP 128/76 06/14/17 22:15 Pulse Ox 99 06/14/17 22:15 - Labs Result Diagrams: 06/14/17 19:10 06/14/17 19:10 Assessment & Plan - Assessment and Plan (Free Text) Assessment: 51 yo male with PMH of PMH: HTN, HLD, cardiomyopathy, anxiety, depression, CAD, gastric ulcers, and emphysema [place] [facility] [place]/o of dyspnea on exertion and chest tightness will be admitted for evaluation and treatment of chest pain to rule out ACS. Plan: 1. Chest Pain r/o ACS - Cardiology consulted - EKG showed LVH and prolonged QTc (511 ms) - Troponin negative x1, f/u trend x2 - D-dimer 0.21 - Cardiac cath (02/05/17) showed single vessel CAD, 60% stenosis of the mid LAD, LVEF 60% - Nitro SL for chest pain - Cont ASA and Lipitor - Heart healthy diet 2. Hypomagnesmia - Mg 1.6 - Given Mag Oxide PO in ED - F/u AM lab, replete as needed 3. H/O Emphysema - F/u CXR, PFT, ABG 4. H/O Anxiety/Depression - Cont home med: Xanax GI/DVT PPx - Protonix - SCDs Pt discussed in detail with Dr. Swift. Carlos Carbajal, PGY1 <Nicolás Swift - Last Filed: 06/16/17 06:00> Results - Vital Signs Recent Vital Signs: Last Vital Signs Temp 97.9 F 06/16/17 05:36 Pulse 58 L 06/16/17 05:36 Resp 18 06/16/17 05:36 BP 118/84 06/16/17 05:36 Pulse Ox 99 06/16/17 05:36 - Labs Result Diagrams: 06/15/17 03:00 06/15/17 03:00 Labs: Laboratory Results - last 24 hr 06/15/17 06/15/17 09:00 16:30 Troponin I < 0.01 Urine Opiates Screen Negative Urine Methadone Screen Negative Ur Barbiturates Screen Negative Ur Phencyclidine Scrn Negative Ur Amphetamines Screen Negative U Benzodiazepines Scrn Negative U Oth Cocaine Metabols Negative U Cannabinoids Screen Negative
[2017-06-14 23:14] LABS: ARTERIAL BLOOD GAS HCO3 23.6 mmol/L (21-28); ARTERIAL BLOOD GAS PH 7.45 (7.35-7.45)
[2017-06-15 00:11] VITALS: BMI 21.1
[2017-06-15 03:13] LABS: HEMATOCRIT 39.7 % (42.0-52.0); MEAN CORPUSCULAR HEMOGLOBIN 30.5 pg (25.0-35.0); MEAN CORPUSCULAR HGB CONC 34.3 g/dl (31.0-37.0); MEAN PLATELET VOLUME 11.8 fl (7.0-11.0); RED CELL DISTRIBUTION WIDTH 12.4 % (11.5-14.5); WHITE BLOOD COUNT 7.6 10^3/ul (4.5-11.0)
[2017-06-15 03:20] LABS: ALB/GLOB RATIO 1.4 (1.1-1.8); ALKALINE PHOSPHATASE 51 U/L (38-126); ALT/SGPT 18 U/L (7-56); AST/SGOT 24 U/L (17-59); BILIRUBIN,TOTAL 0.4 mg/dL (0.2-1.3); BLOOD UREA NITROGEN 18 mg/dL (7-21); CARBON DIOXIDE 21 mmol/L (21-33); CHLORIDE 107 mmol/L (98-107); GFR AFRICAN-AMERICAN > 60; GLUCOSE,RANDOM 204 mg/dL (70-110); MAGNESIUM 1.7 mg/dL (1.7-2.2); PHOSPHOROUS 3.2 mg/dL (2.5-4.5); POTASSIUM 3.5 mmol/L (3.6-5.0); SODIUM 141 mmol/L (132-148); TOTAL PROTEIN 6.8 g/dL (5.8-8.3)
[2017-06-15 03:34] LABS: TROPONIN I < 0.01 ng/mL
[2017-06-15] MEDS ORDERED: Pantoprazole 20 mg EC Tab PO SCH (06:00)
[2017-06-15] MEDS ORDERED: Potassium Chloride 40 mEq/30 ml LIQ UD PO ONE (07:06)
[2017-06-15] MEDS: Pantoprazole 40 mg EC Tab PO SCH (07:13)
--- NOTE | 2017-06-15 10:20 | RAD ---
HISTORY: SOB COMPARISON: 06/05/2017 FINDINGS: LUNGS: No active pulmonary disease. PLEURA: No significant pleural effusion identified, no pneumothorax apparent. CARDIOVASCULAR: Normal. OSSEOUS STRUCTURES: No significant abnormalities. VISUALIZED UPPER ABDOMEN: Normal. OTHER FINDINGS: None. IMPRESSION: No active disease.
[2017-06-15] MEDS: Enoxaparin 30 mg Syringe SC SCH (11:37)
--- NOTE | 2017-06-15 13:07 | CARD ---
APPROVED REPORT EKG Measurement Heart [id number] <Conclusion> Normal sinus rhythm Minimal voltage criteria for LVH, may be normal variant Nonspecific T wave abnormality Prolonged QT Abnormal ECG
--- NOTE | 2017-06-15 15:35 | CARD ---
APPROVED REPORT EKG Measurement Heart [id number] <Conclusion> Normal sinus rhythm Nonspecific T wave abnormality Prolonged QT Abnormal ECG
--- NOTE | 2017-06-15 16:59 | CP.PCM.PN ---
<Harley Canseco - Last Filed: 06/15/17 18:06> Subjective - Date & Time of Evaluation Date of Evaluation: 06/15/17 Time of Evaluation: 10:15 - Subjective Subjective: Medicine Progress note Pt S&E at bedside this AM. c/o continued pain in chest non-radiating. Difficulty with deep inspiration. pain reproducible to palpation of left lateral chest. During encounter, counselled patient about quitting smoking. currently Denies F/C N/V/D numbness/tingling in extremities. Objective - Vital Signs/Intake and Output Vital Signs (last 24 hours): Temp Pulse Resp BP Pulse Ox 97.4 F L 90 20 132/63 97 06/15/17 12:00 06/15/17 13:20 06/15/17 12:00 06/15/17 13:20 06/15/17 06:00 Intake and Output: 06/15/17 06/15/17 06:59 18:59 Intake Total 240 Balance 240 - Medications Medications: Current Medications Aspirin (Ecotrin) 81 mg PO DAILY [facility] Last Admin: 06/15/17 09:50 Dose: 81 mg Atorvastatin Calcium (Lipitor) 40 mg PO DIN [facility] Diltiazem HCl (Cardizem) 30 mg PO QID [facility] Last Admin: 06/15/17 13:20 Dose: 30 mg Diphenhydramine HCl (Benadryl) 50 mg PO HS PRN PRN Reason: Insomnia Enoxaparin Sodium (Lovenox) 30 mg SC DAILY [facility] PRN Reason: Protocol Last Admin: 06/15/17 11:37 Dose: 30 mg Pantoprazole Sodium (Protonix Ec Tab) 40 mg PO 0600 [facility] Last Admin: 06/15/17 07:13 Dose: 40 mg - Labs Labs: 06/15/17 03:00 06/15/17 03:00 PT 11.4 Seconds (9.9-11.8) 06/14/17 19:10 INR 1.06 (0.93-1.08) 06/14/17 19:10 APTT 28.4 Seconds (23.7-30.8) 06/14/17 19:10 - Constitutional Appears: Non-toxic, No Acute Distress - Eye Exam Eye Exam: EOMI. absent: Scleral icterus - Respiratory Exam Respiratory Exam: NORMAL BREATHING PATTERN. absent: Accessory Muscle Use, Respiratory Distress - Cardiovascular Exam Cardiovascular Exam: +S1, +S2. absent: Bradycardia, Tachycardia - Extremities Exam Extremities Exam: Normal Inspection - Back Exam Back Exam: NORMAL INSPECTION - Neurological Exam Neurological Exam: Alert, Awake, Oriented x3 - Skin Skin Exam: Intact, Warm Assessment and Plan - Assessment and Plan (Free Text) Assessment: 51M PMH HTN, HLD, anxiety, depression, CAD, gastric ulcers, and emphysema w/ dyspnea on exertion and left sided chest pain reproducible to palpation. Most recent EGD showed no gastric ulcers. Chest Pain r/o ACS Cardiology C/s Dr. Sampson EKG showed LVH and prolonged QTc (511 ms) Troponin negative x3 D-dimer 0.21 Cardiac cath (02/05/17) showed single vessel CAD, 60% stenosis of the mid LAD, LVEF 60% Cont ASA and Lipitor HHD Tox screen negative Cardizem added per recs of Cardiology CT Scan for continued chest pain Scheduled Naproxen Emphysema ABG normal dounebs PRN CXR- vascular lung markings, no blunting of CPA Hypomagnesmia/Hypokalemia Mg 1.6 F/u AM lab, replete as needed H/O smoking Advised pt to stop smoking due to increased comorbidities H/O Anxiety/Depression Xanax PPX PTX/SCD Harley Canseco PGY1 <Yohan García - Last Filed: 06/15/17 18:28> Objective - Vital Signs/Intake and Output Vital Signs (last 24 hours): Temp Pulse Resp BP Pulse Ox 97.4 F L 90 20 132/63 97 06/15/17 12:00 06/15/17 13:20 06/15/17 12:00 06/15/17 13:20 06/15/17 06:00 Intake and Output: 06/15/17 06/15/17 06:59 18:59 Intake Total 240 Balance 240 - Medications Medications: Current Medications Albuterol/Ipratropium (Duoneb 3 Mg/0.5 Mg (3 Ml) Ud) 3 ml IH QD7 [facility] Alprazolam (Xanax) 0.5 mg PO TID PRN; Protocol PRN Reason: Anxiety Aspirin (Ecotrin) 81 mg PO DAILY [facility] Last Admin: 06/15/17 09:50 Dose: 81 mg Atorvastatin Calcium (Lipitor) 40 mg PO DIN [facility] Diltiazem HCl (Cardizem) 30 mg PO QID [facility] Last Admin: 06/15/17 13:20 Dose: 30 mg Diphenhydramine HCl (Benadryl) 50 mg PO HS PRN PRN Reason: Insomnia Enoxaparin Sodium (Lovenox) 30 mg SC DAILY [facility] PRN Reason: Protocol Last Admin: 06/15/17 11:37 Dose: 30 mg Guaifenesin (Robitussin) 100 mg PO Q4H PRN PRN Reason: Cough Pantoprazole Sodium (Protonix Ec Tab) 40 mg PO 0600 [facility] Last Admin: 06/15/17 07:13 Dose: 40 mg - Labs Labs: 06/15/17 03:00 06/15/17 03:00 PT 11.4 Seconds (9.9-11.8) 06/14/17 19:10 INR 1.06 (0.93-1.08) 06/14/17 19:10 APTT 28.4 Seconds (23.7-30.8) 06/14/17 19:10 Attending/Attestation - Attestation I have personally seen and examined this patient.: Yes I have fully participated in the care of the patient.: Yes I have reviewed all pertinent clinical information, including history, physical exam and plan: Yes Notes (Text): 06/15/17 18:21 51 year old male with past medical history of hypertension, CAD, anxiety, emphysema and smoker who presented with complaint of chest pain. His last cardiac cath was 02/17 which showed CAD with 60% LAD stenosis. He also reports recent outpatient EGD which was negative. Serial cardiac enzymes were negative and ACS was ruled out. CXR and D-dimer were negative. He is on aspirin and statin. Cardiology evaluation was appreciated and cardizem was added. Today he still complains of reproducible chest pain. Continue with PPI and trial of naproxen. CT chest is ordered. Continue with duonebs. He was counselled on smoking cessation. Yohan García MD Hospitalist.
[2017-06-15] MEDS ORDERED: Albuterol-Ipratrop 3 mg / 0.5 (3 ml) UD IH PRN (17:50)
[2017-06-15] MEDS ORDERED: guaiFENesin 100 mg/5 ml Syrup UD PO PRN (18:14)
[2017-06-15] MEDS: Naproxen 275 mg Tab PO SCH (21:19)
--- NOTE | 2017-06-15 21:33 | CON ---
DATE: REASON FOR CONSULTATION: Chest pain. HISTORY OF PRESENT ILLNESS: The patient is a 51-year-old white male who has a history of cigarette smoking, EtOH abuse, history of chronic spasm documented in cardiac catheterization in 02/2017 that resolved with intracoronary nitroglycerin. At that time, the patient was found to have 60% narrowing of the LAD. The patient presents because of chest tightness, which is steady associated with shortness of breath. The patient denies any associated diaphoresis. SOCIAL HISTORY: The patient is a smoker and EtOH abuser. MEDICATIONS: Aspirin 81 mg once daily, Lipitor 40 mg once a day, Protonix 40 mg twice a day, Benadryl 50 mg daily at bedtime. REVIEW OF SYSTEMS: No nausea or vomiting. No fever or chills. PHYSICAL EXAMINATION GENERAL: The patient is a middle-aged male who does not appears to be in any distress. VITAL SIGNS: Blood pressure 116/69, heart rate 73, temperature 99.9, respiration 18. HEENT: Normocephalic. NECK: No JVD. CHEST: Clear. HEART: S1 and S2 regular. ABDOMEN: Soft. EXTREMITIES: No edema. LABORATORY DATA: Hemoglobin and hematocrit 15.6 and 39.7, white count and platelet count are within normal limits. SMA-7 were within normal limits except for glucose of 104 and potassium is 3.5. 3 sets of troponin are negative. PT, PTT and D-dimer are within normal limits. EKG revealed sinus rhythm, nonspecific T wave abnormality, prolonged QT interval. Echo cardiac study performed in 07/2016 revealed normal left ventricular size, wall thickness, ejection fraction, and segmental motion. ASSESSMENT: 1. Chest pain, myocardial infarction ruled out. 2. Chronic obstructive lung disease. 3. Congestive heart failure with chronic spasm. CONDITIONS: Continue aspirin 81 mg once daily, Lipitor 40 mg once a day, start Cardizem at 300 mg q.i.d. Consider PFTs. Consider pulmonary function test. Alexander Sampson MD
[2017-06-16] MEDS: Pantoprazole 40 mg EC Tab PO SCH (05:25)
[2017-06-16] MEDS: Albuterol-Ipratrop 3 mg / 0.5 (3 ml) UD IH SCH (07:49)
[2017-06-16 08:07] LABS: HEMATOCRIT 38.4 % (42.0-52.0); MEAN CELL VOLUME 90.1 fl (80.0-105.0); MEAN CORPUSCULAR HEMOGLOBIN 29.8 pg (25.0-35.0); MEAN CORPUSCULAR HGB CONC 33.1 g/dl (31.0-37.0); MEAN PLATELET VOLUME 12.4 fl (7.0-11.0); RED CELL DISTRIBUTION WIDTH 12.5 % (11.5-14.5); WHITE BLOOD COUNT 8.4 10^3/ul (4.5-11.0)
[2017-06-16 08:21] LABS: ALB/GLOB RATIO 1.3 (1.1-1.8); ALKALINE PHOSPHATASE 50 U/L (38-126); ALT/SGPT 30 U/L (7-56); AST/SGOT 19 U/L (17-59); BILIRUBIN,TOTAL 0.4 mg/dL (0.2-1.3); BLOOD UREA NITROGEN 21 mg/dL (7-21); CALCIUM 8.9 mg/dL (8.4-10.5); CARBON DIOXIDE 29 mmol/L (21-33); CHLORIDE 107 mmol/L (98-107); GFR AFRICAN-AMERICAN > 60; GLUCOSE,RANDOM 93 mg/dL (70-110); POTASSIUM 4.3 mmol/L (3.6-5.0); SODIUM 141 mmol/L (132-148); TOTAL PROTEIN 6.3 g/dL (5.8-8.3)
[2017-06-16] MEDS ORDERED: Iohexol 350 MG/100 ML VIAL ONE (10:35)
[2017-06-16] MEDS: Naproxen 275 mg Tab PO SCH ×2 (11:57→17:45)
[2017-06-16] MEDS: Enoxaparin 30 mg Syringe SC SCH (12:00)
--- NOTE | 2017-06-16 12:36 | CT ---
PROCEDURE: CT chest dated 06/16/2017 HISTORY: Chest pain COMPARISON: Comparison made with CT scan chest abdomen pelvis dated 02/22/2017. Comparison also made with CT scan abdomen pelvis 05/23/2017 which imaged both lung bases. TECHNIQUE: Contiguous axial images were obtained through the chest with intravenous contrast enhancement. Sagittal and coronal reconstructions were performed. IV contrast: Omnipaque 350 contrast material sharma Radiation dose (DLP): 359.78 mGy-cm. This CT exam was performed using one or more of the following dose reduction techniques: Automated exposure control, adjustment of the mA and/or kV according to patient size, and/or use of iterative reconstruction technique. FINDINGS: LUNGS: No acute infiltrates on. No parenchymal masses or nodules seen. MEDIASTINUM: Heart size within range of normal. No significant pericardial effusion. Ascending thoracic aorta measures approximately 3.5 cm and descending thoracic aorta measures approximately 2.4 cm. Three-vessel arch. Pulmonary trunk measures approximately 2.5 cm. . No gross on filling defects seen within the visualized portions of the pulmonary trunk, right and left main or lobar branches. Note that the distal branches are poorly delineated as this examination was not dedicated to evaluate the pulmonary arteries. There are a few small nonspecific mediastinal lymph nodes. No significant hilar adenopathy. Central airways are midline and patent. No large central endoluminal lesions. Tiny hiatal hernia. PLEURA: No pleural fluid. No pneumothorax. BONES: Mild multilevel degenerative spondylosis of the thoracic spine. There are no acute compression fractures no retropulsed fragments. UPPER ABDOMEN: Spleen is mildly enlarged measuring approximately 13.5 cm in CC dimension. Mild fatty hepatic infiltration. . There is a tiny approximately 4.75 mm round/elliptical shaped focus low attenuation at anterior aspect left lobe liver too small to characterize though this could represent tiny cyst or hemangioma. The the the the Nodular appearing left adrenal gland. Previously noted calculi upper pole left kidney not appreciated on this study. OTHER FINDINGS: None. IMPRESSION: No evidence of acute infiltrate or effusion. No evidence of pneumothorax. Splenomegaly. The small low-attenuation focus left lobe liver possibly representing a tiny cyst unchanged in appearance from prior exam. See above discussion for details an additional findings.
--- NOTE | 2017-06-16 14:21 | CP.PCM.PN ---
<JeancarlosEmory - Last Filed: 06/16/17 14:23> Subjective - Date & Time of Evaluation Date of Evaluation: 06/16/17 Time of Evaluation: 10:18 - Subjective Subjective: Patient was seen and examined at bedside. No acute events occurred overnight per nursing. The patient denies any chest pain, shortness of breath, nausea, vomiting, changes in vision, lightheadedness, dizziness, abdominal pain, or any other complaints. Objective - Vital Signs/Intake and Output Vital Signs (last 24 hours): Temp Pulse Resp BP Pulse Ox 98.2 F 74 20 118/79 99 06/16/17 12:00 06/16/17 14:00 06/16/17 12:00 06/16/17 12:00 06/16/17 05:36 Intake and Output: 06/16/17 06/16/17 06:59 18:59 Intake Total 300 Output Total 250 Balance 50 - Medications Medications: Current Medications Albuterol/Ipratropium (Duoneb 3 Mg/0.5 Mg (3 Ml) Ud) 3 ml IH QD7 [facility] Last Admin: 06/16/17 07:49 Dose: 3 ml Alprazolam (Xanax) 0.5 mg PO TID PRN; Protocol PRN Reason: Anxiety Last Admin: 06/16/17 13:20 Dose: 0.5 mg Aspirin (Ecotrin) 81 mg PO DAILY [facility] Last Admin: 06/16/17 12:00 Dose: 81 mg Atorvastatin Calcium (Lipitor) 40 mg PO DIN [facility] Last Admin: 06/15/17 18:25 Dose: 40 mg Diltiazem HCl (Cardizem) 30 mg PO QID [facility] Last Admin: 06/16/17 11:58 Dose: 30 mg Diphenhydramine HCl (Benadryl) 50 mg PO HS PRN PRN Reason: Insomnia Last Admin: 06/16/17 01:19 Dose: 50 mg Enoxaparin Sodium (Lovenox) 30 mg SC DAILY [facility] PRN Reason: Protocol Last Admin: 06/16/17 12:00 Dose: 30 mg Guaifenesin (Robitussin) 100 mg PO Q4H PRN PRN Reason: Cough Naproxen (Anaprox) 275 mg PO BID [facility] Last Admin: 06/16/17 11:57 Dose: 275 mg Pantoprazole Sodium (Protonix Ec Tab) 40 mg PO 0600 [facility] Last Admin: 06/16/17 05:25 Dose: 40 mg - Labs Labs: 06/16/17 07:30 06/16/17 07:30 PT 11.4 Seconds (9.9-11.8) 06/14/17 19:10 INR 1.06 (0.93-1.08) 06/14/17 19:10 APTT 28.4 Seconds (23.7-30.8) 06/14/17 19:10 - Head Exam Head Exam: ATRAUMATIC, NORMAL INSPECTION, NORMOCEPHALIC - Eye Exam Eye Exam: EOMI, Normal appearance, PERRL. absent: Conjunctival injection, Periorbital tenderness Pupil Exam: NORMAL ACCOMODATION, PERRL. absent: Irregular, Unequal - ENT Exam ENT Exam: Mucous Membranes Moist, Normal Exam. absent: Normal Oropharynx, TM's Normal Bilaterally - Neck Exam Neck Exam: Normal Inspection. absent: Lymphadenopathy, Thyromegaly - Respiratory Exam Respiratory Exam: Clear to Ausculation Bilateral, NORMAL BREATHING PATTERN. absent: Accessory Muscle Use, Chest Wall Tenderness, Prolonged Expiratory Phase , Respiratory Distress - Cardiovascular Exam Cardiovascular Exam: REGULAR RHYTHM, RRR, +S1, +S2. absent: Gallop, Rubs - GI/Abdominal Exam GI & Abdominal Exam: Soft, Normal Bowel Sounds. absent: Rigid, Tenderness, Hyperactive Bowel Sounds - Extremities Exam Extremities Exam: Full ROM, Normal Inspection. absent: Joint Swelling, Pedal Edema - Back Exam Back Exam: NORMAL INSPECTION. absent: CVA tenderness (L), CVA tenderness (R), paraspinal tenderness - Neurological Exam Neurological Exam: Alert, Awake, CN II-XII Intact, Normal Gait, Oriented x3. absent: Altered - Psychiatric Exam Psychiatric exam: Normal Affect, Normal Mood. absent: Anxious, Depressed - Skin Skin Exam: Dry, Intact, Normal Color. absent: Rash, Warm Assessment and Plan - Assessment and Plan (Free Text) Assessment: 51M PMH HTN, HLD, anxiety, depression, CAD, gastric ulcers, and emphysema w/ dyspnea on exertion and left sided chest pain reproducible to palpation. Most recent EGD showed no gastric ulcers. Plan: Chest Pain r/o ACS Cardiology C/s Dr. Sampson EKG showed LVH and prolonged QTc (511 ms) Troponin negative x3 D-dimer 0.21 Cardiac cath (02/05/17) showed single vessel CAD, 60% stenosis of the mid LAD, LVEF 60% Cont ASA and Lipitor HHD Tox screen negative Cardizem added per recs of Cardiology CT Scan for continued chest pain Scheduled Naproxen Presyncope -Patient felt lightheaded when going to the bathroom. -Orthostatics ordered. F/U with results tomorrow. -Head CT ordered to r/o acute process. -Carotid's u/s ordered. F/U with results tomorrow. -Neurology consulted. F/U with rec's tomorrow. Emphysema ABG normal Continue dounebs PRN CXR- vascular lung markings, no blunting of CPA Hypomagnesmia/Hypokalemia Mg 1.6 F/u AM lab, replete as needed H/O smoking Advised pt to stop smoking due to increased comorbidities H/O Anxiety/Depression Xanax PPX PTX/SCD <Raquel,Latoniawar A - Last Filed: 06/16/17 18:49> Objective - Vital Signs/Intake and Output Vital Signs (last 24 hours): Temp Pulse Resp BP Pulse Ox 98.0 F 62 20 117/73 99 06/16/17 18:00 06/16/17 18:00 06/16/17 18:00 06/16/17 18:00 06/16/17 05:36 - Medications Medications: Current Medications Albuterol/Ipratropium (Duoneb 3 Mg/0.5 Mg (3 Ml) Ud) 3 ml IH QD7 [facility] Last Admin: 06/16/17 07:49 Dose: 3 ml Alprazolam (Xanax) 0.5 mg PO TID PRN; Protocol PRN Reason: Anxiety Last Admin: 06/16/17 13:20 Dose: 0.5 mg Aspirin (Ecotrin) 81 mg PO DAILY [facility] Last Admin: 06/16/17 12:00 Dose: 81 mg Atorvastatin Calcium (Lipitor) 40 mg PO DIN [facility] Last Admin: 06/16/17 17:45 Dose: 40 mg Diltiazem HCl (Cardizem) 30 mg PO QID [facility] Last Admin: 06/16/17 17:45 Dose: 30 mg Diphenhydramine HCl (Benadryl) 50 mg PO HS PRN PRN Reason: Insomnia Last Admin: 06/16/17 01:19 Dose: 50 mg Enoxaparin Sodium (Lovenox) 30 mg SC DAILY [facility] PRN Reason: Protocol Last Admin: 06/16/17 12:00 Dose: 30 mg Guaifenesin (Robitussin) 100 mg PO Q4H PRN PRN Reason: Cough Naproxen (Anaprox) 275 mg PO BID [facility] Last Admin: 06/16/17 17:45 Dose: 275 mg Pantoprazole Sodium (Protonix Ec Tab) 40 mg PO 0600 [facility] Last Admin: 06/16/17 05:25 Dose: 40 mg - Labs Labs: PT 11.4 Seconds (9.9-11.8) 06/14/17 19:10 INR 1.06 (0.93-1.08) 06/14/17 19:10 APTT 28.4 Seconds (23.7-30.8) 06/14/17 19:10 Attending/Attestation - Attestation I have personally seen and examined this patient.: Yes I have fully participated in the care of the patient.: Yes I have reviewed all pertinent clinical information, including history, physical exam and plan: Yes Notes (Text): 06/16/17 18:46 51 year old male with past medical history of hypertension, CAD, anxiety, emphysema and smoker who presented with complaint of chest pain. His last cardiac cath was 02/17 which showed CAD with 60% LAD stenosis. He also reported recent outpatient EGD which was negative. Serial cardiac enzymes were negative and ACS was ruled out. CXR and D-dimer were negative. He is on aspirin and statin. Cardiology evaluation was appreciated and cardizem was added. He reports his chest pain has improved. Continue with duonebs. He was counselled on smoking cessation. CT chest was reviewed. Today he has presyncopal episode while going to the bathroom. CT head was negative. Neurology evaluation was requested. Carotid dopplers and orthostatics ordered. Yohan García MD Hospitalist.
--- NOTE | 2017-06-16 15:26 | CT ---
PROCEDURE: CT HEAD WITHOUT CONTRAST. HISTORY: pre-syncope COMPARISON: Comparison made with CT scan brain 02/22/2017. TECHNIQUE: Axial computed tomography images were obtained through the head/brain without intravenous contrast. Radiation dose: Total exam DLP = 823.45 mGy-cm. This CT exam was performed using one or more of the following dose reduction techniques: Automated exposure control, adjustment of the mA and/or kV according to patient size, and/or use of iterative reconstruction technique. FINDINGS: HEMORRHAGE: No acute parenchymal, subarachnoid or extra-axial hemorrhage. BRAIN: Suspect minimal chronic periventricular white matter ischemic changes Ventricular and sulcal size are within range of normal for this patient's stated age. VENTRICLES: No obstructive hydrocephalus CALVARIUM: There are no acute calvarial fractures however again noted is a old fracture deformity posterolateral wall right orbit. Microfixation plates along inferior rim right orbit and anterior superior wall of the right maxillary antrum not visualized due to slice placement and differences in patient positioning compared the prior exam PARANASAL SINUSES: Mild mucosal thickening seen within a few ethmoid air cells MASTOID AIR CELLS: Unremarkable as visualized. No inflammatory changes. OTHER FINDINGS: None. IMPRESSION: No acute intracranial hemorrhage or large acute infarct. . Suspect minimal chronic periventricular white matter ischemic changes Incompletely visualized old right-sided facial fracture deformities and ORIF changes.
--- NOTE | 2017-06-16 18:29 | CON ---
NEUROLOGY CONSULT DATE: 06/16/2017 CHIEF COMPLAINT: Dizziness. HISTORY OF PRESENT ILLNESS: The patient is a 51-year-old man with past medical history of hypertension, hyperlipidemia, anxiety, depression, coronary artery disease, gastric ulcers, emphysema with dyspnea on exertion, came in for left-sided chest pain and most recent EGD showed no gastric ulcers; had episode of dizziness where he felt lightheaded when going to the bathroom. CT head showed no acute intracranial abnormalities. He is currently going for a carotid Doppler. Otherwise, vital signs are stable at this point. No focal weakness in the extremities, no paresthesia in the extremities. Slightly anxious. He is on aspirin and Lipitor for stroke prevention. PAST MEDICAL HISTORY: Hypertension, dyslipidemia, anxiety, depression, coronary artery disease, gastric ulcers, emphysema. SOCIAL HISTORY: No illicit drug use, smoking, or EtOH abuse. ALLERGIES: NO KNOWN DRUG ALLERGIES. MEDICATIONS: Reviewed by the nurse via reconciliation sheet. REVIEW OF SYSTEMS: A 14-point review of systems is negative except as per the HPI. PHYSICAL EXAMINATION: VITAL SIGNS: Temperature 98.2, pulse rate 66, blood pressure 118/79, respiratory rate of 20. GENERAL: The patient is sitting up in bed, in no acute distress. HEENT: Atraumatic and normocephalic. PERRLA. Extraocular muscles are intact. NECK: Supple. No JVD. No adenopathy noted. LUNGS: Clear to auscultation. No adventitious sounds. HEART: S1 and S2. Normal rate and rhythm. No murmurs, rubs, or gallops. ABDOMEN: Soft, nontender, nondistended. Bowel sounds are present. EXTREMITIES: No clubbing. No cyanosis. Peripheral pulses 2+ felt bilaterally. NEUROLOGIC: The patient is alert and oriented to person, place, month and year. Speech is fluent without any errors. Cranial nerves II through XII intact. Motor exam: Moves all extremities equally. Toes are downgoing bilaterally. Sensory exam: Light touch, pinprick, proprioception, vibration is intact. DTRs are 2+ throughout. Coordination of [id number] intact. Gait is deferred for now. LABORATORY DATA: Sodium is 141, potassium 4.3, chloride 107, carbon dioxide 29, BUN of 21, creatine 0.9, random glucose of 93. ASSESSMENT: This is a 51-year-old man with past medical history of hypertension, hyperlipidemia, anxiety, depression, coronary artery disease, gastric ulcers, emphysema who came in with dyspnea on exertion with left side chest pain and found to be dizzy, just lightheaded when going to the bathroom; he did not pass out. No seizure-like activity. No focal weakness of the extremities. CAT scan of the head showed no acute intracranial abnormality. At this time, his dizziness is more like a near syncope from vasovagal component and mildly dehydrated and with superimposed underlying anxiety. At this time; 1. Continue with aspirin and Lipitor for stroke prevention. 2. Adequate hydration. 3. Avoid sedative medications and PT assessment or orthostatic vital signs. Thank you for this consult. Donte Steele MD
[2017-06-17] MEDS: Pantoprazole 40 mg EC Tab PO SCH (05:12)
[2017-06-17 07:44] LABS: HEMATOCRIT 40.2 % (42.0-52.0); MEAN CELL VOLUME 90.1 fl (80.0-105.0); MEAN CORPUSCULAR HEMOGLOBIN 29.4 pg (25.0-35.0); MEAN CORPUSCULAR HGB CONC 32.6 g/dl (31.0-37.0); MEAN PLATELET VOLUME 12.2 fl (7.0-11.0); RED CELL DISTRIBUTION WIDTH 12.3 % (11.5-14.5); WHITE BLOOD COUNT 7.5 10^3/ul (4.5-11.0)
[2017-06-17] MEDS: Albuterol-Ipratrop 3 mg / 0.5 (3 ml) UD IH SCH (07:49)
[2017-06-17 07:54] LABS: ALB/GLOB RATIO 1.4 (1.1-1.8); ALKALINE PHOSPHATASE 57 U/L (38-126); ALT/SGPT 36 U/L (7-56); AST/SGOT 16 U/L (17-59); BILIRUBIN,TOTAL 0.4 mg/dL (0.2-1.3); BLOOD UREA NITROGEN 19 mg/dL (7-21); CARBON DIOXIDE 31 mmol/L (21-33); CHLORIDE 106 mmol/L (95-110); GFR AFRICAN-AMERICAN > 60; GLUCOSE,RANDOM 92 mg/dL (70-110); SODIUM 142 mmol/L (132-148); TOTAL PROTEIN 6.5 g/dL (5.8-8.3)
[2017-06-17] MEDS: Enoxaparin 30 mg Syringe SC SCH (10:03)
[2017-06-17] MEDS: Naproxen 275 mg Tab PO SCH ×2 (10:03→18:38)
--- NOTE | 2017-06-17 12:02 | US ---
PROCEDURE: Bilateral carotid artery duplex ultrasound HISTORY: Carotid stenosis PHYSICIAN(S): Dat Alejandro MD. TECHNIQUE: Duplex sonography and color-flow Doppler were used to evaluate the carotid bifurcations and limited segments of the vertebral arteries bilaterally. FINDINGS: There is mild smooth heterogeneous plaque noted at the carotid bifurcations bilaterally. The peak systolic velocity in the proximal right internal carotid artery is 84 cm/sec. This corresponds to a 20 to 39% proximal right ICA stenosis. Normal systolic velocities are noted in the proximal right external carotid artery. There is antegrade flow in the right vertebral artery. The peak systolic velocity in the proximal left internal carotid artery is 63 cm/sec. This corresponds to a 20 to 39% proximal left ICA stenosis. Normal systolic velocities are noted in the proximal left external carotid artery. There is antegrade flow in the left vertebral artery. IMPRESSION: 1. Bilateral 20-39% proximal ICA stenoses. 2. Antegrade flow in both vertebral arteries.
--- NOTE | 2017-06-17 12:12 | CP.PCM.DIS ---
Provider - Provider Date of Admission: 06/16/17 14:00 Attending physician: Yohan García MD Primary care physician: Enedina Vinson MD Time Spent in preparation of Discharge (in minutes): 40 Hospital Course - Lab Results Lab Results: Most Recent Lab Values WBC 7.5 10^3/ul (4.5-11.0) 06/17/17 07:34 RBC 4.46 10^6/uL (3.5-6.1) 06/17/17 07:34 Hgb 13.1 g/dL (14.0-18.0) L 06/17/17 07:34 Hct 40.2 % (42.0-52.0) L 06/17/17 07:34 MCV 90.1 fl (80.0-105.0) 06/17/17 07:34 MCH 29.4 pg (25.0-35.0) 06/17/17 07:34 MCHC 32.6 g/dl (31.0-37.0) 06/17/17 07:34 RDW 12.3 % (11.5-14.5) 06/17/17 07:34 Plt Count 138 10^3/uL (120.0-450.0) 06/17/17 07:34 MPV 12.2 fl (7.0-11.0) H 06/17/17 07:34 Gran % 64.0 % (50.0-68.0) 06/14/17 19:10 Lymph % (Auto) 24.7 % (22.0-35.0) 06/14/17 19:10 Lane % (Auto) 8.4 % (1.0-6.0) H 06/14/17 19:10 Eos % (Auto) 2.7 % (1.5-5.0) 06/14/17 19:10 Baso % (Auto) 0.2 % (0.0-3.0) 06/14/17 19:10 Gran # 3.74 (1.4-6.5) 06/14/17 19:10 Lymph # 1.4 (1.2-3.4) 06/14/17 19:10 Lane # 0.5 (0.1-0.6) 06/14/17 19:10 Eos # 0.2 (0.0-0.7) 06/14/17 19:10 Baso # 0.01 K/mm3 (0.0-2.0) 06/14/17 19:10 PT 11.4 Seconds (9.9-11.8) 06/14/17 19:10 INR 1.06 (0.93-1.08) 06/14/17 19:10 APTT 28.4 Seconds (23.7-30.8) 06/14/17 19:10 D-Dimer, Quantitative 0.21 mg/L FEU (0-0.50) 06/14/17 19:10 pCO2 34 mm/Hg (35-45) L 06/14/17 23:11 pO2 98.0 mm/Hg (80-100) 06/14/17 23:11 HCO3 23.6 mmol/L (21-28) 06/14/17 23:11 ABG pH 7.45 (7.35-7.45) 06/14/17 23:11 ABG Total CO2 24.6 mmol.L (22-28) 06/14/17 23:11 ABG O2 Saturation 99.0 % (95-98) H 06/14/17 23:11 ABG Base Excess 0.1 mmol/L (-2.0-3.0) 06/14/17 23:11 ABG Potassium 2.7 mmol/L (3.6-5.2) L 06/14/17 23:11 Sodium 142.0 mmol/L (132-148) 06/14/17 23:11 Chloride 111.0 mmol/L (98-107) H 06/14/17 23:11 Glucose 123 mg/dl (75-110) H 06/14/17 23:11 Lactate 1.2 mmol/L (0.7-2.1) 06/14/17 23:11 FiO2 21.0 % 06/14/17 23:11 Sodium 142 mmol/L (132-148) 06/17/17 07:34 Potassium 4.0 mmol/L (3.6-5.0) 06/17/17 07:34 Chloride 106 mmol/L (95-110) 06/17/17 07:34 Carbon Dioxide 31 mmol/L (21-33) 06/17/17 07:34 Anion Gap 9 (10-20) L 06/17/17 07:34 BUN 19 mg/dL (7-21) 06/17/17 07:34 Creatinine 0.9 mg/dL (0.8-1.5) 06/17/17 07:34 Est GFR ( Amer) > 60 06/17/17 07:34 Est GFR (Non-Af Amer) > 60 06/17/17 07:34 Random Glucose 92 mg/dL (70-110) 06/17/17 07:34 Calcium 9.0 mg/dL (8.4-10.5) 06/17/17 07:34 Phosphorus 3.2 mg/dL (2.5-4.5) 06/15/17 03:00 Magnesium 1.7 mg/dL (1.7-2.2) 06/15/17 03:00 Total Bilirubin 0.4 mg/dL (0.2-1.3) 06/17/17 07:34 AST 16 U/L (17-59) L 06/17/17 07:34 ALT 36 U/L (7-56) 06/17/17 07:34 Alkaline Phosphatase 57 U/L (38-126) 06/17/17 07:34 Lactate Dehydrogenase 359 U/L (333-699) 06/15/17 03:00 Total Creatine Kinase 51 U/L (35-230) 06/15/17 03:00 Troponin I < 0.01 ng/mL 06/15/17 09:00 Total Protein 6.5 g/dL (5.8-8.3) 06/17/17 07:34 Albumin 3.8 g/dL (3.0-4.8) 06/17/17 07:34 Globulin 2.7 gm/dL 06/17/17 07:34 Albumin/Globulin Ratio 1.4 (1.1-1.8) 06/17/17 07:34 Lipase 63 U/L (23-300) 06/14/17 19:10 Arterial Blood Potassium 2.7 mmol/L (3.6-5.2) L 06/14/17 23:11 Urine Opiates Screen Negative (NEGATIVE) 06/15/17 16:30 Urine Methadone Screen Negative (NEGATIVE) 06/15/17 16:30 Ur Barbiturates Screen Negative (NEGATIVE) 06/15/17 16:30 Ur Phencyclidine Scrn Negative (NEGATIVE) 06/15/17 16:30 Ur Amphetamines Screen Negative (NEGATIVE) 06/15/17 16:30 U Benzodiazepines Scrn Negative (NEGATIVE) 06/15/17 16:30 U Oth Cocaine Metabols Negative (NEGATIVE) 06/15/17 16:30 U Cannabinoids Screen Negative (NEGATIVE) 06/15/17 16:30 - Hospital Course Hospital Course: Pt is a 51 yo male with PMH of HTN, HLD, cardiomyopathy, anxiety, depression, CAD, gastric ulcers, and emphysema presents with c/o 1 day duration of shortness of breath on exertion and chest tightness. Pt states that this AM he woke with SOB which worsened when walking. Patient also stated that he had associated dizziness, chills, and pressure throughout his chest, but denied any radiation. Patient denied any alleviating factors. Patient states that he has had been admitted several times in the past for chest pain, however he states that this episode has been the worst. Patient went to his PMD today and was told to go to the ED if his symptoms worsened. The patient stated that his symptoms failed to resolve throughout the day and he decided to go to the ED. Patient denies diaphoresis, n/v/d, constipation, MOISE, fatigue, abdominal pain, dysuria, or palpitations. The patient was admitted for chest pain rule out acute coronary syndrome. While admitted the patient was seen by Cardiology. While walking to the to the bathroom the patient became acutely lightheaded and pre-syncopized hitting his head on the handle next to the toilet. The patient was re-evaluated at that point and a head ct, orthostatics, and carotids were ordered as a result. The head ct came back negative for acute changes and carotids only had 20-39% stenosis with anterograde flow bilaterally. The patient was re-evaluated and cleared to be discharged today with instructions to follow up with PMD within one week of discharge. Discharge Exam - Head Exam Head Exam: ATRAUMATIC, NORMAL INSPECTION, NORMOCEPHALIC - Eye Exam Eye Exam: EOMI, Normal appearance, PERRL. absent: Periorbital tenderness Pupil Exam: NORMAL ACCOMODATION, PERRL. absent: Irregular, Unequal - ENT Exam ENT Exam: Mucous Membranes Moist, Normal Exam, Normal Oropharynx. absent: Mucous Membranes Dry, Normal External Ear Exam - Neck Exam Neck exam: Lymphadenopathy - Respiratory Exam Respiratory Exam: Clear to PA & Lateral, NORMAL BREATHING PATTERN, UNREMARKABLE. absent: Prolonged Expiratory Phase - Cardiovascular Exam Cardiovascular Exam: REGULAR RHYTHM, +S1, +S2. absent: Gallop, Rubs - GI/Abdominal Exam GI & Abdominal Exam: Normal Bowel Sounds, Unremarkable. absent: Organomegaly, Tenderness - Extremities Exam Extremities exam: full ROM - Back Exam Back exam: NORMAL INSPECTION. absent: CVA tenderness (L), CVA tenderness (R), paraspinal tenderness - Neurological Exam Neurological exam: Alert, CN II-XII Intact, Oriented x3, Reflexes Normal - Psychiatric Exam Psychiatric exam: Normal Affect, Normal Mood - Skin Skin Exam: Dry Discharge Plan - Follow Up Plan Condition: FAIR Disposition: HOME/ ROUTINE Additional Instructions: Patient advised to follow up with PMD within on week of discharge. Patient advised to return to emergency department for any new or worsening symptoms. Referrals: Enedina Vinson MD [Primary Care Provider] -
--- NOTE | 2017-06-17 12:21 | CP.PCM.PN ---
<JeancarlosFairmont - Last Filed: 06/17/17 17:57> Subjective - Date & Time of Evaluation Date of Evaluation: 06/17/17 Time of Evaluation: 10:19 - Subjective Subjective: Patient seen and examined at bedside. Per nursing no acute events occurred overnight. The patient reports feeling better with an improvement in the anxiety. The patient denies any chest pain, shortness of breath, nausea, vomiting, changes in vision, lightheadedness, dizziness, fevers, chills, or any other complaints. Objective - Vital Signs/Intake and Output Vital Signs (last 24 hours): Temp Pulse Resp BP Pulse Ox 97.5 F L 80 20 139/82 97 06/17/17 06:00 06/17/17 10:01 06/17/17 06:00 06/17/17 10:01 06/17/17 06:00 Intake and Output: 06/17/17 06/17/17 06:59 18:59 Intake Total 240 Output Total 350 Balance -110 - Medications Medications: Current Medications Albuterol/Ipratropium (Duoneb 3 Mg/0.5 Mg (3 Ml) Ud) 3 ml IH QD7 [facility] Last Admin: 06/17/17 07:49 Dose: 3 ml Alprazolam (Xanax) 0.5 mg PO TID PRN; Protocol PRN Reason: Anxiety Last Admin: 06/17/17 10:07 Dose: 0.5 mg Aspirin (Ecotrin) 81 mg PO DAILY [facility] Last Admin: 06/17/17 10:04 Dose: 81 mg Atorvastatin Calcium (Lipitor) 40 mg PO DIN [facility] Last Admin: 06/16/17 17:45 Dose: 40 mg Diltiazem HCl (Cardizem) 30 mg PO QID [facility] Last Admin: 06/17/17 10:01 Dose: 30 mg Diphenhydramine HCl (Benadryl) 50 mg PO HS PRN PRN Reason: Insomnia Last Admin: 06/16/17 23:43 Dose: 50 mg Enoxaparin Sodium (Lovenox) 30 mg SC DAILY [facility] PRN Reason: Protocol Last Admin: 06/17/17 10:03 Dose: 30 mg Guaifenesin (Robitussin) 100 mg PO Q4H PRN PRN Reason: Cough Last Admin: 06/16/17 21:22 Dose: 100 mg Naproxen (Anaprox) 275 mg PO BID [facility] Last Admin: 06/17/17 10:03 Dose: 275 mg Pantoprazole Sodium (Protonix Ec Tab) 40 mg PO 0600 [facility] Last Admin: 06/17/17 05:12 Dose: 40 mg - Labs Labs: 06/17/17 07:34 06/17/17 07:34 PT 11.4 Seconds (9.9-11.8) 06/14/17 19:10 INR 1.06 (0.93-1.08) 06/14/17 19:10 APTT 28.4 Seconds (23.7-30.8) 06/14/17 19:10 - Head Exam Head Exam: ATRAUMATIC, NORMAL INSPECTION, NORMOCEPHALIC - Eye Exam Eye Exam: EOMI, Normal appearance, PERRL. absent: Periorbital tenderness Pupil Exam: NORMAL ACCOMODATION, PERRL. absent: Irregular, Unequal - ENT Exam ENT Exam: Mucous Membranes Moist, Normal Exam, Normal Oropharynx. absent: TM's Normal Bilaterally - Neck Exam Neck Exam: Normal Inspection. absent: Lymphadenopathy, Thyromegaly - Respiratory Exam Respiratory Exam: Clear to Ausculation Bilateral, NORMAL BREATHING PATTERN. absent: Chest Wall Tenderness, Prolonged Expiratory Phase, Respiratory Distress - Cardiovascular Exam Cardiovascular Exam: REGULAR RHYTHM, RRR, +S1, +S2. absent: Gallop, Rubs - GI/Abdominal Exam GI & Abdominal Exam: Soft, Normal Bowel Sounds. absent: Tenderness, Hyperactive Bowel Sounds - Extremities Exam Extremities Exam: Full ROM, Normal Inspection. absent: Joint Swelling, Pedal Edema - Neurological Exam Neurological Exam: Alert, Awake, CN II-XII Intact, Normal Gait, Oriented x3. absent: Reflexes Normal - Psychiatric Exam Psychiatric exam: Normal Affect, Normal Mood. absent: Depressed, Flat Affect, Suicidal Ideation - Skin Skin Exam: Dry, Intact Assessment and Plan - Assessment and Plan (Free Text) Assessment: 51M PMH HTN, HLD, anxiety, depression, CAD, gastric ulcers, and emphysema w/ dyspnea on exertion and left sided chest pain reproducible to palpation. Most recent EGD showed no gastric ulcers. Plan: Chest Pain r/o ACS Cardiology C/s Dr. Sampson. Rec's appreciated. EKG showed LVH and prolonged QTc (511 ms) Troponin negative x3 D-dimer 0.21 Cardiac cath (02/05/17) showed single vessel CAD, 60% stenosis of the mid LAD, LVEF 60% Cont ASA and Lipitor HHD Tox screen negative Cardizem added per recs of Cardiology CT Scan for continued chest pain Scheduled Naproxen Presyncope -Patient felt lightheaded when going to the bathroom. -Patient upon re-evaluation in the afternoon reported dizziness upon sitting up in the bed. Orthostatics were ordered again. Will f/u with results tomorrow. -Orthostatics negative. -Head CT negative for acute process. -Carotid's u/s showed stenosis 20-39% and bilateral anterograde flow. -Neurology consulted.Rec's appreciated. Emphysema ABG normal Continue dounebs PRN CXR- vascular lung markings, no blunting of CPA Hypomagnesmia/Hypokalemia Mg 1.6 F/u AM lab, replete as needed H/O smoking Advised pt to stop smoking due to increased comorbidities H/O Anxiety/Depression Xanax PPX PTX/SCD <Yohan García - Last Filed: 06/17/17 18:12> Objective - Vital Signs/Intake and Output Vital Signs (last 24 hours): Temp Pulse Resp BP Pulse Ox 97.9 F 73 18 128/97 H 97 06/17/17 12:00 06/17/17 15:02 06/17/17 12:00 06/17/17 15:02 06/17/17 06:00 Intake and Output: 06/17/17 06/17/17 06:59 18:59 Intake Total 240 360 Output Total 350 1200 Balance -110 -840 - Medications Medications: Current Medications Albuterol/Ipratropium (Duoneb 3 Mg/0.5 Mg (3 Ml) Ud) 3 ml IH QD7 [facility] Last Admin: 06/17/17 07:49 Dose: 3 ml Alprazolam (Xanax) 0.5 mg PO TID PRN; Protocol PRN Reason: Anxiety Last Admin: 06/17/17 10:07 Dose: 0.5 mg Aspirin (Ecotrin) 81 mg PO DAILY [facility] Last Admin: 06/17/17 10:04 Dose: 81 mg Atorvastatin Calcium (Lipitor) 40 mg PO DIN [facility] Last Admin: 06/16/17 17:45 Dose: 40 mg Diltiazem HCl (Cardizem) 30 mg PO QID [facility] Last Admin: 06/17/17 15:02 Dose: 30 mg Diphenhydramine HCl (Benadryl) 50 mg PO HS PRN PRN Reason: Insomnia Last Admin: 06/16/17 23:43 Dose: 50 mg Enoxaparin Sodium (Lovenox) 30 mg SC DAILY [facility] PRN Reason: Protocol Last Admin: 06/17/17 10:03 Dose: 30 mg Guaifenesin (Robitussin) 100 mg PO Q4H PRN PRN Reason: Cough Last Admin: 06/16/17 21:22 Dose: 100 mg Meclizine HCl (Antivert) 12.5 mg PO TID [facility] Last Admin: 06/17/17 15:02 Dose: 12.5 mg Naproxen (Anaprox) 275 mg PO BID [facility] Last Admin: 06/17/17 10:03 Dose: 275 mg Pantoprazole Sodium (Protonix Ec Tab) 40 mg PO 0600 [facility] Last Admin: 06/17/17 05:12 Dose: 40 mg - Labs Labs: 06/17/17 07:34 06/17/17 07:34 PT 11.4 Seconds (9.9-11.8) 06/14/17 19:10 INR 1.06 (0.93-1.08) 06/14/17 19:10 APTT 28.4 Seconds (23.7-30.8) 06/14/17 19:10 Attending/Attestation - Attestation I have personally seen and examined this patient.: Yes I have fully participated in the care of the patient.: Yes I have reviewed all pertinent clinical information, including history, physical exam and plan: Yes Notes (Text): 06/17/17 18:10 51 year old male with past medical history of hypertension, CAD, anxiety, emphysema and smoker who presented with complaint of chest pain. His last cardiac cath was 02/17 which showed CAD with 60% LAD stenosis. He also reported recent outpatient EGD which was negative. Serial cardiac enzymes were negative and ACS was ruled out. CXR and D-dimer were negative. He is on aspirin and statin. He was seen by cardiology and cardizem was added. He reports his chest pain has improved. Continue with duonebs. He was counselled on smoking cessation. CT chest was reviewed. Yesterday he had presyncopal episode while going to the bathroom. CT head and orthostatics were negative. Neurology evaluation was appreciated. Today still reports dizziness and gait unsteadiness. PT evaluation is pending. Will start trial of meclizine prn and repeat orthostatics. Yohan García MD Hospitalist.
[2017-06-18 00:45] VITALS: RESP 20
[2017-06-18] MEDS: Pantoprazole 40 mg EC Tab PO SCH (05:03)
[2017-06-18 06:33] VITALS: O2SAT 98
[2017-06-18 06:48] LABS: HEMATOCRIT 40.1 % (42.0-52.0); MEAN CELL VOLUME 89.7 fl (80.0-105.0); MEAN CORPUSCULAR HEMOGLOBIN 30.2 pg (25.0-35.0); MEAN CORPUSCULAR HGB CONC 33.7 g/dl (31.0-37.0); MEAN PLATELET VOLUME 11.7 fl (7.0-11.0); RED CELL DISTRIBUTION WIDTH 12.4 % (11.5-14.5); WHITE BLOOD COUNT 7.3 10^3/ul (4.5-11.0)
[2017-06-18 07:08] LABS: ALB/GLOB RATIO 1.3 (1.1-1.8); ALKALINE PHOSPHATASE 55 U/L (38-126); ALT/SGPT 32 U/L (7-56); AST/SGOT 24 U/L (17-59); BILIRUBIN,TOTAL 0.4 mg/dL (0.2-1.3); BLOOD UREA NITROGEN 17 mg/dL (7-21); CALCIUM 8.9 mg/dL (8.4-10.5); CARBON DIOXIDE 29 mmol/L (21-33); CHLORIDE 107 mmol/L (98-107); GFR AFRICAN-AMERICAN > 60; GLUCOSE,RANDOM 91 mg/dL (70-110); POTASSIUM 3.7 mmol/L (3.6-5.0); SODIUM 144 mmol/L (132-148); TOTAL PROTEIN 6.5 g/dL (5.8-8.3)
[2017-06-18] MEDS: Albuterol-Ipratrop 3 mg / 0.5 (3 ml) UD IH SCH (08:00)
[2017-06-18] MEDS: Enoxaparin 30 mg Syringe SC SCH (09:04)
[2017-06-18] MEDS: Naproxen 275 mg Tab PO SCH (10:26)
--- NOTE | 2017-06-18 12:15 | PN ---
DATE: SUBJECTIVE: The patient denies chest pain. He is experiencing mild abdominal discomfort and dyspnea. PHYSICAL EXAMINATION: VITAL SIGNS: Blood pressure is 120/82, heart rate 98, temperature 99.4, respirations 20. HEENT: Normocephalic. CHEST: Clear. HEART: S1 and S2 regular. ABDOMEN: Soft. EXTREMITIES: No edema. LABORATORY DATA: Hemoglobin and hematocrit 15.5 and 40.1. White count and platelet count are within normal limits. Today, SMA-7 were within normal limits. IMAGING: Chest CT scan revealed no evidence of acute infiltrates or effusion. No evidence of pneumothorax. ASSESSMENT: 1. Chest pain, myocardial infarction is ruled out. 2. History of coronary stents. RECOMMENDATIONS: Continue current Lipitor, aspirin and oral Cardizem. The patient was advised to abstain from smoking. Alexander Sampson MD
--- NOTE | 2017-06-18 15:25 | CP.PCM.DIS ---
<[place]tonwood - Last Filed: 06/18/17 15:28> Provider - Provider Date of Admission: 06/16/17 14:00 Attending physician: Rick Swenson MD Primary care physician: Enedina Vinson MD Time Spent in preparation of Discharge (in minutes): 45 Hospital Course - Lab Results Lab Results: Most Recent Lab Values WBC 7.3 10^3/ul (4.5-11.0) 06/18/17 06:41 RBC 4.47 10^6/uL (3.5-6.1) 06/18/17 06:41 Hgb 13.5 g/dL (14.0-18.0) L 06/18/17 06:41 Hct 40.1 % (42.0-52.0) L 06/18/17 06:41 MCV 89.7 fl (80.0-105.0) 06/18/17 06:41 MCH 30.2 pg (25.0-35.0) 06/18/17 06:41 MCHC 33.7 g/dl (31.0-37.0) 06/18/17 06:41 RDW 12.4 % (11.5-14.5) 06/18/17 06:41 Plt Count 124 10^3/uL (120.0-450.0) 06/18/17 06:41 MPV 11.7 fl (7.0-11.0) H 06/18/17 06:41 Gran % 64.0 % (50.0-68.0) 06/14/17 19:10 Lymph % (Auto) 24.7 % (22.0-35.0) 06/14/17 19:10 [place] % (Auto) 8.4 % (1.0-6.0) H 06/14/17 19:10 Eos % (Auto) 2.7 % (1.5-5.0) 06/14/17 19:10 Baso % (Auto) 0.2 % (0.0-3.0) 06/14/17 19:10 Gran # 3.74 (1.4-6.5) 06/14/17 19:10 Lymph # 1.4 (1.2-3.4) 06/14/17 19:10 [place] # 0.5 (0.1-0.6) 06/14/17 19:10 Eos # 0.2 (0.0-0.7) 06/14/17 19:10 Baso # 0.01 K/mm3 (0.0-2.0) 06/14/17 19:10 PT 11.4 Seconds (9.9-11.8) 06/14/17 19:10 INR 1.06 (0.93-1.08) 06/14/17 19:10 APTT 28.4 Seconds (23.7-30.8) 06/14/17 19:10 D-Dimer, Quantitative 0.21 mg/L FEU (0-0.50) 06/14/17 19:10 pCO2 34 mm/Hg (35-45) L 06/14/17 23:11 pO2 98.0 mm/Hg (80-100) 06/14/17 23:11 HCO3 23.6 mmol/L (21-28) 06/14/17 23:11 ABG pH 7.45 (7.35-7.45) 06/14/17 23:11 ABG Total CO2 24.6 mmol.L (22-28) 06/14/17 23:11 ABG O2 Saturation 99.0 % (95-98) H 06/14/17 23:11 ABG Base Excess 0.1 mmol/L (-2.0-3.0) 06/14/17 23:11 ABG Potassium 2.7 mmol/L (3.6-5.2) L 06/14/17 23:11 Sodium 142.0 mmol/L (132-148) 06/14/17 23:11 Chloride 111.0 mmol/L (98-107) H 06/14/17 23:11 Glucose 123 mg/dl (75-110) H 06/14/17 23:11 Lactate 1.2 mmol/L (0.7-2.1) 06/14/17 23:11 FiO2 21.0 % 06/14/17 23:11 Sodium 144 mmol/L (132-148) 06/18/17 06:41 Potassium 3.7 mmol/L (3.6-5.0) 06/18/17 06:41 Chloride 107 mmol/L (98-107) 06/18/17 06:41 Carbon Dioxide 29 mmol/L (21-33) 06/18/17 06:41 Anion Gap 12 (10-20) 06/18/17 06:41 BUN 17 mg/dL (7-21) 06/18/17 06:41 Creatinine 0.9 mg/dL (0.8-1.5) 06/18/17 06:41 Est GFR ( Amer) > 60 06/18/17 06:41 Est GFR (Non-Af Amer) > 60 06/18/17 06:41 Random Glucose 91 mg/dL (70-110) 06/18/17 06:41 Calcium 8.9 mg/dL (8.4-10.5) 06/18/17 06:41 Phosphorus 3.2 mg/dL (2.5-4.5) 06/15/17 03:00 Magnesium 1.7 mg/dL (1.7-2.2) 06/15/17 03:00 Total Bilirubin 0.4 mg/dL (0.2-1.3) 06/18/17 06:41 AST 24 U/L (17-59) 06/18/17 06:41 ALT 32 U/L (7-56) 06/18/17 06:41 Alkaline Phosphatase 55 U/L (38-126) 06/18/17 06:41 Lactate Dehydrogenase 359 U/L (333-699) 06/15/17 03:00 Total Creatine Kinase 51 U/L (35-230) 06/15/17 03:00 Troponin I < 0.01 ng/mL 06/15/17 09:00 Total Protein 6.5 g/dL (5.8-8.3) 06/18/17 06:41 Albumin 3.7 g/dL (3.0-4.8) 06/18/17 06:41 Globulin 2.8 gm/dL 06/18/17 06:41 Albumin/Globulin Ratio 1.3 (1.1-1.8) 06/18/17 06:41 Lipase 63 U/L (23-300) 06/14/17 19:10 Arterial Blood Potassium 2.7 mmol/L (3.6-5.2) L 06/14/17 23:11 Urine Opiates Screen Negative (NEGATIVE) 06/15/17 16:30 Urine Methadone Screen Negative (NEGATIVE) 06/15/17 16:30 Ur Barbiturates Screen Negative (NEGATIVE) 06/15/17 16:30 Ur Phencyclidine Scrn Negative (NEGATIVE) 06/15/17 16:30 Ur Amphetamines Screen Negative (NEGATIVE) 06/15/17 16:30 U Benzodiazepines Scrn Negative (NEGATIVE) 06/15/17 16:30 U Oth Cocaine Metabols Negative (NEGATIVE) 06/15/17 16:30 U Cannabinoids Screen Negative (NEGATIVE) 06/15/17 16:30 - Hospital Course Hospital Course: Patient is a 51 yo male with PMH of HTN, HLD, cardiomyopathy, anxiety, depression, CAD, gastric ulcers, and emphysema presents with c/o 1 day duration of shortness of breath on exertion and chest tightness. Pt states that this AM he woke with SOB which worsened when walking. Pt also stated that he had associated dizziness, chills, and pressure throughout his chest, but denied any radiation. Pt denied any alleviating factors. Pt states that he has had been admitted several times in the past for chest pain, however he states that this episode has been the worst. Pt went to his PMD today and was told to go to the ED if his symptoms worsened. The patient stated that his symptoms failed to resolve throughout the day and he decided to go to the ED. Patient denies diaphoresis, n/v/d, constipation, MOISE, fatigue, abdominal pain, dysuria, or palpitations. The patient was admitted for COPD exacerbation. The patient was seen by Neurology and Cardiology while admitted. While going to the restroom the patient had a pre-syncopal event and hit his head on the handle in the restroom. The patient had orthostatics done that were negative and had a head CT that was negative. The patient was kept overnight for observation as a result. The patient was seen by Neurology who recommended pt assessment and and avoiding sedative medications, and continue aspirin and lipitor for stroke prevention. The patient was also seen by Cardiology who recommended aspirin, lipitor, and cardizem. The patient was expected to be discharged on Sunday however began complaining of dizziness and lightheadedness upon sitting up. The patient was had another set of orthostatics done that were positive and carotid u/s done that showed 20-39% in proximal ICA stenosis bilaterally and anterograde flow in bilaterally. The patient was seen this morning and was discharged on cardizem and instruction to resume all home medications including the aspirin and lipitor. The patient was also taught how to arise from the bed or chair for the orthostatic hypotension. Discharge Exam - Head Exam Head Exam: ATRAUMATIC, NORMAL INSPECTION, NORMOCEPHALIC - Eye Exam Eye Exam: EOMI, Normal appearance, PERRL. absent: Periorbital tenderness Pupil Exam: NORMAL ACCOMODATION, PERRL. absent: Irregular, Miosis, Mydriatic, Unequal - ENT Exam ENT Exam: Mucous Membranes Moist, Normal Oropharynx. absent: Normal Exam, TM's Normal Bilaterally - Neck Exam Neck exam: Normal Inspection - Respiratory Exam Respiratory Exam: Clear to PA & Lateral, NORMAL BREATHING PATTERN, UNREMARKABLE. absent: Respiratory Distress, Stridor - Cardiovascular Exam Cardiovascular Exam: REGULAR RHYTHM, RRR, +S1, +S2. absent: Gallop, Rubs - GI/Abdominal Exam GI & Abdominal Exam: Normal Bowel Sounds, Unremarkable. absent: Hypoactive Bowel Sounds, Organomegaly, Tenderness - Neurological Exam Neurological exam: Alert, CN II-XII Intact, Normal Gait, Oriented x3, Reflexes Normal - Psychiatric Exam Psychiatric exam: Normal Affect, Normal Mood - Skin Skin Exam: Dry, Intact, Normal Color, Warm Discharge Plan - Discharge Medications Prescriptions: diltiaZEM CD [Cardizem CD] 120 mg PO DAILY #14 c24 - Follow Up Plan Condition: FAIR Disposition: HOME/ ROUTINE Instructions: Chest Pain (DC) Additional Instructions: Patient advised to follow up with PMD within on week of discharge. Patient advised to return to emergency department for any new or worsening symptoms. Referrals: Enedina Vinson MD [Primary Care Provider] - <Rick Swenson - Last Filed: 06/19/17 12:39> Provider - Provider Date of Admission: 06/16/17 14:00 Attending physician: Rick Swenson MD Primary care physician: Enedina Vinson MD Hospital Course - Lab Results Lab Results: Most Recent Lab Values WBC 7.3 10^3/ul (4.5-11.0) 06/18/17 06:41 RBC 4.47 10^6/uL (3.5-6.1) 06/18/17 06:41 Hgb 13.5 g/dL (14.0-18.0) L 06/18/17 06:41 Hct 40.1 % (42.0-52.0) L 06/18/17 06:41 MCV 89.7 fl (80.0-105.0) 06/18/17 06:41 MCH 30.2 pg (25.0-35.0) 06/18/17 06:41 MCHC 33.7 g/dl (31.0-37.0) 06/18/17 06:41 RDW 12.4 % (11.5-14.5) 06/18/17 06:41 Plt Count 124 10^3/uL (120.0-450.0) 06/18/17 06:41 MPV 11.7 fl (7.0-11.0) H 06/18/17 06:41 Gran % 64.0 % (50.0-68.0) 06/14/17 19:10 Lymph % (Auto) 24.7 % (22.0-35.0) 06/14/17 19:10 Carlton % (Auto) 8.4 % (1.0-6.0) H 06/14/17 19:10 Eos % (Auto) 2.7 % (1.5-5.0) 06/14/17 19:10 Baso % (Auto) 0.2 % (0.0-3.0) 06/14/17 19:10 Gran # 3.74 (1.4-6.5) 06/14/17 19:10 Lymph # 1.4 (1.2-3.4) 06/14/17 19:10 [place] # 0.5 (0.1-0.6) 06/14/17 19:10 Eos # 0.2 (0.0-0.7) 06/14/17 19:10 Baso # 0.01 K/mm3 (0.0-2.0) 06/14/17 19:10 PT 11.4 Seconds (9.9-11.8) 06/14/17 19:10 INR 1.06 (0.93-1.08) 06/14/17 19:10 APTT 28.4 Seconds (23.7-30.8) 06/14/17 19:10 D-Dimer, Quantitative 0.21 mg/L FEU (0-0.50) 06/14/17 19:10 pCO2 34 mm/Hg (35-45) L 06/14/17 23:11 pO2 98.0 mm/Hg (80-100) 06/14/17 23:11 HCO3 23.6 mmol/L (21-28) 06/14/17 23:11 ABG pH 7.45 (7.35-7.45) 06/14/17 23:11 ABG Total CO2 24.6 mmol.L (22-28) 06/14/17 23:11 ABG O2 Saturation 99.0 % (95-98) H 06/14/17 23:11 ABG Base Excess 0.1 mmol/L (-2.0-3.0) 06/14/17 23:11 ABG Potassium 2.7 mmol/L (3.6-5.2) L 06/14/17 23:11 Sodium 142.0 mmol/L (132-148) 06/14/17 23:11 Chloride 111.0 mmol/L (98-107) H 06/14/17 23:11 Glucose 123 mg/dl (75-110) H 06/14/17 23:11 Lactate 1.2 mmol/L (0.7-2.1) 06/14/17 23:11 FiO2 21.0 % 06/14/17 23:11 Sodium 144 mmol/L (132-148) 06/18/17 06:41 Potassium 3.7 mmol/L (3.6-5.0) 06/18/17 06:41 Chloride 107 mmol/L (98-107) 06/18/17 06:41 Carbon Dioxide 29 mmol/L (21-33) 06/18/17 06:41 Anion Gap 12 (10-20) 06/18/17 06:41 BUN 17 mg/dL (7-21) 06/18/17 06:41 Creatinine 0.9 mg/dL (0.8-1.5) 06/18/17 06:41 Est GFR ( Amer) > 60 06/18/17 06:41 Est GFR (Non-Af Amer) > 60 06/18/17 06:41 Random Glucose 91 mg/dL (70-110) 06/18/17 06:41 Calcium 8.9 mg/dL (8.4-10.5) 06/18/17 06:41 Phosphorus 3.2 mg/dL (2.5-4.5) 06/15/17 03:00 Magnesium 1.7 mg/dL (1.7-2.2) 06/15/17 03:00 Total Bilirubin 0.4 mg/dL (0.2-1.3) 06/18/17 06:41 AST 24 U/L (17-59) 06/18/17 06:41 ALT 32 U/L (7-56) 06/18/17 06:41 Alkaline Phosphatase 55 U/L (38-126) 06/18/17 06:41 Lactate Dehydrogenase 359 U/L (333-699) 06/15/17 03:00 Total Creatine Kinase 51 U/L (35-230) 06/15/17 03:00 Troponin I < 0.01 ng/mL 06/15/17 09:00 Total Protein 6.5 g/dL (5.8-8.3) 06/18/17 06:41 Albumin 3.7 g/dL (3.0-4.8) 06/18/17 06:41 Globulin 2.8 gm/dL 06/18/17 06:41 Albumin/Globulin Ratio 1.3 (1.1-1.8) 06/18/17 06:41 Lipase 63 U/L (23-300) 06/14/17 19:10 Arterial Blood Potassium 2.7 mmol/L (3.6-5.2) L 06/14/17 23:11 Urine Opiates Screen Negative (NEGATIVE) 06/15/17 16:30 Urine Methadone Screen Negative (NEGATIVE) 06/15/17 16:30 Ur Barbiturates Screen Negative (NEGATIVE) 06/15/17 16:30 Ur Phencyclidine Scrn Negative (NEGATIVE) 06/15/17 16:30 Ur Amphetamines Screen Negative (NEGATIVE) 06/15/17 16:30 U Benzodiazepines Scrn Negative (NEGATIVE) 06/15/17 16:30 U Oth Cocaine Metabols Negative (NEGATIVE) 06/15/17 16:30 U Cannabinoids Screen Negative (NEGATIVE) 06/15/17 16:30 Attending/Attestation - Attestation I have personally seen and examined this patient.: Yes I have fully participated in the care of the patient.: Yes I have reviewed all pertinent clinical information, including history, physical exam and plan: Yes Notes (Text): 10/17/17 12:38 Patient was seen and examined with medical detail representative. Agreed with resident assessment and plan. 51 year old male with past medical history of hypertension, CAD, anxiety, emphysema and smoker who presented with complaint of chest pain. His last cardiac cath was 02/17 which showed CAD with 60% LAD stenosis. He also reported recent outpatient EGD which was negative. Serial cardiac enzymes were negative and ACS was ruled out. CXR and D-dimer were negative. He is on aspirin and statin. He was seen by cardiology and cardizem was restarted. His dizziness has improved.He is ambulatory at the time of discharge. Management plan was discussed in detail with patient Education was provided.
[2017-06-18 17:54] VITALS: BP 133/88; PULSE 85; TEMP 98.3
== END 2017-06-18 18:18 | disposition home or self-care (01) | DRG 143 ==
LOC: ED 18:16 → ERH 21:40 → 2RNO 23:42 → OBSVTOIN 06-16 14:00
PROVIDERS: ADMIT Internal Medicine; ATTEND Internal Medicine
PROC: 3E0F7GC Introduction of Other Therapeutic Substance into Respiratory Tract, Via Natural or Artificial Opening (ICD-10-PCS; principal; 2017-06-16)
DX: R07.89 Other chest pain (principal); I25.10 Atherosclerotic heart disease of native coronary artery without angina pectoris; I42.9 Cardiomyopathy, unspecified; I11.0 Hypertensive heart disease with heart failure; I50.9 Heart failure, unspecified; E83.42 Hypomagnesemia; J43.9 Emphysema, unspecified; E87.6 Hypokalemia; E78.5 Hyperlipidemia, unspecified; F41.9 Anxiety disorder, unspecified; F32.9 Major depressive disorder, single episode, unspecified; F17.210 Nicotine dependence, cigarettes, uncomplicated; F10.10 Alcohol abuse, uncomplicated; Z79.82 Long term (current) use of aspirin; Z79.899 Other long term (current) drug therapy; Z87.11 Personal history of peptic ulcer disease; Z95.5 Presence of coronary angioplasty implant and graft

== ENCOUNTER 2018-01-03 06:24 | Emergency (ER) | payer OTHER ==
[2018-01-03 06:25] VITALS: PULSE 88; BMI 21.1
[2018-01-03 07:03] LABS: BASO # 0.01 K/mm3 (0.0-2.0); BASO % 0.1 % (0.0-3.0); EOS # 0.3 (0.0-0.7); EOS % 3.8 % (1.5-5.0); GRAN # 4.78 (1.4-6.5); GRAN % 70.1 % (50.0-68.0); HEMOGLOBIN 13.2 g/dL (14.0-18.0); LYMPH % 15.1 % (22.0-35.0); MEAN CELL VOLUME 88.5 fl (80.0-105.0); MEAN CORPUSCULAR HEMOGLOBIN 29.7 pg (25.0-35.0); MEAN CORPUSCULAR HGB CONC 33.5 g/dl (31.0-37.0); MONO # 0.7 (0.1-0.6); MONO % 10.9 % (1.0-6.0); RBC 4.45 10^6/uL (3.5-6.1); RED CELL DISTRIBUTION WIDTH 13.1 % (11.5-14.5); WHITE BLOOD COUNT 6.8 10^3/ul (4.5-11.0)
--- NOTE | 2018-01-03 07:08 | ED PDOC ---
Arrival/HPI - General Chief Complaint: Dizziness/Lightheaded Time Seen by Provider: 01/03/18 07:04 Historian: Patient - History of Present Illness Narrative History of Present Illness (Text): 01/03/18 06:50 Pt. to ED PMH COPD not on any meds with c/o dizziness while walking to get coffee this AM.Pt. has beeen experiencing headaches for past 2 days with episodes of dizziness.No chest pain although states on occasion does experience some chest discomfort.No sob.No nausea/vomiting.No neck or back pain.No abdominal pain.No fever or chills. Past Medical History - Provider Review Nursing Documentation Reviewed: Yes - Travel History Have you recently traveled outside [place] w/in the past 3 mons?: No - Past History Past History: No Previous - Infectious Disease Hx of Infectious Diseases: None - Tetanus Immunization Tetanus Immunization: Unknown - Cardiac Hx Cardiac Disorders: Yes Hx Hypertension: Yes - Pulmonary Hx Respiratory Disorders: Yes Hx Chronic Obstructive Pulmonary Disease (COPD): Yes - Neurological Hx Neurological Disorder: Yes Hx Migraine: Yes - HEENT Hx HEENT Disorder: No - Renal Hx Kidney Stones: Yes - Endocrine/Metabolic Hx Endocrine Disorders: No - Hematological/Oncological Hx Blood Disorders: Yes (blood transfusions hx ulcers) - Integumentary Hx Dermatological Disorder: Yes - Musculoskeletal/Rheumatological Hx Falls: No - Gastrointestinal Hx Gastrointestinal Disorders: Yes - Genitourinary/Gynecological Hx Genitourinary Disorders: No - Psychiatric Hx Psychophysiologic Disorder: Yes Hx Anxiety: Yes Hx Depression: Yes Hx Substance Use: Yes (denies using drugs for over 20 yrs) - Past Surgical History Past Surgical History: No Previous - Surgical History Hx Appendectomy: Yes Hx Cardiac Catheterization: Yes Other/Comment: colonscopy - Anesthesia Hx Anesthesia: Yes Hx Anesthesia Reactions: No Hx Malignant Hyperthermia: No - Suicidal Assessment Feels Threatened In Home Enviroment: No Family/Social History - Physician Review Nursing Documentation Reviewed: Yes Family/Social History: No Known Family HX Smoking Status: Light Smoker < 10 Cigarettes Daily Hx Alcohol Use: Yes (occasional) Hx Substance Use: Yes (denies using drugs for over 20 yrs) Hx Substance Use Treatment: No Allergies/Home Meds Allergies/Adverse Reactions: Allergies No Known Allergies Allergy (Verified 06/14/17 18:30) Home Medications: Home Meds Medication Instructions Recorded Confirmed No Known Home Med 01/03/18 01/03/18 Review of Systems - Review of Systems Constitutional: Normal Eyes: Normal ENT: Normal Respiratory: Normal Cardiovascular: Normal Gastrointestinal: Normal Genitourinary Male: Normal Musculoskeletal: Normal Skin: Normal Neurological: Headache, Dizziness Endocrine: Normal Hemo/Lymphatic: Normal Psychiatric: Normal Physical Exam Vital Signs Pulse Resp BP Pulse Ox 01/03/18 06:37 68 15 124/66 98 Temperature: Afebrile Blood Pressure: Normal Pulse: Regular Respiratory Rate: Normal Appearance: Positive for: Well-Appearing, Non-Toxic, Comfortable Pain Distress: None Mental Status: Positive for: Alert and Oriented X 3 - Systems Exam Head: Present: Atraumatic, Normocephalic Pupils: Present: PERRL Extroacular Muscles: Present: EOMI Conjunctiva: Present: Normal Ears: Present: NORMAL TM Mouth: Present: Moist Mucous Membranes Pharnyx: Present: Normal Neck: Present: Normal Range of Motion Respiratory/Chest: Present: Clear to Auscultation, Good Air Exchange. No: Respiratory Distress, Accessory Muscle Use Cardiovascular: Present: Regular Rate and Rhythm, Normal S1, S2. No: Murmurs Abdomen: No: Tenderness, Distention, Peritoneal Signs Back: Present: Normal Inspection Upper Extremity: Present: Normal Inspection. No: Cyanosis, Edema Lower Extremity: Present: Normal Inspection. No: Edema Neurological: Present: GCS=15, CN II-XII Intact, Speech Normal, Motor Func Grossly Intact, Normal Sensory Function Skin: Present: Warm, Dry, Normal Color. No: Rashes Psychiatric: Present: Alert, Oriented x 3, Normal Insight, Normal Concentration Medical Decision Making ED Course and Treatment: 01/03/18 07:09 Diff. DX include migraine headache/tumor/anemia/labyrinthitis 01/03/18 07:13 Case endorsed to /pending labs/CT scan/x-ray/reassess/final disposition - RAD Interpretation Radiology Orders: 01/03/18 06:47 CHEST PORTABLE [RAD] Stat - EKG Interpretation EKG Interpretation (Text): 01/03/18 07:12 NSR@ 65,NSSTT changes Interpreted by ED Physician: Yes Type: 12 lead EKG Disposition/Present on Arrival - Present on Arrival Any Indicators Present on Arrival: No History of DVT/PE: No History of Uncontrolled Diabetes: No Urinary Catheter: No History of Decub. Ulcer: No History Surgical Site Infection Following: None - Disposition Have Diagnosis and Disposition been Completed?: No Diagnosis: Headache, Dizziness Disposition Time: 07:15 Condition: STABLE
[2018-01-03 07:09] LABS: ALB/GLOB RATIO 1.4 (1.1-1.8); ALBUMIN 4.3 g/dL (3.0-4.8); CALCIUM 8.8 mg/dL (8.4-10.5); GFR AFRICAN-AMERICAN > 60; GFR NON-AFRICAN AMERICAN > 60
[2018-01-03 07:14] LABS: INR 1.03 (0.93-1.08); PARTIAL THROMBOPLASTIN TIME 28.7 Seconds (25.1-36.5); PROTHROMBIN TIME 11.9 SECONDS (9.4-12.5)
[2018-01-03 07:19] LABS: ALT/SGPT 27 U/L (7-56); AST/SGOT 27 U/L (17-59); BLOOD UREA NITROGEN 20 mg/dL (7-21)
[2018-01-03 07:20] LABS: TROPONIN I < 0.01 ng/mL
[2018-01-03 07:27] LABS: CK-MB 1.9 ng/mL (0.0-3.6)
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
[2018-01-03] MEDS ORDERED: Sodium Chloride 0.9% 1,000 ML IV STA ×2 (07:52→08:23)
--- NOTE | 2018-01-03 08:14 | CT ---
PROCEDURE: CT HEAD WITHOUT CONTRAST. HISTORY: headache/dizzy COMPARISON: None available. TECHNIQUE: Axial computed tomography images were obtained through the head/brain without intravenous contrast. Radiation dose: Total exam DLP = 891 mGy-cm. This CT exam was performed using one or more of the following dose reduction techniques: Automated exposure control, adjustment of the mA and/or kV according to patient size, and/or use of iterative reconstruction technique. FINDINGS: HEMORRHAGE: No intracranial hemorrhage. BRAIN: No mass effect or edema. No atrophy or chronic microvascular ischemic changes. VENTRICLES: Unremarkable. No hydrocephalus. CALVARIUM: Unremarkable. PARANASAL SINUSES: Unremarkable as visualized. No significant inflammatory changes. MASTOID AIR CELLS: Unremarkable as visualized. No inflammatory changes. OTHER FINDINGS: None. IMPRESSION: No acute findings
--- NOTE | 2018-01-03 09:39 | RAD ---
HISTORY: CHEST PAIN COMPARISON: 06/14/2017 FINDINGS: LUNGS: No active pulmonary disease. PLEURA: No significant pleural effusion identified, no pneumothorax apparent. CARDIOVASCULAR: Normal. OSSEOUS STRUCTURES: No significant abnormalities. VISUALIZED UPPER ABDOMEN: Normal. OTHER FINDINGS: None. IMPRESSION: No active disease.
[2018-01-03 10:22] VITALS: BP 108/59; TEMP 98.1
[2018-01-03 10:39] VITALS: PULSE 65; RESP 18; O2SAT 99
--- NOTE | 2018-01-03 22:37 | CARD ---
APPROVED REPORT EKG Measurement Heart [id number] <Conclusion> Normal sinus rhythm Nonspecific ST and T wave abnormality Abnormal ECG
== END 2018-01-03 10:41 | disposition home or self-care (01) ==
LOC: ED 06:24
DX: R42 Dizziness and giddiness (principal); R51 Headache; I10 Essential (primary) hypertension; F17.210 Nicotine dependence, cigarettes, uncomplicated
CPT/HCPCS: 70450; 71045; 80053; 82550; 82553; 83615; 84484; 85025; 85610; 85730; 87040; 93005; 96374; 99285; J1885; J7040

== ENCOUNTER 2018-01-05 19:12 | Observation (INO) | payer OTHER ==
[2018-01-05 19:12] VITALS: PULSE 88; BMI 21.1
[2018-01-05] MEDS ORDERED: Nitroglycerin 2% Ointment Foilpak UD TOP STA (19:40)
--- NOTE | 2018-01-05 19:48 | ED PDOC ---
Arrival/HPI - General Chief Complaint: Chest Pain Time Seen by Provider: 01/05/18 19:39 Historian: Patient - History of Present Illness Narrative History of Present Illness (Text): 01/05/18 19:44 pt p/w + sudden onset of substernal chest tightness/sob while walking to buy something at the grocery store; pt states he became very fatigued/weak suddenly ; pt felt like he was going to pass out/lightheadedness, NO diaphoresis, chest tightness is worse than when he was evaluated 6-8months ago at [facility] ; pt states + exertional sob over the last 1 week, worse today; pt + recent lightheadedness, and had came to ED for eval 2 days ago and he was subsequently discharged home; pt states no fever/chills/sweats, no palpitations, abd pain, no n/v, no numbness/tingling, no urinary/bowel changes, no incontinence, no fall /trauma/sick contact, no travel nurse states over the last 1 week with worsening sob, + non-productive cough, + wheezing, difficult for him to smoke pt also states he is taking his medications intermittently, and has not been taking his BP meds for many months pt is here for further eval pt's without other complaints. PCP: Dr Izquierdo Cards: pt does not remember pt is a heavy smoker, trying to quit pt with prior cardiac hx of art occulsion at ~ 60% pt is not compliant with his medications pt last PCP visit was 4 months ago Time/Duration: Prior to Arrival, Other (~ 1 week onset of coughing/wheezing/sob , worse with exertion) Symptom Onset: Sudden Symptom Course: Worsening Quality: Tightness, Cramping Severity Level: 8, Severe Activities at Onset: Other (walking to a store) Context: Walking Past Medical History - Provider Review Nursing Documentation Reviewed: Yes - Travel History Have you recently traveled outside [place] w/in the past 3 mons?: No - Past History Past History: No Previous - Infectious Disease Hx of Infectious Diseases: None - Tetanus Immunization Tetanus Immunization: Unknown - Cardiac Hx Cardiac Disorders: Yes Hx Hypertension: Yes - Pulmonary Hx Respiratory Disorders: Yes Hx Chronic Obstructive Pulmonary Disease (COPD): Yes - Neurological Hx Neurological Disorder: Yes Hx Migraine: Yes - HEENT Hx HEENT Disorder: No - Renal Hx Kidney Stones: Yes - Endocrine/Metabolic Hx Endocrine Disorders: No - Hematological/Oncological Hx Blood Disorders: Yes (blood transfusions hx ulcers) - Integumentary Hx Dermatological Disorder: Yes - Musculoskeletal/Rheumatological Hx Falls: No - Gastrointestinal Hx Gastrointestinal Disorders: Yes - Genitourinary/Gynecological Hx Genitourinary Disorders: No - Psychiatric Hx Psychophysiologic Disorder: Yes Hx Anxiety: Yes Hx Depression: Yes Hx Substance Use: Yes (denies using drugs for over 20 yrs) - Past Surgical History Past Surgical History: No Previous - Surgical History Hx Appendectomy: Yes Hx Cardiac Catheterization: Yes Other/Comment: colonscopy - Anesthesia Hx Anesthesia: Yes Hx Anesthesia Reactions: No Hx Malignant Hyperthermia: No - Suicidal Assessment Feels Threatened In Home Enviroment: No Family/Social History - Physician Review Nursing Documentation Reviewed: Yes Family/Social History: No Known Family HX Smoking Status: Heavy Smoker > 10 Cigarettes Daily Hx Alcohol Use: Yes (occasional) Hx Substance Use: Yes (denies using drugs for over 20 yrs) Hx Substance Use Treatment: No Allergies/Home Meds Allergies/Adverse Reactions: Allergies No Known Allergies Allergy (Verified 06/14/17 18:30) Home Medications: Home Meds Medication Instructions Recorded Confirmed No Known Home Med 01/03/18 01/05/18 Review of Systems - Review of Systems Constitutional: Fatigue. absent: Fevers, Night Sweats Eyes: Normal ENT: Normal Respiratory: SOB, Cough, Wheezing. absent: Sputum Cardiovascular: Chest Pain, WILLARD, Orthopnea Gastrointestinal: Normal. absent: Abdominal Pain, Nausea, Vomiting Genitourinary Male: Normal Musculoskeletal: Normal Skin: Normal Neurological: Dizziness. absent: Headache Endocrine: Normal Hemo/Lymphatic: Normal Psychiatric: Normal Physical Exam Vital Signs Reviewed: Yes Vital Signs Temp Pulse Resp BP Pulse Ox 01/05/18 20:22 62 20 115/61 100 01/05/18 19:23 97.9 F 68 18 115/68 96 Temperature: Afebrile Blood Pressure: Normal Pulse: Regular Respiratory Rate: Normal Appearance: Positive for: Well-Appearing, Non-Toxic, Uncomfortable, Other ( uncomfortable, alert/awake, GCS = 15, oriented x 3, NAD, resting in bed, cooperative) Pain Distress: None Mental Status: Positive for: Alert and Oriented X 3 - Systems Exam Head: Present: Atraumatic, Normocephalic Pupils: Present: PERRL, Other (no nystagmus, no photophobia, sclera anicteric, visual field intact b/l) Extroacular Muscles: Present: EOMI Conjunctiva: Present: Normal Ears: Present: Normal Mouth: Present: Moist Mucous Membranes, Other (fair dentitions, no drooling/ stridor, no exudate/lesions, uvula/tongue are midline) Pharnyx: Present: Normal Nose (External): Present: Atraumatic Nose (Internal): Present: Normal Inspection Neck: Present: Normal Range of Motion, Trachea Midline, Other (intact ROM, no midline tenderness, no step off, no nuchal rigidity). No: Meningeal Signs, MIDLINE TENDERNESS, Paraspinal Tenderness Respiratory/Chest: Present: Wheezes, Decreased Breath Sounds, Other (+ wheezing noted bibasiliar regions, right >> left; + coarse breath sounds, decr breath sounds b/l, no rales/rhonchi noted; no tachypenia). No: Good Air Exchange, Respiratory Distress, Accessory Muscle Use, Tachypneic, Tender to Palpation Cardiovascular: Present: Regular Rate and Rhythm, Normal S1, S2, Other (no regurg). No: Murmurs Abdomen: Present: Normal Bowel Sounds, Other (well nourished male, no focal tenderness, no masses/rebound/guarding/rigidity, no preston's sign, no mcburneys ' point tenderness) Back: Present: Normal Inspection. No: CVA Tenderness, Midline Tenderness, Paraspinal Tenderness Upper Extremity: Present: Normal Inspection, Normal ROM, NORMAL PULSES, Neurovascularly Intact, Capillary Refill < 2s. No: Deformity Lower Extremity: Present: Normal Inspection, NORMAL PULSES, Normal ROM, Neurovascularly Intact, Capillary Refill < 2 s, Other (strength 5/5 grossly intact b/l, no gross deformities). No: Edema, Kwesi's Sign, Tenderness, Swelling Neurological: Present: GCS=15, CN II-XII Intact, Speech Normal Skin: Present: Warm, Normal Color, Other (cap refill < 1sec, no ulcerations, no petechiae, no rashes) Psychiatric: Present: Alert, Oriented x 3, Normal Insight, Normal Concentration Medical Decision Making ED Course and Treatment: 01/05/18 19:40 Impression: chest pain/sob/coughing i have consider all the differential diagnosis regarding pt's chief medical complaints/clinical findings, including but are not limited to: chest pain/sob/ coughing A/P: chest pain/sob/coughing - labs - acs eval - iv - xray - supportive care - observe/reevaluation 01/05/18 21:[address] Cardenas (hospitalists stitch bonding machine drawer in)/medical legal investigator stitch bonding machine drawer in regarding pt' s ED presentation/medical complaints; agrees with admission, will admit patient pt is currently comfortable awaiting xray to be performed 2200 repeate lung exam: improved aeration, bi-basilar faint wheezing is noted, no tachypenia, no accessory muscle use noted pt felt improved pt states no chest pain currently pt is made aware of his medical results agrees with admission Re-evaluation Time: 20:30 Reassessment Condition: Improved - Critical Care Critical Care Minutes: 45 minutes Critical Care Time: Excluding Proc Time Narrative Critical Care (Text): 01/05/18 2100 critical care time: 45min, excluding procedure time, excluding time teaching residents/students/mid-level providers; including initial eval/diagnosis, diagnostic interpretation, re-eval, consultations, final disposition - Lab Interpretations Lab Results: 01/05/18 20:21 01/05/18 20:21 Lab Results 01/05/18 21:45: pO2 39, VBG pH 7.32, VBG pCO2 53.0, VBG HCO3 27.3, VBG Total CO2 28.9 H, VBG O2 Sat (Calc) 77.4 H, VBG Base Excess 0.3, VBG Potassium 3.5 L, Glucose 103, Lactate 1.5, FiO2 21.0, Sodium 140.0, Chloride 108.0 H, Venous Blood Potassium 3.5 L 01/05/18 20:21: TSH 3rd Generation 1.80 01/05/18 20:21: Sodium 145, Potassium 4.4, Chloride 105, Carbon Dioxide 28, Anion Gap 17, BUN 14, Creatinine 0.9, Est GFR ( Amer) > 60, Est GFR (Non- Af Amer) > 60, Random Glucose 90, Calcium 8.9, Magnesium 2.0, Total Bilirubin 0.5, AST 29, ALT 27, Alkaline Phosphatase 53, Lactate Dehydrogenase 535, Total Creatine Kinase 120, Troponin I < 0.01, NT-Pro-B Natriuret Pep 123, Total Protein 7.5, Albumin 4.4, Globulin 3.2, Albumin/Globulin Ratio 1.4, Lipase 88 01/05/18 20:21: PT 11.2, INR 0.98, APTT 30.0 01/05/18 20:21: WBC 4.2 L D, RBC 4.63, Hgb 13.9 L, Hct 40.7 L, MCV 87.9, MCH 30.0, MCHC 34.2, RDW 12.9, Plt Count 144, MPV 11.9 H, Gran % 59.2, Lymph % (Auto ) 25.2, Lagrange % (Auto) 9.7 H, Eos % (Auto) 5.7 H, Baso % (Auto) 0.2, Gran # 2.51 , Lymph # (Auto) 1.1 L, Lag[place] # (Auto) 0.4, Eos # (Auto) 0.2, Baso # (Auto) 0.01 I have reviewed the lab results: Yes Interpretation: All labs normal - RAD Interpretation Narrative RAD Interpretations (Text): 01/05/18 22:36 CXR/prelim results: hyperinflation, ? right lower lung field faint opacification vs atelectasis Radiology Orders: 01/05/18 19:40 CHEST TWO VIEWS (PA/LAT) [RAD] Stat Rubber Compounder: ED Physician - EKG Interpretation EKG Interpretation (Text): 01/05/18 19:46 NSR at 65 bpm, normal axis, no ectopy, inverted T in leads L, no st changes, NORMAL EKG; unchanged compare with old ekg 01/2018 Interpreted by ED Physician: Yes Type: 12 lead EKG Comparison: Similar to previous EKG - Medication Orders Current Medication Orders: Albuterol/Ipratropium (Duoneb 3 Mg/0.5 Mg (3 Ml) Ud) 3 ml IH [id number] Albuterol/Ipratropium (Duoneb 3 Mg/0.5 Mg (3 Ml) Ud) 3 ml IH Q2H PRN PRN Reason: Shortness of Breath Enoxaparin Sodium (Lovenox) 40 mg SC DAILY ON LICENSE OF [facility] PRN Reason: Protocol Sodium Chloride (Sodium Chloride 0.9%) 1,000 mls @ 125 mls/hr IV .Q8H ON LICENSE OF [facility] Last Admin: 01/05/18 20:44 Dose: 125 mls/hr eMAR Start Stop Document 01/05/18 20:44 (Rec: 01/05/18 20:44 [id number] Intravenous Solution Start Date 01/05/18 Start Time 20:44 Ceftriaxone Sodium (Rocephin 1 Gram Ivpb) 1 gm in 100 mls @ 200 mls/hr IVPB STAT STA PRN Reason: Protocol Stop: 01/05/18 22:57 Azithromycin (Zithromax 500mg In Ns) 500 mg in 250 mls @ 167 mls/hr IVPB STAT STA PRN Reason: Protocol Stop: 01/05/18 23:57 Methylprednisolone (Solu-Medrol) 30 mg IVP Q12 KADE Pantoprazole Sodium (Protonix Ec Tab) 40 mg PO 0600 ON LICENSE OF [facility] Discontinued Medications Acetaminophen (Tylenol 325mg Tab) 650 mg PO STAT STA Stop: 01/05/18 19:43 Last Admin: 01/05/18 20:42 Dose: 650 mg MAR Pain/Vitals Document 01/05/18 20:42 (Rec: 01/05/18 20:[address]) Pain Reassessment Is This A Pain ReAssessment? No Sleep Is patient sleeping during reassessment? No Presence of Pain Presence of Pain Yes Pain Scale Used Pain Scale Used Numeric Albuterol/Ipratropium (Duoneb 3 Mg/0.5 Mg (3 Ml) Ud) 3 ml IH Q15M KADE Stop: 01/05/18 20:16 Last Admin: 01/05/18 20:43 Dose: 3 ml Aspirin (Aspirin) 325 mg PO STAT STA Stop: 01/05/18 19:41 Last Admin: 01/05/18 20:43 Dose: 325 mg Methylprednisolone (Solu-Medrol) 125 mg IVP STAT STA Stop: 01/05/18 19:43 Last Admin: 01/05/18 20:42 Dose: 125 mg IVP Administration Document 01/05/18 20:42 (Rec: 01/05/18 20:[address]) Charges for Administration # of IVP Administrations 1 Nitroglycerin (Nitro-Bid 2% Oint) 1 ea TOP STAT STA Stop: 01/05/18 19:41 Last Admin: 01/05/18 20:42 Dose: 1 ea Disposition/Present on Arrival - Present on Arrival Any Indicators Present on Arrival: No History of DVT/PE: No History of Uncontrolled Diabetes: No Urinary Catheter: No History of Decub. Ulcer: No History Surgical Site Infection Following: None - Disposition Have Diagnosis and Disposition been Completed?: Yes Diagnosis: Chest pain with moderate risk for cardiac etiology, COPD with acute exacerbation, Acute bronchitis, Non compliance w medication regimen, Lightheadedness Disposition: HOSPITALIZED Disposition Time: 22:15 Patient Plan: Admission, Telemetry Patient Problems: Current Active Problems Problem Status Onset Acute bronchitis Acute COPD with acute exacerbation Acute Chest pain with moderate risk for cardiac etiology Acute Lightheadedness Acute Non compliance w medication regimen Acute Condition: STABLE Discharge Instructions (ExitCare): Chest Pain (ED) Print Language: SAMI Referrals: Enedina Vinson MD [Primary Care Provider] - Follow up with primary Forms: [employer] (Irish)
[2018-01-05] MEDS: Albuterol-Ipratrop 3 mg / 0.5 (3 ml) UD IH SCH ×3 (20:42→23:36)
[2018-01-05] MEDS: Sodium Chloride 0.9% 1,000 ML IV SCH (20:44)
[2018-01-05 21:08] LABS: BASO # 0.01 K/mm3 (0.0-2.0); BASO % 0.2 % (0.0-3.0); EOS # 0.2 (0.0-0.7); EOS % 5.7 % (1.5-5.0); GRAN # 2.51 (1.4-6.5); GRAN % 59.2 % (50.0-68.0); HEMOGLOBIN 13.9 g/dL (14.0-18.0); LYMPH # 1.1 (1.2-3.4); LYMPH % 25.2 % (22.0-35.0); MEAN CELL VOLUME 87.9 fl (80.0-105.0); MEAN CORPUSCULAR HGB CONC 34.2 g/dl (31.0-37.0); MEAN PLATELET VOLUME 11.9 fl (7.0-11.0); MONO # 0.4 (0.1-0.6); MONO % 9.7 % (1.0-6.0); RBC 4.63 10^6/uL (3.5-6.1); RED CELL DISTRIBUTION WIDTH 12.9 % (11.5-14.5); WHITE BLOOD COUNT 4.2 10^3/ul (4.5-11.0)
[2018-01-05 21:21] LABS: ALB/GLOB RATIO 1.4 (1.1-1.8); ALBUMIN 4.4 g/dL (3.0-4.8); ALT/SGPT 27 U/L (7-56); AST/SGOT 29 U/L (17-59); BLOOD UREA NITROGEN 14 mg/dL (7-21); CALCIUM 8.9 mg/dL (8.4-10.5); GFR AFRICAN-AMERICAN > 60; GFR NON-AFRICAN AMERICAN > 60; LIPASE 88 U/L (23-300)
[2018-01-05 21:22] LABS: B-TYPE NATRIURETIC PEPTIDE 123 pg/mL (0-450); TROPONIN I < 0.01 ng/mL
[2018-01-05] MEDS ORDERED: Albuterol-Ipratrop 3 mg / 0.5 (3 ml) UD IH PRN (21:49)
[2018-01-05 21:54] LABS: INR 0.98 (0.93-1.08); PROTHROMBIN TIME 11.2 SECONDS (9.4-12.5)
[2018-01-05 21:54] LABS: VENOUS BLOOD GAS BASE EXCESS 0.3 mmol/L (0.0-2.0); VENOUS BLOOD GAS PO2 39 mm/Hg (30-55); VENOUS BLOOD PH 7.32 (7.32-7.43)
[2018-01-05] MEDS ORDERED: cefTRIAXone 1 gm 1 GM/100 ML BAG IVPB STA (22:28)
[2018-01-05] MEDS ORDERED: Azithromycin 500MG/NS 250ml 500 MG/250 ML BAG IVPB STA (22:28)
[2018-01-05] MEDS: MethylPREDNISolone 40 mg Vial IVP SCH (23:36)
--- NOTE | 2018-01-06 03:57 | CP.PCM.HP ---
<Anupam Eugene - Last Filed: 01/06/18 04:03> History of Present Illness - History of Present Illness History of Present Illness: Medicine H&P: Dr. Cardenas Chief Complaint: Chest tightness HPI: 51 y/o M with extensive medical history presents with left sided chest tightness and non-related shortness of breath for a couple of hours. Patient states he has had pain like this in the past, when [place] [facility] [place]. Both patient and chart review reveal that he is non-compliant with home medications. Of note, patient's most recent cardiac cath in 02/2017 revealed 60% stenosis of the LAD; no stents placed at that time. Most recent ECHO was in 07/2016, showed grade I abnormal relaxation pattern with 50% EF. Patient does not follow up with his community liaison. Review of Systems: 12 point ROS obtained and negative except as per HPI PMH: HTN, HLD, cardiomyopathy, anxiety, depression, CAD s/p cardiac cath, gastric ulcers, and emphysema PSH: Facial surgery, appendectomy, hernia repair, unspecified gastric surgery. FMH: Noncontributory Allergies: NKDA Social: Admits to 1/2 ppd of tobacco for 7 years and social EtOH use. Denied illicit drug use. Medications: Xanax 1 mg PO TID, ASA 81 mg PO daily, Lipitor 40 mg PO daily PMD: Dr. Vinson Present on Admission - Present on Admission Any Indicators Present on Admission: No Past Patient History - Infectious Disease Hx of Infectious Diseases: None - Tetanus Immunizations Tetanus Immunization: Unknown - Past Social History Smoking Status: Heavy Smoker > 10 Cigarettes Daily - CARDIAC Hx Cardiac Disorders: Yes Hx Hypertension: Yes - PULMONARY Hx Respiratory Disorders: Yes Hx Chronic Obstructive Pulmonary Disease (COPD): Yes - NEUROLOGICAL Hx Neurological Disorder: Yes Hx Migraine: Yes - HEENT Hx HEENT Problems: No - RENAL Hx Kidney Stones: Yes - ENDOCRINE/METABOLIC Hx Endocrine Disorders: No - HEMATOLOGICAL/ONCOLOGICAL Hx Blood Disorders: Yes (blood transfusions hx ulcers) - INTEGUMENTARY Hx Dermatological Problems: Yes - MUSCULOSKELETAL/RHEUMATOLOGICAL Hx Falls: No - GASTROINTESTINAL Hx Gastrointestinal Disorders: Yes - GENITOURINARY/GYNECOLOGICAL Hx Genitourinary Disorders: No - PSYCHIATRIC Hx Psychophysiologic Disorder: Yes Hx Anxiety: Yes Hx Depression: Yes Hx Substance Use: No - SURGICAL HISTORY Hx Appendectomy: Yes Hx Cardiac Catheterization: Yes Other/Comment: colonscopy - ANESTHESIA Hx Anesthesia: Yes Hx Anesthesia Reactions: No Hx Malignant Hyperthermia: No Meds Allergies/Adverse Reactions: Allergies Allergy/AdvReac Type Severity Reaction Status Date / Time No Known Allergies Allergy Verified 06/14/17 18:30 Physical Exam - Constitutional Appears: Well - Head Exam Head Exam: ATRAUMATIC, NORMAL INSPECTION, NORMOCEPHALIC - Eye Exam Eye Exam: EOMI, Normal appearance, PERRL Pupil Exam: NORMAL ACCOMODATION, PERRL - ENT Exam ENT Exam: Mucous Membranes Moist, Normal Exam - Neck Exam Neck exam: Positive for: Normal Inspection - Respiratory Exam Respiratory Exam: Wheezes, NORMAL BREATHING PATTERN - Cardiovascular Exam Cardiovascular Exam: REGULAR RHYTHM - GI/Abdominal Exam GI & Abdominal Exam: Normal Bowel Sounds, Soft. absent: Tenderness - Extremities Exam Extremities exam: Positive for: normal inspection - Back Exam Back exam: NORMAL INSPECTION - Neurological Exam Neurological exam: Alert, CN II-XII Intact, Normal Gait, Oriented x3, Reflexes Normal - Psychiatric Exam Psychiatric exam: Normal Affect, Normal Mood - Skin Skin Exam: Dry, Intact, Normal Color, Warm Results - Vital Signs Recent Vital Signs: Last Vital Signs Temp 98.4 F 01/06/18 00:51 Pulse 64 01/06/18 00:51 Resp 19 01/06/18 00:51 BP 114/70 01/06/18 00:51 Pulse Ox 99 01/05/18 23:27 - Labs Result Diagrams: 01/05/18 20:21 01/05/18 20:21 Assessment & Plan - Assessment and Plan (Free Text) Assessment: 52 year old male with extensive medical history presents with chest tightness and shortness of breath. EKG in ED was NSR with no abnormalities; Initial troponin was negative. Patient also had shortness of breath, but no SIRS criteria and chest XR negative for infiltrates. Patient appears to be pancytopenic with Low WBC, Low Hgb, and Low-normal platelets. Chronic medical problems as below; patient has history of hypertension but is normotensive here. Chest Pain r/o ACS - Troponin series, A1C, Lipid Panel, ECHO - Tylenol for pain - Cardiology consulted COPD Exacerbation with Hx Emphysema - Blood and sputum cultures - Duonebs KADE and PRN; Solumederol; O2 NC Pancytopenia - Unknown Origin - Outpatient work up Hx CAD - Continue ASA Hx Hyperlipidemia - Continue Lipitor - Heart healthy diet Hx Hypertension - Monitor Hx Anxiety/Depression - Continue home Xanax PRN GI/DVT Prophylaxis - Protonix - Lovenox <Enzo Cardenas - Last Filed: 01/06/18 04:46> Results - Vital Signs Recent Vital Signs: Last Vital Signs Temp 98.4 F 01/06/18 00:51 Pulse 64 01/06/18 00:51 Resp 19 01/06/18 00:51 BP 114/70 01/06/18 00:51 Pulse Ox 99 01/05/18 23:27 - Labs Result Diagrams: 01/05/18 20:21 01/05/18 20:21 Attending/Attestation - Attestation I have personally seen and examined this patient.: Yes I have fully participated in the care of the patient.: Yes I have reviewed all pertinent clinical information: Yes Notes (Text): 01/06/18 04:45 Agree with history , physical examination, assessment and plan except pancytopenia.
[2018-01-06] MEDS: Albuterol-Ipratrop 3 mg / 0.5 (3 ml) UD IH SCH ×4 (05:18→16:02)
[2018-01-06] MEDS ORDERED: Pantoprazole 40 mg EC Tab PO SCH (06:00)
[2018-01-06 06:24] VITALS: O2SAT 97
[2018-01-06 07:30] LABS: BASO # 0.01 K/mm3 (0.0-2.0); BASO % 0.3 % (0.0-3.0); EOS % 0.3 % (1.5-5.0); GRAN # 2.71 (1.4-6.5); GRAN % 79.5 % (50.0-68.0); LYMPH # 0.4 (1.2-3.4); MEAN CELL VOLUME 86.7 fl (80.0-105.0); MEAN CORPUSCULAR HEMOGLOBIN 29.6 pg (25.0-35.0); MEAN CORPUSCULAR HGB CONC 34.2 g/dl (31.0-37.0); MEAN PLATELET VOLUME 11.4 fl (7.0-11.0); MONO # 0.3 (0.1-0.6); MONO % 7.9 % (1.0-6.0); RBC 4.05 10^6/uL (3.5-6.1); RED CELL DISTRIBUTION WIDTH 12.7 % (11.5-14.5); WHITE BLOOD COUNT 3.4 10^3/ul (4.5-11.0)
[2018-01-06 07:48] LABS: LDL CHOLESTEROL 74 mg/dL (0-129); TROPONIN I < 0.01 ng/mL
[2018-01-06 07:58] LABS: ALB/GLOB RATIO 1.3 (1.1-1.8); ALBUMIN 3.6 g/dL (3.0-4.8); ALT/SGPT 22 U/L (7-56); AST/SGOT 21 U/L (17-59); BLOOD UREA NITROGEN 17 mg/dL (7-21); CALCIUM 8.2 mg/dL (8.4-10.5); GFR AFRICAN-AMERICAN > 60; GFR NON-AFRICAN AMERICAN > 60; HDL CHOLESTEROL 45 mg/dL (29-60)
--- NOTE | 2018-01-06 08:19 | RAD ---
HISTORY: chest pain, sob, cough COMPARISON: No prior. TECHNIQUE: Chest PA and lateral FINDINGS: LUNGS: No active pulmonary disease. PLEURA: No significant pleural effusion identified. No pneumothorax apparent. CARDIOVASCULAR: Normal. OSSEOUS STRUCTURES: No significant abnormalities. VISUALIZED UPPER ABDOMEN: Normal. OTHER FINDINGS: None. IMPRESSION: No active disease.
[2018-01-06] MEDS: MethylPREDNISolone 40 mg Vial IVP SCH (09:43)
[2018-01-06] MEDS ORDERED: Enoxaparin 40 mg Syringe SC SCH (10:00)
[2018-01-06] MEDS: Sodium Chloride 0.9% 1,000 ML IV SCH (10:24)
--- NOTE | 2018-01-06 10:54 | CON ---
DATE: 01/06/2018 REQUESTING PHYSICIAN: Johnny Osborn MD. REASON FOR CONSULTATION: Chest pain. HISTORY: This is a 52-year-old man with known coronary artery disease, admitted with chest discomfort. He has had multiple admissions for chest pain over the past several years. He underwent catheterization last year, was found to have fairly mild coronary artery disease at that time. He states that he was walking yesterday and felt retrosternal chest tightness and dyspnea. He became concerned and presents to the emergency room. Initial electrocardiograms have been negative. He continues to smoke. He has a history of hypertension, hyperlipidemia. PAST MEDICAL HISTORY: His past history is notable for anxiety, depression, prior appendectomy, herniorrhaphy and facial surgery. CURRENT MEDICATIONS: Include Lipitor, aspirin and Xanax. ALLERGIES: NONE. FAMILY HISTORY: Both parents are from age-related illness. SOCIAL HISTORY: He is a smoker of at least half pack per day for many years. He drinks occasionally. REVIEW OF SYSTEMS: Ten-point review of systems is otherwise unremarkable. PHYSICAL EXAMINATION: GENERAL: He is a middle-aged man, who appears comfortable at the present time. VITAL SIGNS: Blood pressure is 110/70 with pulse of 60, respirations are 16. He is afebrile. HEENT: Normocephalic, atraumatic. NECK: Supple. No JVD noted. CHEST: A few scattered rhonchi heard. HEART: PMI in normal position. No pathological murmur or gallops noted. ABDOMEN: Soft, nontender, normoactive bowel sounds. EXTREMITIES: No clubbing, cyanosis or edema. SKIN: Warm and dry. PSYCHIATRIC: Normal mood and affect. NEUROLOGICAL: Alert and oriented x3. No gross motor or sensory deficits is appreciable. DIAGNOSTIC DATA: White count of 4.2, hemoglobin and hematocrit of 13.9 and 40.7 with a platelet count 144,000, potassium 4.4, BUN and creatinine 14 and 0.9. Initial troponin and CK are negative. Electrocardiogram reveals sinus rhythm with nonspecific ST-T abnormalities. Chest x-ray will be reviewed. IMPRESSION: 1. Chest pain, noncardiac cause. Only mild coronary artery disease on catheterization last year. 2. History of persistent tobacco abuse. 3. History of hyperlipidemia and anxiety. RECOMMENDATIONS: Serial enzymes will be obtained. Old records will be reviewed. Increased activity and ambulation are advised. Smoking abstinence was strongly encouraged. If his cardiac enzymes are negative, discharge home with outpatient followup is advised. I thank you for this consultation. Rodolfo Albrecht MD
[2018-01-06 12:40] VITALS: BP 117/72; RESP 20; TEMP 98.3
[2018-01-06 14:23] LABS: TROPONIN I < 0.01 ng/mL
--- NOTE | 2018-01-06 15:21 | CARD ---
APPROVED REPORT EKG Measurement Heart [id number] <Conclusion> Normal sinus rhythm Normal ECG
--- NOTE | 2018-01-06 15:22 | CARD ---
APPROVED REPORT EKG Measurement Heart [id number] <Conclusion> Sinus rhythm with premature atrial complexes Nonspecific ST and T wave abnormality Prolonged QT Abnormal ECG
--- NOTE | 2018-01-06 16:05 | CP.PCM.DIS ---
<Bridgette Zendejas - Last Filed: 01/06/18 16:37> Provider - Provider Date of Admission: 01/05/18 22:25 Attending physician: Johnny Osborn MD Primary care physician: Enedina Vinson MD Consults: Cardio: Antolniffershania Time Spent in preparation of Discharge (in minutes): 45 Hospital Course - Lab Results Lab Results: Most Recent Lab Values WBC 3.4 10^3/ul (4.5-11.0) L 01/06/18 07:00 RBC 4.05 10^6/uL (3.5-6.1) 01/06/18 07:00 Hgb 12.0 g/dL (14.0-18.0) L 01/06/18 07:00 Hct 35.1 % (42.0-52.0) L 01/06/18 07:00 MCV 86.7 fl (80.0-105.0) 01/06/18 07:00 MCH 29.6 pg (25.0-35.0) 01/06/18 07:00 MCHC 34.2 g/dl (31.0-37.0) 01/06/18 07:00 RDW 12.7 % (11.5-14.5) 01/06/18 07:00 Plt Count 128 10^3/uL (120.0-450.0) 01/06/18 07:00 MPV 11.4 fl (7.0-11.0) H 01/06/18 07:00 Gran % 79.5 % (50.0-68.0) H 01/06/18 07:00 Lymph % (Auto) 12.0 % (22.0-35.0) L 01/06/18 07:00 [place] % (Auto) 7.9 % (1.0-6.0) H 01/06/18 07:00 Eos % (Auto) 0.3 % (1.5-5.0) L 01/06/18 07:00 Baso % (Auto) 0.3 % (0.0-3.0) 01/06/18 07:00 Gran # 2.71 (1.4-6.5) 01/06/18 07:00 Lymph # (Auto) 0.4 (1.2-3.4) L 01/06/18 07:00 [place] # (Auto) 0.3 (0.1-0.6) 01/06/18 07:00 Eos # (Auto) 0.0 (0.0-0.7) 01/06/18 07:00 Baso # (Auto) 0.01 K/mm3 (0.0-2.0) 01/06/18 07:00 PT 11.2 SECONDS (9.4-12.5) 01/05/18 20:21 INR 0.98 (0.93-1.08) 01/05/18 20:21 APTT 30.0 Seconds (25.1-36.5) 01/05/18 20:21 pO2 39 mm/Hg (30-55) 01/05/18 21:45 VBG pH 7.32 (7.32-7.43) 01/05/18 21:45 VBG pCO2 53.0 (40-60) 01/05/18 21:45 VBG HCO3 27.3 mmol/l (21-28) 01/05/18 21:45 VBG Total CO2 28.9 mmol.L (22-28) H 01/05/18 21:45 VBG O2 Sat (Calc) 77.4 % (40-65) H 01/05/18 21:45 VBG Base Excess 0.3 mmol/L (0.0-2.0) 01/05/18 21:45 VBG Potassium 3.5 mmol/L (3.6-5.2) L 01/05/18 21:45 Sodium 140.0 mmol/L (132-148) 01/05/18 21:45 Chloride 108.0 mmol/L (98-107) H 01/05/18 21:45 Glucose 103 mg/dl (75-110) 01/05/18 21:45 Lactate 1.5 mmol/L (0.7-2.1) 01/05/18 21:45 FiO2 21.0 % 01/05/18 21:45 Sodium 145 mmol/L (132-148) 01/06/18 07:00 Potassium 4.1 mmol/L (3.6-5.0) 01/06/18 07:00 Chloride 111 mmol/L (98-107) H 01/06/18 07:00 Carbon Dioxide 22 mmol/L (21-33) 01/06/18 07:00 Anion Gap 16 (10-20) 01/06/18 07:00 BUN 17 mg/dL (7-21) 01/06/18 07:00 Creatinine 0.8 mg/dl (0.8-1.5) 01/06/18 07:00 Est GFR ( Amer) > 60 01/06/18 07:00 Est GFR (Non-Af Amer) > 60 01/06/18 07:00 Random Glucose 174 mg/dL (70-110) H 01/06/18 07:00 Hemoglobin A1c 6.0 % (4.2-6.5) 01/06/18 07:00 Calcium 8.2 mg/dL (8.4-10.5) L 01/06/18 07:00 Phosphorus 2.9 mg/dL (2.5-4.5) 01/06/18 07:00 Magnesium 2.0 mg/dL (1.7-2.2) 01/06/18 07:00 Total Bilirubin 0.2 mg/dL (0.2-1.3) 01/06/18 07:00 AST 21 U/L (17-59) 01/06/18 07:00 ALT 22 U/L (7-56) 01/06/18 07:00 Alkaline Phosphatase 42 U/L (38-126) 01/06/18 07:00 Lactate Dehydrogenase 357 U/L (333-699) 01/06/18 13:55 Total Creatine Kinase 81 U/L (35-230) 01/06/18 13:55 Troponin I < 0.01 ng/mL 01/06/18 13:55 NT-Pro-B Natriuret Pep 123 pg/mL (0-450) 01/05/18 20:21 Total Protein 6.5 g/dL (5.8-8.3) 01/06/18 07:00 Albumin 3.6 g/dL (3.0-4.8) 01/06/18 07:00 Globulin 2.9 gm/dL 01/06/18 07:00 Albumin/Globulin Ratio 1.3 (1.1-1.8) 01/06/18 07:00 Triglycerides 36 mg/dL (35-160) 01/06/18 07:00 Cholesterol 135 mg/dL (130-200) 01/06/18 07:00 LDL Cholesterol Direct 74 mg/dL (0-129) 01/06/18 07:00 HDL Cholesterol 45 mg/dL (29-60) 01/06/18 07:00 Lipase 88 U/L (23-300) 01/05/18 20:21 TSH 3rd Generation 1.80 mIU/mL (0.46-4.68) 01/05/18 20:21 Venous Blood Potassium 3.5 mmol/L (3.6-5.2) L 01/05/18 21:45 Alcohol, Quantitative < 10 mg/dL (0-10) 01/06/18 10:05 - Hospital Course Hospital Course: Upon Admission 51 y/o M with extensive medical history presents with left sided chest tightness and non-related shortness of breath for a couple of hours. Patient states he has had pain like this in the past, when he came into [facility] and had a cardiac cath. Both patient and chart review reveal that he is non-compliant with home medications. Of note, patient's most recent cardiac cath in 02/2017 revealed 60% stenosis of the LAD; no stents placed at that time. Most recent ECHO was in 07/2016, showed grade I abnormal relaxation pattern with 50% EF. 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 EKG in ED was NSR with no abnormalities; Initial troponin was negative. Patient also had shortness of breath, but no SIRS criteria and chest XR negative for infiltrates. Patient was admitted to [facility]. Serial troponins were negative with no acute ST changes. Cardiology Dr. Albrecht examined the patient who recommended increased activity and ambulation, smoking cessation, and outpatient cardiology work up. Patient clinically improved and was deemed medically stable for discharge. 1) chest pain: resolved- recommend outpatient cardio work up and medication compliance 2) COPD exacerbation: resolved- recommend tobacco cessation and medication compliance 3) hx of CAD: chronic 4) hx of HLD: recommend medication compliance 5) hx of anxiety: continue home meds Upon Discharge Patient stable for discharge home. Patient to take medications as prescribed. Patient to follow up with PMD within 7 days and cabinetmaker apprentice within 10 days. Patient also encouraged to quit tobacco use. If symptoms persist or worsen patient to visit ER immediately. Instructions discussed in detail with patient who understands and agrees Discharge Exam - Head Exam Head Exam: ATRAUMATIC, NORMAL INSPECTION, NORMOCEPHALIC - Eye Exam Eye Exam: EOMI, Normal appearance, PERRL. absent: Conjunctival injection, Scleral icterus Pupil Exam: NORMAL ACCOMODATION, PERRL - ENT Exam ENT Exam: Mucous Membranes Moist - Neck Exam Neck exam: Full Rom, Normal Inspection - Respiratory Exam Respiratory Exam: Wheezes (scant b/l). absent: Accessory Muscle Use, Rales, Rhonchi, Respiratory Distress - Cardiovascular Exam Cardiovascular Exam: REGULAR RHYTHM, +S1, +S2 - GI/Abdominal Exam GI & Abdominal Exam: Normal Bowel Sounds, Soft. absent: Tenderness - Rectal Exam Rectal Exam: Deferred - Extremities Exam Extremities exam: normal capillary refill, normal inspection, pedal pulses present - Neurological Exam Neurological exam: Alert, CN II-XII Intact, Oriented x3 - Psychiatric Exam Psychiatric exam: Normal Affect, Normal Mood - Skin Skin Exam: Dry, Intact, Normal Color, Warm Discharge Plan - Discharge Medications Prescriptions: Albuterol 0.083% [Albuterol Sulfate 3 Ml] 3 ml IH Q6H PRN #1 neb PRN Reason: Shortness Of Breath Aspirin [Aspirin Chewable] 81 mg PO DAILY #30 chew Atorvastatin [Lipitor] 40 mg PO DIN #30 tab Fluticasone/Salmeterol [Advair 250-50 Diskus] 1 each IH Q12 #1 blst.w.dev Prednisone 10 mg PO DAILY #5 tab.ds.pk - Follow Up Plan Condition: STABLE Disposition: HOME/ ROUTINE Instructions: COPD Including Emphysema (DC), Chest Pain (DC), Chest Pain (DC), Chest Pain (GEN) Additional Instructions: Patient stable for discharge home. Patient to take medications as prescribed. Patient to follow up with PMD within 7 days and cabinetmaker apprentice within 10 days. Patient also encouraged to quit tobacco use. If symptoms persist or worsen patient to visit ER immediately. Instructions discussed in detail with patient who understands and agrees. Referrals: Enedina Vinson MD [Primary Care Provider] - <Johnny Osborn - Last Filed: 01/06/18 16:58> Provider - Provider Date of Admission: 01/05/18 22:25 Attending physician: Johnny Osborn MD Primary care physician: Enedina Vinson MD Hospital Course - Lab Results Lab Results: Most Recent Lab Values WBC 3.4 10^3/ul (4.5-11.0) L 01/06/18 07:00 RBC 4.05 10^6/uL (3.5-6.1) 01/06/18 07:00 Hgb 12.0 g/dL (14.0-18.0) L 01/06/18 07:00 Hct 35.1 % (42.0-52.0) L 01/06/18 07:00 MCV 86.7 fl (80.0-105.0) 01/06/18 07:00 MCH 29.6 pg (25.0-35.0) 01/06/18 07:00 MCHC 34.2 g/dl (31.0-37.0) 01/06/18 07:00 RDW 12.7 % (11.5-14.5) 01/06/18 07:00 Plt Count 128 10^3/uL (120.0-450.0) 01/06/18 07:00 MPV 11.4 fl (7.0-11.0) H 01/06/18 07:00 Gran % 79.5 % (50.0-68.0) H 01/06/18 07:00 Lymph % (Auto) 12.0 % (22.0-35.0) L 01/06/18 07:00 [place] % (Auto) 7.9 % (1.0-6.0) H 01/06/18 07:00 Eos % (Auto) 0.3 % (1.5-5.0) L 01/06/18 07:00 Baso % (Auto) 0.3 % (0.0-3.0) 01/06/18 07:00 Gran # 2.71 (1.4-6.5) 01/06/18 07:00 Lymph # (Auto) 0.4 (1.2-3.4) L 01/06/18 07:00 [place] # (Auto) 0.3 (0.1-0.6) 01/06/18 07:00 Eos # (Auto) 0.0 (0.0-0.7) 01/06/18 07:00 Baso # (Auto) 0.01 K/mm3 (0.0-2.0) 01/06/18 07:00 PT 11.2 SECONDS (9.4-12.5) 01/05/18 20:21 INR 0.98 (0.93-1.08) 01/05/18 20:21 APTT 30.0 Seconds (25.1-36.5) 01/05/18 20:21 pO2 39 mm/Hg (30-55) 01/05/18 21:45 VBG pH 7.32 (7.32-7.43) 01/05/18 21:45 VBG pCO2 53.0 (40-60) 01/05/18 21:45 VBG HCO3 27.3 mmol/l (21-28) 01/05/18 21:45 VBG Total CO2 28.9 mmol.L (22-28) H 01/05/18 21:45 VBG O2 Sat (Calc) 77.4 % (40-65) H 01/05/18 21:45 VBG Base Excess 0.3 mmol/L (0.0-2.0) 01/05/18 21:45 VBG Potassium 3.5 mmol/L (3.6-5.2) L 01/05/18 21:45 Sodium 140.0 mmol/L (132-148) 01/05/18 21:45 Chloride 108.0 mmol/L (98-107) H 01/05/18 21:45 Glucose 103 mg/dl (75-110) 01/05/18 21:45 Lactate 1.5 mmol/L (0.7-2.1) 01/05/18 21:45 FiO2 21.0 % 01/05/18 21:45 Sodium 145 mmol/L (132-148) 01/06/18 07:00 Potassium 4.1 mmol/L (3.6-5.0) 01/06/18 07:00 Chloride 111 mmol/L (98-107) H 01/06/18 07:00 Carbon Dioxide 22 mmol/L (21-33) 01/06/18 07:00 Anion Gap 16 (10-20) 01/06/18 07:00 BUN 17 mg/dL (7-21) 01/06/18 07:00 Creatinine 0.8 mg/dl (0.8-1.5) 01/06/18 07:00 Est GFR ( Amer) > 60 01/06/18 07:00 Est GFR (Non-Af Amer) > 60 01/06/18 07:00 Random Glucose 174 mg/dL (70-110) H 01/06/18 07:00 Hemoglobin A1c 6.0 % (4.2-6.5) 01/06/18 07:00 Calcium 8.2 mg/dL (8.4-10.5) L 01/06/18 07:00 Phosphorus 2.9 mg/dL (2.5-4.5) 01/06/18 07:00 Magnesium 2.0 mg/dL (1.7-2.2) 01/06/18 07:00 Total Bilirubin 0.2 mg/dL (0.2-1.3) 01/06/18 07:00 AST 21 U/L (17-59) 01/06/18 07:00 ALT 22 U/L (7-56) 01/06/18 07:00 Alkaline Phosphatase 42 U/L (38-126) 01/06/18 07:00 Lactate Dehydrogenase 357 U/L (333-699) 01/06/18 13:55 Total Creatine Kinase 81 U/L (35-230) 01/06/18 13:55 Troponin I < 0.01 ng/mL 01/06/18 13:55 NT-Pro-B Natriuret Pep 123 pg/mL (0-450) 01/05/18 20:21 Total Protein 6.5 g/dL (5.8-8.3) 01/06/18 07:00 Albumin 3.6 g/dL (3.0-4.8) 01/06/18 07:00 Globulin 2.9 gm/dL 01/06/18 07:00 Albumin/Globulin Ratio 1.3 (1.1-1.8) 01/06/18 07:00 Triglycerides 36 mg/dL (35-160) 01/06/18 07:00 Cholesterol 135 mg/dL (130-200) 01/06/18 07:00 LDL Cholesterol Direct 74 mg/dL (0-129) 01/06/18 07:00 HDL Cholesterol 45 mg/dL (29-60) 01/06/18 07:00 Lipase 88 U/L (23-300) 01/05/18 20:21 TSH 3rd Generation 1.80 mIU/mL (0.46-4.68) 01/05/18 20:21 Venous Blood Potassium 3.5 mmol/L (3.6-5.2) L 01/05/18 21:45 Alcohol, Quantitative < 10 mg/dL (0-10) 01/06/18 10:05 Attending/Attestation - Attestation I have personally seen and examined this patient.: Yes I have fully participated in the care of the patient.: Yes I have reviewed all pertinent clinical information, including history, physical exam and plan: Yes Notes (Text): 01/06/18 16:49 attending note; patient seen and examined with resident. patient is a 52-year-old with the past medical history of active smoking, emphysema, history of coronary artery disease, cardiac cath in 2016 , noncompliance with follow-up is admitted with chest tightness. EKG showed non specific ST t changes. Cardiac enzymes x 3 negative. cardiology evaluation appreciated. Active smoking; smoking cessation is strongly recomended. Mild COPD; currently no active wheezing. No acute respiratory distress. Ambulating fine. Discharge home albuterol,Advair and aspirin and lipitor. Patient was not on any medication before admission. alcohol use. Complete alcohol cessation strongly advised. Patient is a follow-up with PMD Dr. enedina vinson. follow-up with cardiology as per PMD.
[2018-01-06 17:12] VITALS: PULSE 68
== END 2018-01-06 17:40 | disposition home or self-care (01) ==
LOC: ED 19:12 → ERH 22:25 → INTOOBSV 22:25 → ERH 22:48 → 2RSO 01-06 00:35
PROVIDERS: ADMIT Internal Medicine; ATTEND Internal Medicine
DX: R07.89 Other chest pain (principal); D61.818 Other pancytopenia; E78.5 Hyperlipidemia, unspecified; I10 Essential (primary) hypertension; I25.10 Atherosclerotic heart disease of native coronary artery without angina pectoris; I42.9 Cardiomyopathy, unspecified; J20.9 Acute bronchitis, unspecified; J44.0 Chronic obstructive pulmonary disease with (acute) lower respiratory infection; J44.1 Chronic obstructive pulmonary disease with (acute) exacerbation; Z87.442 Personal history of urinary calculi; Z87.11 Personal history of peptic ulcer disease; Z90.49 Acquired absence of other specified parts of digestive tract; Z91.14 Patient's other noncompliance with medication regimen; Z91.19 Patient's noncompliance with other medical treatment and regimen; F17.210 Nicotine dependence, cigarettes, uncomplicated
CPT/HCPCS: 36415; 71046; 80053; 80061; 80320; 82550; 82803; 83036; 83615; 83690; 83735; 83880; 84100; 84443; 84484; 85025; 85610; 85730; 87040; 93005; 94640; 94760; 96365; 96368; 96375; 96376; 99285; G0378; J0456; J0696; J1650; J2920; J2930; J7040

== ENCOUNTER 2018-01-10 06:34 | Emergency (ER) | payer OTHER ==
[2018-01-10 06:34] VITALS: PULSE 88; BMI 21.1
--- NOTE | 2018-01-10 07:15 | ED PDOC ---
Arrival/HPI - General Chief Complaint: Syncope Time Seen by Provider: 01/10/18 07:07 Historian: Patient - History of Present Illness Narrative History of Present Illness (Text): 01/10/18 07:10 52 year old male, whose PMH includes, hypertension, COPD, and cardiac catheterization, who presents to the emergency department complaining of loss of consciousness prior to arrival. Patient states he was walking when he passed out and does not remember for how long he lost consciousness. He was able to ambulate to the hospital and complaints of also hitting his head. Patient is currently asymptomatic and denies other complaints. Patient denies chest pain, shortness of breath, headache, or other symptom. Patient was recently here for the same reason. Time/Duration: Prior to Arrival Symptom Onset: Sudden Context: Walking Past Medical History - Provider Review Nursing Documentation Reviewed: Yes - Past History Past History: No Previous - Infectious Disease Hx of Infectious Diseases: None - Tetanus Immunization Tetanus Immunization: Unknown - Cardiac Hx Cardiac Disorders: Yes Hx Hypertension: Yes - Pulmonary Hx Respiratory Disorders: Yes Hx Chronic Obstructive Pulmonary Disease (COPD): Yes - Neurological Hx Neurological Disorder: Yes Hx Migraine: Yes - HEENT Hx HEENT Disorder: No - Renal Hx Kidney Stones: Yes - Endocrine/Metabolic Hx Endocrine Disorders: No - Hematological/Oncological Hx Blood Disorders: Yes (blood transfusions hx ulcers) - Integumentary Hx Dermatological Disorder: Yes - Musculoskeletal/Rheumatological Hx Falls: No - Gastrointestinal Hx Gastrointestinal Disorders: Yes - Genitourinary/Gynecological Hx Genitourinary Disorders: No - Psychiatric Hx Psychophysiologic Disorder: Yes Hx Anxiety: Yes Hx Depression: Yes Hx Substance Use: No - Past Surgical History Past Surgical History: No Previous - Surgical History Hx Appendectomy: Yes Hx Cardiac Catheterization: Yes Other/Comment: colonscopy - Anesthesia Hx Anesthesia: Yes Hx Anesthesia Reactions: No Hx Malignant Hyperthermia: No - Suicidal Assessment Feels Threatened In Home Enviroment: No Family/Social History - Physician Review Nursing Documentation Reviewed: Yes Family/Social History: Unknown Family HX Smoking Status: Heavy Smoker > 10 Cigarettes Daily Hx Alcohol Use: No Hx Substance Use: No Hx Substance Use Treatment: No Allergies/Home Meds Allergies/Adverse Reactions: Allergies No Known Allergies Allergy (Verified 06/14/17 18:30) Review of Systems - Review of Systems Skin: Other (abrasions on head) Neurological: Other (loss of consciousness) Physical Exam Vital Signs Reviewed: Yes Vital Signs Temp Pulse Resp BP Pulse Ox 01/10/18 10:04 98.5 F 68 18 125/72 99 01/10/18 09:30 98.2 F 67 20 121/75 96 01/10/18 06:50 97.8 F 98 H 18 136/87 99 Temperature: Afebrile Blood Pressure: Normal Pulse: Tachycardic Respiratory Rate: Normal Appearance: Positive for: Well-Appearing, Non-Toxic, Comfortable Pain Distress: None Mental Status: Positive for: Alert and Oriented X 3 - Systems Exam Head: Present: Atraumatic, Normocephalic, Abrasion Pupils: Present: PERRL Extroacular Muscles: Present: EOMI Conjunctiva: Present: Normal Mouth: Present: Moist Mucous Membranes Respiratory/Chest: Present: Clear to Auscultation, Good Air Exchange. No: Respiratory Distress, Accessory Muscle Use, Wheezes, Rales, Retracting, Rhonchi Cardiovascular: Present: Regular Rate and Rhythm, Normal S1, S2. No: Murmurs Abdomen: Present: Normal Bowel Sounds. No: Tenderness, Distention, Peritoneal Signs Neurological: Present: GCS=15, CN II-XII Intact, Speech Normal, Motor Func Grossly Intact, Normal Sensory Function, Normal Cerebellar Funct Skin: Present: Warm, Dry, Normal Color. No: Rashes Psychiatric: Present: Alert, Oriented x 3, Normal Insight, Normal Concentration Medical Decision Making ED Course and Treatment: 01/10/18 Impression: 52 year old male with several abrasions on head s/p loss of consciousness and hitting head prior to arrival. Plan: -- CT Head -- EKG -- Labs -- CXR -- Urinalysis -- Reassess and disposition Progress Notes: 01/10/18 07:37 EKG: Ordered, reviewed, and independently interpreted the EKG. Rate : 83 BPM Rhythm : NSR Interpretation : No ST-segment elevations or depressions, no T-wave inversions, normal intervals. 01/10/18 08:[address]: Creator : ANA MARIA CASTILLO FINDINGS: Brain: Unremarkable. No hemorrhage. No significant white matter disease. No edema. Ventricles: Unremarkable. No ventriculomegaly. Bones/joints: Unremarkable. No acute fracture. Soft tissues: Unremarkable. Sinuses: Unremarkable as visualized. No acute sinusitis. Mastoid air cells: Unremarkable as visualized. No mastoid effusion. IMPRESSION: Unremarkable head/brain CT. 01/10/18 08:46 Patient's EKG has not changed from previous one taken on 01/06/2018. - Lab Interpretations Lab Results: 01/10/18 07:56 01/10/18 07:56 Lab Results 01/10/18 08:55: Urine Opiates Screen Positive H, Urine Methadone Screen Negative , Ur Barbiturates Screen Negative, Ur Phencyclidine Scrn Negative, Ur Amphetamines Screen Negative, U Benzodiazepines Scrn Negative, U Oth Cocaine Metabols Negative, U Cannabinoids Screen Negative 01/10/18 08:55: Urine Color Yellow, Urine Appearance Clear, Urine pH 6.0, Ur Specific [place] 1.020, Urine Protein Trace H, Urine Glucose (UA) Negative, Urine Ketones Negative, Urine Blood Negative, Urine Nitrate Negative, Urine Bilirubin Negative, Urine Urobilinogen 0.2, Ur Leukocyte Esterase Negative, Urine RBC 0 - 2, Urine WBC 0 - 2, Ur Epithelial Cells None, Urine Bacteria Mod 01/10/18 07:56: Sodium 147, Potassium 3.8, Chloride 106, Carbon Dioxide 28, Anion Gap 17, BUN 21, Creatinine 0.9, Est GFR ( Amer) > 60, Est GFR (Non- Af Amer) > 60, Random Glucose 88, Calcium 9.0, Magnesium 1.8, Total Bilirubin 0.4, AST 23, ALT 29, Alkaline Phosphatase 56, Lactate Dehydrogenase 478, Total Creatine Kinase 93, Troponin I < 0.01, Total Protein 7.2, Albumin 4.2, Globulin 3.0, Albumin/Globulin Ratio 1.4 01/10/18 07:56: WBC 13.5 H D, RBC 4.42, Hgb 13.1 L, Hct 38.7 L, MCV 87.6, MCH 29.6, MCHC 33.9, RDW 13.0, Plt Count 158, MPV 11.3 H, Gran % 71.5 H, Lymph % ( Auto) 19.3 L, [place] % (Auto) 8.7 H, Eos % (Auto) 0.4 L, Baso % (Auto) 0.1, Gran # 9.62 H, Lymph # (Auto) 2.6, [place] # (Auto) 1.2 H, Eos # (Auto) 0.1, Baso # ( Auto) 0.02 I have reviewed the lab results: Yes - RAD Interpretation Radiology Orders: 01/10/18 07:10 HEAD W/O CONTRAST [CT] Stat CHEST PORTABLE [RAD] Stat Production Cell Leader: Radiologist - EKG Interpretation Interpreted by ED Physician: Yes Type: 12 lead EKG - Scribe Statement The provider has reviewed the documentation as recorded by the Scribe Jessi Mayes Provider Scribe Attestation: All medical record entries made by the Scribe were at my direction and personally dictated by me. I have reviewed the chart and agree that the record accurately reflects my personal performance of the history, physical exam, medical decision making, and the department course for this patient. I have also personally directed, reviewed, and agree with the discharge instructions and disposition. Disposition/Present on Arrival - Present on Arrival Any Indicators Present on Arrival: No History of DVT/PE: No History of Uncontrolled Diabetes: No Urinary Catheter: No History of Decub. Ulcer: No History Surgical Site Infection Following: None - Disposition Have Diagnosis and Disposition been Completed?: Yes Diagnosis: Vasovagal episode Disposition: HOME/ ROUTINE Disposition Time: 08:40 Condition: GOOD Discharge Instructions (ExitCare): Vasovagal Response (DC) Additional Instructions: Thank you for letting us take care of you today. The emergency medical care you received today was directed at your acute symptoms. If you were prescribed any medication, please fill it and take as directed. It may take several days for your symptoms to resolve. Return to the Emergency Department if your symptoms worsen, do not improve, or if you have any other problems. Please contact your doctor or call one of the physicians/clinics you have been referred to that are listed on the Patient Visit Information form that is included in your discharge packet. Bring any paperwork you were given at discharge with you along with any medications you are taking to your follow up visit. Our treatment cannot replace ongoing medical care by a primary care provider (PCP) outside of the emergency department. Thank you for allowing the [facility] team to be part of your care today. Follow up with your primary doctor in 1-2 days for re-evaluation and further management. Referrals: Enedina Vinson MD [Family Provider] - Follow up with primary Forms: [employer] ([place])
[2018-01-10 08:01] LABS: BASO # 0.02 K/mm3 (0.0-2.0); BASO % 0.1 % (0.0-3.0); EOS # 0.1 (0.0-0.7); EOS % 0.4 % (1.5-5.0); GRAN # 9.62 (1.4-6.5); GRAN % 71.5 % (50.0-68.0); HEMOGLOBIN 13.1 g/dL (14.0-18.0); LYMPH # 2.6 (1.2-3.4); LYMPH % 19.3 % (22.0-35.0); MEAN CELL VOLUME 87.6 fl (80.0-105.0); MEAN CORPUSCULAR HEMOGLOBIN 29.6 pg (25.0-35.0); MEAN CORPUSCULAR HGB CONC 33.9 g/dl (31.0-37.0); MEAN PLATELET VOLUME 11.3 fl (7.0-11.0); MONO # 1.2 (0.1-0.6); MONO % 8.7 % (1.0-6.0); RBC 4.42 10^6/uL (3.5-6.1); WHITE BLOOD COUNT 13.5 10^3/ul (4.5-11.0)
--- NOTE | 2018-01-10 08:09 | CT ---
EXAM: CT Head Without Intravenous Contrast CLINICAL HISTORY: 52 years old, male; Signs and symptoms; Dizziness; Additional info: R/O ich TECHNIQUE: Axial computed tomography images of the head/brain without intravenous contrast. All CT scans at this facility use one or more dose reduction techniques, viz.: automated exposure control; ma/kV adjustment per patient size (including targeted exams where dose is matched to indication; i.e. head); or iterative reconstruction technique. Coronal and sagittal reformatted images were created and reviewed. COMPARISON: CT - HEAD W/O CONTRAST 2018-01-03 07:51 FINDINGS: Brain: Unremarkable. No hemorrhage. No significant white matter disease. No edema. Ventricles: Unremarkable. No ventriculomegaly. Bones/joints: Unremarkable. No acute fracture. Soft tissues: Unremarkable. Sinuses: Unremarkable as visualized. No acute sinusitis. Mastoid air cells: Unremarkable as visualized. No mastoid effusion. IMPRESSION: Unremarkable head/brain CT.
[2018-01-10 08:21] LABS: TROPONIN I < 0.01 ng/mL
[2018-01-10 08:24] LABS: ALB/GLOB RATIO 1.4 (1.1-1.8); ALBUMIN 4.2 g/dL (3.0-4.8); ALT/SGPT 29 U/L (7-56); AST/SGOT 23 U/L (17-59); BLOOD UREA NITROGEN 21 mg/dL (7-21); GFR AFRICAN-AMERICAN > 60; GFR NON-AFRICAN AMERICAN > 60
[2018-01-10 09:07] LABS: URINE BILIRUBIN NEGATIVE (NEGATIVE); URINE BLOOD NEGATIVE (NEGATIVE); URINE GLUCOSE (UA) NEGATIVE (NEGATIVE); URINE LEUKOCYTE ESTERASE NEGATIVE Leu/uL (NEGATIVE); URINE PROTEIN TRACE mg/dL (<30 mg/dL); URINE UROBILINOGEN 0.2 E.U./dL (<1 E.U./dL)
[2018-01-10 09:17] LABS: URINE APPEARANCE CLEAR (CLEAR); URINE COLOR YELLOW (YELLOW)
[2018-01-10 09:20] LABS: URINE RBC 0 - 2 /hpf (0-2); URINE WBC 0 - 2 /hpf (0-6)
[2018-01-10 09:21] LABS: URINE BACTERIA MOD (NEG)
[2018-01-10 09:28] LABS: BARBITURATES, UR NEGATIVE (NEGATIVE); BENZODIAZEPINES, UR NEGATIVE (NEGATIVE); OPIATES, UR POSITIVE (NEGATIVE); PHENCYCLIDINE, UR NEGATIVE (NEGATIVE)
--- NOTE | 2018-01-10 10:02 | RAD ---
HISTORY: r/o infiltrate COMPARISON: 01/05/2018 FINDINGS: LUNGS: No active pulmonary disease. PLEURA: No significant pleural effusion identified, no pneumothorax apparent. CARDIOVASCULAR: Normal. OSSEOUS STRUCTURES: No significant abnormalities. VISUALIZED UPPER ABDOMEN: Normal. OTHER FINDINGS: None. IMPRESSION: No active disease.
[2018-01-10 10:05] VITALS: BP 125/72; PULSE 68; RESP 18; TEMP 98.5; O2SAT 99
--- NOTE | 2018-01-10 10:36 | CARD ---
APPROVED REPORT EKG Measurement Heart [id number] <Conclusion> Normal sinus rhythm RVCD LVH by voltage Prolonged QT No change. No APCs now.
== END 2018-01-10 10:09 | disposition home or self-care (01) ==
LOC: ED 06:34
DX: R55 Syncope and collapse (principal); F17.210 Nicotine dependence, cigarettes, uncomplicated; I10 Essential (primary) hypertension; J44.9 Chronic obstructive pulmonary disease, unspecified

== ENCOUNTER 2018-02-05 21:21 | Observation (INO) | payer OTHER ==
[2018-02-05 21:22] VITALS: PULSE 88
[2018-02-05] MEDS ORDERED: Morphine 2 mg/2 mL syringe IVP STA (22:15)
--- NOTE | 2018-02-05 22:22 | ED PDOC ---
Arrival/HPI - General Historian: Patient - History of Present Illness Time/Duration: 4-6 hours Symptom Onset: Sudden Symptom Course: Unchanged Quality: Stabbing Severity Level: 10 Context: Work - General Chief Complaint: Abdominal Pain Time Seen by Provider: 02/05/18 22:04 - History of Present Illness Narrative History of Present Illness (Text): 52 year old male with PMH of hypertension, COPD, and cardiac catheterization, gastric ulcers presents to the emergency department complaining of diffuse abdominal pain which began 4 hours ago at work along with vomiting. Patient states he has sharp, 10/10 abdominal pain which started suddenly. he has also vomited 3 times with one episode of vomiting including small amount of blood. He says the last time he felt this way was when his appendix ruptured. Patient also states he has had 4-5 episodes of watery diarrhea today. His last meal was pizza in the afternoon and currently he is hungry and wants to eat. He denies chest pain, SOB, nausea, fever, chills, or any other complaints at this time. 02/05/18 22:18 (Nasim Coffey) Past Medical History - Past History Past History: No Previous - Infectious Disease Hx of Infectious Diseases: None - Tetanus Immunization Tetanus Immunization: Unknown - Cardiac Hx Cardiac Disorders: Yes Hx Hypertension: Yes - Pulmonary Hx Respiratory Disorders: Yes Hx Chronic Obstructive Pulmonary Disease (COPD): Yes - Neurological Hx Neurological Disorder: Yes Hx Migraine: Yes - HEENT Hx HEENT Disorder: No - Renal Hx Kidney Stones: Yes - Endocrine/Metabolic Hx Endocrine Disorders: No - Hematological/Oncological Hx Blood Disorders: Yes (blood transfusions hx ulcers) - Integumentary Hx Dermatological Disorder: Yes - Musculoskeletal/Rheumatological Hx Falls: No - Gastrointestinal Hx Gastrointestinal Disorders: Yes - Genitourinary/Gynecological Hx Genitourinary Disorders: No - Psychiatric Hx Psychophysiologic Disorder: Yes Hx Anxiety: Yes Hx Depression: Yes Hx Substance Use: No - Past Surgical History Past Surgical History: No Previous - Surgical History Hx Appendectomy: Yes Hx Cardiac Catheterization: Yes Other/Comment: colonscopy - Anesthesia Hx Anesthesia: Yes Hx Anesthesia Reactions: No Hx Malignant Hyperthermia: No - Suicidal Assessment Feels Threatened In Home Enviroment: No Family/Social History - Physician Review Nursing Documentation Reviewed: Yes Family/Social History: No Known Family HX Smoking Status: Heavy Smoker > 10 Cigarettes Daily Hx Alcohol Use: No Hx Substance Use: No Hx Substance Use Treatment: No Allergies/Home Meds Allergies/Adverse Reactions: Allergies No Known Allergies Allergy (Verified 06/14/17 18:30) Review of Systems - Review of Systems Constitutional: Normal Eyes: Normal ENT: Normal Respiratory: Normal Cardiovascular: Normal Gastrointestinal: Abdominal Pain, Diarrhea, Vomiting. absent: Nausea Skin: Normal Neurological: Speech Changes Physical Exam Vital Signs Reviewed: Yes Temperature: Afebrile Blood Pressure: Normal Pulse: Regular Respiratory Rate: Normal Appearance: Positive for: Well-Appearing, Non-Toxic, Comfortable Pain Distress: Mild Mental Status: Positive for: Alert and Oriented X 3 - Systems Exam Head: Present: Atraumatic, Normocephalic Pupils: Present: PERRL Extroacular Muscles: Present: EOMI Conjunctiva: Present: Injected Mouth: Present: Moist Mucous Membranes Respiratory/Chest: Present: Clear to Auscultation, Good Air Exchange. No: Respiratory Distress, Accessory Muscle Use Cardiovascular: Present: Regular Rate and Rhythm, Normal S1, S2 Abdomen: Present: Tenderness, Normal Bowel Sounds. No: Distention, Guarding Upper Extremity: Present: Normal Inspection. No: Edema Lower Extremity: No: Normal Inspection, Edema Neurological: Present: GCS=15, CN II-XII Intact Skin: Present: Warm, Dry Psychiatric: Present: Alert, Oriented x 3 Vital Signs Temp Pulse Resp BP Pulse Ox 02/05/18 21:53 98.6 F 87 19 131/89 98 Medical Decision Making - Lab Interpretations I have reviewed the lab results: Yes ED Course and Treatment: 02/06/18 01:02 Patient Seen With Resident: In agreement with resident note which contains more details about the patient. Patient was seen and evaluated with resident. Came up with plan and treatment together. (James Frost) Plan -cbc, cmp -protonix, morphine -reasses and disposition labs reviewed WNL 02/06/18 00:27 CT abdomen pelvis ordered 02/06/18 00:31 CT Abdomen Pelvis showin. LEFT mid ureteral calculus with mild hydroureteronephrosis. 2. Prostate enlargement. Followup as clinically warranted. 3. Incidental/non-acute findings are described above. spoke to medical reimbursement manager, will admit 02/06/18 03:15 (Nasim Coffey) - Lab Interpretations Lab Results: 02/05/18 23:00 02/05/18 23:00 Lab Results 02/05/18 23:00: Sodium 148, Potassium 3.7, Chloride 109 H, Carbon Dioxide 26, Anion Gap 16, BUN 19, Creatinine 0.9, Est GFR ( Amer) > 60, Est GFR (Non- Af Amer) > 60, Random Glucose 97, Calcium 9.1, Total Bilirubin 0.7, AST 31, ALT 30, Alkaline Phosphatase 53, Total Protein 7.1, Albumin 4.0, Globulin 3.1, Albumin/Globulin Ratio 1.3, Amylase 75, Lipase 47 02/05/18 23:00: WBC 6.9 D, RBC 4.44, Hgb 13.4 L, Hct 39.1 L, MCV 88.1, MCH 30.2 , MCHC 34.3, RDW 13.5, Plt Count 123, MPV 11.9 H, Gran % 55.8, Lymph % (Auto) 27.8, [place] % (Auto) 10.2 H, Eos % (Auto) 6.1 H, Baso % (Auto) 0.1, Gran # 3.82, Lymph # (Auto) 1.9, [place] # (Auto) 0.7 H, Eos # (Auto) 0.4, Baso # (Auto) 0.01 - RAD Interpretation Radiology Orders: 02/06/18 00:31 ABDOMEN & PELVIS [ABD & PELVIS IV CONTRAST ONLY] [CT] Stat - Medication Orders Current Medication Orders: Discontinued Medications Sodium Chloride (Sodium Chloride 0.9%) 1,000 mls @ 999 mls/hr IV .Q1H1M STA Stop: 02/05/18 23:28 Last Admin: 02/05/18 22:30 Dose: 999 mls/hr eMAR Start Stop Document 02/05/18 22:30 AD (Rec: 02/05/18 23:33 AD [facility] [id number]) Intravenous Solution Start Date 02/05/18 Start Time 22:30 Morphine Sulfate (Morphine) 2 mg IVP STAT STA Stop: 02/05/18 22:16 Last Admin: 02/05/18 22:30 Dose: 2 mg IVP Administration Document 02/05/18 22:30 AD (Rec: 02/05/18 23:32 [place] [email or web address] Charges for Administration # of IVP Administrations 1 Pantoprazole Sodium (Protonix Inj) 40 mg IVP STAT STA Stop: 02/05/18 22:16 Last Admin: 02/05/18 22:30 Dose: 40 mg IVP Administration Document 02/05/18 22:30 AD (Rec: 02/05/18 23:32 AD [facility] [id number]) Charges for Administration # of IVP Administrations 1 Disposition/Present on Arrival - Present on Arrival Any Indicators Present on Arrival: No History of DVT/PE: No History of Uncontrolled Diabetes: No Urinary Catheter: No History of Decub. Ulcer: No History Surgical Site Infection Following: None - Disposition Have Diagnosis and Disposition been Completed?: Yes Disposition Time: 03:21 - Disposition Diagnosis: Calculi, ureter, Hydroureteronephrosis, Renal colic Disposition: HOSPITALIZED Patient Problems: Current Active Problems Problem Status Onset Hydroureteronephrosis Acute Renal colic Acute Ureteral stone Acute Condition: FAIR Referrals: Enedina Vinson MD [Primary Care Provider] - Follow up with primary Forms: [employer] ([place])
[2018-02-05] MEDS ORDERED: Sodium Chloride 0.9% 1,000 ML IV STA (22:28)
[2018-02-05 23:17] LABS: BASO # 0.01 K/mm3 (0.0-2.0); BASO % 0.1 % (0.0-3.0); EOS # 0.4 (0.0-0.7); EOS % 6.1 % (1.5-5.0); GRAN # 3.82 (1.4-6.5); GRAN % 55.8 % (50.0-68.0); HEMOGLOBIN 13.4 g/dL (14.0-18.0); LYMPH # 1.9 (1.2-3.4); LYMPH % 27.8 % (22.0-35.0); MEAN CELL VOLUME 88.1 fl (80.0-105.0); MEAN CORPUSCULAR HEMOGLOBIN 30.2 pg (25.0-35.0); MEAN CORPUSCULAR HGB CONC 34.3 g/dl (31.0-37.0); MEAN PLATELET VOLUME 11.9 fl (7.0-11.0); MONO # 0.7 (0.1-0.6); MONO % 10.2 % (1.0-6.0); RBC 4.44 10^6/uL (3.5-6.1); RED CELL DISTRIBUTION WIDTH 13.5 % (11.5-14.5); WHITE BLOOD COUNT 6.9 10^3/ul (4.5-11.0)
[2018-02-05 23:53] LABS: ALB/GLOB RATIO 1.3 (1.1-1.8); ALT/SGPT 30 U/L (7-56); AMYLASE 75 U/L (35-125); AST/SGOT 31 U/L (17-59); BLOOD UREA NITROGEN 19 mg/dL (7-21); CALCIUM 9.1 mg/dL (8.4-10.5); GFR AFRICAN-AMERICAN > 60; GFR NON-AFRICAN AMERICAN > 60; LIPASE 47 U/L (23-300)
[2018-02-06] MEDS ORDERED: Iohexol 350 MG/100 ML VIAL ONE (00:52)
--- NOTE | 2018-02-06 02:56 | CT ---
EXAM: CT Abdomen and Pelvis With Intravenous Contrast CLINICAL HISTORY: 52 years old, male; Pain; Abdominal pain; Additional info: Abdominal pain and vomiting TECHNIQUE: Axial computed tomography images of the abdomen and pelvis with intravenous contrast. All CT scans at this facility use one or more dose reduction techniques, viz.: automated exposure control; ma/kV adjustment per patient size (including targeted exams where dose is matched to indication; i.e. head); or iterative reconstruction technique. Coronal and sagittal reformatted images were created and reviewed. CONTRAST: 96 mL of OMNI 350 administered intravenously. COMPARISON: CT - CHEST,ABD,PEL W/IV PO CONTRAST 2017-02-22 18:33 FINDINGS: Lung bases: Minimal atelectasis/scarring. ABDOMEN: Liver: Unremarkable. No mass. Gallbladder and bile ducts: No calcified stones. No ductal dilation. Pancreas: No ductal dilation. No mass. Spleen: No splenomegaly. Adrenals: No mass. Kidneys and ureters: Few punctate calculi within kidneys. Mild pelvocaliectasis of LEFT kidney. Mildly dilated LEFT proximal ureter. 0.5 x 0.4 x 0.5 cm calculus within LEFT mid ureter. Stomach and bowel: No definite mural thickening. No obstruction. PELVIS: Appendix: No findings to suggest acute appendicitis. Bladder: Unremarkable. Reproductive: Mildly enlarged prostate. ABDOMEN and PELVIS: Intraperitoneal space: No significant fluid collection. No free air. Bones/joints: Early degenerative changes of hips and spine. No acute fracture. Soft tissues: Unremarkable. Vasculature: Minimal atherosclerotic disease of aorta. No aneurysm. Lymph nodes: No pathologically enlarged lymph nodes. IMPRESSION: 1. LEFT mid ureteral calculus with mild hydroureteronephrosis. 2. Prostate enlargement. Followup as clinically warranted. 3. Incidental/non-acute findings are described above.
--- NOTE | 2018-02-06 04:27 | CP.PCM.HP ---
<SamCydney - Last Filed: 02/06/18 04:38> History of Present Illness - History of Present Illness History of Present Illness: HPI: Patient is a 52 year old male with a past medical history of emphysema, CAD w/out stent, HTN, PUD, and nephrolithiasis s/p intervention by Dr. Hardwick, who presents to the ED complaining of lower abdominal pain. Patient says this started yesterday afternoon while he was cutting a friends grass. He says it came on suddenly and described it as sharp, 10/10 pain in the lower abdomen radiating to both flanks. Patient says the last time he experienced pain this bad was when his appendix ruptured. He admits to associated chills, 3 episodes of vomiting (one of which he noticed blood), 4 episodes of watery diarrhea ( which he did not examine for blood), and dark urine. Patient also notes SOB, but says this is not unusual for him, as he has a history of COPD. He currently denies fever, dizziness, chest pain, palpitations, nausea, constipation, dysuria , urinary frequency, hematuria, urgency, and lower extremity pain/swelling. PMH: emphysema, CAD w/out stent, HTN, PUD, and nephrolithiasis s/p cystoscopy with stent and lithotripsy Meds: denies (says he stopped taking plavix 1 month ago, denies statin and ASA use) PSH: appendectomy, hernia repair, and plating of facial fractures Allergies: NKDA FH: mother with DM SH: smokes 1 PPD x6 years, rare alcohol use, denies elicit drug use Present on Admission - Present on Admission Any Indicators Present on Admission: No Review of Systems - Review of Systems All systems: reviewed and no additional remarkable complaints except (as per HPI ) Past Patient History - Infectious Disease Hx of Infectious Diseases: None - Tetanus Immunizations Tetanus Immunization: Unknown - Past Social History Smoking Status: Heavy Smoker > 10 Cigarettes Daily - CARDIAC Hx Cardiac Disorders: Yes Hx Hypertension: Yes - PULMONARY Hx Respiratory Disorders: Yes Hx Chronic Obstructive Pulmonary Disease (COPD): Yes - NEUROLOGICAL Hx Neurological Disorder: Yes Hx Migraine: Yes - HEENT Hx HEENT Problems: No - RENAL Hx Kidney Stones: Yes - ENDOCRINE/METABOLIC Hx Endocrine Disorders: No - HEMATOLOGICAL/ONCOLOGICAL Hx Blood Disorders: Yes (blood transfusions hx ulcers) - INTEGUMENTARY Hx Dermatological Problems: Yes - MUSCULOSKELETAL/RHEUMATOLOGICAL Hx Falls: No - GASTROINTESTINAL Hx Gastrointestinal Disorders: Yes - GENITOURINARY/GYNECOLOGICAL Hx Genitourinary Disorders: No - PSYCHIATRIC Hx Psychophysiologic Disorder: Yes Hx Anxiety: Yes Hx Depression: Yes Hx Substance Use: No - SURGICAL HISTORY Hx Appendectomy: Yes Hx Cardiac Catheterization: Yes Other/Comment: colonscopy - ANESTHESIA Hx Anesthesia: Yes Hx Anesthesia Reactions: No Hx Malignant Hyperthermia: No Meds Allergies/Adverse Reactions: Allergies Allergy/AdvReac Type Severity Reaction Status Date / Time No Known Allergies Allergy Verified 06/14/17 18:30 Physical Exam - Constitutional Appears: Non-toxic, No Acute Distress - Head Exam Head Exam: ATRAUMATIC, NORMAL INSPECTION, NORMOCEPHALIC - Eye Exam Eye Exam: EOMI, Normal appearance, PERRL - ENT Exam ENT Exam: Mucous Membranes Moist - Neck Exam Neck exam: Positive for: Normal Inspection. Negative for: Lymphadenopathy, Tenderness - Respiratory Exam Respiratory Exam: Clear to Auscultation Bilateral, NORMAL BREATHING PATTERN. absent: Accessory Muscle Use, Rales, Rhonchi, Wheezes, Respiratory Distress - Cardiovascular Exam Cardiovascular Exam: REGULAR RHYTHM, +S1, +S2. absent: Diastolic murmur, Gallop , Rubs, Systolic Murmur - GI/Abdominal Exam GI & Abdominal Exam: Guarding (voluntary), Normal Bowel Sounds, Soft, Tenderness (diffuse but worse in the L&R LQs). absent: Distended, Firm, Mass, Organomegaly, Rigid - Extremities Exam Extremities exam: Positive for: normal capillary refill, normal inspection, pedal pulses present. Negative for: calf tenderness, pedal edema - Back Exam Back exam: CVA tenderness (L). absent: CVA tenderness (R), rash noted - Neurological Exam Neurological exam: Alert, Oriented x3 - Psychiatric Exam Psychiatric exam: Normal Affect, Normal Mood - Skin Skin Exam: Dry, Intact, Normal Color, Warm Results - Vital Signs Recent Vital Signs: Last Vital Signs Temp 98.6 F 02/05/18 21:53 Pulse 87 02/05/18 21:53 Resp 19 02/05/18 21:53 BP 131/89 02/05/18 21:53 Pulse Ox 98 02/05/18 21:53 - Labs Result Diagrams: 02/05/18 23:00 02/05/18 23:00 Assessment & Plan - Assessment and Plan (Free Text) Assessment: Patient is a 52 year old male with a past medical history of emphysema, CAD w/ out stent, HTN, PUD, and nephrolithiasis s/p intervention by Dr. Hardwick, who presents to the ED with abdominal pain secondary to ureterolithiasis. Plan: Ureterolithiasis * Urology consulted (Dr. Bee Hardwick) - help appreciated * CT abdomen/pelvis: Few punctate calculi within kidneys. Mild pelvocaliectasis of LEFT kidney. Mildly dilated LEFT proximal ureter. 0.5 x 0.4 x 0.5 cm calculus within LEFT mid ureter with mild hydroureteronephrosis. Prostate enlargement. * f/u UA and Urine culture * NS @ 150 cc/h * Tamsulosin 0.4 mg QD * NPO * Zofran prn nausea * Morphin prn pain History of HTN * Not taking home meds * Monitor for now History of CAD * No home meds * Lipid panel done 01/06/18 WNL * No cath report in EMR * May consider starting statin, will hold ASA due to history of bleeding ulcers History of PUD * 1 episode of hematemesis at home * Protonix 40 mg IV QD History of COPD * Saturating well on RA * Monitor Prophylactic measures * GI: Protonix as above * DVT: Hold heparin due to hematemesis; SCDs <Enzo Cardenas - Last Filed: 02/06/18 05:25> Results - Vital Signs Recent Vital Signs: Last Vital Signs Temp 98.6 F 02/05/18 21:53 Pulse 87 02/05/18 21:53 Resp 19 02/05/18 21:53 BP 131/89 02/05/18 21:53 Pulse Ox 98 02/05/18 21:53 - Labs Result Diagrams: 02/05/18 23:00 02/05/18 23:00 Attending/Attestation - Attestation I have personally seen and examined this patient.: Yes I have fully participated in the care of the patient.: Yes I have reviewed all pertinent clinical information: Yes Notes (Text): 02/06/18 05:24 Patient was seen when he was in bed # 17 int the ER. Agree with history,physical examination, assessment and plan.
[2018-02-06] MEDS: Morphine 2 mg/2 mL syringe IVP PRN ×2 (05:20→11:28)
[2018-02-06] MEDS: Sodium Chloride 0.9% 1,000 ML IV SCH ×2 (05:24→10:18)
[2018-02-06 07:05] VITALS: RESP 20; BMI 23.0
[2018-02-06 08:18] LABS: BASO # 0.02 K/mm3 (0.0-2.0); BASO % 0.3 % (0.0-3.0); EOS # 0.5 (0.0-0.7); EOS % 8.6 % (1.5-5.0); GRAN # 2.87 (1.4-6.5); GRAN % 49.5 % (50.0-68.0); HEMOGLOBIN 12.4 g/dL (14.0-18.0); LYMPH # 1.9 (1.2-3.4); LYMPH % 32.1 % (22.0-35.0); MEAN CELL VOLUME 88.3 fl (80.0-105.0); MEAN CORPUSCULAR HEMOGLOBIN 29.7 pg (25.0-35.0); MEAN CORPUSCULAR HGB CONC 33.6 g/dl (31.0-37.0); MEAN PLATELET VOLUME 11.3 fl (7.0-11.0); MONO # 0.6 (0.1-0.6); MONO % 9.5 % (1.0-6.0); RBC 4.18 10^6/uL (3.5-6.1); RED CELL DISTRIBUTION WIDTH 13.4 % (11.5-14.5); WHITE BLOOD COUNT 5.8 10^3/ul (4.5-11.0)
[2018-02-06 08:45] LABS: ALB/GLOB RATIO 1.1 (1.1-1.8); ALBUMIN 3.2 g/dL (3.0-4.8); ALT/SGPT 27 U/L (7-56); AST/SGOT 23 U/L (17-59); BLOOD UREA NITROGEN 16 mg/dL (7-21); CALCIUM 8.2 mg/dL (8.4-10.5); GFR AFRICAN-AMERICAN > 60; GFR NON-AFRICAN AMERICAN > 60
--- NOTE | 2018-02-06 10:18 | PCM.URO ---
Urology Progress Note - Subjective Abdominal Pain: Yes (plans for cystoscopy todya) - Objective Lab Results Last 24 Hours: Laboratory Results - last 24 hr 02/06/18 02/06/18 08:10 08:10 WBC 5.8 RBC 4.18 Hgb 12.4 L Hct 36.9 L MCV 88.3 MCH 29.7 MCHC 33.6 RDW 13.4 Plt Count 103 L MPV 11.3 H Gran % 49.5 L Lymph % (Auto) 32.1 [place] % (Auto) 9.5 H Eos % (Auto) 8.6 H Baso % (Auto) 0.3 Gran # 2.87 Lymph # (Auto) 1.9 [place] # (Auto) 0.6 Eos # (Auto) 0.5 Baso # (Auto) 0.02 Sodium 143 Potassium 4.0 Chloride 110 H Carbon Dioxide 25 Anion Gap 11 BUN 16 Creatinine 0.8 Est GFR ( Amer) > 60 Est GFR (Non-Af Amer) > 60 Random Glucose 91 Calcium 8.2 L Phosphorus 2.9 Magnesium 1.7 Total Bilirubin 0.6 AST 23 ALT 27 Alkaline Phosphatase 42 Total Protein 6.1 Albumin 3.2 Globulin 2.9 Albumin/Globulin Ratio 1.1 Intake & Output: Intake & Output 02/05/18 02/06/18 02/06/18 18:59 06:59 18:59 Weight 170 lb Other: Voiding Method Urinal Vital Signs: Vital Signs - 24 hr 02/06/18 02/06/18 02/06/18 05:15 05:20 06:00 Temperature 97.8 F Pulse Rate 89 89 57 L Respiratory 18 18 20 Rate Blood Pressure 135/79 135/79 128/89 O2 Sat by Pulse 100 100 99 Oximetry 02/06/18 06:45 Temperature 97.5 F L Pulse Rate 57 L Respiratory 20 Rate Blood Pressure 128/89 O2 Sat by Pulse Oximetry
[2018-02-06] MEDS ORDERED: cefTRIAXone 1 gm 1 GM/100 ML BAG IVPB SCH (11:45)
[2018-02-06 11:49] LABS: PH,URINE 6.5 (4.7-8.0); URINE BILIRUBIN NEGATIVE (NEGATIVE); URINE BLOOD LARGE (NEGATIVE); URINE GLUCOSE (UA) NEGATIVE (NEGATIVE); URINE LEUKOCYTE ESTERASE NEGATIVE Leu/uL (NEGATIVE); URINE PROTEIN TRACE mg/dL (<30 mg/dL); URINE UROBILINOGEN 0.2 E.U./dL (<1 E.U./dL)
[2018-02-06 12:08] LABS: URINE APPEARANCE CLEAR (CLEAR); URINE COLOR YELLOW (YELLOW)
[2018-02-06 12:16] LABS: URINE BACTERIA MOD (NEG); URINE RBC 20 - 25 /hpf (0-2); URINE WBC 0 - 2 /hpf (0-6)
[2018-02-06] MEDS ORDERED: HYDROmorphone 0.5 mg/0.5 ml ISec IVP PRN (13:37)
[2018-02-06] MEDS ORDERED: cefTRIAXone (Rocephin) 1 gm Inj ONE (13:41)
[2018-02-06] MEDS ORDERED: Iohexol 240 (50 ml) ONE (13:42)
[2018-02-06] MEDS ORDERED: Lidocaine 2% Jelly (Uro-Jet) ONE (13:42)
[2018-02-06] MEDS ORDERED: Lactated Ringer's 1,000 ML IV SCH (13:45)
[2018-02-06] MEDS ORDERED: Propofol 10 mg/ml Inj (20 ML) ONE (14:12)
[2018-02-06] MEDS ORDERED: Midazolam 2 MG/2 ML VIAL ONE (14:13)
[2018-02-06 14:47] VITALS: TEMP 97.4
[2018-02-06] MEDS ORDERED: HYDROmorphone 0.5 mg/0.5 ml ISec ONE ×3 (14:55→15:27)
[2018-02-06] MEDS ORDERED: HYDROmorphone 0.5 mg/0.5 ml ISec IVP ONE ×3 (14:57→15:29)
[2018-02-06 14:59] VITALS: O2SAT 100
[2018-02-06 15:40] VITALS: BP 132/84; PULSE 56
--- NOTE | 2018-02-06 16:16 | RAD ---
PROCEDURE: Fluoroscopy up to 1 hour HISTORY: RETROGRADE PYELOGRAM / STENT INSERTION (LEFT) COMPARISON: TECHNIQUE: Fluoroscopy was provided in the operating room. 17 seconds of fluoro time. 3.28 mGy. Nine images were submitted FINDINGS: The study shows placement of a left ureteral stent IMPRESSION: As above
--- NOTE | 2018-02-07 18:22 | CON ---
DATE: 02/06/2018 UROLOGY CONSULTATION REASON FOR CONSULTATION: Renal colic. HISTORY OF PRESENT ILLNESS: The patient came in overnight last night, now early in the morning. Again in 02/05 overnight with flank pain found to have the stones with hydronephrosis, but he is still having ongoing pain. See the plan listed below. He may have history of stones. PAST MEDICAL AND SURGICAL HISTORY: No history of [place] or CVA. SOCIAL HISTORY: Essentially unremarkable. 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 REVIEW OF SYSTEMS: Listed above, noncontributory. MEDICATIONS: See the chart. ALLERGIES: None. PHYSICAL EXAMINATION GENERAL: A well-developed, well-nourished male, in no apparent distress. He is currently resting comfortably. VITAL SIGNS: Noted within normal limits. LUNGS: Clear. HEART: Normal S1 and S2. ABDOMEN: Overall soft. No real CVA tenderness. No rebound, guarding. No evidence of acute abdomen. GENITOURINARY: Normal phallus without discharge. No testicular masses. RECTAL: Deferred for later, but I mention now, 20-30 g prostate was smooth. LABORATORY DATA: See chart. Calcium, BUN, and creatinine are all noted. White count all noted. CT scan noted. DIAGNOSIS: Severe renal colic on the left with left hydronephrosis and left-sided stone, mid ureter about 5-6 mm. PLAN: As follow, we are going to discuss now with the patient, if he wants to take care as quickly as possible, explained to him where the location of the stone is, for now we are going to place the stent. I am not removing the stone, if the stone is migrated distally, we will plan for stone removal, stone basketing or laser depending on availability for the OR. See the operative note. Most likely based on the stone location in the report and sometime the availability of the laser team here, we are going to plan just draining the kidney. I explained to the patient that the best option for the patient is offering shockwave lithotripsy outside the body, try to discover way to transportation to go up to [place]. We spent a while discussing all these different things. With that in mind, after discussing all the options with the patient, the plan is as follows: 1. We are going to keep the patient n.p.o. for now. 2. We are going to bring him to the OR for stent placement possible. Jj Hardwick MD
--- NOTE | 2018-02-07 21:21 | CP.PCM.DIS ---
Provider - Provider Date of Admission: 02/06/18 03:09 Attending physician: Yohan García MD Primary care physician: Enedina Vinson MD Consults: Urology Ronen Time Spent in preparation of Discharge (in minutes): 60 Diagnosis - Discharge Diagnosis (1) S/P cystoscopy Status: Acute (2) Renal colic Status: Acute Hospital Course - Lab Results Lab Results: Micro Results 02/06/18 11:30 Urine,Clean Catch Urine Culture - Final No Growth (<1,000 CFU/ML) Most Recent Lab Values WBC 5.8 10^3/ul (4.5-11.0) 02/06/18 08:10 RBC 4.18 10^6/uL (3.5-6.1) 02/06/18 08:10 Hgb 12.4 g/dL (14.0-18.0) L 02/06/18 08:10 Hct 36.9 % (42.0-52.0) L 02/06/18 08:10 MCV 88.3 fl (80.0-105.0) 02/06/18 08:10 MCH 29.7 pg (25.0-35.0) 02/06/18 08:10 MCHC 33.6 g/dl (31.0-37.0) 02/06/18 08:10 RDW 13.4 % (11.5-14.5) 02/06/18 08:10 Plt Count 103 10^3/uL (120.0-450.0) L 02/06/18 08:10 MPV 11.3 fl (7.0-11.0) H 02/06/18 08:10 Gran % 49.5 % (50.0-68.0) L 02/06/18 08:10 Lymph % (Auto) 32.1 % (22.0-35.0) 02/06/18 08:10 [place] % (Auto) 9.5 % (1.0-6.0) H 02/06/18 08:10 Eos % (Auto) 8.6 % (1.5-5.0) H 02/06/18 08:10 Baso % (Auto) 0.3 % (0.0-3.0) 02/06/18 08:10 Gran # 2.87 (1.4-6.5) 02/06/18 08:10 Lymph # (Auto) 1.9 (1.2-3.4) 02/06/18 08:10 [place] # (Auto) 0.6 (0.1-0.6) 02/06/18 08:10 Eos # (Auto) 0.5 (0.0-0.7) 02/06/18 08:10 Baso # (Auto) 0.02 K/mm3 (0.0-2.0) 02/06/18 08:10 Sodium 143 mmol/L (132-148) 02/06/18 08:10 Potassium 4.0 mmol/L (3.6-5.0) 02/06/18 08:10 Chloride 110 mmol/L (98-107) H 02/06/18 08:10 Carbon Dioxide 25 mmol/L (21-33) 02/06/18 08:10 Anion Gap 11 (10-20) 02/06/18 08:10 BUN 16 mg/dL (7-21) 02/06/18 08:10 Creatinine 0.8 mg/dl (0.8-1.5) 02/06/18 08:10 Est GFR ( Amer) > 60 02/06/18 08:10 Est GFR (Non-Af Amer) > 60 02/06/18 08:10 Random Glucose 91 mg/dL (70-110) 02/06/18 08:10 Calcium 8.2 mg/dL (8.4-10.5) L 02/06/18 08:10 Phosphorus 2.9 mg/dL (2.5-4.5) 02/06/18 08:10 Magnesium 1.7 mg/dL (1.7-2.2) 02/06/18 08:10 Total Bilirubin 0.6 mg/dL (0.2-1.3) 02/06/18 08:10 AST 23 U/L (17-59) 02/06/18 08:10 ALT 27 U/L (7-56) 02/06/18 08:10 Alkaline Phosphatase 42 U/L (38-126) 02/06/18 08:10 Total Protein 6.1 g/dL (5.8-8.3) 02/06/18 08:10 Albumin 3.2 g/dL (3.0-4.8) 02/06/18 08:10 Globulin 2.9 gm/dL 02/06/18 08:10 Albumin/Globulin Ratio 1.1 (1.1-1.8) 02/06/18 08:10 Amylase 75 U/L (35-125) 02/05/18 23:00 Lipase 47 U/L (23-300) 02/05/18 23:00 Urine Color Yellow (YELLOW) 02/06/18 11:30 Urine Appearance Clear (CLEAR) 02/06/18 11:30 Urine pH 6.5 (4.7-8.0) 02/06/18 11:30 Ur Specific [place] 1.010 (1.005-1.035) 02/06/18 11:30 Urine Protein Trace mg/dL (<30 mg/dL) H 02/06/18 11:30 Urine Glucose (UA) Negative mg/dL (NEGATIVE) 02/06/18 11:30 Urine Ketones Negative mg/dL (NEGATIVE) 02/06/18 11:30 Urine Blood Large (NEGATIVE) H 02/06/18 11:30 Urine Nitrate Negative (NEGATIVE) 02/06/18 11:30 Urine Bilirubin Negative (NEGATIVE) 02/06/18 11:30 Urine Urobilinogen 0.2 E.U./dL (<1 E.U./dL) 02/06/18 11:30 Ur Leukocyte Esterase Negative Minor/uL (NEGATIVE) 02/06/18 11:30 Urine RBC 20 - 25 /hpf (0-2) 02/06/18 11:30 Urine WBC 0 - 2 /hpf (0-6) 02/06/18 11:30 Ur Epithelial Cells None /hpf (0-5) 02/06/18 11:30 Urine Bacteria Mod (NEG) 02/06/18 11:30 - Hospital Course Hospital Course: 52 year old male with a past medical history of emphysema, CAD w/out stent, HTN , PUD, and nephrolithiasis s/p intervention by Dr. Hardwick, who presents to the ED complaining of lower abdominal pain. Pt found to have 0.5 x 0.4 x 0.5 cm calculus within LEFT mid ureter with mild hydroureteronephrosis. Urology consulted, s/p cystocsocpy and urological intervention. Pt prescribed flomax, antibiotic. Pt to f/u with Urology and PMD in 1 week. Case discussed with Dr Damon. Nancy Correa, PGY1 Discharge Exam - Head Exam Head Exam: ATRAUMATIC, NORMAL INSPECTION, NORMOCEPHALIC - Eye Exam Eye Exam: EOMI, PERRL. absent: Conjunctival injection, Nystagmus, Scleral icterus Pupil Exam: NORMAL ACCOMODATION, PERRL. absent: Irregular, Miosis, Unequal - ENT Exam ENT Exam: Mucous Membranes Moist - Neck Exam Neck exam: Full Rom - Respiratory Exam Respiratory Exam: Clear to PA & Lateral, NORMAL BREATHING PATTERN. absent: Chest Wall Tenderness, Decreased Breath Sounds, Prolonged Expiratory Phase, Rhonchi, Respiratory Distress, Stridor - Cardiovascular Exam Cardiovascular Exam: RRR, +S1, +S2. absent: Systolic Murmur - GI/Abdominal Exam GI & Abdominal Exam: Normal Bowel Sounds, Soft. absent: Firm, Guarding, Hypoactive Bowel Sounds, Organomegaly, Tenderness - Extremities Exam Extremities exam: normal inspection - Back Exam Back exam: NORMAL INSPECTION - Neurological Exam Neurological exam: Alert, Oriented x3 - Psychiatric Exam Psychiatric exam: Normal Affect, Normal Mood - Skin Skin Exam: Dry, Normal Color, Warm Discharge Plan - Follow Up Plan Condition: FAIR Disposition: HOME/ ROUTINE Instructions: Quitting Smoking for Older Adults, Smoking: Not Just Harmful to Your Lungs and Heart, Renal Colic, Acute Pain, Adult, Ureteral Stent, Quitting Smoking, Hydronephrosis, Adult (DC) Additional Instructions: Take flomax, antibiotic as prescribed Follow up with urologist Dr. Hadrwick - Please call him on his cellphone [phone] to set up appointment. Please return if you have fever or worsening in abdominal pain Referrals: Enedina Vinson MD [Primary Care Provider] - Dante Hardwick MD [Staff Provider] -
--- NOTE | 2018-02-12 13:38 | PN ---
DATE: 02/06/2018 UROLOGY IMMEDIATE POSTOPERATIVE NOTE PREOPERATIVE DIAGNOSES: Urolithiasis, hematuria, stone disease, and hydronephrosis. POSTOPERATIVE DIAGNOSES: Urolithiasis, hematuria, stone disease, and hydronephrosis. PROCEDURE: Double J stent placement. The patient had vital signs within normal limits. He is resting comfortably in the Recovery Room. DIAGNOSIS: Renal colic. PLAN: Outpatient followup with as an outpatient. Jj Hardwick MD
--- NOTE | 2018-02-12 15:24 | CON ---
DATE: 02/06/2018 UROLOGY CONSULTATION REASON FOR CONSULTATION: Severe renal colic. HISTORY OF PRESENT ILLNESS: Mr. Clarke is a very pleasant gentleman who was admitted for severe renal colic. After discussing option with the patient, patient is here today with severe renal colic. See the plan listed below. PAST MEDICAL AND SURGICAL HISTORY: As listed on the chart. REVIEW OF SYSTEMS: Listed above. MEDICATIONS: See the chart. 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 PHYSICAL EXAMINATION: GENERAL: A well-nourished male. He is currently resting comfortably. VITAL SIGNS: Within normal limits in the chart. LUNGS: Clear. HEART: Normal S1 and S2. ABDOMEN: Overall soft, nontender. LABORATORY DATA AND IMAGING: All noted on the chart. DIAGNOSIS: Severe left renal colic. History of stone disease. We discussed options with patient. He reminds me previous treatment that he had back in May. At this point, I explained to the patient that we are going to take him to the OR, put a stent in and then we will discuss other treatments of the stone. Diagnosis is renal colic, urolithiasis. PLAN: As follows. Cystoscopy, retrograde pyelogram. Diagnosis is history of stone disease. I made further plans to follow.. We discussed all the options, we discussed further imaging, we discussed observation, discussed different options with the patient and we discussed various option. The patient will have to go to the suite emergently. I will make an addendum to this note. Please see the addendum to this note. Basically, we doubt the patient have a stone as subsequently, the patient feels better. Jj Hardwick MD
--- NOTE | 2018-02-13 06:36 | OP ---
PROCEDURE DATE: 02/06/2018 PREOPERATIVE DIAGNOSES: Left renal colic, left hydronephrosis, left urolithiasis, hematuria, and severe renal colic. POSTOPERATIVE DIAGNOSES: Left renal colic, left hydronephrosis, left urolithiasis, hematuria, and severe renal colic. PROCEDURE: Cystoscopy, left retrograde pyelogram, insertion of left double-J stent. COMPLICATIONS: None. BLOOD LOSS: Less than 10 mL. At the termination of the procedure, the patient has an indwelling double-J stent. THE UROLOGY OPERATIVE FINDINGS: 1. Normal anterior urethra. No strictures. 2. Relatively visually occlusive prostate about 2 to 3 cm. 3. Left hydronephrosis. 4. There is a stone at about the level of L3, not seen perfectly well on the inclusion special education teacher film, but seen well with the retrograde pyelogram. Multiple images were taken of the same, were submitted to the radiologist for reading. Final film showed this is in the location. INDICATION: See history and physical for further details and consultation. Severe renal colic in a very pleasant gentleman, who is in the hospital for this colic. We discussed options and he is here now for the stent insertion. DESCRIPTION OF PROCEDURE: After obtaining informed consent, the patient was placed on the table. Routine monitors were placed. Time-out was called to confirm the patient and positioning. I explained to the patient our task for today is insertion of stent and most likely we are not treating the stone, however, the stone is more distal, unable to be treated. I also explained to the patient that this should relieve some of the discomfort. He may have some stent discomfort, but it does relieve his back off his renal colic. The procedure itself, after the patient's consent was obtained, antibiotic prophylaxis performed, positioning, etc. partially this was ureteral orifice was identified, and retrograde pyelogram was performed. The stone was outlined. The wire gets up to the kidney and then a double-J stent inserted. Overall, the patient tolerated the procedure well without complications. Jj Hardwick MD
== END 2018-02-06 20:06 | disposition home or self-care (01) ==
LOC: ED 21:21 → ERH 02-06 03:09 → 5RNO 02-06 05:56
PROVIDERS: ADMIT Internal Medicine; ATTEND Internal Medicine
DX: N13.2 Hydronephrosis with renal and ureteral calculous obstruction (principal); I10 Essential (primary) hypertension; I25.10 Atherosclerotic heart disease of native coronary artery without angina pectoris; J43.9 Emphysema, unspecified; F17.210 Nicotine dependence, cigarettes, uncomplicated; Z83.3 Family history of diabetes mellitus; Z87.11 Personal history of peptic ulcer disease
CPT/HCPCS: 36415; 52332; 74177; 76000; 80053; 81001; 82150; 83690; 83735; 84100; 85025; 87086; 96374; 96375; 96376; 99285; C1758; C1769; C2625; C9113; G0378; J0696; J1170; J2001; J2250; J2270; J2704; J3010; J7030; J7120; Q9966; Q9967

== ENCOUNTER 2018-02-07 07:38 | Emergency (ER) | payer OTHER ==
[2018-02-07 07:38] VITALS: PULSE 88; BMI 23.0
[2018-02-07 07:52] VITALS: TEMP 97.7
[2018-02-07] MEDS ORDERED: Morphine 4 mg/ml ISec IVP STA (08:13)
[2018-02-07] MEDS ORDERED: Sodium Chloride 0.9% 1,000 ML IV STA (08:13)
--- NOTE | 2018-02-07 08:27 | ED PDOC ---
Arrival/HPI <Evie Mohamud - Last Filed: 02/07/18 09:42> - General Historian: Patient <Lauro Manjarrez - Last Filed: 02/07/18 13:18> - General Chief Complaint: Abdominal Pain Time Seen by Provider: 02/07/18 07:50 - History of Present Illness Narrative History of Present Illness (Text): 02/07/18 08:18 This is a 52 yo M with PMH of emphysema, CAD w/out stent, HTN, PUD, and nephrolithiasis s/p left ureteral stent by Dr. Hardwick yesterday (02/06/18), who represents to the ED complaining of bilateral lower abdominal pain L>R. He was discharged after urological procedure yesterday by Dr. Hardwick, and reports that he was told to return if the pain got worse. He felt worse overnight despite use of his Tylenol 3 (w/ Codeine), and this AM, despite another dose, found himself unable to do work due to the pain, so he represented. Nauseous without emesis, gross hematuria but denies passing any clots, chills, and static abdominal pain worse with palpation, lying down, and movement. Baseline shortness of breath, but no new exacerbations. Denies chest pain, radiation of pain into upper back or lower extremities, no evie pus with urination. Remains able to tolerate PO intake. All other ROS in 12-system review negative. PMH: emphysema, CAD w/out stent, HTN, PUD, and nephrolithiasis s/p cystoscopy with stent (again yesterday, 02/06/18) and lithotripsy PSH: appendectomy, hernia repair, and plating of facial fractures FH: mother with DM SH: smokes 1 PPD x6 years, rare alcohol use, denies elicit drug use PMD: Dr. Vinson Urologist: Dr. Hardwick (Lauro Manjarrez) Past Medical History - Past History Past History: No Previous - Infectious Disease Hx of Infectious Diseases: None - Tetanus Immunization Tetanus Immunization: Unknown - Cardiac Hx Cardiac Disorders: Yes Hx Hypertension: Yes - Pulmonary Hx Respiratory Disorders: Yes Hx Chronic Obstructive Pulmonary Disease (COPD): Yes - Neurological Hx Neurological Disorder: Yes Hx Migraine: Yes - HEENT Hx HEENT Disorder: No - Renal Hx Kidney Stones: Yes - Endocrine/Metabolic Hx Endocrine Disorders: No - Hematological/Oncological Hx Blood Transfusions: No Hx Blood Transfusion Reaction: No - Integumentary Hx Dermatological Disorder: Yes - Musculoskeletal/Rheumatological Hx Falls: No - Gastrointestinal Hx Gastrointestinal Disorders: Yes - Genitourinary/Gynecological Hx Genitourinary Disorders: No - Psychiatric Hx Psychophysiologic Disorder: Yes Hx Anxiety: Yes Hx Depression: Yes Hx Substance Use: No - Past Surgical History Past Surgical History: No Previous - Surgical History Hx Appendectomy: Yes Other/Comment: Facial Surgery - Anesthesia Hx Anesthesia Reactions: No Hx Malignant Hyperthermia: No - Suicidal Assessment Feels Threatened In Home Enviroment: No <Lauro Manjarrez - Last Filed: 02/07/18 13:18> Family/Social History Family/Social History: Diabetes Smoking Status: Heavy Smoker > 10 Cigarettes Daily Hx Alcohol Use: No Hx Substance Use: No Hx Substance Use Treatment: No <Lauro Manjarrez - Last Filed: 02/07/18 13:18> Allergies/Home Meds <Evie Mohamud - Last Filed: 02/07/18 09:42> <Lauro Manjarrez - Last Filed: 02/07/18 13:18> Allergies/Adverse Reactions: Allergies No Known Allergies Allergy (Verified 02/07/18 07:46) Review of Systems - Physician Review All systems were reviewed & negative as marked: Yes (as per HPI) <Lauro Manjarrez - Last Filed: 02/07/18 13:18> Physical Exam Temperature: Afebrile Blood Pressure: Normal Pulse: Regular Respiratory Rate: Normal Appearance: Positive for: Well-Appearing, Non-Toxic, Uncomfortable Pain Distress: Moderate Mental Status: Positive for: Alert and Oriented X 3 - Systems Exam Head: Present: Atraumatic, Normocephalic Pupils: No: Pinpoint Extroacular Muscles: Present: EOMI Conjunctiva: Present: Normal. No: Injected, Icteric Mouth: Present: Moist Mucous Membranes, Normal Lips, Normal Tounge, Normal Teeth. No: Dry, Drooling Nose (External): Present: Atraumatic. No: Abrasion, Laceration Nose (Internal): Present: No Active Bleeding. No: Epistaxis Neck: Present: Normal Range of Motion. No: JVD Respiratory/Chest: Present: Clear to Auscultation, Good Air Exchange, Decreased Breath Sounds (mild decreased breath sounds in all telles). No: Respiratory Distress, Wheezes, Rales, Rhonchi Cardiovascular: Present: Regular Rate and Rhythm, Normal S1, S2. No: Murmurs, Irregular Rhythm, Tachycardic, Bradycardic Abdomen: Present: Tenderness (mildly tender to palpation diffusely, acutely tender to palpation at LLQ extending into flank and CVA region, mild-moderate tenderness to palpation along right flank into right CVA region; L>R pain), Normal Bowel Sounds, Guarding. No: Distention, Peritoneal Signs, Mass/ Organomegaly Upper Extremity: Present: Normal Inspection, Normal ROM, NORMAL PULSES. No: Cyanosis, Edema, Tenderness, Swelling, Erythema Lower Extremity: Present: Normal Inspection, NORMAL PULSES, Normal ROM. No: Edema, CALF TENDERNESS, Cyanosis, Tenderness, Swelling, Erythema Neurological: Present: GCS=15, Speech Normal, Motor Func Grossly Intact, Normal Sensory Function Skin: Present: Warm, Dry, Normal Color. No: Rashes Lymphatic: No: Cervical Adenopathy Psychiatric: Present: Alert, Oriented x 3, Normal Insight, Normal Concentration , Anxious <Lauro Manjarrez - Last Filed: 02/07/18 13:18> Vital Signs Temp Pulse Resp BP Pulse Ox 02/07/18 08:55 61 18 116/71 99 02/07/18 07:50 97.7 F 73 17 131/75 100 Medical Decision Making <Evie Mohamud - Last Filed: 02/07/18 09:42> <Lauro Manjarrez - Last Filed: 02/07/18 13:18> ED Course and Treatment: 02/07/18 09:41 52 year old male presents to the Emergency department for lower abdominal discomfort. In agreement with resident note, which includes further HPI details. Patient was seen and evaluated with resident, came up with plan and treatment together. (Evie Mohamud) 02/07/18 08:38 Ddx: retained stone vs new nephrolithiasis vs post-procedure irritation/pain vs UTI CBC, CMP, Mg, Phos, UA ordered. Morphine 2mg IVP x1 pain. Renal US to assess kidneys ordered. Start IVF 1L NS bolus. Paged Dr. Hardwick (Urology) for additional recs, determine if he would like any additional imaging. 02/07/18 10:[address] Hardwick, recs a KUB X-ray to confirm stent remains in place, if so, unlikely to need admission from Urologic standpoint. Renal US obtained, negative for gross hydronephrosis. KUB ordered. 02/07/18 13:10 Stent visualized, remains in place. UA suggestive of infection, possibly from instrumentation yesterday. Patient will get Rocephin 2g IV x1, and scripts for Levaquin 500mg PO daily x7 (electronically transmitted to his pharmacy) and Percocet 2.5mg QID PRN x20 (paper script) provided to patient. Told to start Levaquin tomorrow, take with food. Instructed to follow up with Dr. Hardwick as outpatient in [place] as previously scheduled. Patient expressed understanding and agreement. Will be discharged after completing Rocephin IV. Patient seen, reviewed, discussed with attending, Dr. Mohamud ([facility]) - Lab Interpretations Lab Results: 02/07/18 08:40 02/07/18 08:40 Lab Results 02/07/18 11:05: Urine Color Light red, Urine Appearance Cloudy, Urine pH 6.5, Ur Specific [place] 1.025, Urine Protein >=300 H, Urine Glucose (UA) 100 H, Urine Ketones 40 H, Urine Blood Large H, Urine Nitrate Positive H, Urine Bilirubin Small H, Urine Urobilinogen 1.0 H, Ur Leukocyte Esterase Small H, Urine RBC Tntc, Urine WBC 10 - 15, Ur Epithelial Cells None, Urine Bacteria Many 02/07/18 08:40: Sodium 141, Potassium 3.9, Chloride 108 H, Carbon Dioxide 26, Anion Gap 11, BUN 15, Creatinine 0.8, Est GFR ( Amer) > 60, Est GFR (Non- Af Amer) > 60, Random Glucose 90, Calcium 8.2 L, Phosphorus 3.1, Magnesium 1.6 L , Total Bilirubin 0.3, AST 27, ALT 28, Alkaline Phosphatase 42, Total Protein 6.0, Albumin 3.4, Globulin 2.6, Albumin/Globulin Ratio 1.3 02/07/18 08:40: WBC 7.1 D, RBC 3.85, Hgb 11.6 L, Hct 33.9 L, MCV 88.1, MCH 30.1 , MCHC 34.2, RDW 13.1, Plt Count 91 L, MPV 11.2 H, Gran % 65.7, Lymph % (Auto) 19.4 L, [place] % (Auto) 9.3 H, Eos % (Auto) 5.5 H, Baso % (Auto) 0.1, Gran # 4.66 , Lymph # (Auto) 1.4, [place] # (Auto) 0.7 H, Eos # (Auto) 0.4, Baso # (Auto) 0.01 - RAD Interpretation Radiology Orders: 02/07/18 08:13 RENAL [US] Stat 02/07/18 09:09 ABDOMEN (FLAT PLATE) 1VIEW [RAD] Stat - Medication Orders Current Medication Orders: Discontinued Medications Sodium Chloride (Sodium Chloride 0.9%) 1,000 mls @ 999 mls/hr IV .Q1H1M STA Stop: 02/07/18 09:13 Last Admin: 02/07/18 09:01 Dose: 999 mls/hr eMAR Start Stop Document 02/07/18 09:01 GMD (Rec: 02/07/18 09:01 [facility] [id number]) Intravenous Solution Start Date 02/07/18 Start Time 09:01 End Date 02/07/18 End time 10:02 Total Infusion Time 61 Ceftriaxone Sodium (Rocephin 2 Gm Ivpb) 2 gm in 100 mls @ 100 mls/hr IVPB STAT STA PRN Reason: Protocol Stop: 02/07/18 13:03 Last Admin: 02/07/18 12:52 Dose: 100 mls/hr eMAR Start Stop Document 02/07/18 12:52 GMD (Rec: 02/07/18 12:53 [facility] [id number]) Intravenous Solution Start Date 02/07/18 Start Time 12:53 End Date 02/07/18 End time 13:53 Total Infusion Time 60 Morphine Sulfate (Morphine) 2 mg IVP STAT STA Stop: 02/07/18 08:14 Last Admin: 02/07/18 09:00 Dose: 2 mg MAR Pain Assessment Document 02/07/18 09:00 GMD (Rec: 02/07/18 09:01 [facility] [id number]) Pain Reassessment Is this a pain reassessment? No Presence of Pain Presence of Pain Yes IVP Administration Document 02/07/18 09:00 GMD (Rec: 02/07/18 09:01 [facility] [id number]) Charges for Administration # of IVP Administrations 1 - PA / GLUE SPREADER / Resident Statement MD/DO has reviewed & agrees with the documentation as recorded. MD/DO has examined the patient and agrees with the treatment plan. - Scribe Statement The provider has reviewed the documentation as recorded by the Scribe <Evie Mohamud - Last Filed: 02/07/18 09:42> <Lauro Manjarrez - Last Filed: 02/07/18 13:18> - Scribe Statement Dustin Camejo. All medical record entries made by the Scribe were at my direction and personally dictated by me. I have reviewed the chart and agree that the record accurately reflects my personal performance of the history, physical exam, medical decision making, and the department course for this patient. I have also personally directed, reviewed, and agree with the discharge instructions and disposition. (Evie Mohamud) Disposition/Present on Arrival <Evie Mohamud - Last Filed: 02/07/18 09:42> - Present on Arrival Any Indicators Present on Arrival: No History of DVT/PE: No History of Uncontrolled Diabetes: No Urinary Catheter: No History of Decub. Ulcer: No History Surgical Site Infection Following: None - Disposition Have Diagnosis and Disposition been Completed?: Yes Disposition Time: 13:14 Patient Plan: Discharge <Lauro Manjarrez - Last Filed: 02/07/18 13:18> - Disposition Diagnosis: UTI (urinary tract infection), Renal colic Disposition: HOME/ ROUTINE Patient Problems: Current Active Problems Problem Status Onset Renal colic Acute UTI (urinary tract infection) Acute Condition: GOOD Additional Instructions: You were seen in the ED for your abdominal and flank pain. Some of pain is likely from the procedure you underwent yesterday, but testing of your urine also is suggestive of an infection. You were given a dose of antibiotic intravenously in the ED, and a script for additional antibiotics for 7 days was electronically transmitted to your pharmacy. Additionally, you have been given a script for Percocet, for better pain control. Please take only as needed, and only as directed. Please follow up with your PMD within 1 week of discharge , and with Dr. Hardwick at [place] as previously scheduled. Please return to a hospital if you experience worsening or newly concerning symptoms. Prescriptions: Acetaminophen/Oxycodone Hydr [Oxycodone and Acetaminophen 325 mg-2.5 mg] 1 tab PO QID #20 tab Levofloxacin [Levaquin] 500 mg PO DAILY #7 tablet Referrals: Enedina Vinson MD [Primary Care Provider] - Follow up with primary Forms: [facility] (Macedonian), WORK NOTE
--- NOTE | 2018-02-07 08:47 | US ---
PROCEDURE: Ultrasound of the Kidneys HISTORY: assess for renal inflammation COMPARISON: None available. TECHNIQUE: Sonogram of the kidneys. FINDINGS: RIGHT KIDNEY: Measures: 10.9 x 4.8 x 6.1 cm. Normal in size, contour and echogenicity. No stone, solid mass lesion or hydronephrosis visualized. LEFT KIDNEY: Measures: 10.7 x 5.4 x 5.3 cm. Normal in size, contour and echogenicity. Likely combination of prominent perisinus fat at the mid pole calices and a punctate calculus the lower pole left kidney. No definite hydronephrosis however. No cystic or solid parenchymal mass or perinephric fluid collection identified either. OTHER FINDINGS: None. IMPRESSION: No definite hydronephrosis bilaterally although combination of prominent perisinus fat and punctate intrarenal calculus seen the mid lower pole left kidney. No cystic or solid renal parenchymal mass bilaterally.
[2018-02-07 08:56] VITALS: RESP 18; O2SAT 99
[2018-02-07 09:00] LABS: BASO # 0.01 K/mm3 (0.0-2.0); BASO % 0.1 % (0.0-3.0); EOS # 0.4 (0.0-0.7); EOS % 5.5 % (1.5-5.0); GRAN # 4.66 (1.4-6.5); GRAN % 65.7 % (50.0-68.0); HEMOGLOBIN 11.6 g/dL (14.0-18.0); LYMPH # 1.4 (1.2-3.4); LYMPH % 19.4 % (22.0-35.0); MEAN CELL VOLUME 88.1 fl (80.0-105.0); MEAN CORPUSCULAR HEMOGLOBIN 30.1 pg (25.0-35.0); MEAN CORPUSCULAR HGB CONC 34.2 g/dl (31.0-37.0); MEAN PLATELET VOLUME 11.2 fl (7.0-11.0); MONO # 0.7 (0.1-0.6); MONO % 9.3 % (1.0-6.0); RBC 3.85 10^6/uL (3.5-6.1); RED CELL DISTRIBUTION WIDTH 13.1 % (11.5-14.5); WHITE BLOOD COUNT 7.1 10^3/ul (4.5-11.0)
[2018-02-07 09:15] LABS: ALB/GLOB RATIO 1.3 (1.1-1.8); ALBUMIN 3.4 g/dL (3.0-4.8); ALT/SGPT 28 U/L (7-56); AST/SGOT 27 U/L (17-59); BLOOD UREA NITROGEN 15 mg/dL (7-21); CALCIUM 8.2 mg/dL (8.4-10.5); GFR AFRICAN-AMERICAN > 60; GFR NON-AFRICAN AMERICAN > 60
[2018-02-07 11:10] LABS: PH,URINE 6.5 (4.7-8.0); URINE BILIRUBIN SMALL (NEGATIVE); URINE BLOOD LARGE (NEGATIVE); URINE GLUCOSE (UA) 100 mg/dL (NEGATIVE); URINE LEUKOCYTE ESTERASE SMALL Leu/uL (NEGATIVE); URINE PROTEIN >=300 mg/dL (<30 mg/dL)
[2018-02-07 11:13] LABS: URINE APPEARANCE CLOUDY (CLEAR); URINE COLOR LIGHT RED (YELLOW)
[2018-02-07 11:21] LABS: URINE BACTERIA MANY (NEG); URINE RBC TNTC /hpf (0-2)
--- NOTE | 2018-02-07 11:47 | RAD ---
HISTORY: abd pain s/p stent COMPARISON: No prior. FINDINGS: BOWEL: Normal. No obstruction. No free air. BONES: Normal. OTHER FINDINGS: There is a left ureteral stent. There are no visible stones IMPRESSION: No active disease.
[2018-02-07] MEDS ORDERED: cefTRIAXone 2 GM IN NS 2 GM/100 ML BAG IVPB STA (12:04)
[2018-02-07 13:33] VITALS: BP 124/76; PULSE 78
== END 2018-02-07 13:34 | disposition home or self-care (01) ==
LOC: ED 07:38
DX: N39.0 Urinary tract infection, site not specified (principal); I10 Essential (primary) hypertension; F17.210 Nicotine dependence, cigarettes, uncomplicated; I25.10 Atherosclerotic heart disease of native coronary artery without angina pectoris; N23 Unspecified renal colic
CPT/HCPCS: 74018; 76770; 80053; 81001; 83735; 84100; 85025; 87086; 96361; 96365; 96375; 99285; J0696; J2270; J7030

== ENCOUNTER 2018-02-08 05:30 | Observation (INO) | payer OTHER ==
[2018-02-08 05:31] VITALS: PULSE 88; BMI 23.0
--- NOTE | 2018-02-08 05:48 | ED PDOC ---
Arrival/HPI - General Time Seen by Provider: 02/08/18 05:42 Historian: Patient - History of Present Illness Narrative History of Present Illness (Text): 02/08/18 05:47 Sb Clarke is a 52 year old male, whose past medical history includes nephrolithiasis, CAD, hypertension, and PUD, who presents to the emergency department complaining of left-sided flank pain. Patient states he was recently diagnosed with a left mid ureter stone, was admitted to the hospital for further evaluation, and had a ureteral stent placed by urology on 02/06/2018. Patient states he has been taking Percocet and Flomax as directed but is still experiencing persistent left flank pain. Patient denies any fevers, chills, chest pain, shortness of breath, abdominal pain, nausea, vomiting, diarrhea, headache, dizziness, or any other complaint. Urology: Dr. Hardwick Symptom Onset: Gradual Symptom Course: Unchanged Activities at Onset: Light Context: Home Past Medical History - Provider Review Nursing Documentation Reviewed: Yes - Past History Past History: No Previous - Infectious Disease Hx of Infectious Diseases: None - Tetanus Immunization Tetanus Immunization: Unknown - Cardiac Hx Cardiac Disorders: Yes Hx Hypertension: Yes - Pulmonary Hx Respiratory Disorders: Yes Hx Chronic Obstructive Pulmonary Disease (COPD): Yes - Neurological Hx Neurological Disorder: Yes Hx Migraine: Yes - HEENT Hx HEENT Disorder: No - Renal Hx Kidney Stones: Yes - Endocrine/Metabolic Hx Endocrine Disorders: No - Hematological/Oncological Hx Blood Transfusions: No Hx Blood Transfusion Reaction: No - Integumentary Hx Dermatological Disorder: Yes - Musculoskeletal/Rheumatological Hx Falls: No - Gastrointestinal Hx Gastrointestinal Disorders: Yes - Genitourinary/Gynecological Hx Genitourinary Disorders: No - Psychiatric Hx Psychophysiologic Disorder: Yes Hx Anxiety: Yes Hx Depression: Yes Hx Substance Use: No - Past Surgical History Past Surgical History: No Previous - Surgical History Hx Appendectomy: Yes Other/Comment: Facial Surgery - Anesthesia Hx Anesthesia Reactions: No Hx Malignant Hyperthermia: No - Suicidal Assessment Feels Threatened In Home Enviroment: No Family/Social History - Physician Review Nursing Documentation Reviewed: Yes Family/Social History: Unknown Family HX Smoking Status: Heavy Smoker > 10 Cigarettes Daily Hx Alcohol Use: No Hx Substance Use: No Hx Substance Use Treatment: No Allergies/Home Meds Allergies/Adverse Reactions: Allergies No Known Allergies Allergy (Verified 02/08/18 05:48) Review of Systems - Physician Review All systems were reviewed & negative as marked: Yes - Review of Systems Constitutional: Normal. absent: Fevers Eyes: Normal ENT: Normal Respiratory: Normal. absent: SOB, Cough Cardiovascular: Normal. absent: Chest Pain Gastrointestinal: Normal. absent: Abdominal Pain, Diarrhea, Vomiting Genitourinary Male: Normal. absent: Dysuria, Frequency, Hematuria, Urinary Output Changes Musculoskeletal: Back Pain. absent: Neck Pain Skin: Normal. absent: Rash Neurological: Normal. absent: Headache, Dizziness Endocrine: Normal Hemo/Lymphatic: Normal Psychiatric: Normal Physical Exam Vital Signs Reviewed: Yes Vital Signs Temp Pulse Resp BP Pulse Ox 02/08/18 05:46 98.5 F 79 16 150/96 H 100 Temperature: Afebrile Blood Pressure: Normal Pulse: Regular Respiratory Rate: Normal Appearance: Positive for: Well-Appearing, Non-Toxic, Comfortable Pain Distress: None Mental Status: Positive for: Alert and Oriented X 3 - Systems Exam Head: Present: Atraumatic, Normocephalic Pupils: Present: PERRL Extroacular Muscles: Present: EOMI Conjunctiva: Present: Normal Mouth: Present: Moist Mucous Membranes Neck: Present: Normal Range of Motion Respiratory/Chest: Present: Clear to Auscultation, Good Air Exchange. No: Respiratory Distress, Accessory Muscle Use Cardiovascular: Present: Regular Rate and Rhythm, Normal S1, S2. No: Murmurs Abdomen: No: Tenderness, Distention, Peritoneal Signs Back: Present: CVA Tenderness (Left CVA tenderness). No: Midline Tenderness, Paraspinal Tenderness, Pain with Leg Raise Upper Extremity: Present: Normal Inspection. No: Cyanosis, Edema Lower Extremity: Present: Normal Inspection. No: Edema Neurological: Present: GCS=15, CN II-XII Intact, Speech Normal Skin: Present: Warm, Dry, Normal Color. No: Rashes Psychiatric: Present: Alert, Oriented x 3, Normal Insight, Normal Concentration Medical Decision Making ED Course and Treatment: 02/08/18 05:47 Impression: 52 year old male complaining of left-sided flank pain for the past few days. Recently admitted for nephrolithiasis, had ureteral stent placed. Plan: -- CT Abdomen and Pelvis w/o contrast -- Labs -- UA -- IV fluids -- Morphine -- Zofran -- Reassess and disposition Prior Visits: Notes and results from previous visits were reviewed. On 02/05/2018, pt was seen in the emergency department for left-sided flank pain. Pt was admitted and had a ureteral stent placed on 02/06/2018 and d/c home on 02/07/2018. Progress Notes: 02/08/18 07:00 Case endorsed to /pending labs/CT Abd/Pelvis/reassess/final disposition - Lab Interpretations Lab Results: 02/08/18 06:00 Lab Results 02/08/18 06:00: WBC 6.5, RBC 4.09, Hgb 12.2 L, Hct 35.7 L, MCV 87.3, MCH 29.8, MCHC 34.2, RDW 13.2, Plt Count 120, MPV 11.9 H - RAD Interpretation Radiology Orders: 02/08/18 05:49 ABD & PELVIS W/O PO OR IV CONT [CT] Stat - Medication Orders Current Medication Orders: Sodium Chloride (Sodium Chloride 0.9%) 1,000 mls @ 999 mls/hr IV .Q1H1M STA Stop: 02/08/18 06:50 Last Admin: 02/08/18 06:11 Dose: 999 mls/hr eMAR Start Stop Document 02/08/18 06:11 IT (Rec: 02/08/18 06:11 IT [id number]) Intravenous Solution Start Date 02/08/18 Start Time 06:11 Discontinued Medications Morphine Sulfate (Morphine) 4 mg IVP STAT STA Stop: 02/08/18 05:51 Last Admin: 02/08/18 06:10 Dose: 4 mg MAR Pain Assessment Document 02/08/18 06:10 IT (Rec: 02/08/18 06:10 IT [id number]) Pain Reassessment Is this a pain reassessment? No Sleep Is patient sleeping during reassessment? No Presence of Pain Presence of Pain Yes Pain Scale Used Pain Scale Used Numeric Location Left, Right or Bilateral Left Upper or Lower Lower Pain Location Body Site Back IVP Administration Document 02/08/18 06:10 IT (Rec: 02/08/18 06:10 IT [id number]) Charges for Administration # of IVP Administrations 1 Ondansetron HCl (Zofran Inj) 4 mg IVP ONCE ONE Stop: 02/08/18 05:51 Last Admin: 02/08/18 06:10 Dose: 4 mg IVP Administration Document 02/08/18 06:10 IT (Rec: 02/08/18 06:10 IT [id number]) Charges for Administration # of IVP Administrations 1 - Scribe Statement The provider has reviewed the documentation as recorded by the Nathenibjennifer Wells Provider Scribe Attestation: All medical record entries made by the Scribe were at my direction and personally dictated by me. I have reviewed the chart and agree that the record accurately reflects my personal performance of the history, physical exam, medical decision making, and the department course for this patient. I have also personally directed, reviewed, and agree with the discharge instructions and disposition. Disposition/Present on Arrival - Present on Arrival Any Indicators Present on Arrival: No History of DVT/PE: No History of Uncontrolled Diabetes: No Urinary Catheter: No History Surgical Site Infection Following: None - Disposition Have Diagnosis and Disposition been Completed?: No Diagnosis: Flank pain, Renal colic Disposition Time: 07:00 Condition: STABLE
[2018-02-08] MEDS ORDERED: Morphine 4 mg/ml ISec IVP STA ×2 (05:50→10:17)
[2018-02-08] MEDS ORDERED: Sodium Chloride 0.9% 1,000 ML IV STA (05:50)
[2018-02-08 06:19] LABS: HEMOGLOBIN 12.2 g/dL (14.0-18.0); MEAN CELL VOLUME 87.3 fl (80.0-105.0); MEAN CORPUSCULAR HEMOGLOBIN 29.8 pg (25.0-35.0); MEAN CORPUSCULAR HGB CONC 34.2 g/dl (31.0-37.0); MEAN PLATELET VOLUME 11.9 fl (7.0-11.0); RBC 4.09 10^6/uL (3.5-6.1); RED CELL DISTRIBUTION WIDTH 13.2 % (11.5-14.5); WHITE BLOOD COUNT 6.5 10^3/ul (4.5-11.0)
[2018-02-08 07:03] LABS: PH,URINE 6.5 (4.7-8.0); URINE APPEARANCE SL CLOUDY (CLEAR); URINE BILIRUBIN NEGATIVE (NEGATIVE); URINE BLOOD LARGE (NEGATIVE); URINE COLOR LIGHT RED (YELLOW); URINE GLUCOSE (UA) NEGATIVE (NEGATIVE); URINE LEUKOCYTE ESTERASE SMALL Leu/uL (NEGATIVE); URINE PROTEIN 100 mg/dL (<30 mg/dL); URINE UROBILINOGEN 0.2 E.U./dL (<1 E.U./dL)
[2018-02-08 07:07] LABS: ALB/GLOB RATIO 1.3 (1.1-1.8); ALBUMIN 3.6 g/dL (3.0-4.8); ALT/SGPT 29 U/L (7-56); AST/SGOT 32 U/L (17-59); BLOOD UREA NITROGEN 11 mg/dL (7-21); CALCIUM 8.3 mg/dL (8.4-10.5); GFR AFRICAN-AMERICAN > 60; GFR NON-AFRICAN AMERICAN > 60
--- NOTE | 2018-02-08 07:18 | ED PDOC ---
Physical Exam - Physical Exam Narrative Physical Exam (Text): 02/08/18 09:46 General: alert/awake, GCS = 15, oriented x 3, resting in bed, uncomfortable, cooperative, interactive; mild distress due to pain Head: NC/AT EYE: PERRLA, EOMI, sclera anicteric, no nystagmus, no photophobia Facial: WNL Oral: uvula/tongue are midline, no exudate/lesions, no drooling/stridor, no dysphonia; intact dentitions; dry oral mucosa NECK: intact ROM, no midline tenderness, no nuchal rigidity, no meningeal signs ; no step off Chest: CTA b/l, no w/r/r; no tachypenia, no accessory muscle use noted Chest Wall: no focal tenderness, no gross deformities, no crepitus, no lesions/ rashes noted Cardiac: +S1, +S2, no m/r/r, no tachycardia Abdominal: +BS, soft/nd/nt, well nourished patient; no masses/rebound/guarding/ rigidity; no preston's sign, no mcburney's point tenderness Extremities: intact ROM, strength 5/5 grossly intact in all limbs, neurovasc intact b/l; + ambulatory; reflex +2/2 BACK: no step off, no midline tenderness, NO crepitus, no gross deformities noted; Intact ROM; left CVAT, no gross deformities SKIN: cap refill < 1 sec, no ulcerations, no petechiae, no rashes NEURO: CNII-XII WNL, no facial asymmetries, no slurr speech, oriented x 3 NIH stroke scale ~ 0 Psych: normal insight, normal affect; follows command with ease Vital Signs Reviewed: Yes Vital Signs Temp Pulse Resp BP Pulse Ox 02/08/18 05:46 98.5 F 79 16 150/96 H 100 Temperature: Afebrile Blood Pressure: Hypertensive Pulse: Regular Respiratory Rate: Normal Appearance: Positive for: Well-Appearing, Uncomfortable Pain Distress: Mild Mental Status: Positive for: Alert and Oriented X 3 - Systems Exam Head: Present: Atraumatic, Normocephalic Medical Decision Making ED Course and Treatment: 02/08/18 07:16 Case endorsed to me by Dr. Nunez, awaiting CT and laboratory results, to be disposition accordingly. 0900 pt is currently resting in bed, in mild discomfort [address] Hardwick, urologists sales administration manager, made aware of pt's presentation, states if pt is discharged, pt is to f/u with him and have lithotripsy; otherwise, if he is admitted, he will see patient in the hospital spoke to patient, pt continues to have pain, 03/12 pt is uncomfortable, requesting further pain control and admission for further eval I left a message for Dr Hardwick regarding pt's request paging hospitalists sales administration manager 02/08/18 10:15 Dr García, hospitalists sales administration manager, made aware, agrees with admission/observation pt is made aware of his medical results agrees with admission/observation Re-evaluation Time: 09:35 Reassessment Condition: Improving,but remains with symptoms - Lab Interpretations Lab Results: 02/08/18 06:00 02/08/18 06:00 Lab Results 02/08/18 06:40: Urine Color Light red, Urine Appearance Sl cloudy, Urine pH 6.5 , Ur Specific [place] 1.015, Urine Protein 100 H, Urine Glucose (UA) Negative, Urine Ketones Negative, Urine Blood Large H, Urine Nitrate Negative, Urine Bilirubin Negative, Urine Urobilinogen 0.2, Ur Leukocyte Esterase Small H, Urine RBC Tntc, Urine WBC 10 - 15, Ur Epithelial Cells 0 - 2, Amorphous Sediment Few, Urine Bacteria Many, Urine Other Fiber 02/08/18 06:00: Sodium 140, Potassium 3.7, Chloride 107, Carbon Dioxide 24, Anion Gap 13, BUN 11, Creatinine 0.8, Est GFR ( Amer) > 60, Est GFR (Non- Af Amer) > 60, Random Glucose 154 H, Calcium 8.3 L, Total Bilirubin 0.4, AST 32 , ALT 29, Alkaline Phosphatase 49, Total Protein 6.3, Albumin 3.6, Globulin 2.7 , Albumin/Globulin Ratio 1.3 02/08/18 06:00: WBC 6.5, RBC 4.09, Hgb 12.2 L, Hct 35.7 L, MCV 87.3, MCH 29.8, MCHC 34.2, RDW 13.2, Plt Count 120, MPV 11.9 H Interpretation: Abnormal lab values (abnl ua) - RAD Interpretation Narrative RAD Interpretations (Text): Report Date : 02/08/2018 08:11:00 EXAM: CT Abdomen and Pelvis Without Intravenous Contrast Dictated By: Jael Horner MD IMPRESSION: Nephrolithiasis. No hydronephrosis. A left ureteral stent is in place. Tiny bubble of gas in the collecting system probably secondary to instrumentation. Infectious process not excluded. Stable too small to characterize low density lesion in the left hepatic lobe. No followup necessary. Radiology Orders: 02/08/18 05:49 ABD & PELVIS W/O PO OR IV CONT [CT] Stat Senior Mechanical Design Engineer: Radiologist - Medication Orders Current Medication Orders: Morphine Sulfate (Morphine) 4 mg IVP STAT STA Stop: 02/08/18 10:18 Discontinued Medications Sodium Chloride (Sodium Chloride 0.9%) 1,000 mls @ 999 mls/hr IV .Q1H1M STA Stop: 02/08/18 06:50 Last Admin: 02/08/18 06:11 Dose: 999 mls/hr eMAR Start Stop Document 02/08/18 06:11 IT (Rec: 02/08/18 06:11 IT [id number]) Intravenous Solution Start Date 02/08/18 Start Time 06:11 Morphine Sulfate (Morphine) 4 mg IVP STAT STA Stop: 02/08/18 05:51 Last Admin: 02/08/18 06:10 Dose: 4 mg MAR Pain Assessment Document 02/08/18 06:10 IT (Rec: 02/08/18 06:10 IT [id number]) Pain Reassessment Is this a pain reassessment? No Sleep Is patient sleeping during reassessment? No Presence of Pain Presence of Pain Yes Pain Scale Used Pain Scale Used Numeric Location Left, Right or Bilateral Left Upper or Lower Lower Pain Location Body Site Back IVP Administration Document 02/08/18 06:10 IT (Rec: 02/08/18 06:10 IT [id number]) Charges for Administration # of IVP Administrations 1 Ondansetron HCl (Zofran Inj) 4 mg IVP ONCE ONE Stop: 02/08/18 05:51 Last Admin: 02/08/18 06:10 Dose: 4 mg IVP Administration Document 02/08/18 06:10 IT (Rec: 02/08/18 06:10 IT [id number]) Charges for Administration # of IVP Administrations 1 Disposition/Present on Arrival - Present on Arrival Any Indicators Present on Arrival: No History of DVT/PE: No History of Uncontrolled Diabetes: No Urinary Catheter: No History of Decub. Ulcer: No History Surgical Site Infection Following: None - Disposition Have Diagnosis and Disposition been Completed?: Yes Diagnosis: Flank pain, Renal colic, Intractable pain Disposition: HOSPITALIZED Disposition Time: 09:50 Patient Plan: Admission Patient Problems: Current Active Problems Problem Status Onset Renal colic Acute Flank pain Acute Intractable pain Acute Condition: STABLE Referrals: Enedina Vinson MD [Primary Care Provider] - Follow up with primary
[2018-02-08 07:43] LABS: URINE AMORPHOUS SEDIMENT FEW; URINE BACTERIA MANY (NEG); URINE EPITHELIAL CELLS 0 - 2 /hpf (0-5); URINE RBC TNTC /hpf (0-2)
--- NOTE | 2018-02-08 08:12 | CT ---
EXAM: CT Abdomen and Pelvis Without Intravenous Contrast CLINICAL HISTORY: 52 years old, male; Pain; Abdominal pain; Flank; Other: Both sides; Prior surgery; Surgery date: 6+ months; Surgery type: Hernia, appendectomy; Additional info: Flank pain TECHNIQUE: Axial computed tomography images of the abdomen and pelvis without intravenous contrast. All CT scans at this facility use one or more dose reduction techniques, viz.: automated exposure control; ma/kV adjustment per patient size (including targeted exams where dose is matched to indication; i.e. head); or iterative reconstruction technique. Coronal and sagittal reformatted images were created and reviewed. COMPARISON: CT - ABD PELVIS IV CONTRAST ONLY 2018-02-06 01:41 FINDINGS: Lung bases: Unremarkable. No mass. No consolidation. ABDOMEN: Liver: There is a focal liver hypodensity that cannot be further characterized on the current examination. Gallbladder and bile ducts: The gallbladder is contracted but otherwise normal. No calcified stones. No ductal dilation. Pancreas: Unremarkable. No ductal dilation. Spleen: Unremarkable. No splenomegaly. Adrenals: Unremarkable. No mass. Kidneys and ureters: No obstructing stones. No hydronephrosis. Stomach and bowel: There is a moderate amount of retained stool throughout the colon. There is no wall thickening or pericolonic stranding to suggest colitis. The stomach is distended with ingested food and gas. PELVIS: Appendix: Not visualized. History of appendectomy. Bladder: Unremarkable. No stones. Reproductive: Unremarkable as visualized. ABDOMEN and PELVIS: Intraperitoneal space: Unremarkable. No free air. No significant fluid collection. Bones/joints: No acute fracture. No dislocation. Soft tissues: Unremarkable. Vasculature: Unremarkable. No abdominal aortic aneurysm. Lymph nodes: Unremarkable. No enlarged lymph nodes. Tubes, lines and devices: There is a left-sided ureteral stent present. There is a small amount of gas in the left collecting system probably related to instrumentation. Infectious process not excluded. IMPRESSION: Nephrolithiasis. No hydronephrosis. A left ureteral stent is in place. Tiny bubble of gas in the collecting system probably secondary to instrumentation. Infectious process not excluded. Stable too small to characterize low density lesion in the left hepatic lobe. No followup necessary.
--- NOTE | 2018-02-08 10:38 | CP.PCM.HP ---
<Jim Richardson - Last Filed: 02/08/18 12:19> History of Present Illness - History of Present Illness History of Present Illness: 52 year old male with past medical history of emphysema, CAD, HTN, PUD, and nephrolithiasis s/p recent left ureteral stent placement presents with abdominal pain for the past day. Patient was discharged on 02/07/18 after being admitted to the hospital for nephrolithiasis. Patient had a left ureter stent placed by Urology. Patient was told to follow up with Urology outpatient, but patient misplaced the number. Patient returns today with left sided abdominal pain, nonradiating, and sharp in nature. Patient did not take pain medication at home. Patient admits to blood in urine, but no dysuria. Denies chest pain, shortness of breath, nausea, vomiting, diarrhea, fever, chills, syncope. PMH: emphysema, CAD w/out stent, HTN, PUD, and nephrolithiasis Meds: None PSH: appendectomy, hernia repair, and plating of facial fractures Allergies: NKDA FH: Noncontributory SH: smokes 1 PPD x 15 years, occasional alcohol use, denies elicit drug use. Works in [employer]. Present on Admission - Present on Admission Any Indicators Present on Admission: No Review of Systems - Review of Systems Review of Systems: 12 point ROS as per HPI, otherwise negative Past Patient History - Infectious Disease Hx of Infectious Diseases: None - Tetanus Immunizations Tetanus Immunization: Unknown - Past Social History Smoking Status: Heavy Smoker > 10 Cigarettes Daily - CARDIAC Hx Cardiac Disorders: Yes Hx Hypertension: Yes - PULMONARY Hx Respiratory Disorders: Yes Hx Chronic Obstructive Pulmonary Disease (COPD): Yes - NEUROLOGICAL Hx Neurological Disorder: Yes Hx Migraine: Yes - HEENT Hx HEENT Problems: No - RENAL Hx Kidney Stones: Yes - ENDOCRINE/METABOLIC Hx Endocrine Disorders: No - HEMATOLOGICAL/ONCOLOGICAL Hx Blood Transfusions: No Hx Blood Transfusion Reaction: No - INTEGUMENTARY Hx Dermatological Problems: Yes - MUSCULOSKELETAL/RHEUMATOLOGICAL Hx Falls: No - GASTROINTESTINAL Hx Gastrointestinal Disorders: Yes - GENITOURINARY/GYNECOLOGICAL Hx Genitourinary Disorders: No - PSYCHIATRIC Hx Psychophysiologic Disorder: Yes Hx Anxiety: Yes Hx Depression: Yes Hx Substance Use: No - SURGICAL HISTORY Hx Appendectomy: Yes Other/Comment: Facial Surgery - ANESTHESIA Hx Anesthesia Reactions: No Hx Malignant Hyperthermia: No Meds Allergies/Adverse Reactions: Allergies Allergy/AdvReac Type Severity Reaction Status Date / Time No Known Allergies Allergy Verified 02/08/18 11:46 Physical Exam - Constitutional Appears: Non-toxic, No Acute Distress - Head Exam Head Exam: ATRAUMATIC, NORMAL INSPECTION, NORMOCEPHALIC - Eye Exam Eye Exam: EOMI, Normal appearance - ENT Exam ENT Exam: Mucous Membranes Moist - Respiratory Exam Respiratory Exam: Clear to Auscultation Bilateral, NORMAL BREATHING PATTERN - Cardiovascular Exam Cardiovascular Exam: RRR, +S1, +S2 - GI/Abdominal Exam GI & Abdominal Exam: Normal Bowel Sounds, Soft, Tenderness (Left and right lower abdomen). absent: Distended, Firm, Guarding - Extremities Exam Extremities exam: Positive for: normal inspection - Neurological Exam Neurological exam: Alert, CN II-XII Intact, Oriented x3 - Psychiatric Exam Psychiatric exam: Normal Affect, Normal Mood - Skin Skin Exam: Dry, Normal Color, Warm Results - Vital Signs Recent Vital Signs: Last Vital Signs Temp 98.5 F 02/08/18 05:46 Pulse 79 02/08/18 05:46 Resp 16 02/08/18 05:46 BP 150/96 H 02/08/18 05:46 Pulse Ox 100 02/08/18 05:46 - Labs Result Diagrams: 02/08/18 06:00 02/08/18 06:00 Assessment & Plan - Assessment and Plan (Free Text) Plan: 52 year old male with past medical history of emphysema, CAD, HTN, PUD, and nephrolithiasis presents with intractable secondary to nephrolithiasis. Patient will be placed on pain control along with IVF. Urology to be consulted. 1. Intractable pain secondary to Nephrolithiasis Toradol 15 mg q6h NS @ 100 Flomax Urology consulted Urine culture pending 2. CAD ASA Statin 3. Prophylaxis SCDs Protonix Kseniaagwandin, PGY-2 <Yohan García - Last Filed: 02/08/18 13:34> Results - Vital Signs Recent Vital Signs: Last Vital Signs Temp 97.9 F 02/08/18 12:25 Pulse 69 02/08/18 12:25 Resp 19 02/08/18 12:25 BP 124/78 02/08/18 12:25 Pulse Ox 99 02/08/18 11:25 - Labs Result Diagrams: 02/08/18 06:00 02/08/18 06:00 Attending/Attestation - Attestation I have personally seen and examined this patient.: Yes I have fully participated in the care of the patient.: Yes I have reviewed all pertinent clinical information: Yes Notes (Text): 02/08/18 13:29 52 year old male with past medical history of CAD and nephrolithiasis with recent cystoscopy with left ureter stent placement who presents with intractable abdominal pain with episode of nausea/vomiting. He was supposed to follow up with urology but apparently misplaced his number. CT abd/pelvis shows nephrolithiais, no hydronephrosis, stent is in place. Will admit with iv fluids and analgesics. Urology follow up is requested. Billy García MD Hospitalist.
[2018-02-08] MEDS ORDERED: Morphine 4 mg/ml ISec ONE (10:40)
[2018-02-08] MEDS: Sodium Chloride 0.9% 1,000 ML IV SCH ×2 (11:07→22:35)
[2018-02-08] MEDS ORDERED: Pneumococcal 23-Valent Vaccine IM ONE (13:25)
[2018-02-08] MEDS: Oxycodone/Acetaminophen 5/325 mg Tab PO PRN ×2 (17:32→22:33)
[2018-02-09] MEDS ORDERED: Morphine 2 mg/ml ISec IVP STA (01:46)
[2018-02-09] MEDS: Pantoprazole 40 mg EC Tab PO SCH ×2 (05:52→06:35)
[2018-02-09] MEDS: Sodium Chloride 0.9% 1,000 ML IV SCH (06:35)
[2018-02-09] MEDS: Oxycodone/Acetaminophen 5/325 mg Tab PO PRN ×2 (06:41→12:11)
[2018-02-09 07:43] LABS: HEMOGLOBIN 10.7 g/dL (14.0-18.0); MEAN CELL VOLUME 88.4 fl (80.0-105.0); MEAN CORPUSCULAR HEMOGLOBIN 29.6 pg (25.0-35.0); MEAN CORPUSCULAR HGB CONC 33.5 g/dl (31.0-37.0); RBC 3.61 10^6/uL (3.5-6.1); RED CELL DISTRIBUTION WIDTH 13.2 % (11.5-14.5); WHITE BLOOD COUNT 3.4 10^3/ul (4.5-11.0)
[2018-02-09 08:14] LABS: ALB/GLOB RATIO 1.2 (1.1-1.8); ALT/SGPT 24 U/L (7-56); AST/SGOT 21 U/L (17-59); BLOOD UREA NITROGEN 13 mg/dL (7-21); CALCIUM 7.9 mg/dL (8.4-10.5); GFR AFRICAN-AMERICAN > 60; GFR NON-AFRICAN AMERICAN > 60
[2018-02-09 15:10] VITALS: BP 131/92; PULSE 62; RESP 18; TEMP 97.6; O2SAT 99
--- NOTE | 2018-02-09 15:25 | PCM.URO ---
Urology Progress Note - Subjective Abdominal Pain: Yes - Objective Lab Results Last 24 Hours: Laboratory Results - last 24 hr 02/09/18 02/09/18 07:20 07:20 WBC 3.4 L D RBC 3.61 Hgb 10.7 L Hct 31.9 L MCV 88.4 MCH 29.6 MCHC 33.5 RDW 13.2 Plt Count 93 L MPV 12.0 H Sodium 140 Potassium 4.0 Chloride 108 H Carbon Dioxide 26 Anion Gap 10 BUN 13 Creatinine 0.8 Est GFR ( Amer) > 60 Est GFR (Non-Af Amer) > 60 Random Glucose 87 Calcium 7.9 L Total Bilirubin 0.3 AST 21 ALT 24 Alkaline Phosphatase 39 Total Protein 5.4 L Albumin 3.0 Globulin 2.5 Albumin/Globulin Ratio 1.2 Intake & Output: Intake & Output 02/08/18 02/09/18 02/09/18 18:59 06:59 18:59 Intake Total 240 960 Output Total 200 1000 Balance 40 -40 Weight 170 lb Intake: Oral 240 960 Output: Urine 200 1000 Urine, Voided 200 1000 Other: Voiding Method Toilet # Bowel Movements 0 0 Vital Signs: Vital Signs - 24 hr 02/08/18 02/09/18 02/09/18 22:34 06:00 14:00 Temperature 97.4 F L 98.1 F 97.6 F Pulse Rate 58 L 58 L 62 Respiratory 18 20 18 Rate Blood Pressure 130/90 121/84 131/92 H O2 Sat by Pulse 96 96 99 Oximetry
--- NOTE | 2018-02-09 19:27 | CP.PCM.DIS ---
<Gregorio Gannophe - Last Filed: 02/09/18 19:20> Provider - Provider Date of Admission: 02/08/18 10:14 Attending physician: Yohan García MD Primary care physician: Enedina Vinson MD Consults: Urology: Dr. Shiv Hardwick Time Spent in preparation of Discharge (in minutes): 35 Diagnosis - Discharge Diagnosis (1) Intractable pain Status: Acute (2) Renal colic Status: Acute (3) Abdominal pain Status: Acute Hospital Course - Lab Results Lab Results: Most Recent Lab Values WBC 3.4 10^3/ul (4.5-11.0) L D 02/09/18 07:20 RBC 3.61 10^6/uL (3.5-6.1) 02/09/18 07:20 Hgb 10.7 g/dL (14.0-18.0) L 02/09/18 07:20 Hct 31.9 % (42.0-52.0) L 02/09/18 07:20 MCV 88.4 fl (80.0-105.0) 02/09/18 07:20 MCH 29.6 pg (25.0-35.0) 02/09/18 07:20 MCHC 33.5 g/dl (31.0-37.0) 02/09/18 07:20 RDW 13.2 % (11.5-14.5) 02/09/18 07:20 Plt Count 93 10^3/uL (120.0-450.0) L 02/09/18 07:20 MPV 12.0 fl (7.0-11.0) H 02/09/18 07:20 Sodium 140 mmol/L (132-148) 02/09/18 07:20 Potassium 4.0 mmol/L (3.6-5.0) 02/09/18 07:20 Chloride 108 mmol/L (98-107) H 02/09/18 07:20 Carbon Dioxide 26 mmol/L (21-33) 02/09/18 07:20 Anion Gap 10 (10-20) 02/09/18 07:20 BUN 13 mg/dL (7-21) 02/09/18 07:20 Creatinine 0.8 mg/dl (0.8-1.5) 02/09/18 07:20 Est GFR ( Amer) > 60 02/09/18 07:20 Est GFR (Non-Af Amer) > 60 02/09/18 07:20 Random Glucose 87 mg/dL (70-110) 02/09/18 07:20 Calcium 7.9 mg/dL (8.4-10.5) L 02/09/18 07:20 Total Bilirubin 0.3 mg/dL (0.2-1.3) 02/09/18 07:20 AST 21 U/L (17-59) 02/09/18 07:20 ALT 24 U/L (7-56) 02/09/18 07:20 Alkaline Phosphatase 39 U/L (38-126) 02/09/18 07:20 Total Protein 5.4 g/dL (5.8-8.3) L 02/09/18 07:20 Albumin 3.0 g/dL (3.0-4.8) 02/09/18 07:20 Globulin 2.5 gm/dL 02/09/18 07:20 Albumin/Globulin Ratio 1.2 (1.1-1.8) 02/09/18 07:20 Urine Color Light red (YELLOW) 02/08/18 06:40 Urine Appearance Sl cloudy (CLEAR) 02/08/18 06:40 Urine pH 6.5 (4.7-8.0) 02/08/18 06:40 Ur Specific Fonda 1.015 (1.005-1.035) 02/08/18 06:40 Urine Protein 100 mg/dL (<30 mg/dL) H 02/08/18 06:40 Urine Glucose (UA) Negative mg/dL (NEGATIVE) 02/08/18 06:40 Urine Ketones Negative mg/dL (NEGATIVE) 02/08/18 06:40 Urine Blood Large (NEGATIVE) H 02/08/18 06:40 Urine Nitrate Negative (NEGATIVE) 02/08/18 06:40 Urine Bilirubin Negative (NEGATIVE) 02/08/18 06:40 Urine Urobilinogen 0.2 E.U./dL (<1 E.U./dL) 02/08/18 06:40 Ur Leukocyte Esterase Small Minor/uL (NEGATIVE) H 02/08/18 06:40 Urine RBC Tntc /hpf (0-2) 02/08/18 06:40 Urine WBC 10 - 15 /hpf (0-6) 02/08/18 06:40 Ur Epithelial Cells 0 - 2 /hpf (0-5) 02/08/18 06:40 Amorphous Sediment Few 02/08/18 06:40 Urine Bacteria Many (NEG) 02/08/18 06:40 Urine Other Fiber 02/08/18 06:40 - Hospital Course Hospital Course: 52 year old male with past medical history of emphysema, CAD, HTN, PUD, and nephrolithiasis s/p recent left ureteral stent placement who presented to [facility] ED with abdominal pain for the past day .Patient was recently discharged 2017 status post nephrolithiasis with placement of left ureter stent by Urology. patient indicates his pain was uncontrolled and that his Oxycodone medication was not adequate. Patient had abdominal and pelvis CT showing no obstruction or stone and without acute findings. Patient was admitted for observation, given IV fluids, IV pain medication and evaluated by Urology. Case was discussed with patient Urologist who recommended patient to come back to [facility] for procedure on Sunday02/11/2018. Patient had already been prescribed Oxycodone in ED on recent visit to hospital. Patient reported having appropriate supply. Patient was instructed to continue IV hydration, avoid NSAIDS and follow up with Dr. Hardwick on Sunday for urological procedure. Discharge planning was discussed with patient including medication reconciliation, outpatient follow up and signs and symptoms to be aware of to return to ED. Patient was in understanding and agreeable. At time of discharge patient vital signs were stable, pain controlled. See chart for full details. - Date & Time of H&P Date of H&P: 02/08/18 Time of H&P: 10:34 Discharge Exam - Head Exam Head Exam: ATRAUMATIC, NORMAL INSPECTION, NORMOCEPHALIC - Eye Exam Eye Exam: EOMI, PERRL - ENT Exam ENT Exam: Mucous Membranes Moist - Neck Exam Neck exam: Full Rom - Respiratory Exam Respiratory Exam: Clear to PA & Lateral, NORMAL BREATHING PATTERN, UNREMARKABLE. absent: Wheezes, Respiratory Distress - Cardiovascular Exam Cardiovascular Exam: REGULAR RHYTHM, +S1, +S2. absent: Systolic Murmur - GI/Abdominal Exam GI & Abdominal Exam: Normal Bowel Sounds, Soft, Tenderness (mild left sided with deep palpation) - Extremities Exam Extremities exam: normal capillary refill, pedal pulses present - Back Exam Back exam: NORMAL INSPECTION. absent: CVA tenderness (L), CVA tenderness (R) - Neurological Exam Neurological exam: Alert, CN II-XII Intact, Normal Gait, Oriented x3, Reflexes Normal - Psychiatric Exam Psychiatric exam: Normal Affect, Normal Mood - Skin Skin Exam: Dry, Warm Discharge Plan - Follow Up Plan Condition: STABLE Disposition: HOME/ ROUTINE Instructions: Renal Colic (DC), Renal Colic (GEN) Additional Instructions: Follow up with urologist upon discharge Follow up with appointment at [facility] in [place] on Sunday Take medications as prescribed to you Return to nearest emergency department if you experience chest pain, large amounts of blood or clotting in your urine, persistent fever, headache or severe abdominal pain Referrals: Enedina Vinson MD [Primary Care Provider] - <LeelaBenjiduke - Last Filed: 02/10/18 11:11> Provider - Provider Date of Admission: 02/08/18 10:14 Attending physician: Yohan García MD Primary care physician: Enedina Vinson MD Hospital Course - Lab Results Lab Results: Most Recent Lab Values WBC 3.4 10^3/ul (4.5-11.0) L D 02/09/18 07:20 RBC 3.61 10^6/uL (3.5-6.1) 02/09/18 07:20 Hgb 10.7 g/dL (14.0-18.0) L 02/09/18 07:20 Hct 31.9 % (42.0-52.0) L 02/09/18 07:20 MCV 88.4 fl (80.0-105.0) 02/09/18 07:20 MCH 29.6 pg (25.0-35.0) 02/09/18 07:20 MCHC 33.5 g/dl (31.0-37.0) 02/09/18 07:20 RDW 13.2 % (11.5-14.5) 02/09/18 07:20 Plt Count 93 10^3/uL (120.0-450.0) L 02/09/18 07:20 MPV 12.0 fl (7.0-11.0) H 02/09/18 07:20 Sodium 140 mmol/L (132-148) 02/09/18 07:20 Potassium 4.0 mmol/L (3.6-5.0) 02/09/18 07:20 Chloride 108 mmol/L (98-107) H 02/09/18 07:20 Carbon Dioxide 26 mmol/L (21-33) 02/09/18 07:20 Anion Gap 10 (10-20) 02/09/18 07:20 BUN 13 mg/dL (7-21) 02/09/18 07:20 Creatinine 0.8 mg/dl (0.8-1.5) 02/09/18 07:20 Est GFR ( Amer) > 60 02/09/18 07:20 Est GFR (Non-Af Amer) > 60 02/09/18 07:20 Random Glucose 87 mg/dL (70-110) 02/09/18 07:20 Calcium 7.9 mg/dL (8.4-10.5) L 02/09/18 07:20 Total Bilirubin 0.3 mg/dL (0.2-1.3) 02/09/18 07:20 AST 21 U/L (17-59) 02/09/18 07:20 ALT 24 U/L (7-56) 02/09/18 07:20 Alkaline Phosphatase 39 U/L (38-126) 02/09/18 07:20 Total Protein 5.4 g/dL (5.8-8.3) L 02/09/18 07:20 Albumin 3.0 g/dL (3.0-4.8) 02/09/18 07:20 Globulin 2.5 gm/dL 02/09/18 07:20 Albumin/Globulin Ratio 1.2 (1.1-1.8) 02/09/18 07:20 Urine Color Light red (YELLOW) 02/08/18 06:40 Urine Appearance Sl cloudy (CLEAR) 02/08/18 06:40 Urine pH 6.5 (4.7-8.0) 02/08/18 06:40 Ur Specific Fonda 1.015 (1.005-1.035) 02/08/18 06:40 Urine Protein 100 mg/dL (<30 mg/dL) H 02/08/18 06:40 Urine Glucose (UA) Negative mg/dL (NEGATIVE) 02/08/18 06:40 Urine Ketones Negative mg/dL (NEGATIVE) 02/08/18 06:40 Urine Blood Large (NEGATIVE) H 02/08/18 06:40 Urine Nitrate Negative (NEGATIVE) 02/08/18 06:40 Urine Bilirubin Negative (NEGATIVE) 02/08/18 06:40 Urine Urobilinogen 0.2 E.U./dL (<1 E.U./dL) 02/08/18 06:40 Ur Leukocyte Esterase Small Minor/uL (NEGATIVE) H 02/08/18 06:40 Urine RBC Tntc /hpf (0-2) 02/08/18 06:40 Urine WBC 10 - 15 /hpf (0-6) 02/08/18 06:40 Ur Epithelial Cells 0 - 2 /hpf (0-5) 02/08/18 06:40 Amorphous Sediment Few 02/08/18 06:40 Urine Bacteria Many (NEG) 02/08/18 06:40 Urine Other Fiber 02/08/18 06:40 Attending/Attestation - Attestation I have personally seen and examined this patient.: Yes I have fully participated in the care of the patient.: Yes I have reviewed all pertinent clinical information, including history, physical exam and plan: Yes Notes (Text): 02/10/18 11:10 Medical record note made by the resident after discussion with my direction and input after the patient was personally seen and examined by me. I have reviewed the chart and agree that the record accurately reflects by personal performance of the history, physical exam, data review, and medical decision-making, in the course for the patient. I have also personally directed the plan of care.
== END 2018-02-09 20:13 | disposition home or self-care (01) ==
LOC: ED 05:30 → ERH 10:14 → 5RSO 12:11
PROVIDERS: ADMIT Internal Medicine; ATTEND Internal Medicine
DX: N20.0 Calculus of kidney (principal); I10 Essential (primary) hypertension; I25.10 Atherosclerotic heart disease of native coronary artery without angina pectoris; J43.9 Emphysema, unspecified; Z87.11 Personal history of peptic ulcer disease; Z87.442 Personal history of urinary calculi; F17.210 Nicotine dependence, cigarettes, uncomplicated; Z90.49 Acquired absence of other specified parts of digestive tract; Z87.81 Personal history of (healed) traumatic fracture; G43.909 Migraine, unspecified, not intractable, without status migrainosus; R40.2412 Glasgow coma scale score 13-15, at arrival to emergency department
CPT/HCPCS: 36415; 74176; 80053; 81001; 85027; 87086; 96374; 96375; 96376; 99284; G0378; J1885; J2270; J2405; J7030

== ENCOUNTER 2018-02-11 01:06 | Emergency (ER) | payer OTHER ==
[2018-02-11 01:07] VITALS: PULSE 88
[2018-02-11 01:41] VITALS: TEMP 97.9; BMI 22.4
--- NOTE | 2018-02-11 01:59 | ED PDOC ---
Arrival/HPI - General Chief Complaint: Lower Extremity Problem/Injury Time Seen by Provider: 02/11/18 01:09 Historian: Patient - History of Present Illness Narrative History of Present Illness (Text): Patient is a 52 year old male with a past medical history of emphysema, CAD, HTN , PUD, and nephrolithiasis s/p recent left ureteral stent placement who presented to [facility] ED for evaluation and treatment of bilateral ankle pain which began yesterday with no specific event. The pain is characterized as being sharp in nature and nonradiating. Pain has gotten progressively worse since onset. Admits to difficulty with ambulation. Admits to swelling and redness of right ankle. Further states he continues to experience his baseline LLQ abdominal pain with associated nausea and 1 episode of nonbloody nonbilious emesis. 02/11/18 01:53 Past Medical History - Provider Review Nursing Documentation Reviewed: Yes - Travel History Have you recently traveled outside [place] w/in the past 3 mons?: No - Past History Past History: No Previous - Infectious Disease Hx of Infectious Diseases: None - Tetanus Immunization Tetanus Immunization: Unknown - Cardiac Hx Cardiac Disorders: Yes Hx Hypertension: Yes - Pulmonary Hx Respiratory Disorders: Yes Hx Chronic Obstructive Pulmonary Disease (COPD): Yes - Neurological Hx Neurological Disorder: Yes Hx Migraine: Yes - HEENT Hx HEENT Disorder: No - Renal Hx Kidney Stones: Yes - Endocrine/Metabolic Hx Endocrine Disorders: No - Hematological/Oncological Hx Blood Transfusions: No Hx Blood Transfusion Reaction: No - Integumentary Hx Dermatological Disorder: Yes - Musculoskeletal/Rheumatological Hx Falls: No - Gastrointestinal Hx Gastrointestinal Disorders: Yes - Genitourinary/Gynecological Hx Genitourinary Disorders: No - Psychiatric Hx Psychophysiologic Disorder: Yes Hx Anxiety: Yes Hx Depression: Yes Hx Substance Use: No - Past Surgical History Past Surgical History: No Previous - Surgical History Hx Appendectomy: Yes Other/Comment: Facial Surgery - Anesthesia Hx Anesthesia: Yes Hx Anesthesia Reactions: No Hx Malignant Hyperthermia: No - Suicidal Assessment Feels Threatened In Home Enviroment: No Family/Social History - Physician Review Nursing Documentation Reviewed: Yes Family/Social History: Unknown Family HX Smoking Status: Heavy Smoker > 10 Cigarettes Daily Hx Alcohol Use: Yes Frequency of alcohol use: Socially Hx Substance Use: No Hx Substance Use Treatment: No Allergies/Home Meds Allergies/Adverse Reactions: Allergies No Known Allergies Allergy (Verified 02/08/18 11:46) Review of Systems - Physician Review All systems were reviewed & negative as marked: Yes - Review of Systems Constitutional: Normal Eyes: Normal ENT: Normal Respiratory: Normal Cardiovascular: Normal Gastrointestinal: Abdominal Pain, Nausea, Vomiting Genitourinary Male: Normal Musculoskeletal: Arthralgias, Joint Swelling Skin: Cellulitis Neurological: Normal Endocrine: Normal Hemo/Lymphatic: Normal Psychiatric: Normal Physical Exam Vital Signs Reviewed: Yes Vital Signs Temp Pulse Resp BP Pulse Ox 02/11/18 01:34 97.9 F 66 18 147/97 H 99 Temperature: Afebrile Blood Pressure: Normal Pulse: Regular Respiratory Rate: Normal Appearance: Positive for: Well-Appearing, Non-Toxic, Comfortable Pain Distress: None Mental Status: Positive for: Alert and Oriented X 3 - Systems Exam Head: Present: Atraumatic Pupils: Present: PERRL Extroacular Muscles: Present: EOMI Conjunctiva: Present: Normal Mouth: Present: Moist Mucous Membranes Neck: Present: Normal Range of Motion Respiratory/Chest: Present: Clear to Auscultation, Good Air Exchange. No: Respiratory Distress, Accessory Muscle Use Cardiovascular: Present: Regular Rate and Rhythm, Normal S1, S2. No: Murmurs Abdomen: No: Tenderness, Distention, Peritoneal Signs Back: Present: Normal Inspection Upper Extremity: Present: Normal Inspection. No: Cyanosis, Edema Lower Extremity: Present: Edema, NORMAL PULSES, Tenderness, Swelling, Erythema ( right lower extremity ankle erythema and swelling) Neurological: Present: GCS=15, CN II-XII Intact, Speech Normal Skin: Present: Warm, Dry, Normal Color. No: Rashes Psychiatric: Present: Alert, Oriented x 3, Normal Insight, Normal Concentration Medical Decision Making ED Course and Treatment: Patient is a 52 year old male with a past medical history of emphysema, CAD, HTN , PUD, and nephrolithiasis s/p recent left ureteral stent placement who presented to [facility] ED for evaluation and treatment of bilateral ankle pain. Bilateral Ankle Pain Rule out DVT vs Cellulitis Hx of emphysema Hx of CAD Hx of PUD Hx of Nephrolithaisis 02/11/18 02:01 - CBC, CMP, PT, PTT - Duplex Lower Extremity Vein Bilaterally 02/11/18 03:18 - Duplex Lower Extremity Vein Bilaterally negative - ok to discharge to home on PO antibiotics - Lab Interpretations Lab Results: 02/11/18 02:00 02/11/18 02:00 Lab Results 02/11/18 02:00: Sodium 143, Potassium 3.9, Chloride 105, Carbon Dioxide 29, Anion Gap 14, BUN 15, Creatinine 0.8, Est GFR ( Amer) > 60, Est GFR (Non- Af Amer) > 60, Random Glucose 83, Calcium 8.7, Total Bilirubin 0.6, AST 30, ALT 33, Alkaline Phosphatase 56, Total Protein 6.9, Albumin 4.0, Globulin 2.9, Albumin/Globulin Ratio 1.4 02/11/18 02:00: PT 11.6, INR 1.02, APTT 34.0 02/11/18 02:00: WBC 7.5 D, RBC 4.36, Hgb 13.1 L D, Hct 38.3 L, MCV 87.8, MCH 30.0, MCHC 34.2, RDW 13.2, Plt Count 144, MPV 12.1 H, Gran % 59.4, Lymph % (Auto ) 22.2, [place] % (Auto) 11.5 H, Eos % (Auto) 6.5 H, Baso % (Auto) 0.4, Gran # 4.46 , Lymph # (Auto) 1.7, [place] # (Auto) 0.9 H, Eos # (Auto) 0.5, Baso # (Auto) 0.03 - RAD Interpretation Radiology Orders: 02/11/18 01:55 DUPLEX LOWER EXTRM VEIN BILAT [US] Stat Disposition/Present on Arrival - Present on Arrival Any Indicators Present on Arrival: No History of DVT/PE: No History of Uncontrolled Diabetes: No Urinary Catheter: No History of Decub. Ulcer: No History Surgical Site Infection Following: None - Disposition Have Diagnosis and Disposition been Completed?: Yes Diagnosis: Cellulitis Disposition: HOME/ ROUTINE Disposition Time: 03:20 Condition: GOOD Discharge Instructions (ExitCare): Cellulitis (ED) Additional Instructions: MICHELLE HANSON, thank you for letting us take care of you today. Your provider was Chuckie Shaikh DO and you were treated for ANKLES SWOLLEN. The emergency medical care you received today was directed at your acute symptoms. If you were prescribed any medication, please fill it and take as directed. It may take several days for your symptoms to resolve. Return to the Emergency Department if your symptoms worsen, do not improve, or if you have any other problems. Please contact your doctor or call one of the physicians/clinics you have been referred to that are listed on the Patient Visit Information form that is included in your discharge packet. Bring any paperwork you were given at discharge with you along with any medications you are taking to your follow up visit. Our treatment cannot replace ongoing medical care by a primary care provider outside of the emergency department. Thank you for allowing the [facility] team to be part of your care today. If you had an X-Ray or CT scan: A Radiologist will review the ED reading if any change in treatment is needed we will contact you. If you had a blood, urine, or wound culture: It will take several days for the results, if any change in treatment is needed we will contact you. If you had an STI test: It will take 48 hours for the results. Please call after 1 week if you have not heard back. Take medications as prescribed. Forms: [facility] (Sami)
[2018-02-11 02:14] LABS: BASO # 0.03 K/mm3 (0.0-2.0); BASO % 0.4 % (0.0-3.0); EOS # 0.5 (0.0-0.7); EOS % 6.5 % (1.5-5.0); GRAN # 4.46 (1.4-6.5); GRAN % 59.4 % (50.0-68.0); HEMOGLOBIN 13.1 g/dL (14.0-18.0); LYMPH # 1.7 (1.2-3.4); LYMPH % 22.2 % (22.0-35.0); MEAN CELL VOLUME 87.8 fl (80.0-105.0); MEAN CORPUSCULAR HGB CONC 34.2 g/dl (31.0-37.0); MEAN PLATELET VOLUME 12.1 fl (7.0-11.0); MONO # 0.9 (0.1-0.6); MONO % 11.5 % (1.0-6.0); RBC 4.36 10^6/uL (3.5-6.1); RED CELL DISTRIBUTION WIDTH 13.2 % (11.5-14.5); WHITE BLOOD COUNT 7.5 10^3/ul (4.5-11.0)
[2018-02-11 02:32] LABS: ALB/GLOB RATIO 1.4 (1.1-1.8); ALT/SGPT 33 U/L (7-56); AST/SGOT 30 U/L (17-59); BLOOD UREA NITROGEN 15 mg/dL (7-21); CALCIUM 8.7 mg/dL (8.4-10.5); GFR AFRICAN-AMERICAN > 60; GFR NON-AFRICAN AMERICAN > 60
[2018-02-11 02:33] LABS: INR 1.02 (0.93-1.08); PROTHROMBIN TIME 11.6 SECONDS (9.4-12.5)
[2018-02-11 03:44] VITALS: BP 138/82; PULSE 62; RESP 16; O2SAT 100
--- NOTE | 2018-02-11 21:45 | US ---
HISTORY: Leg pain and swelling. Evaluate for DVT PHYSICIAN(S): Dat Alejandro MD. TECHNIQUE: Duplex sonography and color-flow Doppler with graded compression were used to evaluate the deep venous systems of both lower extremities. FINDINGS: The visualized deep venous systems of both lower extremities are sonographically normal and compressible. Normal wave forms and augmentation are seen. There is no sonographic evidence for deep venous thrombosis in the visualized segments of both lower extremities. IMPRESSION: No sonographic evidence for deep venous thrombosis in the visualized segments of both lower extremities.
== END 2018-02-11 03:43 | disposition home or self-care (01) ==
LOC: ED 01:06
DX: L03.90 Cellulitis, unspecified (principal)

== ENCOUNTER 2018-02-12 11:33 | Observation (INO) | payer OTHER ==
[2018-02-11 01:07] VITALS: PULSE 88
[2018-02-11 01:41] VITALS: BMI 22.4
--- NOTE | 2018-02-12 18:42 | CP.PCM.HP ---
<Amie Gonzalez - Last Filed: 02/12/18 19:57> History of Present Illness - History of Present Illness History of Present Illness: History and Physical - Hospital Service HPI: Patient is a 52 year old male with past medical history of emphysema/COPD, coronary spasm, Hypertension, Peptic Ulcer Disease, and nephrolithiasis s/p recent left ureteral stent placement presents to [facility] for ureteral stent removal that was rescheduled for tomorrow. Patient was recently admitted for nephrolithiasis. Ureteral stent was placed last Sunday by Dr. Dante Hardwick. Patient states that since placement, he has been having continued abdominal pain. Patient also states that he has not passed the stone yet. Currently rates the pain 10/10 on pain scale, pain is constant and non- radiating. Pain is worse on urination. and is associated with hematuria. Patient Also reports having right sided low back pain. Denies fevers, chills, N/ V, headaches, dizziness, cp, palpitations, sob, changes in bowel habits. Patient states that he completed course of antibiotics yesterday. PMD: Dr. Vinson Allergies: NKDA Medications: Bactrim 1 tab PO BID, Percocet 5-325mg QID, Flomax 0.4mg PO daily Medical History: Emphysema/COPD, Coronary spasm of LAD, Hypertention, Peptic ulcer disease, and nephrolithiasis Surgical History: Appendectomy, hernia repair, and plating of facial fractures Social History: smokes 1 PPD x 15 years, occasional alcohol use, denies elicit drug use. Works in [employer] Family History: Mother- Diabetes, Alcoholism; Father - healthy; denies history of cancer Present on Admission - Present on Admission Any Indicators Present on Admission: No Past Patient History - Infectious Disease Hx of Infectious Diseases: None - Tetanus Immunizations Tetanus Immunization: Unknown - Past Social History Smoking Status: Heavy Smoker > 10 Cigarettes Daily - CARDIAC Hx Pacemaker: No - PULMONARY Hx Respiratory Disorders: Yes Hx Chronic Obstructive Pulmonary Disease (COPD): Yes - NEUROLOGICAL Hx Paralysis: No - HEENT Hx HEENT Problems: No - RENAL Hx Kidney Stones: Yes - ENDOCRINE/METABOLIC Hx Endocrine Disorders: No - HEMATOLOGICAL/ONCOLOGICAL Hx Blood Transfusions: No Hx Blood Transfusion Reaction: No - INTEGUMENTARY Hx Dermatological Problems: Yes - MUSCULOSKELETAL/RHEUMATOLOGICAL Hx Musculoskeletal Disorders: Yes (ANKLE SPRAIN) - GASTROINTESTINAL Hx Gastrointestinal Disorders: Yes - GENITOURINARY/GYNECOLOGICAL Hx Genitourinary Disorders: No - PSYCHIATRIC Hx Emotional Abuse: No Hx Physical Abuse: No Hx Substance Use: No (DENIES) - SURGICAL HISTORY Hx Surgeries: Yes (APPENDECTOMY,L URETERAL STENT,CARD CATH,FACIAL SX) - ANESTHESIA Hx Anesthesia Reactions: No Hx Malignant Hyperthermia: No Meds Allergies/Adverse Reactions: Allergies Allergy/AdvReac Type Severity Reaction Status Date / Time No Known Allergies Allergy Verified 02/08/18 11:46 Physical Exam - Constitutional Appears: Well, No Acute Distress, Older Than Stated Age - Head Exam Head Exam: ATRAUMATIC, NORMAL INSPECTION, NORMOCEPHALIC - Eye Exam Eye Exam: EOMI, Normal appearance Pupil Exam: NORMAL ACCOMODATION - ENT Exam ENT Exam: Mucous Membranes Moist - Neck Exam Neck exam: Positive for: Full Rom - Respiratory Exam Respiratory Exam: Clear to Auscultation Bilateral, NORMAL BREATHING PATTERN. absent: Rales, Rhonchi, Wheezes - Cardiovascular Exam Cardiovascular Exam: REGULAR RHYTHM, +S1, +S2. absent: Systolic Murmur - GI/Abdominal Exam GI & Abdominal Exam: Normal Bowel Sounds, Soft, Tenderness (Mild tenderness to palpation). absent: Guarding, Rebound, Rigid - Rectal Exam Rectal Exam: Deferred - Extremities Exam Extremities exam: Positive for: normal capillary refill, normal inspection, pedal pulses present. Negative for: calf tenderness - Back Exam Back exam: NORMAL INSPECTION - Neurological Exam Neurological exam: Alert, CN II-XII Intact, Oriented x3 - Psychiatric Exam Psychiatric exam: Normal Affect, Normal Mood - Skin Skin Exam: Dry, Normal Color, Warm Results - Vital Signs Recent Vital Signs: Last Vital Signs Temp 98.3 F 02/12/18 12:00 Pulse 84 02/12/18 12:00 Resp 18 02/12/18 12:00 BP 118/70 02/12/18 12:00 Pulse Ox 98 02/12/18 12:00 Assessment & Plan - Assessment and Plan (Free Text) Assessment: A/P: Patient is a 52 year old male with past medical history of emphysema, coronary spasm, HTN, nephrolithiasis presents to [facility] for ureteral stent removal tomorrow. Nephrolithiasis s/p Ureteral stent placement -Stable, afebrile -Admit to Med/Surg -Pain control: Morphine 2mg q4H prn severe pain, Morphine 1mg q4H prn moderate pain (please avoid NSAIDs) -Will order pre-operative EKG and chest xray -F/U AM labs, Vital signs q8H -Urine culture 02/08 showing no growth -Continue Flomax 0.4mg PO daily -Strain urine for calculi -NPO after midnight -NS @ 100cc/hr starting at midnight -Urology on consult, help appreciated History of HTN -Currently normatensive -Will continue to monitor Tobacco Abuse -Patient smokes 1 pack cigarettes per day -Requesting Nicotine patch GI/DVT ppx: -Protonix 40mg IVP daily -SCDs Plan discussed with Dr Marquis Gonzalez DO, PGY-1 <Antionette Boyle - Last Filed: 02/12/18 20:14> Results - Vital Signs Recent Vital Signs: Last Vital Signs Temp 98.3 F 02/12/18 12:00 Pulse 84 02/12/18 12:00 Resp 18 02/12/18 12:00 BP 118/70 02/12/18 12:00 Pulse Ox 98 02/12/18 12:00 Attending/Attestation - Attestation I have personally seen and examined this patient.: Yes I have fully participated in the care of the patient.: Yes I have reviewed all pertinent clinical information: Yes Notes (Text): 02/12/18 20:03 Addendum:Pt also states he has hematuria. Imp:Nephrolithiasis,S/P ureteric stent placement,hematuria. Also,since pt has history of coronary artery spasm and HTN,EKG and CXray was ordered. 02/12/18 20:09
[2018-02-12] MEDS ORDERED: Morphine 2 mg/ml ISec IVP ONE (18:59)
[2018-02-12] MEDS ORDERED: Morphine 2 mg/ml ISec IVP PRN ×2 (19:21)
[2018-02-12] MEDS: Sodium Chloride 0.9% 1,000 ML IV SCH (23:49)
[2018-02-13 06:32] LABS: BASO # 0.02 K/mm3 (0.0-2.0); BASO % 0.4 % (0.0-3.0); EOS # 0.5 (0.0-0.7); EOS % 9.5 % (1.5-5.0); GRAN # 2.57 (1.4-6.5); GRAN % 48.5 % (50.0-68.0); HEMOGLOBIN 12.4 g/dL (14.0-18.0); LYMPH # 1.7 (1.2-3.4); LYMPH % 31.8 % (22.0-35.0); MEAN CELL VOLUME 88.3 fl (80.0-105.0); MEAN CORPUSCULAR HEMOGLOBIN 29.6 pg (25.0-35.0); MEAN CORPUSCULAR HGB CONC 33.5 g/dl (31.0-37.0); MONO # 0.5 (0.1-0.6); MONO % 9.8 % (1.0-6.0); RBC 4.19 10^6/uL (3.5-6.1); RED CELL DISTRIBUTION WIDTH 13.3 % (11.5-14.5)
[2018-02-13 06:38] LABS: WHITE BLOOD COUNT 5.3 10^3/ul (4.5-11.0)
[2018-02-13 06:48] LABS: ALB/GLOB RATIO 1.2 (1.1-1.8); ALBUMIN 3.3 g/dL (3.0-4.8); ALT/SGPT 28 U/L (7-56); AST/SGOT 19 U/L (17-59); BLOOD UREA NITROGEN 19 mg/dL (7-21); CALCIUM 8.4 mg/dL (8.4-10.5); GFR AFRICAN-AMERICAN > 60; GFR NON-AFRICAN AMERICAN > 60
[2018-02-13 07:14] LABS: INR 1.03 (0.93-1.08); PARTIAL THROMBOPLASTIN TIME 31.3 Seconds (25.1-36.5); PROTHROMBIN TIME 11.8 SECONDS (9.4-12.5)
[2018-02-13] MEDS: Oxycodone/Acetaminophen 5/325 mg Tab PO PRN ×3 (09:16→21:08)
[2018-02-13] MEDS: Sodium Chloride 0.9% 1,000 ML IV SCH (10:00)
[2018-02-13] MEDS ORDERED: Propofol 10 mg/ml Inj (20 ML) ONE (11:28)
[2018-02-13] MEDS ORDERED: Midazolam 2 MG/2 ML VIAL ONE (11:28)
[2018-02-13] MEDS ORDERED: Lactated Ringer's 1,000 ML IV SCH (11:30)
[2018-02-13] MEDS ORDERED: cefTRIAXone (Rocephin) 1 gm Inj ONE (11:58)
[2018-02-13] MEDS ORDERED: Iohexol 240 (50 ml) ONE (11:59)
[2018-02-13] MEDS ORDERED: Lidocaine 2% Jelly (Uro-Jet) ONE (11:59)
[2018-02-13] MEDS ORDERED: cefTRIAXone (Rocephin) 1 gm Inj IVPB ONE (12:00)
[2018-02-13] MEDS ORDERED: Lidocaine 2% Jelly (Uro-Jet) TOP ONE (12:12)
[2018-02-13] MEDS ORDERED: Iohexol 240 (50 ml) UR ONE (12:13)
--- NOTE | 2018-02-13 13:21 | RAD ---
HISTORY: Pre-operative CXR COMPARISON: 01/10/2018 FINDINGS: LUNGS: No active pulmonary disease. PLEURA: No significant pleural effusion identified, no pneumothorax apparent. CARDIOVASCULAR: Normal. OSSEOUS STRUCTURES: No significant abnormalities. VISUALIZED UPPER ABDOMEN: Normal. OTHER FINDINGS: None. IMPRESSION: No active disease.
--- NOTE | 2018-02-13 15:06 | RAD ---
PROCEDURE: Fluoroscopy up to 1 hour HISTORY: STENT REMOVAL / INSERTION / LASER LITHOTRIPSY COMPARISON: TECHNIQUE: Fluoroscopy was provided in the operating room. 14.0 seconds of fluoro time. 3.59 mGy cumulative dose. Eight images were submitted FINDINGS: The study shows placement of a left ureteral stent IMPRESSION: As above
--- NOTE | 2018-02-13 15:57 | CP.PCM.PN ---
<Mario Gann - Last Filed: 02/13/18 16:56> Subjective - Date & Time of Evaluation Date of Evaluation: 02/13/18 Time of Evaluation: 15:51 - Subjective Subjective: Patient seen and evaluated this AM. Patient found asleep resting comfortably in bed. No acute events overnight. Patient was to go for procedure with Dr. Hardwick yesterday. Patient to go for procedure today. Patient complains of left sided abdominal discomfort. Denies chest pain, shortness of breath, nausea, vomiting, evie hematuria. Objective - Vital Signs/Intake and Output Vital Signs (last 24 hours): Temp Pulse Resp BP Pulse Ox 98 F 60 16 119/74 99 02/13/18 13:26 02/13/18 13:26 02/13/18 13:26 02/13/18 13:26 02/13/18 13:26 Intake and Output: 02/13/18 02/13/18 06:59 18:59 Intake Total 540 0 Output Total 0 675 Balance 540 -675 - Medications Medications: Current Medications Fentanyl (Fentanyl) 25 mcg IV Q5M PRN PRN Reason: Pain, moderate (4-7) Sodium Chloride (Sodium Chloride 0.9%) 1,000 mls @ 100 mls/hr IV .Q10H [facility] Last Admin: 02/12/18 23:49 Dose: 100 mls/hr Gentamicin Sulfate 160 mg/ (Sodium Chloride) 104 mls @ 100 mls/hr IVPB Q24H [facility] PRN Reason: Protocol Nicotine (Nicoderm Cq) 1 patch TD DAILY [facility] Last Admin: 02/13/18 09:17 Dose: 1 patch Ondansetron HCl (Zofran Inj) 4 mg IVP ONCE PRN PRN Reason: Nausea/Vomiting Oxycodone/Acetaminophen (Percocet 5/325 Mg Tab) 1 tab PO Q6H PRN PRN Reason: Pain, severe (8-10) Stop: 02/16/18 09:01 Last Admin: 02/13/18 09:16 Dose: 1 tab Pantoprazole Sodium (Protonix Inj) 40 mg IVP DAILY [facility] Last Admin: 02/13/18 09:17 Dose: 40 mg Tamsulosin HCl (Flomax) 0.4 mg PO DAILY [facility] Last Admin: 02/13/18 09:17 Dose: 0.4 mg - Labs Labs: 02/13/18 06:00 02/13/18 06:00 PT 11.8 SECONDS (9.4-12.5) 02/13/18 06:00 INR 1.03 (0.93-1.08) 02/13/18 06:00 APTT 31.3 Seconds (25.1-36.5) 02/13/18 06:00 - Constitutional Appears: No Acute Distress - Head Exam Head Exam: ATRAUMATIC, NORMAL INSPECTION, NORMOCEPHALIC - Eye Exam Eye Exam: EOMI, PERRL - ENT Exam ENT Exam: Mucous Membranes Moist - Respiratory Exam Respiratory Exam: Clear to Ausculation Bilateral, NORMAL BREATHING PATTERN. absent: Rhonchi, Wheezes - Cardiovascular Exam Cardiovascular Exam: REGULAR RHYTHM, +S1, +S2 - GI/Abdominal Exam GI & Abdominal Exam: Soft, Normal Bowel Sounds. absent: Tenderness - Extremities Exam Extremities Exam: Normal Capillary Refill. absent: Tenderness - Neurological Exam Neurological Exam: Alert, Awake, Oriented x3 Neuro motor strength exam: Left Upper Extremity: 5, Right Upper Extremity: 5, Left Lower Extremity: 5, Right Lower Extremity: 5 - Psychiatric Exam Psychiatric exam: Normal Affect, Normal Mood - Skin Skin Exam: Dry, Warm Assessment and Plan - Assessment and Plan (Free Text) Assessment: 52 year old male with past medical history of emphysema, coronary spasm, HTN, nephrolithiasis, with left urethral stent who is s/p urological Plan: Nephrolithiasis s/p urethral stent removal/insertion/laser lithotripsy - Patient is s/p urethral stent placement today with Dr. Denson - Monitor for 24 hours - Pain control with Perocet - Flomax - NS @100cc/hr - Urology consulted and following patient Hx of HTN - Continue home medications - Monitor Tobacco abuse - 1 PPD - Nicotine patch - Tobacco cessation counseling GI/DVT ppx - Protonix 40mg IVP daily - SCD Case and plan discussed with attending <Rick Swenson - Last Filed: 02/13/18 17:26> Objective - Vital Signs/Intake and Output Vital Signs (last 24 hours): Temp Pulse Resp BP Pulse Ox 98 F 60 16 119/74 99 02/13/18 13:26 02/13/18 13:26 02/13/18 13:26 02/13/18 13:26 02/13/18 13:26 Intake and Output: 02/13/18 02/13/18 06:59 18:59 Intake Total 540 0 Output Total 0 675 Balance 540 -675 - Medications Medications: Current Medications Sodium Chloride (Sodium Chloride 0.9%) 1,000 mls @ 100 mls/hr IV .Q10H [facility] Last Admin: 02/13/18 10:00 Dose: 100 mls/hr Gentamicin Sulfate 160 mg/ (Sodium Chloride) 104 mls @ 100 mls/hr IVPB Q24H [facility] PRN Reason: Protocol Last Admin: 02/13/18 16:20 Dose: 100 mls/hr Nicotine (Nicoderm Cq) 1 patch TD DAILY [facility] Last Admin: 02/13/18 09:17 Dose: 1 patch Ondansetron HCl (Zofran Inj) 4 mg IVP ONCE PRN PRN Reason: Nausea/Vomiting Oxycodone/Acetaminophen (Percocet 5/325 Mg Tab) 1 tab PO Q6H PRN PRN Reason: Pain, severe (8-10) Stop: 02/16/18 09:01 Last Admin: 02/13/18 16:04 Dose: 1 tab Pantoprazole Sodium (Protonix Inj) 40 mg IVP DAILY [facility] Last Admin: 02/13/18 09:17 Dose: 40 mg Tamsulosin HCl (Flomax) 0.4 mg PO DAILY [facility] Last Admin: 02/13/18 09:17 Dose: 0.4 mg - Labs Labs: 02/13/18 06:00 02/13/18 06:00 PT 11.8 SECONDS (9.4-12.5) 02/13/18 06:00 INR 1.03 (0.93-1.08) 02/13/18 06:00 APTT 31.3 Seconds (25.1-36.5) 02/13/18 06:00 Attending/Attestation - Attestation I have personally seen and examined this patient.: Yes I have fully participated in the care of the patient.: Yes I have reviewed all pertinent clinical information, including history, physical exam and plan: Yes Notes (Text): 02/13/18 17:26 Medical record note made by the resident after discussion with my direction and input after the patient was personally seen and examined by me. I have reviewed the chart and agree that the record accurately reflects by personal performance of the history, physical exam, data review, and medical decision-making, in the course for the patient. I have also personally directed the plan of care.
[2018-02-13] MEDS: Gentamicin 160 MG in Sodium Chloride 0.9% 100 ML IVPB SCH (16:20)
--- NOTE | 2018-02-13 16:43 | CARD ---
APPROVED REPORT EKG Measurement Heart [id number] <Conclusion> Sinus bradycardia with premature supraventricular complexes Otherwise normal ECG
[2018-02-14] MEDS: Oxycodone/Acetaminophen 5/325 mg Tab PO PRN ×2 (03:12→09:10)
[2018-02-14 07:29] VITALS: BP 136/93; PULSE 57; RESP 18; TEMP 97.5; O2SAT 97
--- NOTE | 2018-02-14 07:50 | PCM.URO ---
Urology Progress Note - Objective Lab Studies: Reviewed (gu dx: urolithiasis gu plans: double stent removed toradol one stat dose now and outpt management pt should be passing sand please discharge home with strainer and antibiotics and flomax and out pt follow up with me pt has my cell phone full notes to be dictated) Intake & Output: Intake & Output 02/13/18 02/14/18 02/14/18 18:59 06:59 18:59 Intake Total 0 360 Output Total 675 Balance -675 360 Intake: IV 0 Oral 0 360 Output: Urine 675 Urine, Voided 675 Other: # Voids Urine, Voided 1 # Bowel Movements 0 1 Vital Signs: Vital Signs - 24 hr 02/13/18 02/13/18 02/13/18 10:45 12:37 12:52 Temperature 97.8 F 98 F 98 F Pulse Rate 58 L 65 60 Respiratory 18 16 16 Rate Blood Pressure 110/68 126/79 122/71 O2 Sat by Pulse 99 99 99 Oximetry 02/13/18 02/13/18 02/13/18 13:07 13:26 18:00 Temperature 98 F 98 F 97.8 F Pulse Rate 60 60 64 Respiratory 16 16 19 Rate Blood Pressure 122/74 119/74 120/84 O2 Sat by Pulse 99 99 98 Oximetry 02/14/18 06:00 Temperature 97.5 F L Pulse Rate 57 L Respiratory 18 Rate Blood Pressure 136/93 H O2 Sat by Pulse 97 Oximetry
--- NOTE | 2018-02-14 13:41 | CP.PCM.PN ---
Subjective - Date & Time of Evaluation Date of Evaluation: 02/14/18 Time of Evaluation: 13:37 - Subjective Subjective: patient seen and evaluated this AM. No acute events reported overnight. Patient indicates left sided abdominal discomfort. Patient is reported to have expressed thoughts of hurting himself and others. [address] and psych consult placed. Objective - Vital Signs/Intake and Output Vital Signs (last 24 hours): Temp Pulse Resp BP Pulse Ox 97.5 F L 57 L 18 136/93 H 97 02/14/18 06:00 02/14/18 06:00 02/14/18 06:00 02/14/18 06:00 02/14/18 06:00 Intake and Output: 02/14/18 02/14/18 06:59 18:59 Intake Total 360 Balance 360 - Medications Medications: Current Medications Sodium Chloride (Sodium Chloride 0.9%) 1,000 mls @ 100 mls/hr IV .Q10H [facility] Last Admin: 02/13/18 10:00 Dose: 100 mls/hr Gentamicin Sulfate 160 mg/ (Sodium Chloride) 104 mls @ 100 mls/hr IVPB Q24H [facility] PRN Reason: Protocol Last Admin: 02/13/18 16:20 Dose: 100 mls/hr Ketorolac Tromethamine (Toradol) 15 mg IVP Q6H [facility] Nicotine (Nicoderm Cq) 1 patch TD DAILY [facility] Last Admin: 02/14/18 09:10 Dose: 1 patch Ondansetron HCl (Zofran Inj) 4 mg IVP ONCE PRN PRN Reason: Nausea/Vomiting Pantoprazole Sodium (Protonix Ec Tab) 40 mg PO ACB [facility] Tamsulosin HCl (Flomax) 0.4 mg PO DAILY [facility] Last Admin: 02/14/18 09:10 Dose: 0.4 mg - Labs Labs: 02/13/18 06:00 02/13/18 06:00 PT 11.8 SECONDS (9.4-12.5) 02/13/18 06:00 INR 1.03 (0.93-1.08) 02/13/18 06:00 APTT 31.3 Seconds (25.1-36.5) 02/13/18 06:00 - Constitutional Appears: No Acute Distress - Head Exam Head Exam: ATRAUMATIC, NORMAL INSPECTION, NORMOCEPHALIC - Eye Exam Eye Exam: EOMI, PERRL - ENT Exam ENT Exam: Mucous Membranes Moist - Respiratory Exam Respiratory Exam: Clear to Ausculation Bilateral, NORMAL BREATHING PATTERN. absent: Rales, Rhonchi, Wheezes - Cardiovascular Exam Cardiovascular Exam: REGULAR RHYTHM, +S1, +S2 - GI/Abdominal Exam GI & Abdominal Exam: Soft, Tenderness (mild left sided), Normal Bowel Sounds - Extremities Exam Extremities Exam: absent: Pedal Edema - Neurological Exam Neurological Exam: Alert, Awake, Normal Gait, Oriented x3 Neuro motor strength exam: Left Upper Extremity: 5, Right Upper Extremity: 5, Left Lower Extremity: 5, Right Lower Extremity: 5 - Psychiatric Exam Psychiatric exam: Depressed, Suicidal Ideation - Skin Skin Exam: Dry, Warm
[2018-02-14] MEDS: Gentamicin 160 MG in Sodium Chloride 0.9% 100 ML IVPB SCH (13:53)
--- NOTE | 2018-02-14 14:14 | CP.PCM.DIS ---
<Mario Gann - Last Filed: 02/14/18 14:09> Provider - Provider Date of Admission: 02/12/18 18:56 Attending physician: Rick Swenson MD Primary care physician: Enedina Vinson MD Consults: Urology: Dr. Hardwick Psych: Dr. Jorgensen Time Spent in preparation of Discharge (in minutes): 35 Diagnosis - Discharge Diagnosis (1) Abdominal pain Status: Acute (2) Alcohol abuse Status: Chronic (3) Flank pain Status: Acute (4) Hydroureteronephrosis Status: Acute (5) Renal colic Status: Resolved (6) S/P cystoscopy Status: Resolved Hospital Course - Lab Results Lab Results: Most Recent Lab Values WBC 5.3 10^3/ul (4.5-11.0) D 02/13/18 06:00 RBC 4.19 10^6/uL (3.5-6.1) 02/13/18 06:00 Hgb 12.4 g/dL (14.0-18.0) L 02/13/18 06:00 Hct 37.0 % (42.0-52.0) L 02/13/18 06:00 MCV 88.3 fl (80.0-105.0) 02/13/18 06:00 MCH 29.6 pg (25.0-35.0) 02/13/18 06:00 MCHC 33.5 g/dl (31.0-37.0) 02/13/18 06:00 RDW 13.3 % (11.5-14.5) 02/13/18 06:00 Plt Count 136 10^3/uL (120.0-450.0) 02/13/18 06:00 MPV 12.0 fl (7.0-11.0) H 02/13/18 06:00 Gran % 48.5 % (50.0-68.0) L 02/13/18 06:00 Lymph % (Auto) 31.8 % (22.0-35.0) 02/13/18 06:00 Barren % (Auto) 9.8 % (1.0-6.0) H 02/13/18 06:00 Eos % (Auto) 9.5 % (1.5-5.0) H 02/13/18 06:00 Baso % (Auto) 0.4 % (0.0-3.0) 02/13/18 06:00 Gran # 2.57 (1.4-6.5) 02/13/18 06:00 Lymph # (Auto) 1.7 (1.2-3.4) 02/13/18 06:00 Barren # (Auto) 0.5 (0.1-0.6) 02/13/18 06:00 Eos # (Auto) 0.5 (0.0-0.7) 02/13/18 06:00 Baso # (Auto) 0.02 K/mm3 (0.0-2.0) 02/13/18 06:00 PT 11.8 SECONDS (9.4-12.5) 02/13/18 06:00 INR 1.03 (0.93-1.08) 02/13/18 06:00 APTT 31.3 Seconds (25.1-36.5) 02/13/18 06:00 Sodium 143 mmol/L (132-148) 02/13/18 06:00 Potassium 3.9 mmol/L (3.6-5.0) 02/13/18 06:00 Chloride 107 mmol/L (98-107) 02/13/18 06:00 Carbon Dioxide 28 mmol/L (21-33) 02/13/18 06:00 Anion Gap 12 (10-20) 02/13/18 06:00 BUN 19 mg/dL (7-21) 02/13/18 06:00 Creatinine 0.9 mg/dl (0.8-1.5) 02/13/18 06:00 Est GFR ( Amer) > 60 02/13/18 06:00 Est GFR (Non-Af Amer) > 60 02/13/18 06:00 Random Glucose 98 mg/dL (70-110) 02/13/18 06:00 Calcium 8.4 mg/dL (8.4-10.5) 02/13/18 06:00 Phosphorus 2.9 mg/dL (2.5-4.5) 02/13/18 06:00 Magnesium 1.8 mg/dL (1.7-2.2) 02/13/18 06:00 Total Bilirubin 0.2 mg/dL (0.2-1.3) 02/13/18 06:00 AST 19 U/L (17-59) 02/13/18 06:00 ALT 28 U/L (7-56) 02/13/18 06:00 Alkaline Phosphatase 47 U/L (38-126) 02/13/18 06:00 Total Protein 6.1 g/dL (5.8-8.3) 02/13/18 06:00 Albumin 3.3 g/dL (3.0-4.8) 02/13/18 06:00 Globulin 2.8 gm/dL 02/13/18 06:00 Albumin/Globulin Ratio 1.2 (1.1-1.8) 02/13/18 06:00 - Hospital Course Hospital Course: 52 year old male with past medical history of emphysema/COPD, coronary spasm, Hypertension, Peptic Ulcer Disease, and nephrolithiasis s/p recent left ureteral stent placement presented to [facility] for ureteral stent removal with Dr. Hardwick. Patient underwent removal and lithotripsy under fluroscope past 24 hours. Patient tolerated procedure and was placed back on general medical floor for observation. Patient was assessed morning after and found to be medically stable. Patient indicated he would like to speak with a psychiatrist for thoughts of hurting himself and others. Patient indicated that he had a plan but was unwilling to share his plan. Patient was placed on 1:1 observation and psychiatry was consulted. Patient was seen and evaluated and accepted to [facility] inpatient psychiatric floor. Patient was deemed appropriate for discharge by Dr. Hardwick with pain control and antibiotics. Discharge planning including outpatient follow up after inpatient psychiatric admission, medication reconciliation, tobacco cessation counseling were discussed and patient was in understanding and agreeable. Discharge Exam - Head Exam Head Exam: ATRAUMATIC, NORMAL INSPECTION, NORMOCEPHALIC - Eye Exam Eye Exam: EOMI, PERRL - ENT Exam ENT Exam: Mucous Membranes Moist - Respiratory Exam Respiratory Exam: Clear to PA & Lateral, NORMAL BREATHING PATTERN. absent: Rales, Rhonchi - Cardiovascular Exam Cardiovascular Exam: REGULAR RHYTHM, +S1, +S2 - GI/Abdominal Exam GI & Abdominal Exam: Normal Bowel Sounds, Soft, Tenderness (left sided flank discomfort with palpation), Unremarkable - Extremities Exam Extremities exam: normal capillary refill, pedal pulses present - Back Exam Back exam: absent: paraspinal tenderness - Neurological Exam Neurological exam: Alert, CN II-XII Intact, Normal Gait, Oriented x3 - Psychiatric Exam Psychiatric exam: Depressed, Suicidal Ideation - Skin Skin Exam: Dry, Warm Discharge Plan - Follow Up Plan Condition: GOOD Disposition: [facility]CHARGE TO [facility] Instructions: Kidney Stones (DC), Blood in the Urine (Hematuria), Adult (DC) Additional Instructions: Follow up with Urologist Dr. Hardwick Follow up with your primary care physician Take medications as prescribed to you Return to ED if you experience chest pain, persistent fever, evie hematuria Referrals: Enedina Vinson MD [Primary Care Provider] - Dante Hardwick MD [Staff Provider] - <Tino Trent - Last Filed: 02/15/18 16:21> Provider - Provider Date of Admission: 02/12/18 18:56 Attending physician: Rick Swenson MD Primary care physician: Enedina Vinson MD Hospital Course - Lab Results Lab Results: Most Recent Lab Values WBC 5.3 10^3/ul (4.5-11.0) D 02/13/18 06:00 RBC 4.19 10^6/uL (3.5-6.1) 02/13/18 06:00 Hgb 12.4 g/dL (14.0-18.0) L 02/13/18 06:00 Hct 37.0 % (42.0-52.0) L 02/13/18 06:00 MCV 88.3 fl (80.0-105.0) 02/13/18 06:00 MCH 29.6 pg (25.0-35.0) 02/13/18 06:00 MCHC 33.5 g/dl (31.0-37.0) 02/13/18 06:00 RDW 13.3 % (11.5-14.5) 02/13/18 06:00 Plt Count 136 10^3/uL (120.0-450.0) 02/13/18 06:00 MPV 12.0 fl (7.0-11.0) H 02/13/18 06:00 Gran % 48.5 % (50.0-68.0) L 02/13/18 06:00 Lymph % (Auto) 31.8 % (22.0-35.0) 02/13/18 06:00 Barren % (Auto) 9.8 % (1.0-6.0) H 02/13/18 06:00 Eos % (Auto) 9.5 % (1.5-5.0) H 02/13/18 06:00 Baso % (Auto) 0.4 % (0.0-3.0) 02/13/18 06:00 Gran # 2.57 (1.4-6.5) 02/13/18 06:00 Lymph # (Auto) 1.7 (1.2-3.4) 02/13/18 06:00 Barren # (Auto) 0.5 (0.1-0.6) 02/13/18 06:00 Eos # (Auto) 0.5 (0.0-0.7) 02/13/18 06:00 Baso # (Auto) 0.02 K/mm3 (0.0-2.0) 02/13/18 06:00 PT 11.8 SECONDS (9.4-12.5) 02/13/18 06:00 INR 1.03 (0.93-1.08) 02/13/18 06:00 APTT 31.3 Seconds (25.1-36.5) 02/13/18 06:00 Sodium 143 mmol/L (132-148) 02/13/18 06:00 Potassium 3.9 mmol/L (3.6-5.0) 02/13/18 06:00 Chloride 107 mmol/L (98-107) 02/13/18 06:00 Carbon Dioxide 28 mmol/L (21-33) 02/13/18 06:00 Anion Gap 12 (10-20) 02/13/18 06:00 BUN 19 mg/dL (7-21) 02/13/18 06:00 Creatinine 0.9 mg/dl (0.8-1.5) 02/13/18 06:00 Est GFR ( Amer) > 60 02/13/18 06:00 Est GFR (Non-Af Amer) > 60 02/13/18 06:00 Random Glucose 98 mg/dL (70-110) 02/13/18 06:00 Calcium 8.4 mg/dL (8.4-10.5) 02/13/18 06:00 Phosphorus 2.9 mg/dL (2.5-4.5) 02/13/18 06:00 Magnesium 1.8 mg/dL (1.7-2.2) 02/13/18 06:00 Total Bilirubin 0.2 mg/dL (0.2-1.3) 02/13/18 06:00 AST 19 U/L (17-59) 02/13/18 06:00 ALT 28 U/L (7-56) 02/13/18 06:00 Alkaline Phosphatase 47 U/L (38-126) 02/13/18 06:00 Total Protein 6.1 g/dL (5.8-8.3) 02/13/18 06:00 Albumin 3.3 g/dL (3.0-4.8) 02/13/18 06:00 Globulin 2.8 gm/dL 02/13/18 06:00 Albumin/Globulin Ratio 1.2 (1.1-1.8) 02/13/18 06:00 Attending/Attestation - Attestation I have personally seen and examined this patient.: Yes I have fully participated in the care of the patient.: Yes I have reviewed all pertinent clinical information, including history, physical exam and plan: Yes Notes (Text): 52 year old male with past medical history of emphysema/COPD, coronary spasm, Hypertension, Peptic Ulcer Disease, and nephrolithiasis s/p recent left ureteral stent placement presented to [facility] for ureteral stent removal with Dr. Hardwick. Patient underwent removal and lithotripsy under fluroscope past 24 hours. Patient tolerated procedure and was placed back on general medical floor for observation. Patient was assessed morning after and found to be medically stable. Patient indicated he would like to speak with a psychiatrist for thoughts of hurting himself and others. Patient indicated that he had a plan but was unwilling to share his plan. Patient was placed on 1:1 observation and psychiatry was consulted. Patient was seen and evaluated and accepted to [facility] inpatient psychiatric floor. Patient was deemed appropriate for discharge by Dr. Hardwick with pain control and antibiotics. Discharge planning including outpatient follow up after inpatient psychiatric admission, medication reconciliation, tobacco cessation counseling were discussed and patient was in understanding and agreeable
[2018-02-14] MEDS ORDERED: Oxycodone/Acetaminophen 5/325 mg Tab PO PRN (17:44)
[2018-02-15] MEDS ORDERED: Pantoprazole 40 mg EC Tab PO SCH (07:30)
--- NOTE | 2018-02-15 08:22 | CON ---
DATE: 02/14/2018 HISTORY OF PRESENT ILLNESS: The patient is a 52-year-old, , employed, domiciled white male who has an extensive medical history (please refer to medical notes for full medical history), who was being stabilized in the medical floor for a ureter stent removal, when he requested to see a psychiatrist for having suicidal thoughts, depression and thoughts to harm others. Psychiatry was consulted and I reviewed the patient's history on the computer, recent notes and I met with the patient at bedside. The patient was seen on [address] Pham after a possible overdose on medication on 05/12/2014. At that time, the patient refused psychiatric inpatient hospitalization and he was recommended to follow up at [facility] for for further help and the patient was also seen by Dr. De La Vega on 02/23/2017 for episodes of confusion and memory issues and at that time, he did not met criteria for psychiatric admission and was going to have outpatient treatment to follow up these complaints. He relates to benzo use and/or report depression at the time. During that consultation, the patient also reported that he had a history of hallucination, however, he could not clarify further except to say that he heard voices, but did not remember what they were saying. As I mentioned, I met with the patient at bedside and he is alert and oriented to current location, however, claims he does know the current month or year. The patient reports that he is very depressed, feels overwhelmed, he feels like it is not worth living. He has not been sleeping and he generally feels worthless and complains that he does not have any kayden and feels that he always "fuck things out". The patient denies any major stressors contributing to these symptoms right now. Upon further, he works at and he has inconsistent attendance there, however, he still has a job there and he has been working there for last 3 years. He reports that he is domiciled. He lives by himself. He did indicate that he broke up with his girlfriend after 10-month relationship. Her name was Milla, because she went back to father of her 2 children and then the patient harbored some hope that she would return back to him, however, not only did she not return back to him, she left the father of her children and is searching somebody else. The patient had . According to Dr. Pham's consultation, he does have a history of alcohol abuse, however, this was over 10 years ago and the patient denies any relapse, denies any recent drug use. He denies any prior suicide attempts and he is willing to sign himself into the Psychiatric Unit. As per his claims of wanting to harm somebody, he indicate that he has a "short list" and he refuse to further elaborate indicating that the first person on his list is "some al". His insight and judgement are poor right now and he requires further monitoring to ensure that he is safe for himself or others. Labs and vitals were reviewed. RELEVANT PSYCHIATRIC MEDICATIONS: The patient is not on any relevant psychiatric medications at this time. PSYCHIATRIC HISTORY: Patient denies having any form of psychiatric history, but as noted, he was seen by Dr. Ayers on 05/12/2014 after a presumed suicide attempt by overdose and the patient refused inpatient hospitalization at that time and the patient was also seen on 02/23/[address] De La Vega for reported forgetfulness and confusion. The patient also reported having history of hallucinations at times. The patient denies any prior suicide attempts when I interviewed him at bedside today, however, this contradicts Dr. Ayers's consultation from 05/2014. The patient denies being on any psychiatric medications and he denies any psychiatric hospitalizations. SOCIAL HISTORY: The patient was born and raised in [place]. He is . He has 2 children, who are 17 and 18 years old. These children reside with their mother. The patient lives by himself. The patient works at [employer] at least 6 days a week for last 3 years, however, admits that his attendance has been great, however, he still does have job there. The patient does have a reported history of alcohol and has been in AA in the past, however, this was over 10 years ago. . The patient denies any drug issues. IMPRESSION: Major depressive disorder, , alcohol dependency, remote. The patient is currently abstinent. RECOMMENDATIONS: I discussed the benefits of psychiatric consultation at this moment. The patient is agreeable to sign in voluntarily to our unit for further monitoring and management of depressive symptoms. We will further try to elucidate the patient's claims of having homicidal thoughts , but she refuses to elaborate on. However, the patient is not acutely suicidal and does not require one-to-one when he is transferred to the Psychiatric Unit. Shanthi Jorgensen MD
--- NOTE | 2018-03-04 05:41 | PN ---
DATE: 03/03/2018 This is an immediate postoperative note on Sb Clarke. See the history and physical and consultation, and operative note. Patient is now in the recovery room, in stable condition, status post cystoscopy, ureteroscopy, shockwave lithotripsy. Vital signs are within normal limits. DIAGNOSIS: Urolithiasis. PLAN: 1. Screening the urine. 2. Analgesics. Further plans will follow. Patient tolerated without any complications. Jj Hardwick MD
--- NOTE | 2018-03-04 10:16 | OP ---
PROCEDURE DATE: 02/13/2018 PREOPERATIVE DIAGNOSES: Urolithiasis, hematuria, hydronephrosis and stone disease. POSTOPERATIVE DIAGNOSES: Urolithiasis, hematuria, hydronephrosis and stone disease. PROCEDURE: Cystoscopy, removal of a double-J stent, ureteroscopy, holmium YAG laser energy and holmium YAG laser lithotripsy and insertion of double-J stent with string. COMPLICATIONS: None. ESTIMATED BLOOD LOSS: Less than 10 mL. INDICATION: See history and physical and consultation. This is an extremely noncompliant, but pleasant gentleman *------*. He presented with kidney stone. I discussed with the patient performance of the remaining of the treatment at the [facility], he has missed several previous appointments, each time with a different various excuse. At this point, the patient now presents with stent pain, discomfort, hematuria and we discussed options, but now we are going to bring him here to the hospital, we are not going to plan for shock wave lithotripsy from outside of the body, will be a little more invasive, do ureteroscopy and above listed procedure. I discussed with the patient, risks, benefits and treatment alternatives and after discussing all these with the patient, he is here now for the above-listed procedure. UROLOGY OPERATIVE FINDINGS: 1. Normal anterior urethra without stricture. 2. Verumontanum is minimally visually occlusive. 3. We identified the stone within the ureter. We lasered it to fragment it complete pieces. At the termination of the procedure, there was only a little sand floating around. There were no complications, we put a double J-stent with dangles. DESCRIPTION OF PROCEDURE: After obtaining informed consent, the patient was placed on the table. Routine monitors were placed. Time-out was called to confirm the patient positioning. Antibiotic prophylaxis was used. We introduced a cystoscope via urethra. We identified the ureteral stent. We removed it without difficulty, put a wire up to the kidney. We now went adjacent to the wire. We identified the stone. We provided holmium YAG laser energy and we fragmented the stone till it was sanded to pieces. It went extremely well, the entire procedure was done with fluoroscopic imaging with a camera also directly, so the creative assistant can see what I am doing. We fragmented the stone very well. We went all the way up to the ureter without difficulty. At the termination of the procedure, there were no broad visual stones. Patient tolerated the procedure without complication. We put a double J-stent in, left the dangles. The rectal exam was within normal limits. The patient tolerated the procedure well without complication. Jj Hardwick MD
--- NOTE | 2018-03-04 14:01 | PN ---
DATE: 02/14/2018 UROLOGY PROGRESS NOTE See previous notes. The patient is status post cystoscopy, we removed the double-J stent. There were no complications. PLAN: The plan is as follows; screening urine, analgesics and then further plans will follow. The patient is a pleasant but extremely noncompliant gentleman. We discussed the importance of followup. We will still encourage this. Jj Hardwick MD
== END 2018-02-14 16:29 ==
LOC: SDS 11:33 → 3RNO 18:56 → INTOOBSV 18:56
PROVIDERS: ADMIT Internal Medicine; ATTEND Internal Medicine
DX: N13.2 Hydronephrosis with renal and ureteral calculous obstruction (principal); J43.9 Emphysema, unspecified; F32.9 Major depressive disorder, single episode, unspecified; F10.20 Alcohol dependence, uncomplicated; F17.210 Nicotine dependence, cigarettes, uncomplicated; I10 Essential (primary) hypertension; Z87.11 Personal history of peptic ulcer disease; Z91.19 Patient's noncompliance with other medical treatment and regimen
CPT/HCPCS: 36415; 52356; 71045; 76000; 80053; 83735; 84100; 85025; 85610; 85730; 93005; 96365; 96375; C1725; C9113; G0378; J0696; J1580; J2001; J2250; J2270; J2704; J3010; J7030; J7120; Q9966

== ENCOUNTER 2018-02-14 16:34 | Inpatient (IN) | payer MEDICAID ==
--- NOTE | 2018-02-14 18:30 | PCM.BM ---
<Jeremias Meyer - Last Filed: 02/14/18 18:27> Treatment Plan Problems - Problems identified on initial assessmt FEELING OF WORTHLESSNESS Date Initiated: 02/14/18 Time Initiated: 18:28 Assessment reference: HP, Other Status: Active HOPELESSNESS/HELPLESSNESS Date Initiated: 02/14/18 Time Initiated: 18:28 Assessment reference: HP, Other Status: Active MEDICATION NONADHERANCE Date Initiated: 02/14/18 Time Initiated: 18:28 Assessment reference: HP, Other Status: Active Treatment assets and liabiliti Patient Assests: cooperative, physically healthy, negotiates basic needs, cognitively intact, good interpersonal skills Patient Liabilities: live alone, physical pain, medical problems - Milieu Protocol Maintain good personal hygiene: daily Encourage regular showers, daily Remind patient to perform daily oral care, daily Assist patient to perform ADL's Maintain personal safety: daily Educate patient to report safety concerns to staff, daily Monitor environment for contraband/sharps Medication safety: Monitor for expected outcome, potential side effects: daily, Assess barriers to learning: daily, Assess readiness for medication education: daily Discharge/Continuing Care - Education Needs Education Needs: Patient Medication, Patient Diagnosis/Disease Process, Patient Coping Skills, Patient Placement options, Patient Community resources, Patient Activities of Daily Living, Patient Uses of Medical Equipment, Patient Health Practices/Safety, Patient Personal Hygiene/Grooming - Discharge Discharge Criteria: Tolerates medication w/o severe side effects, Free of Suicidal thoughts, Free of Homicidal thoughts, Free of paranoid thoughts, Ability to care for self <Lindsay De La Vega - Last Filed: 02/15/18 09:06> - Diagnosis (1) MDD (major depressive disorder) Status: Acute Interventions: 02/15/18 09:08 Psychoeducation Psychopharmacology/adjustment of medications as needed/ monitoring possible side effects Evaluate pt on daily basis Compliance with medications and follow up appointments Suicide and homicide risk assessment and prevention Relapse prevention Reduction of symptoms Improve functional status Family involvement As outpatient: cognitive behavioral therapy <Carolina Carter - Last Filed: 02/15/18 10:37> Family Contact Family involvement: Famliy/SO not involved <Sonia Contreras - Last Filed: 02/15/18 11:52>
[2018-02-14] MEDS: Oxycodone/Acetaminophen 5/325 mg Tab PO PRN (19:11)
[2018-02-15] MEDS: Pantoprazole 40 mg EC Tab PO SCH (06:53)
[2018-02-15] MEDS: Oxycodone/Acetaminophen 5/325 mg Tab PO PRN ×3 (07:22→21:26)
[2018-02-15 07:53] LABS: GLUCOSE,FASTING 95 mg/dL (65-110); HDL CHOLESTEROL 48 mg/dL (29-60)
--- NOTE | 2018-02-15 07:56 | CP.PCM.CON ---
<Michael Beauchamp - Last Filed: 02/15/18 11:52> History of Present Illness - History of Present Illness History of Present Illness: Michael Beauchamp PGY1 IM Consult Note for Dr. Trent Mr. Clarke is a 52 year old male with past medical history of nephrolithiasis s/p uretral stent placement, emphysema/COPD, coronary spasm, HTN and Peptic Ulcer Disease who presented to [facility] for left flank pain. Patient underwent uretral stent removal and lithotripsy but upon time of d/c, patient expressed thoughts of hurting himself and others, was seen by a psychiatrist, placed on 1:1 and transferred to psych unit. When seen in unit, patient states he is well, not experiencing any hematuria (last episode yesterday, unsure if he passed stone), dysuria, shortness of breath, chest pain , fevers/chill, n/v/d. His left flank still hurts but is controlled. 12-pt ROS was reviewed and is otherwise unremarkable. He states that he is stressed from family and financial issues. PMD: Dr. Vinson PMH: Emphysema/COPD, Coronary spasm of LAD, Hypertention, Peptic ulcer disease, and nephrolithiasis PSH: Appendectomy, hernia repair, and plating of facial fractures Meds: as per MAR Allergies: NKDA SHx: smokes 1 PPD x 15 years, occasional alcohol use, denies elicit drug use. Works in [employer] Family History: Mother- Diabetes, Alcoholism; Father - healthy; denies history of cancer Review of Systems - Review of Systems All systems: reviewed and no additional remarkable complaints except (as per HPI ) Past Patient History - Infectious Disease Hx of Infectious Diseases: None - Tetanus Immunizations Tetanus Immunization: Unknown - Past Social History Smoking Status: Light Smoker < 10 Cigarettes Daily Alcohol: Occasional Drugs: Denies Home Situation {Lives}: Alone - CARDIAC Hx Cardiac Disorders: Yes Hx Hypertension: Yes Hx Pacemaker: No - PULMONARY Hx Respiratory Disorders: Yes Hx Chronic Obstructive Pulmonary Disease (COPD): Yes Hx Emphysema: Yes - NEUROLOGICAL Hx Neurological Disorder: Yes Hx Migraine: Yes - HEENT Hx HEENT Problems: No - RENAL Hx Chronic Kidney Disease: Yes Hx Kidney Stones: Yes - ENDOCRINE/METABOLIC Hx Endocrine Disorders: No - HEMATOLOGICAL/ONCOLOGICAL Hx Blood Transfusions: No Hx Blood Transfusion Reaction: No - INTEGUMENTARY Hx Dermatological Problems: No - MUSCULOSKELETAL/RHEUMATOLOGICAL Hx Musculoskeletal Disorders: No Hx Falls: No - GASTROINTESTINAL Hx Gastrointestinal Disorders: No - GENITOURINARY/GYNECOLOGICAL Hx Genitourinary Disorders: Yes Hx Hematuria: Yes - PSYCHIATRIC Hx Psychophysiologic Disorder: No Hx Emotional Abuse: No Hx Physical Abuse: No Hx Substance Use: Yes (COCAINE, POT 20 Y.AGO) - SURGICAL HISTORY Hx Surgeries: Yes (L KIDNEY STENT) - ANESTHESIA Hx Anesthesia Reactions: No Hx Malignant Hyperthermia: No Meds Allergies/Adverse Reactions: Allergies Allergy/AdvReac Type Severity Reaction Status Date / Time No Known Allergies Allergy Verified 02/15/18 06:32 - Medications Medications: Current Medications Ciprofloxacin (Cipro) 500 mg PO Q12 KADE PRN Reason: Protocol Stop: 02/15/18 17:46 Last Admin: 02/15/18 06:53 Dose: 500 mg Fluoxetine HCl (Prozac) 10 mg PO DAILY KADE Lorazepam (Ativan) 1 mg PO Q6 PRN; Protocol PRN Reason: Symptoms of alcohol withdrawl Nicotine (Nicoderm Cq) 1 patch TD DAILY [facility] Ondansetron HCl (Zofran Tab) 4 mg PO Q8H PRN PRN Reason: Nausea/Vomiting Oxycodone/Acetaminophen (Percocet 5/325 Mg Tab) 1 tab PO Q6H PRN PRN Reason: Pain, moderate (4-7) Stop: 02/17/18 18:51 Last Admin: 02/15/18 07:22 Dose: 1 tab Pantoprazole Sodium (Protonix Ec Tab) 40 mg PO 0600 KADE Last Admin: 02/15/18 06:53 Dose: 40 mg Tamsulosin HCl (Flomax) 0.4 mg PO DAILY KADE Zaleplon (Sonata) 5 mg PO HS PRN PRN Reason: Insomnia Last Admin: 02/14/18 21:59 Dose: 5 mg Physical Exam - Constitutional Appears: Well, Non-toxic, In Acute Distress - Head Exam Head Exam: NORMAL INSPECTION - Eye Exam Eye Exam: Normal appearance - ENT Exam ENT Exam: Mucous Membranes Moist, Normal Exam - Neck Exam Neck exam: Positive for: Normal Inspection - Respiratory Exam Respiratory Exam: Clear to Auscultation Bilateral, NORMAL BREATHING PATTERN. absent: Rhonchi, Wheezes, Respiratory Distress - Cardiovascular Exam Cardiovascular Exam: RRR, +S1, +S2 - GI/Abdominal Exam GI & Abdominal Exam: Normal Bowel Sounds, Soft, Tenderness (LLQ). absent: Distended - Extremities Exam Extremities exam: Positive for: full ROM, normal inspection. Negative for: tenderness - Back Exam Back exam: NORMAL INSPECTION - Neurological Exam Neurological exam: Alert, Oriented x3 - Psychiatric Exam Psychiatric exam: Normal Mood - Skin Skin Exam: Warm Results - Vital Signs Recent Vital Signs: Last Vital Signs Temp 97.3 F L 02/15/18 07:16 Pulse 55 L 02/15/18 07:16 Resp 20 02/15/18 07:16 BP 111/68 02/15/18 07:16 Pulse Ox - Labs Labs: Laboratory Results - last 24 hr 02/15/18 07:00 Fasting Glucose 95 Triglycerides 101 Cholesterol 134 HDL Cholesterol 48 Assessment & Plan - Assessment and Plan (Free Text) Assessment: 52 year old male with past medical history of nephrolithiasis s/p uretral stent placement, emphysema/COPD, coronary spasm, HTN and Peptic Ulcer Disease who presented with flank pain for which a uretral stent was removed and lithotripsy performed by Dr. Hardwick. Currently, patient is in psych unit for treatment. Plan: 1. Depression - cont per psych team 2. Nephrolithiasis - cont to strain urine - cont Flomax - cont percocet prn pain - zofran prn n/v - will start motrin prn moderate pain - will cont cipro x7 days per Urology recs - if patient experiences episodes of hematuria, please contact Dr. Hardwick for management 3. Tobacco use - nicotine patch Patient should f/u with PMD upon discharge Patient is medically stable at this time. Please re-consult if needed. <Tino Trent - Last Filed: 02/15/18 16:24> Meds - Medications Medications: Current Medications Bupropion HCl (Wellbutrin) 75 mg PO BID [facility] Last Admin: 02/15/18 15:10 Dose: 75 mg Ciprofloxacin (Cipro) 500 mg PO Q12 KADE PRN Reason: Protocol Stop: 02/15/18 17:46 Last Admin: 02/15/18 06:53 Dose: 500 mg Ibuprofen (Motrin Tab) 400 mg PO Q6H PRN PRN Reason: Pain, Mild (1-3) Lorazepam (Ativan) 1 mg PO Q6 PRN; Protocol PRN Reason: Symptoms of alcohol withdrawl Nicotine (Nicoderm Cq) 1 patch TD DAILY [facility] Last Admin: 02/15/18 09:23 Dose: 1 patch Ondansetron HCl (Zofran Tab) 4 mg PO Q8H PRN PRN Reason: Nausea/Vomiting Oxycodone/Acetaminophen (Percocet 5/325 Mg Tab) 1 tab PO Q6H PRN PRN Reason: Pain, moderate (4-7) Stop: 02/17/18 18:51 Last Admin: 02/15/18 15:10 Dose: 1 tab Pantoprazole Sodium (Protonix Ec Tab) 40 mg PO 0600 KADE Last Admin: 02/15/18 06:53 Dose: 40 mg Tamsulosin HCl (Flomax) 0.4 mg PO DAILY [facility] Last Admin: 02/15/18 09:25 Dose: 0.4 mg Zaleplon (Sonata) 5 mg PO HS PRN PRN Reason: Insomnia Last Admin: 02/14/18 21:59 Dose: 5 mg Results - Vital Signs Recent Vital Signs: Last Vital Signs Temp 97.3 F L 02/15/18 07:16 Pulse 55 L 02/15/18 07:16 Resp 20 02/15/18 07:16 BP 111/68 02/15/18 07:16 Pulse Ox - Labs Labs: Laboratory Results - last 24 hr 02/15/18 02/15/18 07:00 07:00 Fasting Glucose 95 Triglycerides 101 Cholesterol 134 LDL Cholesterol Direct 62 HDL Cholesterol 48 Free T4 0.96 TSH 3rd Generation 4.26 Attending/Attestation - Attestation I have personally seen and examined this patient.: Yes I have fully participated in the care of the patient.: Yes I have reviewed all pertinent clinical information: Yes Notes (Text): 52 year old male with past medical history of nephrolithiasis s/p uretral stent placement, emphysema/COPD, coronary spasm, HTN and Peptic Ulcer Disease who presented with flank pain for which a uretral stent was removed and lithotripsy performed by Dr. Hardwick. Currently, patient is in psych unit for treatment. Plan: 1. Depression 2. Nephrolithiasis - no hematuria - 3. Tobacco use
[2018-02-15 08:10] LABS: FREE T4 0.96 ng/dL (0.78-2.19)
[2018-02-15 08:20] LABS: LDL CHOLESTEROL 62 mg/dL (0-129)
--- NOTE | 2018-02-15 15:27 | PCM.PSYCH ---
Initial Psychiatric Evaluation - Initial Psychiatric Evaluation Type of Admission: Voluntary Legal Status: Capacity (patient has capacity to sign consent for treatment) Chief Complaint (in patient's own words): "I was thinking to end it all..." Patient's Reaction to Hospitalization: pt was transferred to the psychiatric inpatient unit for evaluation and stabilization of depressive symptoms, possible suicidal and ?homicidal ideation. History of Present Illness and Precipitating Events: shortly patient is 52 year old male, not known previous psychiatric history, patient denied history of being admitted to psychiatric inpatient unit , denied history of suicidal attempts, initially patient was admitted on the medical side for evaluation of kidney stone and removal of urethral catheter, during the evaluation pt said that he is depressed, hopeless, expressed thoughts of harming himself, was seen by Dr. Jorgensen, patient was offered admission to the psychiatric inpatient unit on 02/14/2018, patient accepted that offer, patient was transferred to the psychiatric inpatient unit uneventfully. Patient was seen today at the treatment team meeting, patient presented to be with good personal hygiene, but seems to be careless about his appearance, not shaved, very thin build, overall well related to the treatment team, good ADLs. pt presented to be depressed, said that three people whom he cares about are not in his life any longer, pt said two of his kids are with their mother because pt was evicted from the previous apartment, it happened last year, pt was in relationship with female who moved back to the father of her 3 kids, "this is the only female I care about", pt said all he does "go to work, sleep, pay bills, then go back to work". pt said at times he feels "to end it all, at times I think if I would own a gun I would kill myself", pt denied any assess to guns, denied intent or plan to purchase the gun, "it is out of frustration. pt reported to have poor appetite and sleep. pt reports at times she sees shadows, possible delusions, but patient does not present to be psychotic. no manic symptoms, no h/o anxiety pt denied using drugs, denied drinking, smokes a pack a day, education provided , nicotine patch offered. pt has h/o cocaine addiction, "I did not touch drugs for the past 20years". pt denied history of mental illness, patient reported that his primary care physician prescribed him Zoloft in the past and he daughter did not tolerate it well, patient was willing to take Wellbutrin, risk, benefits, alternatives discussed with the patient. Family history of: Patient denied family history of mental illness, denied history of suicidal attempts. Medical history: Patient has history of kidney stones, peptic ulcers social h/o: pt works in [employer] Lab Results 02/15/18 07:00: Fasting Glucose 95, Triglycerides 101, Cholesterol 134, LDL Cholesterol Direct 62, HDL Cholesterol 48 02/15/18 07:00: Free T4 0.96, TSH 3rd Generation 4.26 Vital Signs Temp Pulse Resp BP 02/15/18 07:16 97.3 F L 55 L 20 111/68 02/14/18 17:50 98.7 F 64 18 122/89 Current Medications: Active Medications Generic Name Dose Route Start Last Admin Trade Name Freq PRN Reason Stop Dose Admin Ciprofloxacin 500 mg 02/14/18 18:00 02/15/18 06:53 Cipro PO 02/15/18 17:46 500 mg Q12 KADE Administration Protocol Fluoxetine HCl 10 mg 02/15/18 08:00 Prozac PO DAILY KADE Lorazepam 1 mg 02/14/18 19:02 Ativan PO Q6 PRN Symptoms of alcohol withdrawl Protocol Nicotine 1 patch 02/15/18 08:00 Nicoderm Cq TD DAILY KADE Ondansetron HCl 4 mg 02/14/18 17:48 Zofran Tab PO Q8H PRN Nausea/Vomiting Oxycodone/Acetaminophen 1 tab 02/14/18 18:50 02/15/18 07:22 Percocet 5/325 Mg Tab PO 02/17/18 18:51 1 tab Q6H PRN Administration Pain, moderate (4-7) Pantoprazole Sodium 40 mg 02/15/18 06:00 02/15/18 06:53 Protonix Ec Tab PO 40 mg 0600 KADE Administration Tamsulosin HCl 0.4 mg 02/15/18 08:00 Flomax PO DAILY KADE Zaleplon 5 mg 02/14/18 18:52 02/14/18 21:59 Sonata PO 5 mg HS PRN Administration Insomnia Past Psychiatric History - Past Psychiatric History Previous Treatment History: None Prior Professional Help: see HPI Prior Psychiatric Treatment: see HPI At what hospital: see HPI Duration: see HPI Nature of Treatment: see HPI Explanation of prior treatment: see HPI History of Abuse: see HPI History of ETOH/Drug Use: see HPI History of Family Illness: see HPI Pertinent Medical Hx (Current Medical&Sleep Prob, Allergies): Allergies Allergy/AdvReac Type Severity Reaction Status Date / Time No Known Allergies Allergy Verified 02/15/18 06:32 Tamsulosin [Flomax] 0.4 mg PO DAILY cap 02/09/18 Review of Systems - Review of Systems Systems not reviewed;Unavailable: Acuity of Condition - EENT Eyes: As Per HPI Ears: As Per HPI Nose/Mouth/Throat: As Per HPI - Cardiovascular Cardiovascular: As Per HPI - Respiratory Respiratory: As Per HPI - Gastrointestinal Gastrointestinal: As Per HPI - Genitourinary Genitourinary: As Per HPI - Reproductive: Male Reproductive:Male: As Per HPI - Musculoskeletal Musculoskeletal: As Par HPI - Integumentary Integumentary: As Per HPI - Neurological Neurological: As Per HPI - Psychiatric Psychiatric: As Per HPI - Endocrine Endocrine: As Per HPI - Hematologic/Lymphatic Hematologic: As Per HPI Mental Status Examination - Personal Presentation Personal Presentation: Looks stated age - Affect Affect: Flat - Motor Activity Motor Activity: Calm - Reliability in Providing Information Reliability in Providing Information: Fair - Speech Speech: Organized - Mood Mood: Depressed - Formal Thought Process Formal Thought Process: No Impairment - Hallucinations/Delusions Hallucinations: Visual (but it is ?) - Obsessions/Compulsions Obsessions: None Compulsions: None - Cognitive Functions Orientation: Person, Place, Situation, Time Sensorium: Alert Estimate of Intelligence: Average Judgement: Intact, as evidence by: Insight regarding need for hospitalization - Risk Risk: Suicidal, Diminished functioning - Strength & Assets Inventory Strength & Assets Inventory: Cooperative - Limitations Limitations: Living alone, Other (no support) DSM 5 DX - DSM 5 DSM 5 Diagnosis: mdd - Recommended/Plan of Treatment Treatment Recommendations and Plan of Treatment: Milieu/structure/supportive therapy Medical consult appreciated wellbutrin 75mg po bid for depression sonata hsfor insomnia 1:1 d/c, pt contracted for safety SW consultation for discharge plan and social issues Family involvement Follow up on labs Will monitor closely Pt was educated about risk/benefits and alternatives of medications, coping strategies (safety plan, suicide prevention), relapse prevention, importance of follow up with psychiatrist and therapist, stay away from drugs/alcohol/smoking Projected ELOS: 7days Prognosis: guarded Discharge Plan and Discharge Criteria: Pt will be not depressed or manic, will be more hopeful, will be not psychotic or anxious, will be not having thoughts of harming self or others, will be tolerating medications well, will not have major side effects, will be able to function, will not pose threat to self or others. - Smoking Cessation Smoking Cessation Initiated: Yes
[2018-02-16] MEDS: Pantoprazole 40 mg EC Tab PO SCH (06:21)
[2018-02-16] MEDS: Oxycodone/Acetaminophen 5/325 mg Tab PO PRN ×3 (06:21→20:20)
--- NOTE | 2018-02-16 09:45 | PCM.PYCHPN ---
Psychiatric Progress Note - Psychiatric Progress Note Patient seen today, length of contact: 25 MIN Problems Identified/Issues Discussed: Patient is 52 year old male, not known previous psychiatric history, denies history of psychiatric inpatient admissions, denied history of suicidal attempts who was initially admitted on the medical side for evaluation of kidney stone and removal of urethral catheter. During medical treatment patient indicated that he was depressed and hopeless. He also expressed thoughts of harming himself. Patient was seen by this provider as a psychiatric operational risk consultant on 02/14/2018 and offered psychiatric admission for depression. . I reviewed recent notes and met with patient in the dayroom. He remains groomed and well-oriented to current month, year, location and circumstances. He remembers me from my consultation with him on the medical floor. Patient reports that he is doing a little better, tolerating medications thus far and denies any major side effects. He does have a minor headache which he believes is secondary to his medications. He remains coherent and well-related. Affect is more reactive and broader than our initial interview two days ago however, overall, he appears depressed and constricted. Patient has been in good control on the unit thus far. Compliant with staff requests and visible on the unit. Appears depressed but not apathetic or listless. Will engage in a conversation when initiated. I/J are fair. Diagnostic Results: Major Depression, Severe without psychotic features Mental Status Examination - Cognitive Function Orientation: Person, Place, Situation, Time - Mood Mood: Depressed - Affect Affect: Flat - Formal Thought Process Formal Thought Process: No Impairment Goal/Treatment Plan - Goal/Treatment Plan Progress Toward Problem(s) and Goals/Treatment Plan: * c/w current tx and plan * No new weekend labs thus far * Vitals reviewed and noted below: Selected Entries 02/16/18 06:51 Temperature 98.3 F Pulse Rate 62 Respiratory 20 Rate Blood Pressure 121/74
[2018-02-17] MEDS: Pantoprazole 40 mg EC Tab PO SCH (06:40)
[2018-02-17] MEDS: Oxycodone/Acetaminophen 5/325 mg Tab PO PRN ×3 (06:40→21:18)
--- NOTE | 2018-02-17 11:09 | PCM.PYCHPN ---
Psychiatric Progress Note - Psychiatric Progress Note Patient seen today, length of contact: 25 MIN Problems Identified/Issues Discussed: Patient is 52 year old male, not known previous psychiatric history, denies history of psychiatric inpatient admissions, denied history of suicidal attempts who was initially admitted on the medical side for evaluation of kidney stone and removal of urethral catheter. During medical treatment patient indicated that he was depressed and hopeless. He also expressed thoughts of harming himself. Patient was seen by this provider as a psychiatric customer service and sales consultant on 02/14/2018 and offered psychiatric admission for depression. . I reviewed recent notes and met with patient in the dayroom. He remains groomed and well-oriented to current month, year, location and circumstances. He remembers me from my consultation with him on the medical floor. Patient reports that he is doing a little better, tolerating medications thus far and denies any major side effects. He does have intermittent headaches which he believes are secondary to his medications--these seem to be improving a little. He remains coherent and well-related. Affect is more reactive and broader than our initial interview three days ago however, overall, he appears constricted. Patient has been in good control on the unit thus far. Compliant with staff requests and visible on the unit. Appears depressed but not apathetic or listless. Seems a little more spontaneous, social and brighter today. I/J are fair. Diagnostic Results: Major Depression, Severe without psychotic features Mental Status Examination - Cognitive Function Orientation: Person, Place, Situation, Time - Mood Mood: Depressed - Affect Affect: Flat - Formal Thought Process Formal Thought Process: No Impairment Goal/Treatment Plan - Goal/Treatment Plan Progress Toward Problem(s) and Goals/Treatment Plan: * c/w current tx and plan * No new weekend labs * Vitals reviewed and noted below: Selected Entries 02/17/18 07:26 Temperature 97.7 F Pulse Rate 64 Respiratory 20 Rate Blood Pressure 120/77
[2018-02-18] MEDS: Pantoprazole 40 mg EC Tab PO SCH (06:33)
[2018-02-18] MEDS: Oxycodone/Acetaminophen 5/325 mg Tab PO PRN ×3 (06:34→18:42)
--- NOTE | 2018-02-18 16:50 | PCM.PYCHPN ---
Psychiatric Progress Note - Psychiatric Progress Note Patient seen today, length of contact: 30min Patient Chief Complaint: "I have nothing left" Problems Identified/Issues Discussed: Suicide/ homicide prevention, past psychiatric h/o, current psychiatric symptoms , medical problems, risk/benefits and alternatives of medications, medications compliance, coping strategies, substance abuse h/o, relapse prevention, importance of follow up with psychiatrist and therapist, discharge plan. Medical Problems: Patient has history of kidney stones, peptic ulcers Diagnostic Results: Lab Results 02/15/18 07:00: RPR Nonreactive 02/15/18 07:00: Fasting Glucose 95, Triglycerides 101, Cholesterol 134, LDL Cholesterol Direct 62, HDL Cholesterol 48 02/15/18 07:00: Free T4 0.96, TSH 3rd Generation 4.26 Vital Signs Temp Pulse Resp BP 02/18/18 07:26 96.9 F L 60 20 116/77 02/18/18 07:23 96.9 F L 60 201 H 116/74 02/17/18 16:04 62 99/65 L 02/17/18 07:26 97.7 F 64 20 120/77 02/16/18 21:54 98.3 F 62 20 121/74 02/16/18 06:51 98.3 F 62 20 121/74 02/15/18 16:00 67 124/85 02/15/18 07:16 97.3 F L 55 L 20 111/68 02/14/18 17:50 98.7 F 64 18 122/89 DSM 5 Symptoms Update: shortly patient is 52 year old male, not known previous psychiatric history, patient denied history of being admitted to psychiatric inpatient unit , denied history of suicidal attempts, initially patient was admitted on the medical side for evaluation of kidney stone and removal of urethral catheter, during the evaluation pt said that he is depressed, hopeless, expressed thoughts of harming himself, was seen by Dr. Jorgensen, patient was offered admission to the psychiatric inpatient unit on 02/14/2018, patient accepted that offer, patient was transferred to the psychiatric inpatient unit uneventfully. Patient was seen today at the treatment team meeting room patient still present to be depressed, patient was making hopeless statements such as "I have nothing left for me, people "I really love not in my life anymore". 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 so far patient tolerates medications well, no side effects observed or reported , aims 0, no EPS. Patient is willing to increase the dose of Wellbutrin. Impression: Rule out major depressive disorder Rule out adjustment disorder Medication Change: Yes (Wellbutrin increased) Medical Record Reviewed: Yes Consults ordered or reviewed: medical consult appreciated, see notes for more detailed information Mental Status Examination - Cognitive Function Orientation: Person, Place, Situation, Time Memory: Intact Attention: Poor Concentration: Poor Association: WNL Fund of Knowledge: WNL - Mood Mood: Depressed - Affect Affect: Flat - Speech Speech: Appropriate - Formal Thought Process Formal Thought Process: No Impairment - Suicidal Ideation Suicidal Ideation: No - Homicidal Ideation Homicidal Ideation: No Goal/Treatment Plan - Goal/Treatment Plan Need for Continued Stay: Remain at risks for inpatient hospitalization, Severe depression anxiety, Discharge may exacerbated symptoms, Severe functional impairment Progress Toward Problem(s) and Goals/Treatment Plan: Milieu/structure/supportive therapy Medical consult appreciated wellbutrin 100mg po bid for depression sonata 5mg hs for insomnia 1:1 d/c, pt contracted for safety SW consultation for discharge plan and social issues Family involvement Follow up on labs Will monitor closely Pt was educated about risk/benefits and alternatives of medications, coping strategies (safety plan, suicide prevention), relapse prevention, importance of follow up with psychiatrist and therapist, stay away from drugs/alcohol/smoking Estimated Date of D/C: 02/22/18
[2018-02-19] MEDS: Oxycodone/Acetaminophen 5/325 mg Tab PO PRN ×3 (06:34→18:38)
[2018-02-19] MEDS: Pantoprazole 40 mg EC Tab PO SCH (08:36)
--- NOTE | 2018-02-19 15:56 | PCM.PYCHPN ---
Psychiatric Progress Note - Psychiatric Progress Note Patient seen today, length of contact: 30min Patient Chief Complaint: "if I lost my job, I am screwed up completely". Problems Identified/Issues Discussed: Suicide/ homicide prevention, past psychiatric h/o, current psychiatric symptoms , medical problems, risk/benefits and alternatives of medications, medications compliance, coping strategies, substance abuse h/o, relapse prevention, importance of follow up with psychiatrist and therapist, discharge plan. Medical Problems: Patient has history of kidney stones, peptic ulcers Diagnostic Results: Lab Results 02/15/18 07:00: RPR Nonreactive 02/15/18 07:00: Fasting Glucose 95, Triglycerides 101, Cholesterol 134, LDL Cholesterol Direct 62, HDL Cholesterol 48 02/15/18 07:00: Free T4 0.96, TSH 3rd Generation 4.26 Vital Signs Temp Pulse Resp BP 02/18/18 07:26 96.9 F L 60 20 116/77 02/18/18 07:23 96.9 F L 60 201 H 116/74 02/17/18 16:04 62 99/65 L 02/17/18 07:26 97.7 F 64 20 120/77 02/16/18 21:54 98.3 F 62 20 121/74 02/16/18 06:51 98.3 F 62 20 121/74 02/15/18 16:00 67 124/85 02/15/18 07:16 97.3 F L 55 L 20 111/68 02/14/18 17:50 98.7 F 64 18 122/89 Temp Pulse Resp BP Pulse Ox 97.8 F 67 20 119/79 02/19/18 07:11 02/19/18 07:11 02/19/18 07:11 02/19/18 07:11 DSM 5 Symptoms Update: shortly patient is 52 year old male, not known previous psychiatric history, patient denied history of being admitted to psychiatric inpatient unit , denied history of suicidal attempts, initially patient was admitted on the medical side for evaluation of kidney stone and removal of urethral catheter, during the evaluation pt said that he is depressed, hopeless, expressed thoughts of harming himself, was seen by Dr. Jorgensen, patient was offered admission to the psychiatric inpatient unit on 02/14/2018, patient accepted that offer, patient was transferred to the psychiatric inpatient unit uneventfully. Patient was seen today next to the nursing station, patient reported that he still feels depressed, patient does not know if she still has a job or not, at the same time patient feels reluctant to give a call to his job, patient was advised to contact his employer and let him know that he is in the hospital. pt said "if I lost my job, I am screwed up completely". so far patient tolerates medications well, no side effects observed or reported , aims 0, no EPS. patient tolerates increased dose of Wellbutrin well. Impression: Rule out major depressive disorder Rule out adjustment disorder Medication Change: Yes (Wellbutrin increased) Medical Record Reviewed: Yes Mental Status Examination - Cognitive Function Orientation: Person, Place, Situation, Time Memory: Intact Attention: Poor Concentration: Poor Association: WNL Fund of Knowledge: WNL - Mood Mood: Depressed - Affect Affect: Flat - Speech Speech: Appropriate - Formal Thought Process Formal Thought Process: No Impairment - Suicidal Ideation Suicidal Ideation: No - Homicidal Ideation Homicidal Ideation: No Goal/Treatment Plan - Goal/Treatment Plan Need for Continued Stay: Remain at risks for inpatient hospitalization, Severe depression anxiety, Discharge may exacerbated symptoms, Severe functional impairment Progress Toward Problem(s) and Goals/Treatment Plan: Milieu/structure/supportive therapy Medical consult appreciated wellbutrin 100mg po bid for depression sonata 5mg hs for insomnia SW consultation for discharge plan and social issues Family involvement Follow up on labs Will monitor closely Pt was educated about risk/benefits and alternatives of medications, coping strategies (safety plan, suicide prevention), relapse prevention, importance of follow up with psychiatrist and therapist, stay away from drugs/alcohol/smoking Estimated Date of D/C: 02/22/18
[2018-02-20] MEDS: Oxycodone/Acetaminophen 5/325 mg Tab PO PRN ×3 (05:33→18:46)
[2018-02-20] MEDS: Pantoprazole 40 mg EC Tab PO SCH (05:35)
--- NOTE | 2018-02-20 14:51 | PCM.PYCHPN ---
Psychiatric Progress Note - Psychiatric Progress Note Patient seen today, length of contact: 30min Patient Chief Complaint: "I called menopause, he said we need to talk, she did not say no" Problems Identified/Issues Discussed: Suicide/ homicide prevention, past psychiatric h/o, current psychiatric symptoms , medical problems, risk/benefits and alternatives of medications, medications compliance, coping strategies, substance abuse h/o, relapse prevention, importance of follow up with psychiatrist and therapist, discharge plan. Medical Problems: Patient has history of kidney stones, peptic ulcers Diagnostic Results: Lab Results 02/15/18 07:00: RPR Nonreactive 02/15/18 07:00: Fasting Glucose 95, Triglycerides 101, Cholesterol 134, LDL Cholesterol Direct 62, HDL Cholesterol 48 02/15/18 07:00: Free T4 0.96, TSH 3rd Generation 4.26 Vital Signs Temp Pulse Resp BP 02/18/18 07:26 96.9 F L 60 20 116/77 02/18/18 07:23 96.9 F L 60 201 H 116/74 02/17/18 16:04 62 99/65 L 02/17/18 07:26 97.7 F 64 20 120/77 02/16/18 21:54 98.3 F 62 20 121/74 02/16/18 06:51 98.3 F 62 20 121/74 02/15/18 16:00 67 124/85 02/15/18 07:16 97.3 F L 55 L 20 111/68 02/14/18 17:50 98.7 F 64 18 122/89 Temp Pulse Resp BP Pulse Ox 97.8 F 67 20 119/79 02/19/18 07:11 02/19/18 07:11 02/19/18 07:11 02/19/18 07:11 DSM 5 Symptoms Update: shortly patient is 52 year old male, not known previous psychiatric history, patient denied history of being admitted to psychiatric inpatient unit , denied history of suicidal attempts, initially patient was admitted on the medical side for evaluation of kidney stone and removal of urethral catheter, during the evaluation pt said that he is depressed, hopeless, expressed thoughts of harming himself, was seen by Dr. Jorgensen, patient was offered admission to the psychiatric inpatient unit on 02/14/2018, patient accepted that offer, patient was transferred to the psychiatric inpatient unit uneventfully. Patient was seen today at the treatment team meeting room, patient presented to be less depressed, patient appears to be taking passive role in the treatment as well as in his life, patient is waiting for "things to be changed," at the same time patient is reluctant to give a call to his employer, had much encouragement from this hand sign writer, patient does not want to call family and asked for help because "I burned bridges", patient is facing homelessness, "possibly they will not give me my security deposits", at the same time patient does not want to call management or her landlord. as per staff Patient is watching TV all day long, has good appetite, no agitation or aggression, patient is enjoying his stay in the hospital. so far patient tolerates medications well, no side effects observed or reported , aims 0, no EPS. patient tolerates increased dose of Wellbutrin well. Impression: Rule out major depressive disorder Rule out adjustment disorder Medication Change: Yes (Wellbutrin increased) Medical Record Reviewed: Yes Mental Status Examination - Cognitive Function Orientation: Person, Place, Situation, Time Memory: Intact Attention: Poor (improving,) Concentration: Poor (improving) Association: WNL Fund of Knowledge: WNL - Mood Mood: Depressed ("I'm fine) - Affect Affect: Constricted (but more reactive and mood congruent) - Speech Speech: Appropriate - Formal Thought Process Formal Thought Process: No Impairment - Suicidal Ideation Suicidal Ideation: No - Homicidal Ideation Homicidal Ideation: No Goal/Treatment Plan - Goal/Treatment Plan Need for Continued Stay: Remain at risks for inpatient hospitalization, Severe depression anxiety, Discharge may exacerbated symptoms, Severe functional impairment Progress Toward Problem(s) and Goals/Treatment Plan: Milieu/structure/supportive therapy Medical consult appreciated wellbutrin 100mg po bid for depression sonata 5mg hs for insomnia SW consultation for discharge plan and social issues Family involvement Follow up on labs Will monitor closely Pt was educated about risk/benefits and alternatives of medications, coping strategies (safety plan, suicide prevention), relapse prevention, importance of follow up with psychiatrist and therapist, stay away from drugs/alcohol/smoking Estimated Date of D/C: 02/22/18
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
[2018-02-20] MEDS ORDERED: Oxycodone/Acetaminophen 5/325 mg Tab PO STA (21:59)
[2018-02-21] MEDS ORDERED: Oxycodone/Acetaminophen 5/325 mg Tab PO STA (12:52)
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
[2018-02-21] MEDS: Oxycodone/Acetaminophen 5/325 mg Tab PO PRN (22:00)
[2018-02-21 22:25] LABS: OPIATES, UR NEGATIVE (NEGATIVE)
[2018-02-21 22:40] LABS: BARBITURATES, UR NEGATIVE (NEGATIVE); BENZODIAZEPINES, UR NEGATIVE (NEGATIVE); PHENCYCLIDINE, UR NEGATIVE (NEGATIVE)
[2018-02-22] MEDS: Oxycodone/Acetaminophen 5/325 mg Tab PO PRN ×3 (03:57→13:02)
[2018-02-22 07:16] VITALS: BP 109/78; PULSE 88; RESP 20; TEMP 97.2
[2018-02-22] MEDS: Pantoprazole 40 mg EC Tab PO SCH (08:23)
--- NOTE | 2018-02-22 09:16 | CT ---
EXAM: CT Cervical Spine Without Intravenous Contrast EXAM DATE/TIME: Examination ordered 02/21/2018 5:01 PM. Image number total count reviewed [id number] CLINICAL HISTORY: The patient is 52 years old and is male; Pain; Neck pain; Additional info: Right edema, pain, eval Facility exam id and description: Ct csps cervical spine w/o contrast TECHNIQUE: Axial computed tomography images of the cervical spine without intravenous contrast. All CT scans at this facility use at least one of these dose optimization techniques: automated exposure control; mA and/or kV adjustment per patient size (includes targeted exams where dose is matched to clinical indication); or iterative reconstruction. Coronal and sagittal reformatted images were created and reviewed. COMPARISON: US - CAROTID VERTEBRAL DUPLEX 2017-06-16 15:09 FINDINGS: VERTEBRAE: No acute fracture. DISCS/SPINAL CANAL/NEURAL FORAMINA: Straightening of the cervical spine with mild degenerative changes through the cervical spine. SOFT TISSUES: Unremarkable. LUNG APICES: Unremarkable as visualized. IMPRESSION: Straightening of the cervical spine with mild degenerative changes through the cervical spine.
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
== END 2018-02-22 13:29 | disposition home or self-care (01) | DRG 430 ==
LOC: PSYC 16:34
PROVIDERS: ADMIT Psychiatry & Neurology Psychiatry; ATTEND Psychiatry & Neurology Psychiatry
DX: F32.2 Major depressive disorder, single episode, severe without psychotic features (principal); J43.9 Emphysema, unspecified; N18.9 Chronic kidney disease, unspecified; I12.9 Hypertensive chronic kidney disease with stage 1 through stage 4 chronic kidney disease, or unspecified chronic kidney disease; N20.0 Calculus of kidney; S02.402A Zygomatic fracture, unspecified side, initial encounter for closed fracture; S01.511A Laceration without foreign body of lip, initial encounter; S01.411A Laceration without foreign body of right cheek and temporomandibular area, initial encounter; Y04.2XXA Assault by strike against or bumped into by another person, initial encounter; Y92.239 Unspecified place in hospital as the place of occurrence of the external cause; Z87.442 Personal history of urinary calculi; Z87.11 Personal history of peptic ulcer disease; Z87.891 Personal history of nicotine dependence

== ENCOUNTER 2018-02-20 18:52 | Emergency (ER) | payer OTHER ==
[2018-02-20 18:52] VITALS: PULSE 88; BMI 22.4
[2018-02-20 19:09] VITALS: BP 132/94; PULSE 89; RESP 18; TEMP 98.2; O2SAT 99
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
[2018-02-20] MEDS ORDERED: Oxycodone/Acetaminophen 5/325 mg Tab PO STA (20:03)
== END 2018-02-20 20:27 | disposition short-term general hospital (02) ==
LOC: ED 18:52
DX: S02.40EA Zygomatic fracture, right side, initial encounter for closed fracture (principal); Y08.89XA Assault by other specified means, initial encounter; Y92.238 Other place in hospital as the place of occurrence of the external cause

== ENCOUNTER 2018-04-01 19:46 | Emergency (ER) | payer OTHER ==
[2018-04-01 19:46] VITALS: PULSE 88; BMI 22.4
[2018-04-01 20:01] VITALS: O2SAT 99
[2018-04-01] MEDS ORDERED: Naproxen 550 mg Tab PO STA (21:06)
[2018-04-01 22:36] VITALS: BP 108/67; PULSE 67; RESP 18; TEMP 97.5
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
--- NOTE | 2018-04-02 08:31 | CT ---
Date of service: 04/01/2018 PROCEDURE: CT MAXILLOFACIAL BONES WITHOUT CONTRAST HISTORY: ringing R ear,h/o R zygomatic fx,pls include orbit COMPARISON: 02/20/2018 TECHNIQUE: Contiguous axial CT images of the maxillofacial bones were obtained. Coronal and sagittal reformats were generated. Radiation dose: Total exam DLP = 874 mGy-cm. This CT exam was performed using one or more of the following dose reduction techniques: Automated exposure control, adjustment of the mA and/or kV according to patient size, and/or use of iterative reconstruction technique. FINDINGS: NASAL BONES: Unremarkable. ORBITS: There is no change in the appearance of the chronic right orbital and zygomatic fractures. There is a plate and screws in the lateral wall of the maxillary sinus. There are no acute changes. PARANASAL SINUSES/ MASTOIDS: Clear. MAXILLA: Unremarkable. MANDIBLE/ TEMPOROMANDIBULAR JOINTS: Unremarkable. SKULL BASE: Unremarkable. TEMPORAL BONES: Middle ears and mastoid grossly unremarkable. OTHER FINDINGS: The report concurs with the preliminary [facility] report IMPRESSION: There is no change in the appearance of the chronic right orbital and zygomatic fractures. There is a plate and screws in the lateral wall of the maxillary sinus. There are no acute changes.
--- NOTE | 2018-04-02 08:34 | CT ---
Date of service: 04/01/2018 PROCEDURE: CT Cervical Spine without contrast HISTORY: R sided neck pain COMPARISON: None available. TECHNIQUE: Axial computed tomography images were obtained of the cervical spine without the use of intravenous contrast. Coronal and sagittal reformatted images were created and reviewed. Radiation dose: Total exam DLP = 556 mGy-cm. This CT exam was performed using one or more of the following dose reduction techniques: Automated exposure control, adjustment of the mA and/or kV according to patient size, and/or use of iterative reconstruction technique. FINDINGS: VERTEBRAE: No fracture. Normal alignment. No destructive bony lesion. DISCS/SPINAL CANAL/NEURAL FORAMINA: No significant central canal or neural foraminal stenosis. Discs heights are grossly preserved. PARASPINAL SOFT TISSUES: Unremarkable. OTHER FINDINGS: The report concurs with the preliminary [facility] report IMPRESSION: No acute findings
== END 2018-04-01 23:43 | disposition home or self-care (01) ==
LOC: ED 19:46
DX: H93.11 Tinnitus, right ear (principal); M54.2 Cervicalgia; H53.8 Other visual disturbances; I10 Essential (primary) hypertension; F17.210 Nicotine dependence, cigarettes, uncomplicated

== ENCOUNTER 2018-07-08 13:00 | Emergency (ER) | payer OTHER ==
[2018-07-08 13:01] VITALS: PULSE 88
[2018-07-08 13:55] VITALS: RESP 18; TEMP 97.9; BMI 23.7
--- NOTE | 2018-07-08 15:16 | ED PDOC ---
Arrival/HPI - General Chief Complaint: Rib Injury Time Seen by Provider: 07/08/18 15:08 Historian: Patient - History of Present Illness Narrative History of Present Illness (Text): 07/08/18 15:09 52 year old male, with past medical history of emphysema/COPD, coronary spasm, Hypertension, Peptic Ulcer Disease, and nephrolithiasis, presents to the Emergency department complaining of right rib pain since yesterday. Patient states he accidentally hit the right side of his ribs to a wall yesterday while carrying a chair. Pain worsened today while at work making it difficult for the patient to take deep inspirations or turn certain ways. Patient denies taking any pain medication for the symptoms. Patient denies any other associated somatic complaints. Patient denies any fevers, chills, headache, cough, abdominal pain, nausea, vomiting, diarrhea, back pain, neck pain, or any other complaints. Patient admits to smoking cigarettes. Time/Duration: 24 hours Symptom Onset: Gradual Symptom Course: Unchanged Quality: Aching Activities at Onset: Light Context: Home Past Medical History - Provider Review Nursing Documentation Reviewed: Yes - Past History Past History: No Previous - Infectious Disease Hx of Infectious Diseases: None - Tetanus Immunization Tetanus Immunization: Unknown - Cardiac Hx Cardiac Disorders: Yes Hx Hypertension: Yes - Pulmonary Hx Respiratory Disorders: Yes Hx Chronic Obstructive Pulmonary Disease (COPD): Yes Hx Emphysema: Yes - Neurological Hx Neurological Disorder: Yes Hx Migraine: Yes - HEENT Hx HEENT Disorder: No - Renal Hx Renal Disorder: Yes Hx Kidney Stones: Yes - Endocrine/Metabolic Hx Endocrine Disorders: No - Hematological/Oncological Hx Blood Transfusions: No Hx Blood Transfusion Reaction: No - Integumentary Hx Dermatological Disorder: No - Musculoskeletal/Rheumatological Hx Musculoskeletal Disorders: No Hx Falls: No - Gastrointestinal Hx Gastrointestinal Disorders: No - Genitourinary/Gynecological Hx Genitourinary Disorders: Yes Hx Hematuria: Yes - Psychiatric Hx Psychophysiologic Disorder: No Hx Emotional Abuse: No Hx Physical Abuse: No Hx Substance Use: Yes (COCAINE, POT 20 Y.AGO) - Past Surgical History Past Surgical History: No Previous - Surgical History Other/Comment: APPENDECTOMY, L URETERAL STENT, CARD CATH, FACIAL SX - Anesthesia Hx Anesthesia Reactions: No Hx Malignant Hyperthermia: No - Suicidal Assessment Feels Threatened In Home Enviroment: No Family/Social History - Physician Review Nursing Documentation Reviewed: Yes Family/Social History: Unknown Family HX Smoking Status: Light Smoker < 10 Cigarettes Daily Hx Alcohol Use: Yes Hx Substance Use: Yes (COCAINE, POT 20 Y.AGO) Hx Substance Use Treatment: No Allergies/Home Meds Allergies/Adverse Reactions: Allergies No Known Allergies Allergy (Verified 04/01/18 19:53) Review of Systems - Physician Review All systems were reviewed & negative as marked: Yes - Review of Systems Cardiovascular: absent: Chest Pain Musculoskeletal: Other (Right sided rib discomfort ) Neurological: absent: Headache Physical Exam - Physical Exam Narrative Physical Exam (Text): 07/08/18 15:17 Constitutional: No acute distress. Head: Normocephalic. Atraumatic. Eyes: PERRL. ENT: Moist mucous membranes. Neck: Supple. Cardiovascular: Regular rate. Chest: Right lower anterior ribcage tenderness. No crepitus. No ecchymosis. Respiratory/Chest: Clear to auscultation bilaterally. GI: Soft. Nontender. Nondistended. Back: No CVA tenderness. Musculoskeletal: No tenderness or swelling of extremities. Skin: No rash. Neurologic: Alert, no focal deficit. Vital Signs Reviewed: Yes Vital Signs Temp Pulse Resp BP Pulse Ox 07/08/18 13:50 97.9 F 86 18 127/89 98 Temperature: Afebrile Blood Pressure: Normal Pulse: Regular Respiratory Rate: Normal Appearance: Positive for: Well-Appearing, Non-Toxic, Comfortable Pain Distress: None Mental Status: Positive for: Alert and Oriented X 3 Medical Decision Making ED Course and Treatment: 07/08/18 15:18 Impression: 52 year old male presents to the Emergency department complaining of right ribs discomfort. Plan: -- Tylenol -- X-ray of right ribs -- Reassess and disposition Prior Visits: Notes and results from previous visits were reviewed. Patient discharged. Incentive spirometer ordered. F/u PMD, return to ED for worsening dyspnea, fever, or any other problem. - RAD Interpretation Narrative RAD Interpretations (Text): 07/08/18 16:37 Chest and Right rib X-ray: Dictator : Vinny العراقي MD IMPRESSION: Unremarkable radiographs of the chest and right ribs. No right rib fracture. Radiology Orders: 07/08/18 15:08 RIBS RIGHT & PA CHEST [RAD] Stat Email Producer: Radiologist - Medication Orders Current Medication Orders: Acetaminophen (Tylenol 325mg Tab) 650 mg PO STAT STA Stop: 07/08/18 15:09 - Scribe Statement The provider has reviewed the documentation as recorded by the Nathenibe Dustin Camejo. All medical record entries made by the Scribe were at my direction and personally dictated by me. I have reviewed the chart and agree that the record accurately reflects my personal performance of the history, physical exam, medical decision making, and the department course for this patient. I have also personally directed, reviewed, and agree with the discharge instructions and disposition. Disposition/Present on Arrival - Present on Arrival Any Indicators Present on Arrival: No History of DVT/PE: No History of Uncontrolled Diabetes: No Urinary Catheter: No History of Decub. Ulcer: No History Surgical Site Infection Following: None - Disposition Have Diagnosis and Disposition been Completed?: Yes Diagnosis: Rib contusion Disposition: HOME/ ROUTINE Disposition Time: 16:14 Patient Plan: Discharge Patient Problems: Current Active Problems Problem Status Onset Rib contusion Acute Condition: STABLE Discharge Instructions (ExitCare): Bruised Rib (DC) Prescriptions: Acetaminophen [Tylenol 325mg tab] 2 tab PO Q4H #30 tab Famotidine [Pepcid] 1 tab PO BID #14 tab Referrals: Enedina Vinson MD [Primary Care Provider] - Follow up with primary Forms: [employer] ([place]), WORK NOTE
--- NOTE | 2018-07-08 16:17 | RAD ---
Date of service: 07/08/2018 PROCEDURE: Radiographs of the Chest and Right Ribs. HISTORY: R sided thoracic tenderness, struck wall COMPARISON: None available. TECHNIQUE: Frontal radiograph of the chest and multiple oblique radiographs of the right ribs were obtained. FINDINGS: RIGHT RIBS: No fracture or focal lesion visualized. LUNGS: Clear. PLEURA: No pneumothorax or pleural fluid. CARDIOVASCULAR: Normal cardiac size. No pulmonary vascular congestion. No aortic atherosclerotic calcification present OTHER FINDINGS: None. IMPRESSION: Unremarkable radiographs of the chest and right ribs. No right rib fracture.
[2018-07-08 17:21] VITALS: BP 122/76; PULSE 78; O2SAT 99
== END 2018-07-08 20:05 | disposition home or self-care (01) ==
LOC: ED 13:00
DX: S20.219A Contusion of unspecified front wall of thorax, initial encounter (principal); W22.01XA Walked into wall, initial encounter; Y99.0 Civilian activity done for income or pay; I10 Essential (primary) hypertension; J44.9 Chronic obstructive pulmonary disease, unspecified; F17.210 Nicotine dependence, cigarettes, uncomplicated